=== PATIENT | male | born 1935 | race Caucasian/White ===

== ENCOUNTER 2023-10-21 12:02 | Outpatient (REF) | payer MEDICARE, SELFPAY ==
[2023-10-21 13:19] LABS: Basophils Percent Auto 0.3 % (0.2-2.0); Eosinophils Absolute Auto 0.2 10^3/uL (0.0-0.7); Eosinophils Percent Auto 2.6 % (0.9-7.0); Hematocrit 43.6 % (42.0-54.0); Hemoglobin 13.9 g/dL (14.0-18.0); Immature Granulocytes Abs Auto 0.02 10^3/uL (0.00-0.03); Immature Granulocytes Pct Auto 0.3 % (0.0-0.5); Lymphocytes Absolute Auto 0.9 10^3/uL (1.2-3.8); Lymphocytes Percent Auto 11.9 % (20.5-60.0); Mean Corpuscular HGB Conc 31.9 g/dL (29.9-35.2); Mean Corpuscular Hemoglobin 29.6 pg (25.9-34.0); Mean Platelet Volume 9.9 fL (9.5-13.5); Monocytes Absolute Auto 0.5 10^3/uL (0.3-0.8); Monocytes Percent Auto 6.3 % (1.7-12.0); Neutrophils Absolute Auto 5.8 10^3/uL (1.4-6.5); Neutrophils Percent Auto 78.6 % (43.0-75.0); Platelet Count 253 10^3/uL (150-450); Red Blood Count 4.69 10^6/uL (4.70-6.10); Red Cell Distribution Width 14.6 % (11.0-15.0); White Blood Count 7.3 10^3/uL (4.0-11.0)
[2023-10-21 13:46] LABS: Alanine Aminotransferase 13 U/L (16-63); Albumin Level 3.4 g/dL (3.4-5.0); Alkaline Phosphatase 85 U/L (46-116); Anion Gap 13.3; Aspartate Amino Transferase 15 U/L (15-37); BUN Creatinine Ratio 16.4; Bilirubin Total 0.5 mg/dL (0.2-1.0); Calcium 8.8 mg/dL (8.5-10.1); Carbon Dioxide 27.6 mmol/L (21.0-32.0); Chloride 103 mmol/L (98-107); Estimated GFR (African America 55 (>=60); Estimated GFR (Non-African Ame 46 (>=60); Globulin 3.4 g/dL; Glucose 198 mg/dL (74-106); Potassium 3.9 mmol/L (3.5-5.1); Sodium 140 mmol/L (136-145); Total Protein 6.8 g/dL (6.4-8.2)
== END 2023-10-21 12:03 | disposition home or self-care (01) ==
LOC: LAB 12:02
PROVIDERS: PCP Family Medicine; Visit Provider Family Medicine
DX: R73.03 Prediabetes (principal); Z86.73 Personal history of transient ischemic attack (TIA), and cerebral infarction without residual deficits; N18.31 Chronic kidney disease, stage 3a; E55.9 Vitamin D deficiency, unspecified; I12.9 Hypertensive chronic kidney disease with stage 1 through stage 4 chronic kidney disease, or unspecified chronic kidney disease
CPT/HCPCS: 36415; 80053; 84443; 85025

== ENCOUNTER 2023-12-11 08:58 | Outpatient (REF) | payer MEDICARE, SELFPAY ==
--- OUTSIDE RECORDS SUMMARY | 2023-12-11 09:21 | XMS_ITS | CCD ---
Author Organization [facility] Care Team Providers Care Testing Manager Name Role Phone Unavailable Primary Care Provider UnavailJOEY Smith Attending Unavailable ROMINA FLOWERS Primary Care Unavailable Romina Flowers Primary Care Unavailable MD Ba Salmon Admitting Unavailab MD Ba Pearce Attending Unavailab Romina Lima Primary Care Unavailable Jude Sanchez Admitting Unavailable Jude Sanchez Attending Unavailable Romina Flowers Primary Care Unavailable Carrillo Alejo Admitting Unavailab Carrillo Ren Attending Unavailab Romina Lima Primary Care Unavailable Dipesh Jacksonun Admitting Unavailable Dipesh Jacksonun Attending Unavailable Romina Flowers Primary Care Unavailable Jono Hopkins Consulting Unavailable Tucker Taveras Admitting Unavailable Tucker Taveras Attending Unavailable Romina Flowers Attending Unavailable Romina Flowers Primary Care Unavailable Romina Flowers Attending Unavailable Romina Flowers Primary Care Unavailable Romina Flowers Primary Care Unavailable Romina Flowers Attending Unavailable Rocael Hooker Admitting Unavailable Rocael Hooker Attending Unavailable Romina Flowers Primary Care Unavailable Romina Flowers Primary Care Unavailable Manuel, Herman Admitting Unavailable ManuelDipeshun Attending Unavailable ROBERTA CALABRESE Attending Unavailable ROMINA FLOWERS Primary Care Physician Unavailab Dipti Sims Attending Unavailable Dipti Escamilla Attending Unavailable Allergies Allergy Classification Reported Allergen(s) Allergy Type Date of Onset Reaction(s) Facility (1 source) No Known Medication Allergies; Translations: [No Known Medication Allergies] Propensity to adverse reactions (disorder) [facility] Repository Medications Current Medications Medication Drug Class(es) Dates Sig (Normalized) Sig (Original) amLODIPine 10 mg oral tablet (1 source) Dihydropyridine Calcium Channel Sue Start: 03-31-2019 take 10 mg by mouth once daily amlodipine 10 mg, Oral, Daily Start Date: 03/31/19 Status: Ordered aspirin 81 mg oral tablet (1 source) Platelet Aggregation Inhibitor, Nonsteroidal Anti-inflammatory Drug Start: 03-31-2019 take 1 tablet by mouth once daily aspirin 81 mg oral tablet 81 mg = 1 tab(s), Oral, Daily Start Date: 03/31/19 Status: Ordered carbidopa 25 mg / levodopa 250 mg oral tablet (1 source) Aromatic Amino Acid Decarboxylation Inhibitor, Aromatic Amino Acid Start: 03-31-2019 carbidopa-levodop a 25 mg-250 mg Tab 1 tab(s) Start Date: 03/31/19 Status: Ordered clopidogrel 75 mg oral tablet (1 source) P2Y12 Platelet Inhibitor Start: 03-31-2019 take 1 tablet by mouth once daily clopidogrel 75 mg Tab 75 mg = 1 tab(s), Oral, Daily Start Date: 03/31/19 Status: Ordered metoprolol tartrate 50 mg oral tablet (1 source) beta-Adrenergic Sue Start: 03-31-2019 take 1 tablet by mouth once daily Metoprolol succinate 50 mg ER Tablet 50 mg, Oral, Daily Start Date: 03/31/19 Status: Ordered Vitamin D3 (1 source) Start: 03-31-2019 Vitamin D3 400 International_Uni t, Daily Start Date: 03/31/19 Status: Ordered Completed/Discontinued Medications Medication Drug Class(es) Dates Sig (Normalized) Sig (Original) ciprofloxacin 500 mg oral tablet (2 sources) Quinolone Antimicrobial Start: 02-25-2019 take 1 tablet by mouth once daily Cipro 500 mg Tab 500 mg = 1 tab(s), Oral, Daily, Take 1 tablet the day before the procedure and 1 tablet after the procedure, # 2 tab(s), Refills(s) 0, Pharmacy: [address] Start Date: 11/17/19 Status: Ordered Problems Problem Classification Problem Date Documented Date Episodic/Chronic Acute cerebrovascular disease (1 source) Cerebrovascular accident 02-23-2019 Chronic Cancer of prostate (1 source) History of malignant neoplasm of prostate 02-23-2019 Episodic Disorders of lipid metabolism (1 source) Hyperlipidemia 02-23-2019 Chronic Essential hypertension (1 source) Hypertensive disorder 02-23-2019 Chronic Genitourinary symptoms and ill-defined conditions (1 source) Microscopic hematuria 02-23-2019 Episodic 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 Other diseases of bladder and urethra (1 source) Urethral stricture 02-23-2019 Episodic Parkinson`s disease (1 source) Parkinson's disease 03-31-2019 Chronic Residual codes; unclassified (1 source) Pain, unspecified; Translations: [Pain, unspecified] Onset: 06-05-2023 Episodic Residual codes; unclassified (1 source) Family history of prostate cancer 02-23-2019 Episodic Results Test Name Value Interpretation Reference Range Facility C Bloodon 10-17-2023 C Blood Corynebacterium species (diptheroids) No ARTURO performed on this organism Probable skin contamination Results called to Bryn Chairez on 2S at 729 by TB and results read back for confirmation on 10/15/23 [facility] Comment on above: Performed By: #### 6 [id number] ####[facility] (DEFAULT)[address] [place] [address] Outside Recordson 10-17-2023 Outside Records [id number]# 1.00OTGTIFF [facility] Outside Records [id number]# 1.00OTGTIFF [facility] Coding Summaryon 10-16-2023 Coding Summary [facility] Bloodon 10-15-2023 C Blood No growth at [facility] Comment on above: Performed By: #### 6 [id number] ####[facility] (DEFAULT)[address] [place] [address] Coding Summaryon 10-15-2023 Coding Summary [facility] Consent Formson 10-15-2023 Consent Forms [id number]# 1.00OTGTIFF [facility] Outside Recordson 10-15-2023 Outside Records [id number]# 1.00OTGTIFF [facility] Provider Orderson 10-15-2023 Provider Orders [id number]# 1.00OTGTIFF Normal .Auto Diff 10-14-2023 Auto [place] % 14 % High 1-12 Comment on above: Performed By: #### 1 [id number], [id number], [id number] ####[facility] (DEFAULT)[address] [place] [address] 45658 Baso Abs# 0.0 x10 Normal 0.0-0.2 Comment on above: Performed By: #### 1 [id number], 9945216, 18499834 ####[facility] (DEFAULT)[address] [place] [address] Basophils/100 WBC (Bld) 0.6 % Normal 0.2-2.0 Comment on above: Performed By: #### 1 [id number], 3316147, 27354991 ####[facility] (DEFAULT)[address] [place] [address] 66032 Eos Abs# 0.2 x10 Normal 0.0-0.4 Comment on above: Performed By: #### 1 [id number], 0375896, 34479449 ####[facility] (DEFAULT)[address] [place] [address] 24380 Eosinophils/100 WBC (Bld) 3.8 % Normal 0.9-4.0 Comment on above: Performed By: #### 1 [id number], 4931701, 91920790 ####[facility] (DEFAULT)[address] [place] [address] 08530 Lymph Abs# 0.9 x10 Low 1.3-2.9 Comment on above: Performed By: #### 1 [id number], 4521056, 76887270 ####[facility] (DEFAULT)[address] [place] [address] 60590 Lymphocytes/100 WBC (Bld) 18 % Normal 14-48 Comment on above: Performed By: #### 1 [id number], 4387847, 46326560 ####[facility] (DEFAULT)[address] [place] [address] 62494 [place] Abs# 0.7 x10 Normal 0.0-0.8 Comment on above: Performed By: #### 1 [id number], 1586961, 44413722 ####[facility] (DEFAULT)[address] [place] [address] 57163 Neut Abs# 3.3 x10 Normal 1.5-9.2 Comment on above: Performed By: #### 1 [id number], 1886529, 83167696 ####[facility] (DEFAULT)[address] [place] [address] 17186 Neutrophils/100 WBC (Bld) 64 % Normal 44-88 Comment on above: Performed By: #### 1 [id number], 8481194, 35389122 ####[facility] (DEFAULT)[address] [place] [address] 29625 BMP Standardon 10-14-2023 eGFR Non AA 55 mL/min/1.73m2 Invalid Interpretation Code Comment on above: Performed By: #### 1 [id number], 8742177, 01935421 ####[facility] (DEFAULT)[address] [place] [address] 55801 eGFR AA >60 Invalid Interpretation Code Comment on above: Performed By: #### 1 [id number], 9599580, 97477064 ####[facility] (DEFAULT)[address] [place] [address] 62754 Anion gap [Moles/Vol] 11.1 mmol/L Normal 5.0-19.0 Comment on above: Performed By: #### 1 [id number], 2409719, 12724006 ####[facility] (DEFAULT)[address] [place] [address] 50548 Calcium [Mass/Vol] 8.7 mg/dL Low 8.9-10.3 [facility] Comment on above: Performed By: #### 1 [id number], 4636452, 09371714 ####[facility] (DEFAULT)[address] [place] [address] 35542 Chloride [Moles/Vol] 106 mmol/L Normal 101-111 [facility] Comment on above: Performed By: #### 1 [id number], 0656782, 05746021 ####[facility] (DEFAULT)[address] [place] [address] 21129 CO2 [Moles/Vol] 28 mmol/L Normal 21-32 Comment on above: Performed By: #### 1 [id number], 2103156, 66554453 ####[facility] (DEFAULT)[address] [place] [address] 55326 Creatinine [Mass/Vol] 1.24 mg/dL Normal 0.90-1.30 Comment on above: Performed By: #### 1 [id number], 7628892, 06451502 ####[facility] (DEFAULT)[address] [place] [address] 23919 Glucose [Mass/Vol] 117.0 mg/dL Normal 74.0-118.0 [facility] Comment on above: Performed By: #### 1 [id number], 2659909, 27624373 ####[facility] (DEFAULT)[address] [place] [address] 16412 Osmolality 288 mOsm/L Invalid Interpretation Code Comment on above: Performed By: #### 1 [id number], 1910139, 32175784 ####[facility] (DEFAULT)[address] [place] [address] 56288 Potassium [Moles/Vol] 4.1 mmol/L Normal 3.6-5.1 Comment on above: Performed By: #### 1 [id number], 0022945, 07089465 ####[facility] (DEFAULT)[address] [place] [address] 09540 Sodium [Moles/Vol] 141.0 mmol/L Normal 136.0-144.0 [facility] Comment on above: Performed By: #### 1 [id number], 2516874, 56795692 ####[facility] (DEFAULT)[address] [place] [address] 43258 Urea nitrogen [Mass/Vol] 28 mg/dL High 8-26 Comment on above: Performed By: #### 1 [id number], 2868428, 11041841 ####[facility] (DEFAULT)[address] [place] [address] Urea nitrogen/Creatinine [Mass ratio] 22.5 mg/mg High 4.6-16.2 Comment on above: Performed By: #### 1 [id number], 6146036, 93738133 ####[facility] (DEFAULT)[address] [place] [address] CBC w/ Auto Diffon 4 Erythrocyte distribution width (RBC) [Ratio] 15.5 % High 11.5-15.0 Comment on above: Performed By: #### 1 [id number], 4947903, 84706167 ####[facility] (DEFAULT)[address] [place] [address] Hematocrit (Bld) [Volume fraction] 37.2 % Normal 34.8-51.9 Comment on above: Performed By: #### 1 [id number], 6597845, 44363790 ####[facility] (DEFAULT)[address] [place] [address] Hemoglobin (Bld) [Mass/Vol] 12.5 g/dL Normal 11.8-17.7 Comment on above: Performed By: #### 1 [id number], 0610293, 67915790 ####[facility] (DEFAULT)[address] [place] [address] Man Diff? Auto Invalid Interpretation Code Comment on above: Performed By: #### 1 [id number], 4015139, 28828929 ####[facility] (DEFAULT)[address] [place] [address] 81116 MCH (RBC) [Entitic mass] 30 pg Normal 24-34 Comment on above: Performed By: #### 1 [id number], 0929705, 96773765 ####[facility] (DEFAULT)[address] [place] [address] 34569 MCHC (RBC) [Mass/Vol] 34 g/dL Normal 26-37 Comment on above: Performed By: #### 1 [id number], 4717508, 00584671 ####[facility] (DEFAULT)[address] [place] [address] 20399 MCV (RBC) [Entitic vol] 89 fL Normal 81-100 Comment on above: Performed By: #### 1 [id number], 9847441, 50593837 ####[facility] (DEFAULT)[address] [place] [address] 79069 Platelet 177 x10 Normal 138-427 Comment on above: Performed By: #### 1 042092419, 3866000, 76161837 ####[facility] (DEFAULT)[address] [place] [address] 99279 Platelet mean volume (Bld) [Entitic vol] 8.2 fL Normal 6.3-10.2 Comment on above: Performed By: #### 1 [id number], 2174605, 10251320 ####[facility] (DEFAULT)[address] [place] [address] 27854 RBC 4.19 x10 Normal 3.70-5.30 Comment on above: Performed By: #### 1 [id number], 5084051, 41296725 ####[facility] (DEFAULT)[address] [place] [address] WBC 5.2 x10 Normal 3.5-10.5 Comment on above: Performed By: #### 1 [id number], 7646692, 07366386 ####[facility] (DEFAULT)[address] [place] [address] Discharge Noteon 10-14-2023 Discharge Note Normal Education Noteon 10-14-2023 Education Note Normal Inpatient Clinical Summaryon 10-14-2023 Inpatient Clinical Summary Normal Inpatient Patient Summaryon 10-14-2023 Inpatient Patient Summary Normal Pharmacy Noteon 10-14-2023 Pharmacy Note Normal Progress Note - Nurseon 09-16 Progress Note - Nurse report called to isaias verdin at [place], . [Electronically Signed on: 10/14/2023 14:08 EDT] Indu March RN [Verified on: 10/14/2023 14:08 EDT] Indu March RN Normal .Auto Diff 1on 10-13-2023 Auto [place] % 10 % Normal 1-12 Comment on above: Performed By: #### 1 [id number], 1243457449, 5392267 ####[facility] (DEFAULT)[address] [place] [address] 19451 Baso Abs# 0.0 x10 Normal 0.0-0.2 Comment on above: Performed By: #### 1 6189718, 0619704388, 2076120 ####[facility] (DEFAULT)[address] [place] [address] Basophils/100 WBC (Bld) 0.3 % Normal 0.2-2.0 Comment on above: Performed By: #### 1 [id number], 8976230686, 3207200 ####[facility] (DEFAULT)[address] [place] [address] 29852 Eos Abs# 0.1 x10 Normal 0.0-0.4 Comment on above: Performed By: #### 1 9785813, 6185165484, 1022387 ####[facility] (DEFAULT)[address] [place] [address] 27539 Eosinophils/100 WBC (Bld) 1.4 % Normal 0.9-4.0 Comment on above: Performed By: #### 1 0857942, 6844772709, 7701192 ####[facility] (DEFAULT)[address] [place] [address] 59386 Lymph Abs# 1.0 x10 Low 1.3-2.9 Comment on above: Performed By: #### 1 0903408, 2485832601, 9571753 ####[facility] (DEFAULT)[address] [place] [address] 46053 Lymphocytes/100 WBC (Bld) 14 % Normal 14-48 Comment on above: Performed By: #### 1 2935078, [id number], 9090758 ####[facility] (DEFAULT)[address] [place] [address] [place] Abs# 0.7 x10 Normal 0.0-0.8 Comment on above: Performed By: #### 1 1111116, 1621319255, 5316209 ####[facility] (DEFAULT)[address] [place] [address] Neut Abs# 5.5 x10 Normal 1.5-9.2 Comment on above: Performed By: #### 1 7897721, 5844016937, 5513275 ####[facility] (DEFAULT)[address] [place] [address] Neutrophils/100 WBC (Bld) 75 % Normal 44-88 Comment on above: Performed By: #### 1 3114740, 7954882237, 8430258 ####[facility] (DEFAULT)[address] [place] [address] Standardon 10-13-2023 eGFR Non AA 56 mL/min/1.73m2 Invalid Interpretation Code Comment on above: Performed By: #### 1 1516506, [id number], 2858011 ####[facility] (DEFAULT)[address] [place] [address] eGFR AA >60 Invalid Interpretation Code Comment on above: Performed By: #### 1 1808271, 1036512963, 1763804 ####[facility] (DEFAULT)[address] [place] [address] Anion gap [Moles/Vol] 10.0 mmol/L Normal 5.0-19.0 Comment on above: Performed By: #### 1 7454188, 5126467397, 1088099 ####[facility] (DEFAULT)[address] [place] [address] 68075 Calcium [Mass/Vol] 9.1 mg/dL Normal 8.9-10.3 [facility] Comment on above: Performed By: #### 1 1460086, 0342625807, 9275026 ####[facility] (DEFAULT)[address] [place] [address] 14874 Chloride [Moles/Vol] 107 mmol/L Normal 101-111 [facility] Comment on above: Performed By: #### 1 9166867, 1633116872, 5115443 ####[facility] (DEFAULT)[address] [place] [address] 92714 CO2 [Moles/Vol] 25 mmol/L Normal 21-32 Comment on above: Performed By: #### 1 8413033, 5104979072, 4610894 ####[facility] (DEFAULT)[address] [place] [address] 74149 Creatinine [Mass/Vol] 1.23 mg/dL Normal 0.90-1.30 Comment on above: Performed By: #### 1 1370201, 6388847103, 8617073 ####[facility] (DEFAULT)[address] [place] [address] 85565 Glucose [Mass/Vol] 126.0 mg/dL High 74.0-118.0 [facility] Comment on above: Performed By: #### 1 0339611, [id number], 5542188 ####[facility] (DEFAULT)[address] [place] [address] 49966 Osmolality 282 mOsm/L Invalid Interpretation Code Comment on above: Performed By: #### 1 6285725, 8524687016, 6330734 ####[facility] (DEFAULT)[address] [place] [address] 30746 Potassium [Moles/Vol] 4.0 mmol/L Normal 3.6-5.1 Comment on above: Performed By: #### 1 2534810, 3468658488, 1451818 ####[facility] (DEFAULT)[address] [place] [address] 57528 Sodium [Moles/Vol] 138.0 mmol/L Normal 136.0-144.0 [facility] Comment on above: Performed By: #### 1 1333064, [id number], 3631269 ####[facility] (DEFAULT)[address] [place] [address] Urea nitrogen [Mass/Vol] 26 mg/dL Normal 8-26 Comment on above: Performed By: #### 1 1079477, 3497130113, 5875995 ####[facility] (DEFAULT)[address] [place] [address] Urea nitrogen/Creatinine [Mass ratio] 21.1 mg/mg High 4.6-16.2 Comment on above: Performed By: #### 1 3351225, [id number], 8321623 ####[facility] (DEFAULT)[address] [place] [address] CBC w/ Auto Diffon Erythrocyte distribution width (RBC) [Ratio] 15.2 % High 11.5-15.0 Comment on above: Performed By: #### 1 7630304, 3913149124, 2310859 ####[facility] (DEFAULT)[address] [place] [address] Hematocrit (Bld) [Volume fraction] 39.0 % Normal 34.8-51.9 Comment on above: Performed By: #### 1 5720707, 2402340668, 6721858 ####[facility] (DEFAULT)[address] [place] [address] Hemoglobin (Bld) [Mass/Vol] 13.1 g/dL Normal 11.8-17.7 Comment on above: Performed By: #### 1 6034288, 4096166389, 8353343 ####[facility] (DEFAULT)[address] [place] [address] Man Diff? Auto Invalid Interpretation Code Comment on above: Performed By: #### 1 7548046, [id number], 1850741 ####[facility] (DEFAULT)[address] [place], [place] [address] MCH (RBC) [Entitic mass] 30 pg Normal 24-34 Comment on above: Performed By: #### 1 2917450, 8106538750, 4350595 ####[facility] (DEFAULT)[address] [place] [address] 89355 MCHC (RBC) [Mass/Vol] 34 g/dL Normal 26-37 Comment on above: Performed By: #### 1 8842407, 7820195093, 9048304 ####[facility] (DEFAULT)[address] [place] [address] 12560 MCV (RBC) [Entitic vol] 90 fL Normal 81-100 Comment on above: Performed By: #### 1 2616690, 1055702982, 7237024 ####[facility] (DEFAULT)[address] [place] [address] 38290 Platelet 187 x10 Normal 138-427 Comment on above: Performed By: #### 1 4761321, 1225146625, 6346697 ####[facility] (DEFAULT)[address] [place] [address] 11693 Platelet mean volume (Bld) [Entitic vol] 8.1 fL Normal 6.3-10.2 Comment on above: Performed By: #### 1 7551046, 0511194803, 4158100 ####[facility] (DEFAULT)[address] [place] [address] 41443 RBC 4.35 x10 Normal 3.70-5.30 Comment on above: Performed By: #### 1 0939421, 8584036019, 9107330 ####[facility] (DEFAULT)[address] [place] [address] 06538 WBC 7.3 x10 Normal 3.5-10.5 Comment on above: Performed By: #### 1 0729083, 9604685548, 2029753 ####[facility] (DEFAULT)[address] [place] [address] 69456 Nutrition Noteon 10-13-2023 Nutrition Note note po intake has been good - 100% most meals; will continue to monitor po and assist with any changes prn. ts Normal RPR, Rfx Qn RPR/Confirm TP L Con 10-13-2023 RPR LC Non-Reactive Invalid Interpretation Code Non Reactive Comment on above: Result Comment: Perf ormed At: [facility] [id number] [place], [place] [id number] Vincent PhD Ph:[phone] Performed By: #### 1 [id number], [id number], 5383237, 6858898, [id number] ####[facility] (DEFAULT)[address] [place] [address] .Auto Diff 10-12-2023 Auto [place] % 9 % Normal 03-29 Comment on above: Performed By: #### 1 0973004, 8146371279, 3822540, 3476513, [id number] ####[facility] (DEFAULT)[address] [place] [address] Baso Abs# 0.0 x10 Normal 0.0-0.2 Comment on above: Performed By: #### 1 3427950, 9631084986, 3440833, 8625651, 3967407093 ####[facility] (DEFAULT)[address] [place] [address] Basophils/100 WBC (Bld) 0.4 % Normal 0.2-2.0 Comment on above: Performed By: #### 1 9310053, 5374556514, 7443265, 9111541, 6253918643 ####[facility] (DEFAULT)[address] [place] [address] Eos Abs# 0.1 x10 Normal 0.0-0.4 Comment on above: Performed By: #### 1 8314973, 4393903525, 6575088, 9457121, [id number] ####[facility] (DEFAULT)[address] [place] [address] Eosinophils/100 WBC (Bld) 1.6 % Normal 0.9-4.0 Comment on above: Performed By: #### 1 6991042, 7675815921, 9341487, 4311299, 6202208713 ####[facility] (DEFAULT)[address] [place] [address] 31184 Lymph Abs# 0.7 x10 Low 1.3-2.9 Comment on above: Performed By: #### 1 6183771, 0231749157, 2519261, 0465985, 6262236361 ####[facility] (DEFAULT)[address] [place] [address] 05955 Lymphocytes/100 WBC (Bld) 12 % Low 14-48 Comment on above: Performed By: #### 1 4355539, 8134062822, 2118581, 9939221, 7383927667 ####[facility] (DEFAULT)[address] [place] [address] 94870 [place] Abs# 0.5 x10 Normal 0.0-0.8 Comment on above: Performed By: #### 1 9822619, 1762071088, 8869936, 6036476, [id number] ####[facility] (DEFAULT)[address] [place] [address] 23342 Neut Abs# 4.7 x10 Normal 1.5-9.2 Comment on above: Performed By: #### 1 5921677, 1450675522, 8955957, 5227529, 5715665099 ####[facility] (DEFAULT)[address] [place] [address] 55805 Neutrophils/100 WBC (Bld) 77 % Normal 44-88 Comment on above: Performed By: #### 1 1271406, 2327786917, 6152111, 3689218, 8797710206 ####[facility] (DEFAULT)[address] [place] [address] 92749 BMP Standardon 10-12-2023 eGFR Non AA >60 Invalid Interpretation Code Comment on above: Performed By: #### 1 0592396, [id number], 9077930, 2518574, [id number] ####[facility] (DEFAULT)[address] [place] [address] 10150 eGFR AA >60 Invalid Interpretation Code Comment on above: Performed By: #### 1 8963671, 2726626448, 7137831, 6262714, [id number] ####[facility] (DEFAULT)[address] [place] [address] [id number] Anion gap [Moles/Vol] 10.9 mmol/L Normal 5.0-19.0 Comment on above: Performed By: #### 1 [id number], [id number], [id number], [id number], [id number] ####[facility] (DEFAULT)[address] [place] [address] [id number] Calcium [Mass/Vol] 8.8 mg/dL Low 8.9-10.3 [facility] Comment on above: Performed By: #### 1 [id number], [id number], [id number], [id number], [id number] ####[facility] [facility] (DEFAULT)[address] [place] [address] 29214 Chloride [Moles/Vol] 108 mmol/L Normal 101-111 [facility] Comment on above: Performed By: #### 1 4811423, 8473217152, 5708291, 3876550, 6650628061 ####[facility] (DEFAULT)[address] [place] [address] 19540 CO2 [Moles/Vol] 25 mmol/L Normal 21-32 Comment on above: Performed By: #### 1 0212252, 8183908844, 5415543, 3470207, 6895330022 ####[facility] (DEFAULT)[address] [place] [address] 52310 Creatinine [Mass/Vol] 1.11 mg/dL Normal 0.90-1.30 Comment on above: Performed By: #### 1 6344594, 7197151392, 9629473, 8905746, 4606369454 ####[facility] (DEFAULT)[address] [place] [address] 43064 Glucose [Mass/Vol] 123.0 mg/dL High 74.0-118.0 [facility] Comment on above: Performed By: #### 1 4381263, 2136030248, 1012218, 2170518, 3853236369 ####[facility] (DEFAULT)[address] [place] [address] 83291 Osmolality 286 mOsm/L Invalid Interpretation Code Comment on above: Performed By: #### 1 9848769, 7730799155, 9322479, 4423447, 0264887737 ####[facility] (DEFAULT)[address] [place] [address] 67119 Potassium [Moles/Vol] 3.9 mmol/L Normal 3.6-5.1 Comment on above: Performed By: #### 1 6619213, 8494947851, 0702324, 7778258, 9532144077 ####[facility] (DEFAULT)[address] [place] [address] 88615 Sodium [Moles/Vol] 140.0 mmol/L Normal 136.0-144.0 [facility] Comment on above: Performed By: #### 1 0668830, 5013224203, 2631503, 6748308, 8719579422 ####[facility] (DEFAULT)[address] [place] [address] 29152 Urea nitrogen [Mass/Vol] 27 mg/dL High 8-26 Comment on above: Performed By: #### 1 9327890, 4205711603, 4209904, 8129195, 4796514218 ####[facility] (DEFAULT)[address] [place] [address] 16684 Urea nitrogen/Creatinine [Mass ratio] 24.3 mg/mg High 4.6-16.2 Comment on above: Performed By: #### 1 1255704, 5804081245, 6034162, 3667882, 0475578971 ####[facility] (DEFAULT)[address] [place] [address] 97607 CBC w/ Auto Diffon 4 Erythrocyte distribution width (RBC) [Ratio] 14.9 % Normal 11.5-15.0 Comment on above: Performed By: #### 1 7429001, 9824900588, 5980789, 4802433, 7159239217 ####[facility] (DEFAULT)[address] [place] [address] Hematocrit (Bld) [Volume fraction] 39.2 % Normal 34.8-51.9 Comment on above: Performed By: #### 1 9177310, 5309236439, 5481793, 7562084, 1451309925 ####[facility] (DEFAULT)[address] [place] [address] Hemoglobin (Bld) [Mass/Vol] 13.2 g/dL Normal 11.8-17.7 Comment on above: Performed By: #### 1 7859960, 1691990571, 3033554, 6649446, 7882351879 ####[facility] (DEFAULT)[address] [place] [address] Man Diff? Auto Invalid Interpretation Code Comment on above: Performed By: #### 1 0093841, 7228551669, 2781441, 7183770, 8380230723 ####[facility] (DEFAULT)[address] [place] [address] 72644 MCH (RBC) [Entitic mass] 30 pg Normal 24-34 Comment on above: Performed By: #### 1 5992819, 5036898615, 8412900, 7075660, 7932689778 ####[facility] (DEFAULT)[address] [place] [address] 85608 MCHC (RBC) [Mass/Vol] 34 g/dL Normal 26-37 Comment on above: Performed By: #### 1 7734453, 1656199415, 9241962, 6271598, 2038946290 ####[facility] (DEFAULT)[address] [place] [address] MCV (RBC) [Entitic vol] 88 fL Normal 81-100 Comment on above: Performed By: #### 1 8171322, 8976575037, 8357000, 2631118, 3296492346 ####[facility] (DEFAULT)[address] [place] [address] Platelet 181 x10 Normal 138-427 Comment on above: Performed By: #### 1 0956567, 4310220083, 6446764, 0135377, 1165747104 ####[facility] (DEFAULT)[address] [place] [address] Platelet mean volume (Bld) [Entitic vol] 8.1 fL Normal 6.3-10.2 Comment on above: Performed By: #### 1 9931927, 6458441589, 3575797, 7728858, 7956985370 ####[facility] (DEFAULT)[address] [place] [address] RBC 4.46 x10 Normal 3.70-5.30 Comment on above: Performed By: #### 1 9046178, 1043835206, 9551251, 0746342, 5960961992 ####[facility] (DEFAULT)[address] [place] [address] WBC 6.0 x10 Normal 3.5-10.5 Comment on above: Performed By: #### 1 5792430, 0586346401, 5378138, 8956689, 5694647912 ####[facility] (DEFAULT)[address] [place] [address] CRPon 10-12-2023 CRP [Mass/Vol] mg/L Normal <=0.5 Comment on above: Performed By: #### 1 9764907, 4644604745, 4704747, 4233593, 7179381529 ####[facility] (DEFAULT)[address] [place] [address] .Auto Diff 1on 10-11-2023 Auto [place] % 10 % Normal 1-12 Comment on above: Performed By: #### 1 148283315, 10545867, 4989923 ####[facility] (DEFAULT)[address] [place] [address] Baso Abs# 0.0 x10 Normal 0.0-0.2 Comment on above: Performed By: #### 1 375143129, 64662367, 3135889 ####[facility] (DEFAULT)[address] [place] [address] 96495 Basophils/100 WBC (Bld) 0.8 % Normal 0.2-2.0 Comment on above: Performed By: #### 1 035049185, 98165127, 3872744 ####[facility] (DEFAULT)[address] [place] [address] 11555 Eos Abs# 0.1 x10 Normal 0.0-0.4 Comment on above: Performed By: #### 1 467208598, 26735923, 3619179 ####[facility] (DEFAULT)[address] [place] [address] 02058 Eosinophils/100 WBC (Bld) 2.4 % Normal 0.9-4.0 Comment on above: Performed By: #### 1 627105009, 21115937, 5276231 ####[facility] (DEFAULT)[address] [place] [address] 91641 Lymph Abs# 0.9 x10 Low 1.3-2.9 Comment on above: Performed By: #### 1 122472945, 77298723, 6375135 ####[facility] (DEFAULT)[address] [place] [address] 73865 Lymphocytes/100 WBC (Bld) 17 % Normal 14-48 Comment on above: Performed By: #### 1 139415234, 04912223, 9169668 ####[facility] (DEFAULT)[address] [place] [address] 99681 [place] Abs# 0.5 x10 Normal 0.0-0.8 Comment on above: Performed By: #### 1 160700152, 44497684, 7037342 ####[facility] (DEFAULT)[address] [place] [address] 01206 Neut Abs# 3.7 x10 Normal 1.5-9.2 Comment on above: Performed By: #### 1 302110045, 55043553, 1531106 ####[facility] (DEFAULT)[address] [place] [address] 50383 Neutrophils/100 WBC (Bld) 70 % Normal 44-88 Comment on above: Performed By: #### 1 985872208, 36663217, 3072869 ####[facility] (DEFAULT)[address] [place] [address] 10044 BMP Standardon 10-11-2023 eGFR Non AA 57 mL/min/1.73m2 Invalid Interpretation Code Comment on above: Performed By: #### 1 380515357, 34867281, 9432449 ####[facility] (DEFAULT)[address] [place] [address] 82740 eGFR AA >60 Invalid Interpretation Code Comment on above: Performed By: #### 1 439317874, 19096406, 5313770 ####[facility] (DEFAULT)[address] [place] [address] 79107 Anion gap [Moles/Vol] 9.0 mmol/L Normal 5.0-19.0 Comment on above: Performed By: #### 1 993153978, 64417675, 1800480 ####[facility] (DEFAULT)[address] [place] [address] 65658 Calcium [Mass/Vol] 8.6 mg/dL Low 8.9-10.3 [facility] Comment on above: Performed By: #### 1 293927548, 52697623, 2902156 ####[facility] (DEFAULT)[address] [place] [address] 55777 Chloride [Moles/Vol] 110 mmol/L Normal 101-111 [facility] Comment on above: Performed By: #### 1 319100814, 26393889, 2133166 ####[facility] (DEFAULT)[address] [place] [address] 94096 CO2 [Moles/Vol] 25 mmol/L Normal 21-32 Comment on above: Performed By: #### 1 136082479, 67912119, 5634323 ####[facility] (DEFAULT)[address] [place] [address] 40988 Creatinine [Mass/Vol] 1.20 mg/dL Normal 0.90-1.30 Comment on above: Performed By: #### 1 931331936, 73052233, 8749270 ####[facility] (DEFAULT)[address] [place] [address] 88005 Glucose [Mass/Vol] 116.0 mg/dL Normal 74.0-118.0 [facility] Comment on above: Performed By: #### 1 646182957, 35388087, 8429536 ####[facility] (DEFAULT)[address] [place] [address] 51833 Osmolality 285 mOsm/L Invalid Interpretation Code Comment on above: Performed By: #### 1 306372960, 06514160, 8172452 ####[facility] (DEFAULT)[address] [place] [address] 26159 Potassium [Moles/Vol] 4.0 mmol/L Normal 3.6-5.1 Comment on above: Performed By: #### 1 415042006, 20006800, 0975175 ####[facility] (DEFAULT)[address] [place] [address] 20661 Sodium [Moles/Vol] 140.0 mmol/L Normal 136.0-144.0 [facility] Comment on above: Performed By: #### 1 825738419, 34325891, 9885151 ####[facility] (DEFAULT)[address] [place] [address] 47628 Urea nitrogen [Mass/Vol] 27 mg/dL High - Comment on above: Performed By: #### 1 214155635, 80849988, 6696460 ####[facility] (DEFAULT)[address] [place] [address] 29802 Urea nitrogen/Creatinine [Mass ratio] 22.5 mg/mg High 4.6-16.2 Comment on above: Performed By: #### 1 630132992, 97808451, 5148313 ####[facility] (DEFAULT)[address] [place] [address] 74114 CBC w/ Auto Diffon 4 Erythrocyte distribution width (RBC) [Ratio] 14.8 % Normal 11.5-15.0 Comment on above: Performed By: #### 1 368523672, 11899944, 0959499 ####[facility] (DEFAULT)[address] [place] [address] Hematocrit (Bld) [Volume fraction] 39.1 % Normal 34.8-51.9 Comment on above: Performed By: #### 1 430488524, 55121151, 8244643 ####[facility] (DEFAULT)[address] [place] [address] Hemoglobin (Bld) [Mass/Vol] 12.9 g/dL Normal 11.8-17.7 Comment on above: Performed By: #### 1 891780361, 66213217, 0243510 ####[facility] (DEFAULT)[address] [place] [address] Man Diff? Auto Invalid Interpretation Code Comment on above: Performed By: #### 1 432026956, 21324869, 3378587 ####[facility] (DEFAULT)[address] [place] [address] 98467 MCH (RBC) [Entitic mass] 30 pg Normal 24-34 Comment on above: Performed By: #### 1 698371937, 18057267, 3457333 ####[facility] (DEFAULT)[address] [place] [address] 01628 MCHC (RBC) [Mass/Vol] 33 g/dL Normal 26-37 Comment on above: Performed By: #### 1 377509629, 89155409, 3191316 ####[facility] (DEFAULT)[address] [place] [address] 79424 MCV (RBC) [Entitic vol] 89 fL Normal 81-100 Comment on above: Performed By: #### 1 989545785, 84294602, 4775949 ####[facility] (DEFAULT)[address] [place] [address] 11962 Platelet 177 x10 Normal 138-427 Comment on above: Performed By: #### 1 496575466, 54696985, 5659120 ####[facility] (DEFAULT)[address] [place] [address] Platelet mean volume (Bld) [Entitic vol] 8.2 fL Normal 6.3-10.2 Comment on above: Performed By: #### 1 901739877, 18486582, 4686415 ####[facility] (DEFAULT)[address] [place] [address] RBC 4.38 x10 Normal 3.70-5.30 Comment on above: Performed By: #### 1 076758430, 04141814, 9834216 ####[facility] (DEFAULT)[address] [place] [address] WBC 5.4 x10 Normal 3.5-10.5 Comment on above: Performed By: #### 1 008791618, 29390436, 8888235 ####[facility] (DEFAULT)[address] [place] [address] .Auto Diff 1on 10-09-2023 Auto [place] % 7 % Normal 1-12 Comment on above: Performed By: #### 5 618809440, 17353962, 6309633318, 9016204628, 9534771777, 4361976, 8208889091, 4458569479, 6899564, 4806138 ####[facility] (DEFAULT)[address] [place] [address] Baso Abs# 0.0 x10 Normal 0.0-0.2 Comment on above: Performed By: #### 5 657630990, 97138806, 9735746244, 7744838759, 8879856887, 9345882, 2883598181, 6806547257, 9249604, 7566824 ####[facility] (DEFAULT)[address] [place] [address] 11692 Basophils/100 WBC (Bld) 0.6 % Normal 0.2-2.0 Comment on above: Performed By: #### 5 322802459, 49434453, 8645844884, 3276091356, 0724279783, 7844986, 1170525005, 2404978053, 8501412, 5541767 ####[facility] (DEFAULT)[address] [place] [address] 18888 Eos Abs# 0.1 x10 Normal 0.0-0.4 Comment on above: Performed By: #### 5 959011942, 12324636, 0635235492, 7103810281, 9045675512, 0680189, , 0781510826, 0101302, 2929357 ####[facility] (DEFAULT)[address] [place] [address] 79079 Eosinophils/100 WBC (Bld) 2.9 % Normal 0.9-4.0 Comment on above: Performed By: #### 5 855109850, 92057359, 1141946560, 2148329796, 3981680472, , , 9957505271, 5949156, 8267284 ####[facility] (DEFAULT)[address] [place] [address] 36294 Lymph Abs# 0.8 x10 Low 1.3-2.9 Comment on above: Performed By: #### 5 728367378, 28015594, 7363985845, 5567719861, 7033098881, , , 3589010476, 9212741, 5140605 ####[facility] (DEFAULT)[address] [place] [address] 23385 Lymphocytes/100 WBC (Bld) 17 % Normal 14-48 Comment on above: Performed By: #### 5 863570831, 21832203, 2474404358, 7181532173, 0191213760, , 2973874815, 0933679595, 6964306, 6582790 ####[facility] (DEFAULT)[address] [place] [address] 61464 [place] Abs# 0.3 x10 Normal 0.0-0.8 Comment on above: Performed By: #### 5 951807881, 37792555, 0565235966, 9861559384, 3217078333, 3993623, 3616700189, 3554568735, 2594892, 6869494 ####[facility] (DEFAULT)[address] [place] [address] Neut Abs# 3.4 x10 Normal 1.5-9.2 Comment on above: Performed By: #### 5 363570848, 02986877, 9065734822, 5761411797, 6804932361, 7476490, 8498965881, 5827593076, 1737626, 0702263 ####[facility] (DEFAULT)[address] [place], [place] [address] Neutrophils/100 WBC (Bld) 73 % Normal 44-88 Comment on above: Performed By: #### 5 840922715, 62699045, 4798150190, 0457588705, 7607563734, 9626891, 8210817160, 0774612858, 8517987, 0402806 ####[facility] (DEFAULT)[address] [place] [address] 21003 Ammoniaon 10-10-2023 Ammonia (P) [Moles/Vol] 15.0 umol/L Normal 10.0-35.0 Comment on above: Performed By: #### 6 22974252, 3503254, 9783942, 2639584, 7760935 ####[facility] (DEFAULT)[address] [place] [address] 70544 BNP.on 10-10-2023 Natriuretic peptide B (Bld) [Mass/Vol] 69.0 pg/mL Normal 0.0-100.0 Comment on above: Result Comment: BNP results greater than 100 pg/mL are considered abnormal and suggestive of patients with CHF. Higher BNP concentrations measured in the first 72 hours after an acute coronary syndorme are associated with an increased risk of , myocardial infarction, and CHF. Performed By: #### 5 127575242, 75752651, 2374517239, 2527244069, 7105213576, 1611514, 3560582428, 8176553529, 2813652, 7317944 ####[facility] (DEFAULT)[address] [place] [address] 14148 CBC w/ Auto Diffon Erythrocyte distribution width (RBC) [Ratio] 15.3 % High 11.5-15.0 Comment on above: Performed By: #### 5 096412098, 26766688, 3683076198, 7633828245, 2336493073, 0140440, 2249613260, 3496383532, 9144796, 4481643 ####[facility] (DEFAULT)[address] [place] [address] 36545 Hematocrit (Bld) [Volume fraction] 41.7 % Normal 34.8-51.9 Comment on above: Performed By: #### 5 824190914, 27649623, 8789926624, 7467221400, 6362750116, 0282504, 6605214486, 4820102561, 1157949, 5617011 ####[facility] (DEFAULT)[address] [place] [address] 10489 Hemoglobin (Bld) [Mass/Vol] 13.8 g/dL Normal 11.8-17.7 Comment on above: Performed By: #### 5 879308295, 27194068, 8921573254, 6772641837, 5756194908, 5333473, 7699001961, 5414767771, 9962885, 8129814 ####[facility] (DEFAULT)[address] [place] [address] 22848 Man Diff? Auto Invalid Interpretation Code Comment on above: Performed By: #### 5 894378091, 63359206, 0618623615, 5782059631, 7386124531, 4325758, 2577985031, 7194069019, 8045154, 7163853 ####[facility] (DEFAULT)[address] [place] [address] 19790 MCH (RBC) [Entitic mass] 30 pg Normal 24-34 Comment on above: Performed By: #### 5 942675921, 21394581, 0593131051, 7301765296, 3144652228, 0034839, 1875630293, 0754786758, 4795518, 5519426 ####[facility] (DEFAULT)[address] [place] [address] 14406 MCHC (RBC) [Mass/Vol] 33 g/dL Normal 26-37 Comment on above: Performed By: #### 5 312262171, 79870816, 2529891697, 4893283097, 2538030394, 9303486, 9773583077, 6950320699, 3849243, 0387962 ####[facility] (DEFAULT)[address] [place] [address] MCV (RBC) [Entitic vol] 90 fL Normal 81-100 Comment on above: Performed By: #### 5 131105908, 87285665, 5743113489, 5289185930, 7100955380, 5081364, 6480515349, 5643655001, 5818461, 4275304 ####[facility] (DEFAULT)[address] [place] [address] Platelet 190 x10 Normal 138-427 Comment on above: Performed By: #### 5 083989936, 33395866, 3859865413, 0078635227, 1205243020, 6493597, 7434108235, 9313569053, 2704990, 9102230 ####[facility] (DEFAULT)[address] [place] [address] 34908 Platelet mean volume (Bld) [Entitic vol] 8.0 fL Normal 6.3-10.2 Comment on above: Performed By: #### 5 851101544, 08610580, 2507008962, 7447707898, 6871489922, 8583486, 5441965153, 3246702493, 5537788, 5212721 ####[facility] (DEFAULT)[address] [place] [address] RBC 4.63 x10 Normal 3.70-5.30 Comment on above: Performed By: #### 5 978022319, 88341219, 7819356565, 3189800749, 9120095657, 9913302, 6107455283, 7555877505, 3318552, 6217338 ####[facility] (DEFAULT)[address] [place] [address] 22127 WBC 4.7 x10 Normal 3.5-10.5 Comment on above: Performed By: #### 5 535012002, 34924079, 3207345920, 8248306838, 2655440450, 1128422, 7762002707, 4591409879, 9709858, 5015067 ####[facility] (DEFAULT)[address] [place] [address] 91788 [facility] Standardon 10-10-2023 eGFR Non AA 59 mL/min/1.73m2 Invalid Interpretation Code Comment on above: Performed By: #### 5 902352181, 44607488, 4146983167, 2296464511, 5407917065, 0157729, 2396233850, 2971777512, 3100749, 9787195 ####[facility] (DEFAULT)[address] [place] [address] 18603 eGFR AA >60 Invalid Interpretation Code Comment on above: Performed By: #### 5 703495077, 61035650, 8579954329, 9613993977, 4629572755, 2076106, 7737301407, 7443438956, 5512965, 7143287 ####[facility] (DEFAULT)[address] [place] [address] 82055 Albumin [Mass/Vol] 3.8 g/dL Normal 3.5-5.0 [facility] Comment on above: Performed By: #### 5 136229919, 71832446, 4479144849, 2396079984, 4799560022, 9585774, 0097544761, 2055221169, 7721648, 6725847 ####[facility] (DEFAULT)[address] [place] [address] 99878 Albumin/Globulin [Mass ratio] 1.1 {ratio} Low 1.4-2.6 Comment on above: Performed By: #### 5 727532256, 34257477, 8986842345, 6851594505, 0308976361, 4853105, 7293696421, 7026917185, 5178532, 3659046 ####[facility] (DEFAULT)[address] [place] [address] 49918 Alk Phos 67 IU/L Normal 32-91 Comment on above: Performed By: #### 5 354969895, 80583698, 1779510038, 0720036341, 9564297382, 2653816, 9224895678, 8708597161, 3682732, 0826846 ####[facility] (DEFAULT)[address] [place] [address] ALT [Catalytic activity/Vol] 15.0 U/L Low 17.0-63.0 Comment on above: Performed By: #### 5 707304131, 07532663, 5416780305, 0671976210, 0373776835, 7955809, 6010363047, 3020597114, 6124114, 2489546 ####[facility] (DEFAULT)[address] [place] [address] 00316 Anion gap [Moles/Vol] 9.0 mmol/L Normal 5.0-19.0 Comment on above: Performed By: #### 5 620464559, 70847761, 5138420753, 1770673618, 8413516810, 5427209, 2463566214, 1647168135, 7666963, 2788181 ####[facility] (DEFAULT)[address] [place] [address] 15049 AST [Catalytic activity/Vol] 16 U/L Normal 15-41 Comment on above: Performed By: #### 5 656673163, 94075795, 8396509266, 3336362268, 5245222638, 8453675, 4160894877, 7139758195, 1738091, 2750465 ####[facility] (DEFAULT)[address] [place] [address] 31114 Bili Total 0.7 mg/dL Normal 0.3-1.2 Comment on above: Performed By: #### 5 814477079, 98165670, 6856248091, 7142150034, 1648928500, 8390714, 3663319637, 8146057726, 8689610, 9123291 ####[facility] (DEFAULT)[address] [place] [address] 32930 Calcium [Mass/Vol] 8.9 mg/dL Normal 8.9-10.3 [facility] Comment on above: Performed By: #### 5 [id number], 99618481, 9184301110, 8796945745, 7698860019, 9296262, 1419802687, 3282720090, 7477923, 2747678 ####[facility] (DEFAULT)[address] [place] [address] 68301 Chloride [Moles/Vol] 112 mmol/L High 101-111 [facility] Comment on above: Performed By: #### 5 [id number], 19662121, 4830793400, 3089019489, 3245703267, 2618822, 7712113170, 2985430535, 2627277, 3018207 ####[facility] (DEFAULT)[address] [place] [address] 57395 CO2 [Moles/Vol] 24 mmol/L Normal 21-32 Comment on above: Performed By: #### 5 [id number], 11722569, 2555770619, 5928755438, 9071331819, 0232474, 3697730046, 4603263626, 4000951, 4193217 ####[facility] (DEFAULT)[address] [place] [address] 35968 Creatinine [Mass/Vol] 1.16 mg/dL Normal 0.90-1.30 Comment on above: Performed By: #### 5 [id number], 78195061, 9466482581, 8146396346, 3604047263, 6060066, 9530133830, 7992630971, 7180875, 6047544 ####[facility] (DEFAULT)[address] [place] [address] 98776 Globulin (S) [Mass/Vol] 3.3 g/dL Normal 1.5-4.3 Comment on above: Performed By: #### 5 [id number], 02847994, 9089577217, 7432387521, 0763158375, 2892514, 6647189271, 2393681045, 0838792, 9796967 ####[facility] (DEFAULT)[address] [place] [address] 00765 Glucose [Mass/Vol] 137.0 mg/dL High 74.0-118.0 [facility] Comment on above: Performed By: #### 5 [id number], 33847613, 6005618233, 4308061928, 1339389760, 1184745, 8038130944, 7513566052, 7739160, 7371898 ####[facility] (DEFAULT)[address] [place] [address] 58208 Osmolality 289 mOsm/L Invalid Interpretation Code Comment on above: Performed By: #### 5 [id number], 08718052, 6459659556, 2481459027, 7198427727, 1419908, 2355010293, 5778168122, 3963493, 3758558 ####[facility] (DEFAULT)[address] [place] [address] 21133 Potassium [Moles/Vol] 4.0 mmol/L Normal 3.6-5.1 Comment on above: Performed By: #### 5 [id number], 60186376, 0817882028, 6376293667, 5393242373, 4072831, , 3083807760, 5078289, 7277984 ####[facility] (DEFAULT)[address] [place] [address] 39694 Protein [Mass/Vol] 7.1 g/dL Normal 6.5-8.1 [facility] Comment on above: Performed By: #### 5 [id number], 95016687, 0054444076, 3324751323, 7257284251, 0089648, 8111590035, 1014955324, 8049284, 9683093 ####[facility] (DEFAULT)[address] [place] [address] 53773 Sodium [Moles/Vol] 141.0 mmol/L Normal 136.0-144.0 [facility] Comment on above: Performed By: #### 5 [id number], 07220775, 7239337483, [id number], 4647170425, 8210685, 6102666671, 4363705111, 9803552, 5135198 ####[facility] (DEFAULT)[address] [place] [address] Urea nitrogen [Mass/Vol] 28 mg/dL High 8-26 Comment on above: Performed By: #### 5 [id number], 60887511, 0738076691, 6634157655, 6810849953, 7543772, 9612758467, 6082958121, 5341221, 9449374 ####[facility] (DEFAULT)[address] [place] [address] 78566 Urea nitrogen/Creatinine [Mass ratio] 24.1 mg/mg High 4.6-16.2 Comment on above: Performed By: #### 5 [id number], 74498865, 9498346997, 5729391844, 0759620183, 6726136, 2866389722, 8847973562, 6198283, 8469066 ####[facility] (DEFAULT)[address] [place] [address] 50891 Breakpoint Chem [facility] Comment on above: Performed By: #### 5 [id number], 15010126, 7877540076, 9141821039, 3757022763, 1669061, 5368354112, 5951318203, 9495072, 8770949 ####[facility] (DEFAULT)[address] [place] [address] Head or Brain w/o Dick carter 10-10-2023 CT Head or Brain w/o Contrast Normal ED Clinical Summaryon 2023 ED Clinical Summary Normal [facility] ED Note-Nursingon 10-10-2023 ED Note-Nursing Patient is currently admitted to [facility] and pending labs will be reviewed by admitting provider. [facility] ED Patient Education Noteon 10-10-2023 ED Patient Education Note Education Materials [facility] ED Patient Summaryon 024 ED Patient Summary Normal [facility] Extra Redon 10-10-2023 Tube Collected Yes Invalid Interpretation Code Comment on above: Performed By: #### 5 [id number], 35672031, 6265593945, 0595802727, 8208620374, 2207035, 9970404931, 6802938067, 8178842, 8313608 ####[facility] (DEFAULT)[address] [place] [address] 37338 Folateon 10-10-2023 Folic Acid Level 8.87 ng/mL Normal 5.90-24.80 Comment on above: Performed By: #### 6 34900424, 2658346, 8468816, 2160393, 4779713 ####[facility] (DEFAULT)[address] [place] [address] HgbA1c Standardon 10-10-2023 .Hb 14.7 Invalid Interpretation Code Comment on above: Performed By: #### 1 [id number] ####[facility] (DEFAULT)[address] [place] [address] 88371 .Hgb A1c 0.59 g/dL Invalid Interpretation Code Comment on above: Performed By: #### 1 [id number] ####[facility] (DEFAULT)[address] [place] [address] 10355 Glucose [Mass/Vol] 120 mg/dL Invalid Interpretation Code Comment on above: Performed By: #### 1 [id number] ####[facility] (DEFAULT)[address] [place] [address] 15663 HbA1c (Bld) [Mass fraction] 5.8 % Normal 4.6-6.2 Comment on above: Performed By: #### 1 [id number] ####[facility] (DEFAULT)[address] [place] [address] 66729 VERDIN Formon 10-10-2023 VERDIN Form [id number] #1.00OTGTIFF Normal Magnesiumon 10-10-2023 Magnesium [Mass/Vol] 2.08 mg/dL Normal 1.80-2.50 [facility] Comment on above: Performed By: #### 5 [id number], 78256979, 7563374478, 7546881224, 7555271120, 5794801, 2133498116, 2654356798, 5763032, 7085081 ####[facility] (DEFAULT)[address] [place] [address] 74598 Nutrition Noteon 10-10-2023 Nutrition Note Normal PTon 10-10-2023 INR Coag (PPP) [Relative time] 1.04 {INR} Normal 0.91-1.11 Comment on above: Performed By: #### 5 210566516, 52792208, 8783766824, 0340340182, 2075865476, 1088731, 2800666005, 5166040877, 4045678, 1818697 ####[facility] (DEFAULT)[address] [place] [address] 89691 PT 10.8 second(s) Normal 9.7-11.8 Comment on above: Performed By: #### 5 [id number], 40042287, 3187687746, 0112810979, 4551614033, 8953740, 5645604732, 7648016885, 7129062, 4909873 ####[facility] (DEFAULT)[address] [place] [address] 24823 Pharmacy Noteon 10-10-2023 Pharmacy Note [facility] Progress Note - Nurseon 09-16 Progress Note - Nurse [facility] TSH w/ Reflex to FT4on 10-09 TSH Qn 2.00 m[IU]/L Normal 0.45-5.33 Comment on above: Performed By: #### 6 29439654, 9612065, 7368780, 8423616, 6981772 ####[facility] (DEFAULT)[address] [place] [address] TnI HSon 10-10-2023 Troponin I High Sensitivity 15.6 pg/mL Normal <=20.0 Comment on above: Performed By: #### 5 [id number], 31953859, 7997853577, 2896272762, 3820348647, 6117223, 0046528915, 1366584719, 6577356, 5580916 ####[facility] (DEFAULT)[address] [place] [address] UA w Culture if Ind Standard on 10-10-2023 Breakpoint UA [facility] Comment on above: Performed By: #### 1 [id number] ####[facility] (DEFAULT)[address] [place] [address] Color (U) Yellow [facility] Comment on above: Performed By: #### 1 [id number] ####[facility] (DEFAULT)[address] [place] [address] Culture? Not Indicated Invalid Interpretation Code Comment on above: Result Comment: Resu lt created by rule GL_MAGR_ADD_UA_CULT1 Performed By: #### 1 [id number] ####[facility] (DEFAULT)[address] [place] [address] Glucose (U) [Mass/Vol] Negative [facility] Comment on above: Performed By: #### 1 [id number] ####[facility] (DEFAULT)[address] [place] [address] Ketones Ql (U) Negative [facility] Comment on above: Performed By: #### 1 [id number] ####[facility] (DEFAULT)[address] [place] [address] Micro? Not Indicated Invalid Interpretation Code Comment on above: Result Comment: Resu lt created by rule GL_MAGR_ADD_UA_MICRO Performed By: #### 1 [id number] ####[facility] (DEFAULT)[address] [place] [address] UA Bilirubin Negative Normal Comment on above: Performed By: #### 1 [id number] ####[facility] (DEFAULT)[address] [place] [address] 29800 UA Blood Negative Normal NEGATIVE Comment on above: Performed By: #### 1 [id number] ####[facility] (DEFAULT)[address] [place] [address] 44462 UA Clarity CLEAR Normal CLEAR Comment on above: Performed By: #### 1 [id number] ####[facility] (DEFAULT)[address] [place] [address] UA Leuk Est Negative Normal NEGATIVE Comment on above: Performed By: #### 1 [id number] ####[facility] (DEFAULT)[address] [place] [address] UA Nitrite Negative Normal NEGATIVE Comment on above: Performed By: #### 1 [id number] ####[facility] (DEFAULT)[address] [place] [address] 08799 UA pH 6.0 Normal 5-8 Comment on above: Performed By: #### 1 [id number] ####[facility] (DEFAULT)[address] [place] [address] 99635 UA Protein Negative Normal NEGATIVE Comment on above: Performed By: #### 1 [id number] ####[facility] (DEFAULT)[address] [place] [address] 35929 UA Spec Grav >=1.030 Normal 1.001-1.035 Comment on above: Performed By: #### 1 [id number] ####[facility] (DEFAULT)[address] [place] [address] 78527 UA Urobilinogen 0.2 mg/dL Normal 0.2-1.0 Comment on above: Performed By: #### 1 [id number] ####[facility] (DEFAULT)[address] [place] [address] 92602 Urine Source Clean Catch [facility] Comment on above: Performed By: #### 1 [id number] ####[facility] (DEFAULT)[address] [place] [address] 98971 Vit B12 Lvlon 10-10-2023 Vit B12 275 Normal 180-914 Comment on above: Performed By: #### 6 38790685, 4681501, 8868931, 2644398, 8564805 ####[facility] (DEFAULT)[address] [place] [address] 82573 Vit D25 OHon 10-10-2023 Vitamin D 25 OH 16 ng/mL Low 30-100 Comment on above: Performed By: #### 6 68327485, 5432609, 3916786, 1051087, 1742999 ####[facility] (DEFAULT)[address] [place] [address] 10305 XR Chest 1 View Frontalon XR Chest 1 View Frontal [facility] Coding Summaryon 10-02-2023 Coding Summary [facility] C Bloodon 09-26-2023 C Blood Right AC @ 10:30 am MW No growth at 5 Days [facility] Comment on above: Performed By: #### 6 [id number] ####[facility] (DEFAULT)[address] [place] [address] 04546 ED Note - Physicianon 2023 ED Note - Physician [facility] C Urineon 09-23-2023 C Urine Normal Comment on above: Performed By: #### 1 [id number], 80535329, 2536797 ####[facility] (DEFAULT)[address] [place] [address] 04416 Outside Recordson 09-23-2023 Outside Records [id number] #1.00OTGTIFF [facility] .Auto Diff 1on 09-21-2023 Auto [place] % 8 % Normal -12 Comment on above: Performed By: #### 1 582054429, 0712638313, 82691568, 7482114, 0035859095, 2463213304 ####[facility] (DEFAULT)[address] [place] [address] 55576 Baso Abs# 0.0 x10 Normal 0.0-0.2 Comment on above: Performed By: #### 1 181035128, 9920460714, 85618819, 8739404, 1567739927, 5373035299 ####[facility] (DEFAULT)[address] [place] [address] 90954 Basophils/100 WBC (Bld) 0.4 % Normal 0.2-2.0 Comment on above: Performed By: #### 1 241486034, 0415891421, 28368569, 9095894, 4761607337, 9088254428 ####[facility] (DEFAULT)[address] [place] [address] 95896 Eos Abs# 0.1 x10 Normal 0.0-0.4 Comment on above: Performed By: #### 1 012518265, 7385913141, 33272338, 4201373, 2158261904, 6320302299 ####[facility] (DEFAULT)[address] [place] [address] 39120 Eosinophils/100 WBC (Bld) 1.4 % Normal 0.9-4.0 Comment on above: Performed By: #### 1 170708526, 7092438822, 14417047, 9856658, 5657184495, 3246569530 ####[facility] (DEFAULT)[address] [place] [address] 30512 Lymph Abs# 1.0 x10 Low 1.3-2.9 Comment on above: Performed By: #### 1 778500373, 4503270622, 69339599, 3144891, 6769895914, 7455380389 ####[facility] (DEFAULT)[address] [place] [address] 27441 Lymphocytes/100 WBC (Bld) 16 % Normal 14-48 Comment on above: Performed By: #### 1 346025252, 8628293748, 77564550, 7339270, 9386419899, 9987861673 ####[facility] (DEFAULT)[address] [place] [address] [place] Abs# 0.5 x10 Normal 0.0-0.8 Comment on above: Performed By: #### 1 147702363, 8955612822, 35102365, 4350652, 1789696030, 3083565746 ####[facility] (DEFAULT)[address] [place] [address] Neut Abs# 4.9 x10 Normal 1.5-9.2 Comment on above: Performed By: #### 1 911092973, 4126857761, 42867614, 4637884, 0881322761, 9338232716 ####[facility] (DEFAULT)[address] [place] [address] Neutrophils/100 WBC (Bld) 74 % Normal 44-88 Comment on above: Performed By: #### 1 658325757, 8617815940, 56850382, 8991987, 5565252494, 5260052648 ####[facility] (DEFAULT)[address] [place] [address] CBC w/ Auto Diffon 4 Erythrocyte distribution width (RBC) [Ratio] 14.8 % Normal 11.5-15.0 Comment on above: Performed By: #### 1 606869122, 6223086957, 64739102, 9202413, 5685471123, 7305830485 ####[facility] (DEFAULT)[address] [place] [address] Hematocrit (Bld) [Volume fraction] 42.1 % Normal 34.8-51.9 Comment on above: Performed By: #### 1 637942097, 6473839321, 88341555, 5585842, 3064171077, 2349436615 ####[facility] (DEFAULT)[address] [place] [address] Hemoglobin (Bld) [Mass/Vol] 13.8 g/dL Normal 11.8-17.7 Comment on above: Performed By: #### 1 482748856, 8860064025, 47221952, 7758523, 5877383506, 5616595935 ####[facility] (DEFAULT)[address] [place] [address] 55102 Man Diff? Auto Invalid Interpretation Code Comment on above: Performed By: #### 1 219527200, 8515872925, 13959298, 9030574, 2379721665, 8811281558 ####[facility] (DEFAULT)[address] [place] [address] 88276 MCH (RBC) [Entitic mass] 29 pg Normal 24-34 Comment on above: Performed By: #### 1 326476411, 2923816113, 14518516, 6507593, 0662510579, 2181867428 ####[facility] (DEFAULT)[address] [place] [address] 10658 MCHC (RBC) [Mass/Vol] 33 g/dL Normal 26-37 Comment on above: Performed By: #### 1 464883012, 9040071001, 64397897, 7346970, 5780162013, 3684782156 ####[facility] (DEFAULT)[address] [place] [address] 52704 MCV (RBC) [Entitic vol] 90 fL Normal 81-100 Comment on above: Performed By: #### 1 571393384, 2813234601, 29228932, 7140051, 8126422497, 9229881475 ####[facility] (DEFAULT)[address] [place] [address] 41781 Platelet 191 x10 Normal 138-427 Comment on above: Performed By: #### 1 814984969, 3189469375, 98537801, 3657091, 0423167387, 3275832574 ####[facility] (DEFAULT)[address] [place] [address] 10758 Platelet mean volume (Bld) [Entitic vol] 8.1 fL Normal 6.3-10.2 Comment on above: Performed By: #### 1 710474190, 8285821607, 69031171, 2972118, 8486084239, 5526178471 ####[facility] (DEFAULT)[address] [place] [address] 51597 RBC 4.68 x10 Normal 3.70-5.30 Comment on above: Performed By: #### 1 996776416, 3969377038, 59626984, 2011392, 3292317688, 2823395017 ####[facility] (DEFAULT)[address] [place] [address] 62753 WBC 6.6 x10 Normal 3.5-10.5 Comment on above: Performed By: #### 1 613107265, 2474114349, 33752130, 1171301, 8458290861, 6836378998 ####[facility] (DEFAULT)[address] [place] [address] 31044 [facility] Standardon 09-21-2023 eGFR Non AA 57 mL/min/1.73m2 Invalid Interpretation Code Comment on above: Performed By: #### 1 478674850, 7172489108, 86661383, 3134636, 2096439886, 5190522828 ####[facility] (DEFAULT)[address] [place] [address] 43271 eGFR AA >60 Invalid Interpretation Code Comment on above: Performed By: #### 1 039712384, 6346686166, 53835825, 1041499, 4588380432, 9983881552 ####[facility] (DEFAULT)[address] [place] [address] 89690 Albumin [Mass/Vol] 3.9 g/dL Normal 3.5-5.0 [facility] Comment on above: Performed By: #### 1 355189128, 3607238375, 42406375, 3161239, 8872544110, 9384194579 ####[facility] (DEFAULT)[address] [place] [address] 76133 Albumin/Globulin [Mass ratio] 1.1 {ratio} Low 1.4-2.6 Comment on above: Performed By: #### 1 100309715, 2450601378, 05549580, 5994055, 8926530796, 1648511536 ####[facility] (DEFAULT)[address] [place] [address] 89641 Alk Phos 75 IU/L Normal 32-91 Comment on above: Performed By: #### 1 602588650, 7685006428, 97719660, 4830161, 5388477523, 3652589094 ####[facility] (DEFAULT)[address] [place] [address] 18504 ALT [Catalytic activity/Vol] 18.0 U/L Normal 17.0-63.0 Comment on above: Performed By: #### 1 213390638, 9410202594, 92233390, 1626694, 3774730151, 9131970152 ####[facility] (DEFAULT)[address] [place] [address] 84341 Anion gap [Moles/Vol] 9.4 mmol/L Normal 5.0-19.0 Comment on above: Performed By: #### 1 072822731, 6687226866, 21164202, 1385326, 9128941613, 0885763675 ####[facility] (DEFAULT)[address] [place] [address] 30971 AST [Catalytic activity/Vol] 24 U/L Normal 15-41 Comment on above: Performed By: #### 1 382447740, 8105119640, 62702864, 1760886, 8238048611, 1534650065 ####[facility] (DEFAULT)[address] [place] [address] 58567 Bili Total 0.7 mg/dL Normal 0.3-1.2 Comment on above: Performed By: #### 1 838155823, 9571473004, 28843479, 6244713, 8845775380, 4558604542 ####[facility] (DEFAULT)[address] [place] [address] 67806 Calcium [Mass/Vol] 8.8 mg/dL Low 8.9-10.3 [facility] Comment on above: Performed By: #### 1 384393328, 1625848429, 10006747, 9465807, 3738109303, 9331063633 ####[facility] (DEFAULT)[address] [place] [address] 18513 Chloride [Moles/Vol] 110 mmol/L Normal 101-111 [facility] Comment on above: Performed By: #### 1 985427683, 7485188410, 92856655, 3963938, 0116774641, 5840177481 ####[facility] (DEFAULT)[address] [place] [address] CO2 [Moles/Vol] 23 mmol/L Normal 21-32 Comment on above: Performed By: #### 1 291275179, 0616964830, 18369803, 3737113, 9290241324, 0768167265 ####[facility] (DEFAULT)[address] [place] [address] 86529 Creatinine [Mass/Vol] 1.20 mg/dL Normal 0.90-1.30 Comment on above: Performed By: #### 1 031444986, 2247876945, 25067168, 7351772, 1830832350, 2879036557 ####[facility] (DEFAULT)[address] [place] [address] 47666 Globulin (S) [Mass/Vol] 3.3 g/dL Normal 1.5-4.3 Comment on above: Performed By: #### 1 997009273, 3076575745, 72142374, 3122667, 9220526161, 8244953898 ####[facility] (DEFAULT)[address] [place] [address] 62385 Glucose [Mass/Vol] 114.0 mg/dL Normal 74.0-118.0 [facility] Comment on above: Performed By: #### 1 380157151, 8734633538, 14071293, 4904581, 0718535544, 2538690954 ####[facility] (DEFAULT)[address] [place] [address] 60684 Osmolality 282 mOsm/L Invalid Interpretation Code Comment on above: Performed By: #### 1 954680572, 6084402951, 91578987, 7145240, 7788883237, 7625138731 ####[facility] (DEFAULT)[address] [place] [address] 90357 Potassium [Moles/Vol] 4.4 mmol/L Normal 3.6-5.1 Comment on above: Performed By: #### 1 332651283, 3530879611, 81151038, 6486360, 7695893797, 1863023707 ####[facility] (DEFAULT)[address] [place] [address] 42818 Protein [Mass/Vol] 7.2 g/dL Normal 6.5-8.1 [facility] Comment on above: Performed By: #### 1 075425078, 9375697881, 94640983, 9223236, 4969857202, 5891932986 ####[facility] (DEFAULT)[address] [place] [address] 56459 Sodium [Moles/Vol] 138.0 mmol/L Normal 136.0-144.0 [facility] Comment on above: Performed By: #### 1 929871664, 0797990174, 59716820, 7271316, 2858696018, 5689832606 ####[facility] (DEFAULT)[address] [place] [address] 09912 Urea nitrogen [Mass/Vol] 29 mg/dL High 8-26 Comment on above: Performed By: #### 1 746422944, 1911226153, 25839484, 2504774, 8495539862, 7957276770 ####[facility] (DEFAULT)[address] [place] [address] 43183 Urea nitrogen/Creatinine [Mass ratio] 24.1 mg/mg High 4.6-16.2 Comment on above: Performed By: #### 1 524317137, 4116085335, 71533876, 9268675, 1036089017, 6984129499 ####[facility] (DEFAULT)[address] [place] [address] 72893 ED Clinical Summaryon 2023 ED Clinical Summary Normal [facility] ED Note - Physicianon 2023 ED Note - Physician [facility] ED Patient Education Noteon 09-21-2023 ED Patient Education Note Normal ED Patient Summaryon 024 ED Patient Summary Normal [facility] Extra Blueon 09-21-2023 Tube Collected Yes Invalid Interpretation Code Comment on above: Performed By: #### 1 [id number], 8842359019, 20018439, 7938775, 9066541700, 0698672898 ####[facility] (DEFAULT)[address] [place] [address] 19811 Lactic Acidon 09-21-2023 Lactic Acid 14.1 mg/dL Normal 4.5-19.8 Comment on above: Performed By: #### 2 [id number] ####[facility] (DEFAULT)[address] [place] [address] 49194 Progress Note - Nurseon Progress Note - Nurse [facility] SARS-CoV-2 (COVID-19) PCRon 09-21-2023 Employed in healthcare? Unknown Invalid Interpretation Code Comment on above: Performed By: #### 6 [id number] ####[facility] (DEFAULT)[address] [place] [address] Group care resident? Unknown Invalid Interpretation Code Comment on above: Performed By: #### 6 [id number] ####[facility] (DEFAULT)[address] [place] [address] 11972 In ICU? Unknown Invalid Interpretation Code Comment on above: Performed By: #### 6 [id number] ####[facility] (DEFAULT)[address] [place] [address] 09542 Internal Control Pass [facility] Comment on above: Performed By: #### 6 [id number] ####[facility] (DEFAULT)[address] [place] [address] status? Unknown Invalid Interpretation Code Comment on above: Performed By: #### 6 [id number] ####[facility] (DEFAULT)[address] [place] [address] SARS-CoV-2 (COVID-19) RNA ANDREW+probe Ql (Unsp spec) Not detected Normal Not Detected Comment on above: Result Comment: Perf ormed by PCR methodology. Performed By: #### 6 [id number] ####[facility] (DEFAULT)[address] [place] [address] SARS-CoV-2 (COVID-19) RNA ANDREW+probe Ql (Unsp spec) Unknown Invalid Interpretation Code Comment on above: Performed By: #### 6 [id number] ####[facility] (DEFAULT)[address] [place] [address] Symptomatic as defined by CDC? Unknown Invalid Interpretation Code Comment on above: Performed By: #### 6 [id number] ####[facility] (DEFAULT)[address] [place] [address] UA Zbyto7zm 09-21-2023 UA Bacteria 3+ [facility] Comment on above: Order Comment: Urina lysis Microscopic order added on by Discern Expert Rules system. Performed By: #### 1 [id number], 22049446, [id number] ####[facility] (DEFAULT)[address] [place] [address] UA RBC 15-20 [facility] Comment on above: Order Comment: Urina lysis Microscopic order added on by Take the Interview Expert Rules system. Performed By: #### 1 [id number], [id number], 0572710 ####[facility] (DEFAULT)[address] [place] [address] UA Squam Epi Rare [facility] Comment on above: Order Comment: Urina lysis Microscopic order added on by Discern Expert Rules system. Performed By: #### 1 [id number], 32268943, 2009091 ####[facility] (DEFAULT)[address] [place] [address] UA WBC 60-70 [facility] Comment on above: Order Comment: Urina lysis Microscopic order added on by Discern Expert Rules system. Performed By: #### 1 [id number] ####[facility] (DEFAULT)[address] [place] [address] UA w Culture if Ind Standard on 09-21-2023 Breakpoint UA [facility] Comment on above: Performed By: #### 1 [id number] ####[facility] (DEFAULT)[address] [place] [address] Color (U) Yellow [facility] Comment on above: Performed By: #### 1 [id number] ####[facility] (DEFAULT)[address] [place] [address] Culture? Yes Normal Comment on above: Result Comment: Resu lt created by rule GL_MAGR_ADD_UA_CULT Result created by rule GL_MAGR_ADD_UA_CULT1 Performed By: #### 1 [id number] ####[facility] (DEFAULT)[address] [place] [address] Glucose (U) [Mass/Vol] Negative [facility] Comment on above: Performed By: #### 1 [id number] ####[facility] (DEFAULT)[address] [place] [address] Ketones Ql (U) Negative [facility] Comment on above: Performed By: #### 1 [id number], [id number] ####[facility] (DEFAULT)[address] [place] [address] Micro? Indicated Invalid Interpretation Code Comment on above: Result Comment: Resu lt created by rule GL_MAGR_ADD_UA_MICRO Performed By: #### 1 [id number], 06708030, 0895743 ####[facility] (DEFAULT)[address] [place] [address] 41981 UA Bilirubin Negative Normal Comment on above: Performed By: #### 1 [id number], 88935456, 9035757 ####[facility] (DEFAULT)[address] [place] [address] 11613 UA Blood MODERATE Abnormal NEGATIVE Comment on above: Performed By: #### 1 [id number], 39283627, 2996105 ####[facility] (DEFAULT)[address] [place] [address] 18322 UA Clarity SL CLOUDY Abnormal CLEAR Comment on above: Performed By: #### 1 [id number], 33574362, 9470363 ####[facility] (DEFAULT)[address] [place] [address] UA Leuk Est MODERATE Abnormal NEGATIVE Comment on above: Performed By: #### 1 [id number], 83749391, 0864724 ####[facility] (DEFAULT)[address] [place] [address] UA Nitrite Positive Abnormal NEGATIVE Comment on above: Performed By: #### 1 [id number], 71734008, 2389107 ####[facility] (DEFAULT)[address] [place] [address] UA pH 6.0 Normal 5-8 Comment on above: Performed By: #### 1 [id number], 77994917, 0292081 ####[facility] (DEFAULT)[address] [place] [address] 56726 UA Protein TRACE Abnormal NEGATIVE Comment on above: Performed By: #### 1 [id number], 09054472, 3485272 ####[facility] (DEFAULT)[address] [place] [address] 00810 UA Spec Grav >=1.030 Normal 1.001-1.035 Comment on above: Performed By: #### 1 [id number], 58668603, 8006524 ####[facility] (DEFAULT)[address] [place] [address] 07649 UA Urobilinogen 0.2 mg/dL Normal 0.2-1.0 Comment on above: Performed By: #### 1 [id number], 29666149, 0323213 ####[facility] (DEFAULT)[address] [place] [address] Urine Source Clean Catch [facility] Comment on above: Performed By: #### 1 [id number], 74701649, 8740339 ####[facility] (DEFAULT)[address] [place] [address] XR Chest 2 Viewson 4 XR Chest 2 Views [facility] Outside Recordson 09-05-2023 Outside Records [id number] 2#1.00OTGTIFF [facility] Outside Records [id number] 8#1.00OTGTIFF [facility] Outside Recordson 09-03-2023 Outside Records [id number] #1.00OTGTIFF [facility] Coding Summaryon 08-22-2023 Coding Summary Normal Outside [facility] 08-21-2023 Outside Records [id number] #1.00OTGTIFF [facility] C Urineon 08-17-2023 C Urine Normal Comment on above: Performed By: #### 6 [id number] ####[facility] (DEFAULT)[address] [place] [address] Provider Orderson 08-15-2023 Provider Orders [id number] 7#1.00OTGTIFF [facility] Outside Recordson 07-25-2023 Outside Records [id number] #1.00OTGTIFF [facility] Office/Clinic Noteon 024 Office/Clinic Note Normal [facility] Outside Recordson 06-27-2023 Outside Records [id number]# 1.00OTGTIFF [facility] Outside Records [id number]# 1.00OTGTIFF [facility] Outside Recordson 06-26-2023 Outside Records [id number] #1.00OTGTIFF [facility] Office/Clinic Noteon 024 Office/Clinic Note [facility] Coding Summaryon 06-05-2023 Coding Summary [facility] C Bloodon 05-31-2023 C Blood 2nd site 15 minutes after first Blood Culture is drawn No growth at 5 Days [facility] Comment on above: Performed By: #### 6 [id number] ####[facility] (DEFAULT)[address] [place] [address] C Blood No growth at 5 Days [facility] Comment on above: Performed By: #### 6 412558 ####[facility] (DEFAULT)[address] [place] [address] Coding Summaryon 05-30-2023 Coding Summary [facility] C Urineon 05-28-2023 C Urine Urine Culture ordered as a result of parameters set on specific urine dip and urine microsopic results. No growth at 2 days. [facility] Comment on above: Performed By: #### 6 391462, 16537764, [id number] ####[facility] (DEFAULT)[address] [place] [address] Consent Formson 05-28-2023 Consent Forms [id number]#1 .00OTGTIFF [facility] Consent Forms [id number]# 1.00OTGTIFF [facility] Outside Recordson 05-28-2023 Outside Records [id number]# 1.00OTGTIFF [facility] Outside Records [id number][facility] Provider Orders [id number]# [facility] 05-28-2023 Transfer Note [id number]#[facility] .Auto Diff 1on 05-27-2023 Auto [place] % 10 % Normal 03-29 Comment on above: Performed By: #### 1 8553795, 0472008, 5574039, 5816678, 6903948, 2676099084 ####[facility] (DEFAULT)[address] [place] [address] Baso Abs# 0.0 x10 Normal 0.0-0.2 Comment on above: Performed By: #### 1 4527233, 1049977, 3318509, 7900508, 9386445, 6881946316 ####[facility] (DEFAULT)[address] [place] [address] 31716 Basophils/100 WBC (Bld) 0.2 % Normal 0.2-2.0 Comment on above: Performed By: #### 1 8241806, 8430135, 0389777, 6088168, 9299564, 5059448040 ####[facility] (DEFAULT)[address] [place] [address] 42854 Eos Abs# 0.1 x10 Normal 0.0-0.4 Comment on above: Performed By: #### 1 3941369, 5985351, 2778299, 9851693, 9432712, 7124782920 ####[facility] (DEFAULT)[address] [place] [address] 92383 Eosinophils/100 WBC (Bld) 1.3 % Normal 0.9-4.0 Comment on above: Performed By: #### 1 7304403, 5837354, 7480005, 7702184, 7085810, 3104038383 ####[facility] (DEFAULT)[address] [place] [address] 26652 Lymph Abs# 0.7 x10 Low 1.3-2.9 Comment on above: Performed By: #### 1 1767342, 6124857, 5381416, 6289975, 2670218, 7101082860 ####[facility] (DEFAULT)[address] [place] [address] Lymphocytes/100 WBC (Bld) 13 % Low 14-48 Comment on above: Performed By: #### 1 4337773, 9206001, 1930779, 8376153, 1109591, 8676922393 ####[facility] (DEFAULT)[address] [place] [address] [place] Abs# 0.5 x10 Normal 0.0-0.8 Comment on above: Performed By: #### 1 8253014, 9903903, 4812178, 0327140, 8986547, 7951594962 ####[facility] (DEFAULT)[address] [place] [address] Neut Abs# 3.8 x10 Normal 1.5-9.2 Comment on above: Performed By: #### 1 0193411, 7454987, 4384130, 0670708, 4845296, 1986576992 ####[facility] (DEFAULT)[address] [place] [address] Neutrophils/100 WBC (Bld) 75 % Normal 44-88 Comment on above: Performed By: #### 1 7012736, 9017423, 7910818, 5327957, 7433862, 4936553128 ####[facility] (DEFAULT)[address] [place] [address] CBC w/ Auto Diffon 4 Erythrocyte distribution width (RBC) [Ratio] 15.1 % High 11.5-15.0 Comment on above: Performed By: #### 1 1449251, 2370727, 3034053, 2915366, 2302519, 9797582553 ####[facility] (DEFAULT)[address] [place] [address] Hematocrit (Bld) [Volume fraction] 38.1 % Normal 34.8-51.9 Comment on above: Performed By: #### 1 6703175, 1261220, 2701495, 7239951, 8803416, 1991637420 ####[facility] (DEFAULT)[address] [place] [address] Hemoglobin (Bld) [Mass/Vol] 13.0 g/dL Normal 11.8-17.7 Comment on above: Performed By: #### 1 9232558, 4087354, 8660097, 0666419, 7011209, 8226087923 ####[facility] (DEFAULT)[address] [place] [address] Man Diff? Auto Invalid Interpretation Code Comment on above: Performed By: #### 1 3579118, 6448858, 0934343, 2602375, 3141722, 6954216781 ####[facility] (DEFAULT)[address] [place] [address] MCH (RBC) [Entitic mass] 30 pg Normal 24-34 Comment on above: Performed By: #### 1 7663141, 2452601, 7418265, 0082695, 3592234, 4164409041 ####[facility] (DEFAULT)[address] [place] [address] 67350 MCHC (RBC) [Mass/Vol] 34 g/dL Normal 26-37 Comment on above: Performed By: #### 1 9558317, 4616110, 0888272, 4941329, 1865360, 9505480829 ####[facility] (DEFAULT)[address] [place] [address] 43156 MCV (RBC) [Entitic vol] 88 fL Normal 81-100 Comment on above: Performed By: #### 1 8887283, 4298797, 6594308, 3426708, 0511092, 9098878951 ####[facility] (DEFAULT)[address] [place] [address] 84947 Platelet 164 x10 Normal 138-427 Comment on above: Performed By: #### 1 2179016, 2926148, 2227497, 5787212, 8049880, 1152195636 ####[facility] (DEFAULT)[address] [place] [address] Platelet mean volume (Bld) [Entitic vol] 8.4 fL Normal 6.3-10.2 Comment on above: Performed By: #### 1 0236109, 2887146, 6622803, 3409457, 9585923, 4836769632 ####[facility] (DEFAULT)[address] [place] [address] RBC 4.34 x10 Normal 3.70-5.30 Comment on above: Performed By: #### 1 6370668, 6903596, 9513733, 1732131, 5537896, 3882867114 ####[facility] (DEFAULT)[address] [place] [address] WBC 5.1 x10 Normal 3.5-10.5 Comment on above: Performed By: #### 1 7956584, 5746001, 6575580, 3692335, 9387528, 5877475698 ####[facility] (DEFAULT)[address] [place] [address] CKon 05-27-2023 CK [Catalytic activity/Vol] 364 U/L Normal 49-397 Comment on above: Performed By: #### 1 1150304, 1412276, 6189973, 0307511, 7645683, 1611665991 ####[facility] (DEFAULT)[address] [place] [address] CMP Standardon 05-27-2023 eGFR Non AA 59 mL/min/1.73m2 Invalid Interpretation Code Comment on above: Performed By: #### 1 4424580, 2131608, 4981398, 4376484, 7689547, 1472544384 ####[facility] (DEFAULT)[address] [place] [address] eGFR AA >60 Invalid Interpretation Code Comment on above: Performed By: #### 1 1320358, 6987953, 7893564, 2920286, 9864665, 9312812449 ####[facility] (DEFAULT)[address] [place] [address] 92866 Albumin [Mass/Vol] 3.1 g/dL Low 3.5-5.0 [facility] Comment on above: Performed By: #### 1 7675087, 8924937, 7333126, 4573692, 0463738, 1599626281 ####[facility] (DEFAULT)[address] [place] [address] 58678 Alk Phos 54 IU/L Normal 32-91 Comment on above: Performed By: #### 1 3812419, 3041590, 0684204, 3669444, 3024446, 2440272226 ####[facility] (DEFAULT)[address] [place] [address] ALT [Catalytic activity/Vol] 9.0 U/L Low 17.0-63.0 Comment on above: Performed By: #### 1 2478273, 2494975, 8360932, 3739266, 0109115, 7311500191 ####[facility] (DEFAULT)[address] [place] [address] 73733 AST [Catalytic activity/Vol] 82 U/L High 15-41 Comment on above: Performed By: #### 1 5337983, 8759219, 5311878, 7638200, 9460399, 9285121892 ####[facility] (DEFAULT)[address] [place] [address] 91392 Bili Total 1.0 mg/dL Normal 0.3-1.2 Comment on above: Performed By: #### 1 7386437, 3637306, 5176773, 2324462, 4016145, 2995040239 ####[facility] (DEFAULT)[address] [place] [address] Calcium [Mass/Vol] 8.4 mg/dL Low 8.9-10.3 [facility] Comment on above: Performed By: #### 1 5832882, 8611623, 8461944, 7354267, 4864655, 4180783169 ####[facility] (DEFAULT)[address] [place] [address] 86125 Chloride [Moles/Vol] 104 mmol/L Normal 101-111 [facility] Comment on above: Performed By: #### 1 1976681, 8643238, 9952666, 5874676, 5960034, 1885610523 ####[facility] (DEFAULT)[address] [place] [address] 10929 CO2 [Moles/Vol] 26 mmol/L Normal 21-32 Comment on above: Performed By: #### 1 3411961, 8694997, 2016974, 0965789, 5803250, 0045689095 ####[facility] (DEFAULT)[address] [place] [address] 02557 Creatinine [Mass/Vol] 1.16 mg/dL Normal 0.90-1.30 Comment on above: Performed By: #### 1 1894051, 4958492, 4984870, 4659314, 6646267, 8089933723 ####[facility] (DEFAULT)[address] [place] [address] 00287 Glucose [Mass/Vol] 124.0 mg/dL High 74.0-118.0 [facility] Comment on above: Performed By: #### 1 4833481, 3678767, 0268289, 4288133, 9027207, 7412485056 ####[facility] (DEFAULT)[address] [place] [address] 52613 Potassium [Moles/Vol] 3.8 mmol/L Normal 3.6-5.1 Comment on above: Performed By: #### 1 1953492, 5916415, 4005317, 1530963, 3345253, 7727723292 ####[facility] (DEFAULT)[address] [place] [address] 99824 Protein [Mass/Vol] 6.0 g/dL Low 6.5-8.1 [facility] Comment on above: Performed By: #### 1 2121008, 8432896, 2655821, 7641850, 4003056, 4422019216 ####[facility] (DEFAULT)[address] [place] [address] 64566 Sodium [Moles/Vol] 140.0 mmol/L Normal 136.0-144.0 [facility] Comment on above: Performed By: #### 1 6299227, 3002208, 2641871, 5635919, 5521379, 5053945948 ####[facility] (DEFAULT)[address] [place] [address] 99241 Urea nitrogen [Mass/Vol] 22 mg/dL Normal 8-26 Comment on above: Performed By: #### 1 0119638, 0812692, 9558145, 3902827, 8292332, 6008200524 ####[facility] (DEFAULT)[address] [place] [address] 87759 Albumin/Globulin [Mass ratio] 1.0 {ratio} Low 1.4-2.6 Comment on above: Performed By: #### 1 5391068, 3788798, 7178346, 5792790, 0920412, 3033008507 ####[facility] (DEFAULT)[address] [place] [address] 60502 Anion gap [Moles/Vol] 13.8 mmol/L Normal 5.0-19.0 Comment on above: Performed By: #### 1 0637900, 9229309, 8365162, 6629543, 8327448, 3877367169 ####[facility] (DEFAULT)[address] [place] [address] 47428 Globulin (S) [Mass/Vol] 2.9 g/dL Normal 1.5-4.3 Comment on above: Performed By: #### 1 8513425, 3961528, 7986626, 1805169, 2835643, 3512912217 ####[facility] (DEFAULT)[address] [place] [address] 32480 Osmolality 284 mOsm/L Invalid Interpretation Code Comment on above: Performed By: #### 1 4506267, 4308624, 1203232, 3605037, 4995787, 6036980290 ####[facility] (DEFAULT)[address] [place] [address] 86274 Urea nitrogen/Creatinine [Mass ratio] 18.9 mg/mg High 4.6-16.2 Comment on above: Performed By: #### 1 8112597, 2861795, 9721449, 3039688, 2164442, 9229880872 ####[facility] (DEFAULT)[address] [place] [address] CRPon 05-27-2023 CRP 8.3 mg/dL High <=0.5 Comment on above: Performed By: #### 1 3882022, 3661670, 6589925, 0510932, 7068268, 8388653588 ####[facility] (DEFAULT)[address] [place] [address] Education Noteon 05-27-2023 Education Note Normal Inpatient Clinical Summaryon 05-27-2023 Inpatient Clinical Summary Normal Inpatient Patient Summaryon 05-27-2023 Inpatient Patient Summary Normal Myoglobinon 05-27-2023 Myoglobin [Mass/Vol] 228.5 ng/mL High 17.4-105.7 [facility] Comment on above: Performed By: #### 1 6069924, 5582402, 1366551, 4861902, 8732502, [id number] ####[facility] (DEFAULT)[address] [place] [address] Pharmacy Noteon 05-27-2023 Pharmacy Note [facility] Progress Note - Nurseon 05-16 Progress Note - Nurse [facility] Telemetry Stripson Telemetry Strips [id number]#1 .00OTGTIFF [facility] .Auto Diff 1on 05-26-2023 Auto [place] % 11 % Normal 03-29 Comment on above: Performed By: #### 2 502787, 4121697, 4478278, 2810215578, 3999456803, 22805170, 6569651 ####[facility] (DEFAULT)[address] [place] [address] 54252 Baso Abs# 0.0 x10 Normal 0.0-0.2 Comment on above: Performed By: #### 2 129072, 4811821, 3280652, 5832102489, 2664623037, 65913979, 7944437 ####[facility] (DEFAULT)[address] [place] [address] 48549 Basophils/100 WBC (Bld) 0.2 % Normal 0.2-2.0 Comment on above: Performed By: #### 2 929427, 3196983, 6877295, 9578089427, 6435930552, 37231922, 4502212 ####[facility] (DEFAULT)[address] [place] [address] 26254 Eos Abs# 0.0 x10 Normal 0.0-0.4 Comment on above: Performed By: #### 2 102464, 3656127, 2884650, 1904747513, 5517315404, 69317054, 0271163 ####[facility] (DEFAULT)[address] [place] [address] 24612 Eosinophils/100 WBC (Bld) 0.7 % Low 0.9-4.0 Comment on above: Performed By: #### 2 802177, 2953303, 6542852, 3754159608, 7215704185, 30505514, 3463325 ####[facility] (DEFAULT)[address] [place] [address] 25646 Lymph Abs# 0.5 x10 Low 1.3-2.9 Comment on above: Performed By: #### 2 762156, 2563669, 2890798, 7240175446, 8808307874, 23328993, 1444191 ####[facility] (DEFAULT)[address] [place] [address] 20469 Lymphocytes/100 WBC (Bld) 12 % Low 14-48 Comment on above: Performed By: #### 2 992489, 2421758, 3770285, 7455765861, 3771209982, 83660406, 5478900 ####[facility] (DEFAULT)[address] [place] [address] 39318 [place] Abs# 0.5 x10 Normal 0.0-0.8 Comment on above: Performed By: #### 2 551632, 7022537, 7124738, 9664616674, 3315849188, 52707088, 2973043 ####[facility] (DEFAULT)[address] [place] [address] Neut Abs# 3.4 x10 Normal 1.5-9.2 Comment on above: Performed By: #### 2 191112, 9531363, 1722980, 5804956454, 7331329486, 62305444, 6752444 ####[facility] (DEFAULT)[address] [place] [address] Neutrophils/100 WBC (Bld) 76 % Normal 44-88 Comment on above: Performed By: #### 2 628086, 8380547, 9774110, 6066680549, 1894342059, 48758434, 0276763 ####[facility] (DEFAULT)[address] [place] [address] BMP Standardon 05-26-2023 eGFR Non AA 60 mL/min/1.73m2 Invalid Interpretation Code Comment on above: Performed By: #### 2 935792, 5324315, 2414267, 5543282240, 7073281693, 76478046, 2602487 ####[facility] (DEFAULT)[address] [place] [address] eGFR AA >60 Invalid Interpretation Code Comment on above: Performed By: #### 2 489928, 4511600, 6055011, 3200347580, 0297743449, 60195653, 4050887 ####[facility] (DEFAULT)[address] [place] [address] Anion gap [Moles/Vol] 11.7 mmol/L Normal 5.0-19.0 Comment on above: Performed By: #### 2 736236, 6347227, 0093187, 0654809744, 7877674968, 13615426, 4040926 ####[facility] (DEFAULT)[address] [place] [address] 12685 Calcium [Mass/Vol] 8.2 mg/dL Low 8.9-10.3 [facility] Comment on above: Performed By: #### 2 349534, 6719687, 1967635, 7351750820, 8651829075, 48007902, 7638307 ####[facility] (DEFAULT)[address] [place] [address] 62309 Chloride [Moles/Vol] 107 mmol/L Normal 101-111 [facility] Comment on above: Performed By: #### 2 152883, 4386680, 9025088, 2610221811, 9749648375, 32631680, 7449104 ####[facility] (DEFAULT)[address] [place] [address] 78370 CO2 [Moles/Vol] 26 mmol/L Normal 21-32 Comment on above: Performed By: #### 2 860528, 8187629, 4736027, 6562903583, 2890883299, 62220219, 3195174 ####[facility] (DEFAULT)[address] [place] [address] 92922 Creatinine [Mass/Vol] 1.15 mg/dL Normal 0.90-1.30 Comment on above: Performed By: #### 2 732139, 9416571, 7650795, 4318130509, 2872357961, 72454446, 8052027 ####[facility] (DEFAULT)[address] [place] [address] 98081 Glucose [Mass/Vol] 112.0 mg/dL Normal 74.0-118.0 [facility] Comment on above: Performed By: #### 2 714163, 5204490, 9362613, 2698570696, 9572420444, 86721206, 8058557 ####[facility] (DEFAULT)[address] [place] [address] 46864 Osmolality 284 mOsm/L Invalid Interpretation Code Comment on above: Performed By: #### 2 116045, 6996402, 3661447, 7745259361, 7065660894, 34668645, 5714618 ####[facility] (DEFAULT)[address] [place] [address] Potassium [Moles/Vol] 3.7 mmol/L Normal 3.6-5.1 Comment on above: Performed By: #### 2 976304, 6668727, 0417750, 8069196932, 1650390309, 32800912, 9158582 ####[facility] (DEFAULT)[address] [place] [address] Sodium [Moles/Vol] 141.0 mmol/L Normal 136.0-144.0 [facility] Comment on above: Performed By: #### 2 994873, 4844755, 6673215, 1330604943, 7969790658, 07192665, 1762702 ####[facility] (DEFAULT)[address] [place] [address] Urea nitrogen [Mass/Vol] 19 mg/dL Normal 8-26 Comment on above: Performed By: #### 2 447075, 2102990, 3833217, 2586786356, 4215232129, 51855076, 2267622 ####[facility] (DEFAULT)[address] [place] [address] Urea nitrogen/Creatinine [Mass ratio] 16.5 mg/mg High 4.6-16.2 Comment on above: Performed By: #### 2 044268, 4772779, 1665034, 0982392614, 0254833314, 97707737, 9195374 ####[facility] (DEFAULT)[address] [place] [address] CBC w/ Auto Diffon 4 Erythrocyte distribution width (RBC) [Ratio] 15.0 % Normal 11.5-15.0 Comment on above: Performed By: #### 2 825283, 4659854, 4233766, [id number], [id number], 80908179, 9093359 ####[facility] (DEFAULT)[address] [place], [place] [id number] Hematocrit (Bld) [Volume fraction] 37.4 % Normal 34.8-51.9 Comment on above: Performed By: #### 2 967222, 1398881, 6983286, [id number], [id number], 18016840, 3075294 ####[facility] (DEFAULT)[address] [place] [address] Hemoglobin (Bld) [Mass/Vol] 12.5 g/dL Normal 11.8-17.7 Comment on above: Performed By: #### 2 117397, 3643552, 6766119, 9052753036, 2081131327, 01960488, 4393445 ####[facility] (DEFAULT)[address] [place] [address] Man Diff? Auto Invalid Interpretation Code Comment on above: Performed By: #### 2 112047, 6908370, 9831456, [id number], [id number], 13350244, 4011428 ####[facility] (DEFAULT)[address] [place] [address] MCH (RBC) [Entitic mass] 30 pg Normal 24-34 Comment on above: Performed By: #### 2 611969, 5191553, 6313981, 6188688944, 7551754344, 59328070, 7656706 ####[facility] (DEFAULT)[address] [place] [address] MCHC (RBC) [Mass/Vol] 33 g/dL Normal 26-37 Comment on above: Performed By: #### 2 773692, 7986911, 8812833, 9704526123, 4105006503, 84202280, 8501185 ####[facility] (DEFAULT)[address] [place] [address] MCV (RBC) [Entitic vol] 89 fL Normal 81-100 Comment on above: Performed By: #### 2 285990, 1788654, 5759449, 4696283375, 8429349281, 93845531, 7431354 ####[facility] (DEFAULT)[address] [place] [address] Platelet 134 x10 Low 138-427 Comment on above: Performed By: #### 2 921703, 3299504, 2503274, 1671434115, 2202011028, 18258891, 6880103 ####[facility] (DEFAULT)[address] [place] [address] Platelet mean volume (Bld) [Entitic vol] 8.4 fL Normal 6.3-10.2 Comment on above: Performed By: #### 2 082872, 4078759, 3473757, 6451992905, 8081926148, 00211349, 0565754 ####[facility] (DEFAULT)[address] [place] [address] RBC 4.20 x10 Normal 3.70-5.30 Comment on above: Performed By: #### 2 087633, 2910625, 0107573, [id number], [id number], 50883510, 8228236 ####[facility] (DEFAULT)[address] [place] [address] WBC 4.5 x10 Normal 3.5-10.5 Comment on above: Performed By: #### 2 956667, 1565298, 7341295, 5434724509, 8712801578, 78941623, 3824946 ####[facility] (DEFAULT)[address] [place] [address] CKon 05-26-2023 CK [Catalytic activity/Vol] 470 U/L High 49-397 Comment on above: Performed By: #### 2 271653, 3355023, 8187607, 6230070450, 8401486737, 81657690, 1667922 ####[facility] (DEFAULT)[address] [place] [address] CMP Standardon 05-26-2023 Albumin [Mass/Vol] 2.9 g/dL Low 3.5-5.0 [facility] Comment on above: Performed By: #### 2 530567, 3911447, 4346099, 4618169616, 0277445626, 00111017, 6722838 ####[facility] (DEFAULT)[address] [place] [address] 95816 Albumin/Globulin [Mass ratio] 1.1 {ratio} Low 1.4-2.6 Comment on above: Performed By: #### 2 258431, 0259961, 9855321, 3192846063, 9999307459, 23491297, 8374493 ####[facility] (DEFAULT)[address] [place] [address] 45979 Alk Phos 50 IU/L Normal 32-91 Comment on above: Performed By: #### 2 269697, 5641056, 3923064, 4619856456, 3116260937, 86079424, 0749630 ####[facility] (DEFAULT)[address] [place] [address] 95847 ALT [Catalytic activity/Vol] 7.0 U/L Low 17.0-63.0 Comment on above: Performed By: #### 2 267463, 8717210, 7303642, 8069691844, 1556905704, 24671780, 6566571 ####[facility] (DEFAULT)[address] [place] [address] 60803 AST [Catalytic activity/Vol] 82 U/L High 15-41 Comment on above: Performed By: #### 2 489594, 2475248, 7117587, 3479660119, 9851258729, 34139512, 0343975 ####[facility] (DEFAULT)[address] [place] [address] 94164 Bili Total 0.9 mg/dL Normal 0.3-1.2 Comment on above: Performed By: #### 2 234425, 7855579, 7683160, 2491198461, 4016506088, 89968413, 3636562 ####[facility] (DEFAULT)[address] [place] [address] 27852 Globulin (S) [Mass/Vol] 2.6 g/dL Normal 1.5-4.3 Comment on above: Performed By: #### 2 914681, 6031900, 6797556, 0991941265, 2511822757, 09734551, 7619302 ####[facility] (DEFAULT)[address] [place] [address] 46824 Protein [Mass/Vol] 5.5 g/dL Low 6.5-8.1 [facility] Comment on above: Performed By: #### 2 625027, 6714676, 5726470, 4778035778, 9646972667, 28260911, 3465136 ####[facility] (DEFAULT)[address] [place] [address] 64957 CRPon 05-26-2023 CRP 6.2 mg/dL High <=0.5 Comment on above: Performed By: #### 2 393697, 3855971, 5044218, 2703036860, 2185858172, 57872508, 7691740 ####[facility] (DEFAULT)[address] [place] [address] 55148 Myoglobinon 05-26-2023 Myoglobin [Mass/Vol] 259.9 ng/mL High 17.4-105.7 [facility] Comment on above: Performed By: #### 2 185480, 9553193, 7254248, 0732249127, 1214189415, 11053032, 8606639 ####[facility] (DEFAULT)[address] [place] [address] 72226 UA Pgeip7be 05-26-2023 UA Amorph. Rare [facility] Comment on above: Order Comment: Urina lysis Microscopic order added on by Take the Interview Expert Rules system. Performed By: #### 6 405893, 70591789, [id number] ####[facility] (DEFAULT)[address] [place] [address] 35107 UA Bacteria Trace Normal Comment on above: Order Comment: Urina lysis Microscopic order added on by Take the Interview Expert Rules system. Performed By: #### 6 209271, 78976924, [id number] ####[facility] (DEFAULT)[address] [place] [address] UA Gran Cast 0-5 [facility] Comment on above: Order Comment: Urina lysis Microscopic order added on by Discern Expert Rules system. Performed By: #### 6 801743, 74454073, [id number] ####[facility] (DEFAULT)[address] [place] [address] UA Hyal Cast 0-5 [facility] Comment on above: Order Comment: Urina lysis Microscopic order added on by Discern Expert Rules system. Performed By: #### 6 035724, 11360549, [id number] ####[facility] (DEFAULT)[address] [place] [address] UA RBC 20-30 [facility] Comment on above: Order Comment: Urina lysis Microscopic order added on by Discern Expert Rules system. Performed By: #### 6 164904, 07808223, [id number] ####[facility] (DEFAULT)[address] [place] [address] UA Squam Epi Rare [facility] Comment on above: Order Comment: Urina lysis Microscopic order added on by Discern Expert Rules system. Performed By: #### 6 147538, 88334739, [id number] ####[facility] (DEFAULT)[address] [place] [address] UA WBC 3-5 [facility] Comment on above: Order Comment: Urina lysis Microscopic order added on by Discern Expert Rules system. Performed By: #### 6 617847, 13240939, [id number] ####[facility] (DEFAULT)[address] [place] [address] UA w Culture if Ind Standard on 05-26-2023 Breakpoint UA [facility] Comment on above: Performed By: #### 6 483165, 82084533, [id number] ####[facility] (DEFAULT)[address] [place] [address] Color (U) Yellow [facility] Comment on above: Performed By: #### 6 162097, 80480254, 1765246075 ####[facility] (DEFAULT)[address] [place] [address] 87322 Culture? Indicated Invalid Interpretation Code Comment on above: Result Comment: Resu lt created by rule GL_MAGR_ADD_UA_CULT Result created by rule GL_MAGR_ADD_UA_CULT Result created by rule GL_MAGR_ADD_UA_CULT1 Result created by rule GL_MAGR_ADD_UA_CULT Performed By: #### 6 589925, 39294277, [id number] ####[facility] (DEFAULT)[address] [place] [address] 21737 Glucose (U) [Mass/Vol] Negative Normal Comment on above: Performed By: #### 6 840016, 06347207, [id number] ####[facility] (DEFAULT)[address] [place] [address] 70020 Ketones Ql (U) Negative Normal Comment on above: Performed By: #### 6 235289, 33612169, [id number] ####[facility] (DEFAULT)[address] [place] [address] 89382 Micro? Indicated Invalid Interpretation Code Comment on above: Result Comment: Resu lt created by rule GL_MAGR_ADD_UA_MICRO Performed By: #### 6 456327, 26400225, [id number] ####[facility] (DEFAULT)[address] [place] [address] 15140 UA Bilirubin Negative Normal Comment on above: Performed By: #### 6 991133, 93373183, 0606166065 ####[facility] (DEFAULT)[address] [place] [address] 61440 UA Blood MODERATE Abnormal NEGATIVE Comment on above: Performed By: #### 6 825965, 73009339, 0523128804 ####[facility] (DEFAULT)[address] [place] [address] 40098 UA Clarity CLEAR Normal CLEAR Comment on above: Performed By: #### 6 612957, 65171693, [id number] ####[facility] (DEFAULT)[address] [place] [address] UA Leuk Est Negative Normal NEGATIVE Comment on above: Performed By: #### 6 552286, 88302919, 2062304304 ####[facility] (DEFAULT)[address] [place] [address] UA Nitrite Negative Normal NEGATIVE Comment on above: Performed By: #### 6 721747, 86153668, 1273634492 ####[facility] (DEFAULT)[address] [place] [address] UA pH 7.5 Normal 5-8 Comment on above: Performed By: #### 6 646966, 97100031, 2894545234 ####[facility] (DEFAULT)[address] [place] [address] UA Protein Negative Normal NEGATIVE Comment on above: Performed By: #### 6 781361, 29363742, 5388876360 ####[facility] (DEFAULT)[address] [place] [address] UA Spec Grav 1.015 Normal 1.001-1.035 Comment on above: Performed By: #### 6 798065, 21871865, 0791550413 ####[facility] (DEFAULT)[address] [place] [address] UA Urobilinogen 0.2 mg/dL Normal 0.2-1.0 Comment on above: Performed By: #### 6 052399, 53012472, 3685752937 ####[facility] (DEFAULT)[address] [place] [address] Urine Source Clean Catch Normal Comment on above: Performed By: #### 6 682007, 85288638, 2884083481 ####[facility] (DEFAULT)[address] [place] [address] XR Humerus Lefton 05-26-2023 XR Humerus Left Normal .Auto Diff 1on 05-25-2023 Auto [place] % 12 % Normal -12 Comment on above: Performed By: #### 1 302224340, 7260091, 8645232, 70064168, 9409564, 6009832 ####[facility] (DEFAULT)[address] [place] [address] 78020 Baso Abs# 0.0 x10 Normal 0.0-0.2 Comment on above: Performed By: #### 1 533995361, 4806072, 0505702, 91157297, 5860282, 0656382 ####[facility] (DEFAULT)[address] [place] [address] Basophils/100 WBC (Bld) 0.2 % Normal 0.2-2.0 Comment on above: Performed By: #### 1 528717667, 6041437, 2873056, 27167577, 2253373, 6838897 ####[facility] (DEFAULT)[address] [place] [address] Eos Abs# 0.0 x10 Normal 0.0-0.4 Comment on above: Performed By: #### 1 210803934, 7547036, 1412794, 27586063, 3834211, 5624281 ####[facility] (DEFAULT)[address] [place] [address] 57377 Eosinophils/100 WBC (Bld) 1.0 % Normal 0.9-4.0 Comment on above: Performed By: #### 1 037239045, 9881267, 5329921, 17015686, 7034575, 1901778 ####[facility] (DEFAULT)[address] [place] [address] 93253 Lymph Abs# 0.5 x10 Low 1.3-2.9 Comment on above: Performed By: #### 1 368100665, 6464171, 8579009, 50926733, 5302137, 8834654 ####[facility] (DEFAULT)[address] [place] [address] 26884 Lymphocytes/100 WBC (Bld) 16 % Normal 14-48 Comment on above: Performed By: #### 1 089734940, 2731953, 1929382, 14380479, 2851238, 5011418 ####[facility] (DEFAULT)[address] [place] [address] [place] Abs# 0.4 x10 Normal 0.0-0.8 Comment on above: Performed By: #### 1 162492299, 8937312, 7488891, 85038011, 3656696, 2002950 ####[facility] (DEFAULT)[address] [place] [address] Neut Abs# 2.3 x10 Normal 1.5-9.2 Comment on above: Performed By: #### 1 560371764, 8324354, 7985524, 66199099, 4812360, 1312599 ####[facility] (DEFAULT)[address] [place] [address] Neutrophils/100 WBC (Bld) 71 % Normal 44-88 Comment on above: Performed By: #### 1 415160705, 0316495, 1952050, 49092114, 0738830, 0786695 ####[facility] (DEFAULT)[address] [place] [address] CBC w/ Auto Diffon 4 Erythrocyte distribution width (RBC) [Ratio] 15.2 % High 11.5-15.0 Comment on above: Performed By: #### 1 573342481, 2467135, 0267660, 29845716, 7485628, 2494164 ####[facility] (DEFAULT)[address] [place] [address] Hematocrit (Bld) [Volume fraction] 33.9 % Low 34.8-51.9 Comment on above: Performed By: #### 1 998821923, 5664496, 0328206, 33844897, 3314021, 8889739 ####[facility] (DEFAULT)[address] [place] [address] Hemoglobin (Bld) [Mass/Vol] 11.5 g/dL Low 11.8-17.7 Comment on above: Performed By: #### 1 840973118, 6269129, 1312493, 43608411, 6742861, 3920933 ####[facility] (DEFAULT)[address] [place] [address] Man Diff? Auto Invalid Interpretation Code Comment on above: Performed By: #### 1 228672220, 2613219, 4304893, 43928298, 5699158, 8307131 ####[facility] (DEFAULT)[address] [place] [address] 88448 MCH (RBC) [Entitic mass] 30 pg Normal 24-34 Comment on above: Performed By: #### 1 481682946, 6169553, 8143580, 37305839, 8799759, 3178397 ####[facility] (DEFAULT)[address] [place] [address] MCHC (RBC) [Mass/Vol] 34 g/dL Normal 26-37 Comment on above: Performed By: #### 1 467039254, 2916599, 3304605, 39259071, 6446614, 1291425 ####[facility] (DEFAULT)[address] [place] [address] MCV (RBC) [Entitic vol] 88 fL Normal 81-100 Comment on above: Performed By: #### 1 742010699, 1768341, 2141957, 76924030, 0112684, 7770523 ####[facility] (DEFAULT)[address] [place] [address] 35807 Platelet 125 x10 Low 138-427 Comment on above: Performed By: #### 1 756445873, 5727611, 5435789, 67468113, 7795905, 0385605 ####[facility] (DEFAULT)[address] [place] [address] 82597 Platelet mean volume (Bld) [Entitic vol] 8.6 fL Normal 6.3-10.2 Comment on above: Performed By: #### 1 988380853, 6286810, 0467161, 52301181, 8632026, 3150703 ####[facility] (DEFAULT)[address] [place] [address] RBC 3.85 x10 Normal 3.70-5.30 Comment on above: Performed By: #### 1 519864533, 6442447, 2247835, 65652346, 7353555, 0422969 ####[facility] (DEFAULT)[address] [place] [address] WBC 3.2 x10 Low 3.5-10.5 Comment on above: Performed By: #### 1 721901124, 1113181, 2539681, 17462618, 8681177, 4180418 ####[facility] (DEFAULT)[address] [place] [address] CKon 05-25-2023 CK [Catalytic activity/Vol] 675 U/L High 49-397 Comment on above: Performed By: #### 1 504128261, 1329209, 6819625, 91922827, 0421618, 3648245 ####[facility] (DEFAULT)[address] [place] [address] CMP Standardon 05-25-2023 eGFR Non AA >60 Invalid Interpretation Code Comment on above: Performed By: #### 1 899227701, 7667918, 2862287, 27884353, 8605249, 3772060 ####[facility] (DEFAULT)[address] [place] [address] eGFR AA >60 Invalid Interpretation Code Comment on above: Performed By: #### 1 761761035, 0892287, 0526129, 75184839, 7025844, 3051445 ####[facility] (DEFAULT)[address] [place] [address] Albumin [Mass/Vol] 2.7 g/dL Low 3.5-5.0 [facility] Comment on above: Performed By: #### 1 008845268, 3881603, 5522284, 71124742, 6724557, 7783456 ####[facility] (DEFAULT)[address] [place] [address] Albumin/Globulin [Mass ratio] 1.1 {ratio} Low 1.4-2.6 Comment on above: Performed By: #### 1 561305739, 3347101, 6704484, 37462161, 0737979, 4760674 ####[facility] (DEFAULT)[address] [place] [address] Alk Phos 47 IU/L Normal 32-91 Comment on above: Performed By: #### 1 881033683, 2776576, 9163809, 68825646, 9025901, 4966662 ####[facility] (DEFAULT)[address] [place] [address] ALT [Catalytic activity/Vol] 8.0 U/L Low 17.0-63.0 Comment on above: Performed By: #### 1 210414538, 2727994, 6493627, 87361284, 6751255, 4950236 ####[facility] (DEFAULT)[address] [place] [address] Anion gap [Moles/Vol] 7.8 mmol/L Normal 5.0-19.0 Comment on above: Performed By: #### 1 472641604, 5733356, 1122096, 38720981, 1161514, 5143304 ####[facility] (DEFAULT)[address] [place] [address] AST [Catalytic activity/Vol] 90 U/L High 15-41 Comment on above: Performed By: #### 1 974613883, 2962942, 6047815, 07880271, 0233067, 0552314 ####[facility] (DEFAULT)[address] [place] [address] Bili Total 0.7 mg/dL Normal 0.3-1.2 Comment on above: Performed By: #### 1 350181479, 1503242, 1828945, 89243196, 3979906, 2665213 ####[facility] (DEFAULT)[address] [place] [address] Calcium [Mass/Vol] 7.9 mg/dL Low 8.9-10.3 [facility] Comment on above: Performed By: #### 1 117473425, 5630162, 7095975, 08695024, 5710358, 6168612 ####[facility] (DEFAULT)[address] [place] [address] Chloride [Moles/Vol] 110 mmol/L Normal 101-111 [facility] Comment on above: Performed By: #### 1 513645982, 2201283, 6622679, 27420095, 8434413, 2780428 ####[facility] (DEFAULT)[address] [place] [address] CO2 [Moles/Vol] 27 mmol/L Normal 21-32 Comment on above: Performed By: #### 1 767109253, 6872224, 4206996, 66844021, 0961286, 2485252 ####[facility] (DEFAULT)[address] [place] [address] Creatinine [Mass/Vol] 1.13 mg/dL Normal 0.90-1.30 Comment on above: Performed By: #### 1 910719019, 7584374, 4176122, 50718301, 6473719, 3143012 ####[facility] (DEFAULT)[address] [place] [address] Globulin (S) [Mass/Vol] 2.4 g/dL Normal 1.5-4.3 Comment on above: Performed By: #### 1 004009106, 2369631, 4212014, 22955824, 1175719, 7592360 ####[facility] (DEFAULT)[address] [place] [address] Glucose [Mass/Vol] 101.0 mg/dL Normal 74.0-118.0 [facility] Comment on above: Performed By: #### 1 477794025, 6675360, 7405906, 00114448, 6196550, 6955238 ####[facility] (DEFAULT)[address] [place] [address] Osmolality 284 mOsm/L Invalid Interpretation Code Comment on above: Performed By: #### 1 671353903, 6018374, 0020429, 25471560, 5645444, 9588869 ####[facility] (DEFAULT)[address] [place] [address] 69137 Potassium [Moles/Vol] 3.8 mmol/L Normal 3.6-5.1 Comment on above: Performed By: #### 1 331366661, 7498280, 6669454, 47864593, 9698147, 2136762 ####[facility] (DEFAULT)[address] [place] [address] 57140 Protein [Mass/Vol] 5.1 g/dL Low 6.5-8.1 [facility] Comment on above: Performed By: #### 1 709382103, 1356735, 5585934, 24143512, 6575805, 6007081 ####[facility] (DEFAULT)[address] [place] [address] 18273 Sodium [Moles/Vol] 141.0 mmol/L Normal 136.0-144.0 [facility] Comment on above: Performed By: #### 1 728758143, 1480864, 3224680, 29979334, 3873879, 6807059 ####[facility] (DEFAULT)[address] [place] [address] 59981 Urea nitrogen [Mass/Vol] 19 mg/dL Normal 8-26 Comment on above: Performed By: #### 1 749694686, 2903776, 8453904, 86896293, 1887962, 6637008 ####[facility] (DEFAULT)[address] [place] [address] 21412 Urea nitrogen/Creatinine [Mass ratio] 16.8 mg/mg High 4.6-16.2 Comment on above: Performed By: #### 1 711479959, 3862842, 7564729, 17378695, 5954874, 8531231 ####[facility] (DEFAULT)[address] [place] [address] 70543 CRPon 05-25-2023 CRP 5.5 mg/dL High <=0.5 Comment on above: Performed By: #### 1 676434633, 0903747, 2430990, 78668426, 1019525, 5099784 ####[facility] (DEFAULT)[address] [place] [address] Myoglobinon 05-25-2023 Myoglobin [Mass/Vol] 335.9 ng/mL High 17.4-105.7 [facility] Comment on above: Performed By: #### 1 248509420, 6526252, 9013702, 76720192, 7192662, 8457061 ####[facility] (DEFAULT)[address] [place] [address] .Auto Diff 1on 05-24-2023 Auto [place] % 13 % High -12 Comment on above: Performed By: #### 7 598045, 2794950, 2965365, 9596182039, 1412593, 67207525 ####[facility] (DEFAULT)[address] [place] [address] Baso Abs# 0.0 x10 Normal 0.0-0.2 Comment on above: Performed By: #### 7 277403, 3488366, 4130061, 0088170140, 5344583, 54790689 ####[facility] (DEFAULT)[address] [place] [address] Basophils/100 WBC (Bld) 0.3 % Normal 0.2-2.0 Comment on above: Performed By: #### 7 560432, 0123070, 5875144, 4955622729, 6454221, 15890101 ####[facility] (DEFAULT)[address] [place] [address] Eos Abs# 0.0 x10 Normal 0.0-0.4 Comment on above: Performed By: #### 7 631706, 5367995, 5914980, 4911475571, 6371973, 50517032 ####[facility] (DEFAULT)[address] [place] [address] Eosinophils/100 WBC (Bld) 0.3 % Low 0.9-4.0 Comment on above: Performed By: #### 7 427816, 4642566, 4012107, 9945470331, 1097744, 39539025 ####[facility] (DEFAULT)[address] [place] [address] Lymph Abs# 0.5 x10 Low 1.3-2.9 Comment on above: Performed By: #### 7 529048, 4438402, 2384408, 7015466089, 1495714, 17248963 ####[facility] (DEFAULT)[address] [place] [address] Lymphocytes/100 WBC (Bld) 15 % Normal 14-48 Comment on above: Performed By: #### 7 672704, 2380856, 2942234, 1946641392, 7055465, 64318838 ####[facility] (DEFAULT)[address] [place] [address] [place] Abs# 0.5 x10 Normal 0.0-0.8 Comment on above: Performed By: #### 7 676262, 0138468, 5593732, 2177824412, 0875838, 25673953 ####[facility] (DEFAULT)[address] [place] [address] Neut Abs# 2.4 x10 Normal 1.5-9.2 Comment on above: Performed By: #### 7 133807, 1358245, 4536879, 5375888469, 6964586, 94663875 ####[facility] (DEFAULT)[address] [place] [address] Neutrophils/100 WBC (Bld) 71 % Normal 44-88 Comment on above: Performed By: #### 7 474218, 5921667, 3117732, 2132596473, 9498168, 45972505 ####[facility] (DEFAULT)[address] [place] [address] CBC w/ Auto Diffon 4 Erythrocyte distribution width (RBC) [Ratio] 15.6 % High 11.5-15.0 Comment on above: Performed By: #### 7 088648, 5241146, 0420988, 4299369258, 4729048, 99133617 ####[facility] (DEFAULT)[address] [place] [address] Hematocrit (Bld) [Volume fraction] 32.7 % Low 34.8-51.9 Comment on above: Performed By: #### 7 482589, 5003696, 2111714, 4596821695, 5002343, 44594922 ####[facility] (DEFAULT)[address] [place] [address] Hemoglobin (Bld) [Mass/Vol] 11.0 g/dL Low 11.8-17.7 Comment on above: Performed By: #### 7 713143, 6742280, 6297129, 7228264123, 0371559, 58792306 ####[facility] (DEFAULT)[address] [place] [address] Man Diff? Auto Invalid Interpretation Code Comment on above: Performed By: #### 7 [id number], 2718727, 1223962, [id number], 9170859, [id number] ####[facility] (DEFAULT)[address] [place] [address] MCH (RBC) [Entitic mass] 30 pg Normal 24-34 Comment on above: Performed By: #### 7 244594, 5164941, 0479048, [id number], 4077876, [id number] ####[facility] (DEFAULT)[address] [place] [address] MCHC (RBC) [Mass/Vol] 34 g/dL Normal 26-37 Comment on above: Performed By: #### 7 138027, 9889697, 9091609, [id number], 9055889, 71250797 ####[facility] (DEFAULT)[address] [place] [address] MCV (RBC) [Entitic vol] 88 fL Normal 81-100 Comment on above: Performed By: #### 7 616921, 7981384, 3663228, [id number], 0358175, 85123485 ####[facility] (DEFAULT)[address] [place] [address] Platelet 112 x10 Low 138-427 Comment on above: Performed By: #### 7 289549, 5184931, 6896481, [id number], 8828247, 51031669 ####[facility] (DEFAULT)[address] [place] [address] Platelet mean volume (Bld) [Entitic vol] 8.8 fL Normal 6.3-10.2 Comment on above: Performed By: #### 7 122761, 9759032, 4941877, [id number], 7670535, 55857543 ####[facility] (DEFAULT)[address] [place] [address] RBC 3.71 x10 Normal 3.70-5.30 Comment on above: Performed By: #### 7 271032, 4795544, 2337830, [id number], 7159191, 18158712 ####[facility] (DEFAULT)[address] [place] [address] WBC 3.4 x10 Low 3.5-10.5 Comment on above: Performed By: #### 7 700172, 1134922, 8273341, [id number], 0590954, 53523531 ####[facility] (DEFAULT)[address] [place] [address] CKon 05-24-2023 CK [Catalytic activity/Vol] 1412 U/L High 49-397 Comment on above: Performed By: #### 7 333078, 8657024, 7496154, [id number], 6990610, 40447304 ####[facility] (DEFAULT)[address] [place] [address] CMP Standardon 05-24-2023 eGFR Non AA 55 mL/min/1.73m2 Invalid Interpretation Code Comment on above: Performed By: #### 7 016337, 9601467, 0495233, [id number], 8901143, 74146049 ####[facility] (DEFAULT)[address] [place] [address] eGFR AA >60 Invalid Interpretation Code Comment on above: Performed By: #### 7 810063, 4979604, 2943198, 7648635164, 5538580, 98354348 ####[facility] (DEFAULT)[address] [place] [address] Albumin [Mass/Vol] 2.6 g/dL Low 3.5-5.0 [facility] Comment on above: Performed By: #### 7 407527, 5498749, 7937539, 1202375336, 9034908, 46987105 ####[facility] (DEFAULT)[address] [place] [address] Alk Phos 46 IU/L Normal 32-91 Comment on above: Performed By: #### 7 205419, 2921054, 5372848, 2542192974, 9990883, 64099088 ####[facility] (DEFAULT)[address] [place] [address] ALT [Catalytic activity/Vol] 7.0 U/L Low 17.0-63.0 Comment on above: Performed By: #### 7 804709, 5082605, 4702490, 3444322631, 6571118, 74200134 ####[facility] (DEFAULT)[address] [place] [address] AST [Catalytic activity/Vol] 109 U/L High 15-41 Comment on above: Performed By: #### 7 509701, 5864147, 3448583, 3869178619, 9589485, 62291266 ####[facility] (DEFAULT)[address] [place] [address] 13026 Bili Total 0.6 mg/dL Normal 0.3-1.2 Comment on above: Performed By: #### 7 190774, 0254477, 5580568, 9903358527, 0282454, 09756472 ####[facility] (DEFAULT)[address] [place] [address] Calcium [Mass/Vol] 7.7 mg/dL Low 8.9-10.3 [facility] Comment on above: Performed By: #### 7 136215, 9454457, 6410812, 0923435929, 4665815, 79851837 ####[facility] (DEFAULT)[address] [place] [address] 05732 Chloride [Moles/Vol] 111 mmol/L Normal 101-111 [facility] Comment on above: Performed By: #### 7 021455, 3746563, 3776678, 4951741917, 3093427, 80459559 ####[facility] (DEFAULT)[address] [place] [address] 33509 CO2 [Moles/Vol] 24 mmol/L Normal 21-32 Comment on above: Performed By: #### 7 068146, 6416195, 2964465, 3879062930, 1823530, 04095327 ####[facility] (DEFAULT)[address] [place] [address] 07591 Creatinine [Mass/Vol] 1.24 mg/dL Normal 0.90-1.30 Comment on above: Performed By: #### 7 174703, 0840097, 9734570, 7177486571, 7858739, 43754270 ####[facility] (DEFAULT)[address] [place] [address] 69571 Glucose [Mass/Vol] 103.0 mg/dL Normal 74.0-118.0 [facility] Comment on above: Performed By: #### 7 580742, 0572008, 1053951, 8476682729, 0512593, 91029519 ####[facility] (DEFAULT)[address] [place] [address] 06318 Potassium [Moles/Vol] 3.7 mmol/L Normal 3.6-5.1 Comment on above: Performed By: #### 7 178398, 1610701, 0362763, 9752149219, 7843779, 44809025 ####[facility] (DEFAULT)[address] [place] [address] 87768 Protein [Mass/Vol] 5.0 g/dL Low 6.5-8.1 [facility] Comment on above: Performed By: #### 7 451258, 8537818, 1617872, 6418500990, 4089251, 75854902 ####[facility] (DEFAULT)[address] [place] [address] 58692 Sodium [Moles/Vol] 140.0 mmol/L Normal 136.0-144.0 [facility] Comment on above: Performed By: #### 7 073118, 5811647, 1659135, 4865210572, 9685526, 66376299 ####[facility] (DEFAULT)[address] [place] [address] 94422 Urea nitrogen [Mass/Vol] 28 mg/dL High 8- Comment on above: Performed By: #### 7 035032, 4796899, 0391002, 2835279228, 8226592, 10921344 ####[facility] (DEFAULT)[address] [place] [address] 45855 Albumin/Globulin [Mass ratio] 1.0 {ratio} Low 1.4-2.6 Comment on above: Performed By: #### 7 073085, 0690463, 8073904, 6876186744, 3555415, 04331761 ####[facility] (DEFAULT)[address] [place] [address] 33400 Anion gap [Moles/Vol] 8.7 mmol/L Normal 5.0-19.0 Comment on above: Performed By: #### 7 751309, 5084615, 2828430, 8909500173, 7586817, 92410544 ####[facility] (DEFAULT)[address] [place] [address] 79731 Globulin (S) [Mass/Vol] 2.4 g/dL Normal 1.5-4.3 Comment on above: Performed By: #### 7 441666, 5598913, 8961820, 3021071449, 4449355, 88784064 ####[facility] (DEFAULT)[address] [place] [address] 77185 Osmolality 285 mOsm/L Invalid Interpretation Code Comment on above: Performed By: #### 7 954982, 6394729, 4082277, 9983032332, 3234858, 52858231 ####[facility] (DEFAULT)[address] [place] [address] 65455 Urea nitrogen/Creatinine [Mass ratio] 22.5 mg/mg High 4.6-16.2 Comment on above: Performed By: #### 7 601283, 6897147, 3354880, 2638342534, 4670149, 45466265 ####[facility] (DEFAULT)[address] [place] [address] CRPon 05-24-2023 CRP 6.7 mg/dL High <=0.5 Comment on above: Performed By: #### 7 544034, 0354354, 0444905, 2248659715, 8653990, 21929487 ####[facility] (DEFAULT)[address] [place] [address] Myoglobinon 05-24-2023 Myoglobin [Mass/Vol] 632.8 ng/mL High 17.4-105.7 [facility] Comment on above: Performed By: #### 7 474319, 8517047, 4939111, 4521393179, 3574861, 09442089 ####[facility] (DEFAULT)[address] [place] [address] 25185 Nutrition Noteon 05-24-2023 Nutrition Note Normal POCT Glucose Levelon 024 Glucose [Mass/Vol] 97 mg/dL Normal 74-118 [facility] Comment on above: Performed By: #### 4 [id number] ####[facility] (DEFAULT)[address] [place] [address] 36735 Progress Note - Nurseon Progress Note - Nurse [facility] Telemetry Stripson Telemetry Strips [id number]#1 .00OTGTIFF [facility] .Auto Diff 1on 05-23-2023 Auto [place] % 13 % High -12 Comment on above: Performed By: #### 2 812721, 3669190, 225109017, 70258444, 6011801, 3650452, 3671275889 ####[facility] (DEFAULT)[address] [place] [address] Baso Abs# 0.0 x10 Normal 0.0-0.2 Comment on above: Performed By: #### 2 929792, 9600144, 653621184, 62712958, 9063309, 4841169, 7319083439 ####[facility] (DEFAULT)[address] [place] [address] Basophils/100 WBC (Bld) 0.2 % Normal 0.2-2.0 Comment on above: Performed By: #### 2 625687, 2135877, 879474709, 33630646, 4565759, 8277960, 0554815241 ####[facility] (DEFAULT)[address] [place] [address] Eos Abs# 0.0 x10 Normal 0.0-0.4 Comment on above: Performed By: #### 2 138935, 1241759, 708494510, 91099438, 8341276, 6318225, 5728852113 ####[facility] (DEFAULT)[address] [place] [address] 70003 Eosinophils/100 WBC (Bld) 0.0 % Low 0.9-4.0 Comment on above: Performed By: #### 2 582121, 4081630, 292773883, 07958346, 5695510, 9244591, 5005925744 ####[facility] (DEFAULT)[address] [place] [address] Lymph Abs# 0.5 x10 Low 1.3-2.9 Comment on above: Performed By: #### 2 065804, 8391252, 645964738, 66053929, 5353091, 5384067, 3276582936 ####[facility] (DEFAULT)[address] [place] [address] 36391 Lymphocytes/100 WBC (Bld) 10 % Low 14-48 Comment on above: Performed By: #### 2 066423, 4604786, 969299766, 49792110, 1857107, 3292653, 9957971848 ####[facility] (DEFAULT)[address] [place] [address] [place] Abs# 0.6 x10 Normal 0.0-0.8 Comment on above: Performed By: #### 2 959868, 4799717, 297467889, 75821645, 4324490, 4855909, 8595752514 ####[facility] (DEFAULT)[address] [place] [address] Neut Abs# 3.6 x10 Normal 1.5-9.2 Comment on above: Performed By: #### 2 988569, 3776732, 502608483, 71738687, 9026987, 1927516, 1023211968 ####[facility] (DEFAULT)[address] [place] [address] Neutrophils/100 WBC (Bld) 77 % Normal 44-88 Comment on above: Performed By: #### 2 976757, 2644191, 655810047, 38569016, 8704730, 3478310, 4687229089 ####[facility] (DEFAULT)[address] [place] [address] C Urineon 05-23-2023 C Urine Normal Comment on above: Performed By: #### 1 617389855, 5227452, 88548076 ####[facility] (DEFAULT)[address] [place] [address] CBC w/ Auto Diffon Erythrocyte distribution width (RBC) [Ratio] 15.4 % High 11.5-15.0 Comment on above: Performed By: #### 2 975910, 2033465, 530013633, 92488705, 4821243, 0457343, 6107868994 ####[facility] (DEFAULT)[address] [place] [address] Hematocrit (Bld) [Volume fraction] 33.2 % Low 34.8-51.9 Comment on above: Performed By: #### 2 899230, 4592747, 644095894, 32198244, 9922525, 1086434, 6637551713 ####[facility] (DEFAULT)[address] [place] [address] Hemoglobin (Bld) [Mass/Vol] 11.3 g/dL Low 11.8-17.7 Comment on above: Performed By: #### 2 290954, 7905264, 554811412, 71493577, 8096501, 8155854, 0658826202 ####[facility] (DEFAULT)[address] [place] [address] Man Diff? Auto Invalid Interpretation Code Comment on above: Performed By: #### 2 823588, 3239643, 245864091, 53252318, 2850960, 5198762, 3493922246 ####[facility] (DEFAULT)[address] [place] [address] MCH (RBC) [Entitic mass] 30 pg Normal 24-34 Comment on above: Performed By: #### 2 723910, 9839844, 905520777, 78803781, 0688001, 1610927, 2011224092 ####[facility] (DEFAULT)[address] [place] [address] MCHC (RBC) [Mass/Vol] 34 g/dL Normal 26-37 Comment on above: Performed By: #### 2 609799, 1611846, 142313247, 72170058, 9756083, 2017161, 0938692418 ####[facility] (DEFAULT)[address] [place] [address] 28614 MCV (RBC) [Entitic vol] 88 fL Normal 81-100 Comment on above: Performed By: #### 2 521929, 7173976, 426704545, 05215223, 0912881, 3538667, 5483437805 ####[facility] (DEFAULT)[address] [place] [address] Platelet 112 x10 Low 138-427 Comment on above: Performed By: #### 2 363170, 1606499, 050704300, 33804308, 1203052, 8755291, 1690657275 ####[facility] (DEFAULT)[address] [place] [address] Platelet mean volume (Bld) [Entitic vol] 8.6 fL Normal 6.3-10.2 Comment on above: Performed By: #### 2 640212, 2403366, 770460597, 34582784, 5161058, 6460292, 0117232297 ####[facility] (DEFAULT)[address] [place] [address] RBC 3.77 x10 Normal 3.70-5.30 Comment on above: Performed By: #### 2 218692, 8325861, 214733455, 15788154, 7206531, 7059616, 3776824088 ####[facility] (DEFAULT)[address] [place] [address] WBC 4.7 x10 Normal 3.5-10.5 Comment on above: Performed By: #### 2 241324, 3398856, 772986912, 89529690, 6590302, 6951479, 2738387470 ####[facility] (DEFAULT)[address] [place] [address] CKon 05-23-2023 CK [Catalytic activity/Vol] 2005 U/L High 49-397 Comment on above: Performed By: #### 2 530051, 2845282, 183099691, 32782696, 1635849, 7867452, 2387397686 ####[facility] (DEFAULT)[address] [place] [address] CMP Standardon 05-23-2023 Anion gap [Moles/Vol] 8.6 mmol/L Normal 5.0-19.0 Comment on above: Performed By: #### 2 447809, 6827198, 646510577, 89950588, 5959509, 6598120, 8242181366 ####[facility] (DEFAULT)[address] [place] [address] Calcium [Mass/Vol] 7.6 mg/dL Low 8.9-10.3 [facility] Comment on above: Performed By: #### 2 509108, 7677896, 040536511, 61724927, 0328793, 8140690, 2193974356 ####[facility] (DEFAULT)[address] [place] [address] 20823 Chloride [Moles/Vol] 111 mmol/L Normal 101-111 [facility] Comment on above: Performed By: #### 2 694649, 4480413, 486936508, 20566736, 3071944, 2642384, 9670930177 ####[facility] (DEFAULT)[address] [place] [address] 24981 CO2 [Moles/Vol] 23 mmol/L Normal 21-32 Comment on above: Performed By: #### 2 040943, 7998690, 295507148, 68336776, 9956176, 6970047, 2404049274 ####[facility] (DEFAULT)[address] [place] [address] 94132 Glucose [Mass/Vol] 106.0 mg/dL Normal 74.0-118.0 [facility] Comment on above: Performed By: #### 2 787994, 2470429, 993686825, 89385400, 4334263, 4652495, 0553404992 ####[facility] (DEFAULT)[address] [place] [address] 65622 Osmolality 284 mOsm/L Invalid Interpretation Code Comment on above: Performed By: #### 2 055432, 0070122, 768378857, 44528281, 6587830, 7720770, 9592464674 ####[facility] (DEFAULT)[address] [place] [address] 33806 Potassium [Moles/Vol] 3.6 mmol/L Normal 3.6-5.1 Comment on above: Performed By: #### 2 885036, 1725811, 022311005, 15726348, 6148701, 9973653, 1345849410 ####[facility] (DEFAULT)[address] [place] [address] 89079 Sodium [Moles/Vol] 139.0 mmol/L Normal 136.0-144.0 [facility] Comment on above: Performed By: #### 2 922886, 7854361, 148362460, 01772189, 6650421, 9305512, 1006632087 ####[facility] (DEFAULT)[address] [place] [address] eGFR Non AA 44 mL/min/1.73m2 Invalid Interpretation Code Comment on above: Performed By: #### 2 484399, 9453905, 996440352, 06030523, 8145860, 7531816, 8370229474 ####[facility] (DEFAULT)[address] [place] [address] eGFR AA 54 mL/min/1.73m2 Invalid Interpretation Code Comment on above: Performed By: #### 2 180527, 2546751, 463105489, 35866522, 6593059, 3088013, 1527684021 ####[facility] (DEFAULT)[address] [place] [address] Albumin [Mass/Vol] 2.7 g/dL Low 3.5-5.0 [facility] Comment on above: Performed By: #### 2 124693, 7723444, 784272158, 73775073, 8835710, 2827050, 5999738949 ####[facility] (DEFAULT)[address] [place] [address] Albumin/Globulin [Mass ratio] 1.2 {ratio} Low 1.4-2.6 Comment on above: Performed By: #### 2 487009, 3640171, 494732307, 85783070, 6732404, 4086979, 5666181100 ####[facility] (DEFAULT)[address] [place] [address] Alk Phos 48 IU/L Normal 32-91 Comment on above: Performed By: #### 2 461106, 0751515, 612301540, 05843306, 6532885, 1265539, 0358021026 ####[facility] (DEFAULT)[address] [place] [address] 08404 ALT [Catalytic activity/Vol] 7.0 U/L Low 17.0-63.0 Comment on above: Performed By: #### 2 056747, 9385717, 877546357, 85714309, 4260222, 1296645, 2336125891 ####[facility] (DEFAULT)[address] [place] [address] 58088 AST [Catalytic activity/Vol] 128 U/L High 15-41 Comment on above: Performed By: #### 2 369194, 9325961, 992041992, 56011825, 2493382, 9828163, 7197552434 ####[facility] (DEFAULT)[address] [place] [address] Bili Total 0.6 mg/dL Normal 0.3-1.2 Comment on above: Performed By: #### 2 398972, 5605431, 642523252, 79042262, 9084765, 1517835, 6666387998 ####[facility] (DEFAULT)[address] [place] [address] 60100 Creatinine [Mass/Vol] 1.50 mg/dL High 0.90-1.30 Comment on above: Performed By: #### 2 401122, 3422496, 454821595, 05461390, 6081477, 0687564, 2826514967 ####[facility] (DEFAULT)[address] [place] [address] 65861 Globulin (S) [Mass/Vol] 2.2 g/dL Normal 1.5-4.3 Comment on above: Performed By: #### 2 453112, 7740925, 483054327, 88593180, 4852716, 9116254, 3804778641 ####[facility] (DEFAULT)[address] [place] [address] 07628 Protein [Mass/Vol] 4.9 g/dL Low 6.5-8.1 [facility] Comment on above: Performed By: #### 2 948946, 3154370, 131299324, 57569961, 3678447, 0666046, 5843373094 ####[facility] (DEFAULT)[address] [place] [address] 22805 Urea nitrogen [Mass/Vol] 30 mg/dL High 8-26 Comment on above: Performed By: #### 2 609529, 4804773, 554764468, 66919767, 0392384, 2820549, 2990343996 ####[facility] (DEFAULT)[address] [place] [address] Urea nitrogen/Creatinine [Mass ratio] 20.0 mg/mg High 4.6-16.2 Comment on above: Performed By: #### 2 090391, 8530082, 356412713, 72648881, 2327685, 2415405, 0887683369 ####[facility] (DEFAULT)[address] [place] [address] 33891 CRPon 05-23-2023 CRP 8.4 mg/dL High <=0.5 Comment on above: Performed By: #### 2 131067, 0112421, 017815083, 52442730, 4423444, 1886903, 8268041338 ####[facility] (DEFAULT)[address] [place] [address] Myoglobinon 05-23-2023 Myoglobin [Mass/Vol] 1491.6 ng/mL High 17.4-105.7 [facility] Comment on above: Performed By: #### 2 950824, 7701818, 093107401, 60782599, 1045773, 6322638, 5866609631 ####[facility] (DEFAULT)[address] [place] [address] 14757 Procalcitoninon 05-23-2023 Procalcitonin 1.226 ng/mL High 0.500-1.000 Comment on above: Performed By: #### 2 512897, 6800629, 597705631, 47023668, 0260741, 8396337, 7324509974 ####[facility] (DEFAULT)[address] [place] [address] Telemetry Stripson Telemetry Strips [id number]#1 .00OTGTIFF Normal .Auto Diff 1on 05-22-2023 Auto [place] % 10 % Normal 1-12 Comment on above: Performed By: #### 5 116038509, 8399299, 4898307, 7545385, 0570190218, 3047916, 83363069 ####[facility] (DEFAULT)[address] [place] [address] Baso Abs# 0.0 x10 Normal 0.0-0.2 Comment on above: Performed By: #### 5 110745514, 5952523, 9864205, 0451723, 8228701095, 0151428, 23521180 ####[facility] (DEFAULT)[address] [place] [address] Basophils/100 WBC (Bld) 0.5 % Normal 0.2-2.0 Comment on above: Performed By: #### 5 254910222, 6235386, 6923463, 0156375, 5582640441, 0289086, 50317868 ####[facility] (DEFAULT)[address] [place] [address] Eos Abs# 0.0 x10 Normal 0.0-0.4 Comment on above: Performed By: #### 5 678668438, 9922170, 3229520, 0967991, 2724502632, 0859801, 69804631 ####[facility] (DEFAULT)[address] [place] [address] 12938 Eosinophils/100 WBC (Bld) 0.0 % Low 0.9-4.0 Comment on above: Performed By: #### 5 005658090, 6856531, 5336525, 2289560, 1886689413, 2407435, 86404274 ####[facility] (DEFAULT)[address] [place] [address] Lymph Abs# 0.5 x10 Low 1.3-2.9 Comment on above: Performed By: #### 5 476093672, 5584747, 7895879, 9177283, 7598053842, 3250196, 52047263 ####[facility] (DEFAULT)[address] [place] [address] Lymphocytes/100 WBC (Bld) 7 % Low 14-48 Comment on above: Performed By: #### 5 978585752, 1639717, 5929221, 1343979, 7536737870, 5838231, 82707217 ####[facility] (DEFAULT)[address] [place] [address] [place] Abs# 0.8 x10 Normal 0.0-0.8 Comment on above: Performed By: #### 5 656374034, 8468676, 0181790, 0059368, 2063352993, 4624479, 50724193 ####[facility] (DEFAULT)[address] [place] [address] Neut Abs# 6.8 x10 Normal 1.5-9.2 Comment on above: Performed By: #### 5 599082330, 2990561, 5527096, 1058584, 2607724896, 0320729, 30396501 ####[facility] (DEFAULT)[address] [place] [address] Neutrophils/100 WBC (Bld) 83 % Normal 44-88 Comment on above: Performed By: #### 5 879360454, 8460273, 2868819, 3906923, 1657558751, 1543440, 92254923 ####[facility] (DEFAULT)[address] [place] [address] CBC w/ Auto Diffon 4 Erythrocyte distribution width (RBC) [Ratio] 15.6 % High 11.5-15.0 Comment on above: Performed By: #### 5 702873808, 8389079, 5780859, 0108572, 6812367018, 4453554, 21430570 ####[facility] (DEFAULT)[address] [place] [address] Hematocrit (Bld) [Volume fraction] 38.2 % Normal 34.8-51.9 Comment on above: Performed By: #### 5 908791215, 0223785, 8421570, 8614121, 8236897764, 5083770, 54491894 ####[facility] (DEFAULT)[address] [place] [address] Hemoglobin (Bld) [Mass/Vol] 12.8 g/dL Normal 11.8-17.7 Comment on above: Performed By: #### 5 263194725, 6210216, 9984193, 5537201, 8412728214, 2678324, 40316123 ####[facility] (DEFAULT)[address] [place] [address] Man Diff? Auto Invalid Interpretation Code Comment on above: Performed By: #### 5 419279928, 5611035, 6769915, 3823164, 0948309007, 1017908, 33214447 ####[facility] (DEFAULT)[address] [place] [address] 21288 MCH (RBC) [Entitic mass] 30 pg Normal 24-34 Comment on above: Performed By: #### 5 178964440, 0365291, 8552402, 9341194, 3538114285, 4631789, 81425473 ####[facility] (DEFAULT)[address] [place] [address] MCHC (RBC) [Mass/Vol] 34 g/dL Normal 26-37 Comment on above: Performed By: #### 5 153845898, 7034343, 0406234, 5289620, 0575812667, 4902297, 39386089 ####[facility] (DEFAULT)[address] [place] [address] 70764 MCV (RBC) [Entitic vol] 88 fL Normal 81-100 Comment on above: Performed By: #### 5 790195958, 4171032, 5912951, 9287813, [id number], 1785015, 05047962 ####[facility] (DEFAULT)[address] [place] [address] Platelet 132 x10 Low 138-427 Comment on above: Performed By: #### 5 [id number], 2471945, 9223847, 7507855, [id number], 4615088, 49379657 ####[facility] (DEFAULT)[address] [place] [address] Platelet mean volume (Bld) [Entitic vol] 8.7 fL Normal 6.3-10.2 Comment on above: Performed By: #### 5 [id number], 3471774, 8819943, 6273171, 1255359148, 2367403, 92405839 ####[facility] (DEFAULT)[address] [place] [address] RBC 4.32 x10 Normal 3.70-5.30 Comment on above: Performed By: #### 5 [id number], 9035676, 8673124, 6462683, 6067134953, 7069117, 49140961 ####[facility] (DEFAULT)[address] [place] [address] WBC 8.2 x10 Normal 3.5-10.5 Comment on above: Performed By: #### 5 [id number], 2726603, 5564019, 0746253, 6734018907, 1946979, 81453398 ####[facility] (DEFAULT)[address] [place] [address] CKon 05-22-2023 CK [Catalytic activity/Vol] 2963 U/L High 49-397 Comment on above: Performed By: #### 5 [id number], 6315026, 3434185, 4554491, 2760454957, 4301456, [id number] ####[facility] (DEFAULT)[address] [place] [address] CMP Standardon 05-22-2023 eGFR Non AA 44 mL/min/1.73m2 Invalid Interpretation Code Comment on above: Performed By: #### 5 [id number], 6800831, 8341696, 1690514, 3928808224, 4772754, 78625944 ####[facility] (DEFAULT)[address] [place] [address] eGFR AA 54 mL/min/1.73m2 Invalid Interpretation Code Comment on above: Performed By: #### 5 [id number], 2240528, 2135843, 0708877, 6601506196, 3670276, 39320349 ####[facility] (DEFAULT)[address] [place] [address] Albumin [Mass/Vol] 3.0 g/dL Low 3.5-5.0 [facility] Comment on above: Performed By: #### 5 [id number], 7473594, 8737607, 6437001, 7755196763, 7844908, 16531085 ####[facility] (DEFAULT)[address] [place] [address] Albumin/Globulin [Mass ratio] 1.1 {ratio} Low 1.4-2.6 Comment on above: Performed By: #### 5 [id number], 5582685, 1998388, 6853161, 1189481438, 7395569, 39111685 ####[facility] (DEFAULT)[address] [place] [address] 64730 Alk Phos 60 IU/L Normal 32-91 Comment on above: Performed By: #### 5 [id number], 3760059, 9775090, 6694386, 5335120825, 9706122, 03833207 ####[facility] (DEFAULT)[address] [place] [address] 42279 ALT [Catalytic activity/Vol] 50.0 U/L Normal 17.0-63.0 Comment on above: Performed By: #### 5 [id number], 3598415, 3164019, 5850008, 2644215751, 4461803, 85313634 ####[facility] (DEFAULT)[address] [place] [address] 96750 Anion gap [Moles/Vol] 7.6 mmol/L Normal 5.0-19.0 Comment on above: Performed By: #### 5 [id number], 9347037, 8925759, 1717059, 1876972305, 0589612, 60609191 ####[facility] [facility] (DEFAULT)[address] [place] [address] 17152 AST [Catalytic activity/Vol] 158 U/L High 15-41 Comment on above: Performed By: #### 5 [id number], 9002550, 4241016, 3369967, 3192031664, 5666009, 16997868 ####[facility] (DEFAULT)[address] [place] [address] 54148 Bili Total 0.9 mg/dL Normal 0.3-1.2 Comment on above: Performed By: #### 5 210650704, 4685492, 7100003, 0425219, 1695782746, 5581282, 95870944 ####[facility] (DEFAULT)[address] [place] [address] 66330 Calcium [Mass/Vol] 7.8 mg/dL Low 8.9-10.3 [facility] Comment on above: Performed By: #### 5 975529885, 5207869, 0244953, 1033353, 1709104031, 0226964, 76730140 ####[facility] (DEFAULT)[address] [place] [address] 40525 Chloride [Moles/Vol] 111 mmol/L Normal 101-111 [facility] Comment on above: Performed By: #### 5 [id number], 2064561, 3834533, 1331911, 6010108937, 4302502, 35487234 ####[facility] (DEFAULT)[address] [place] [address] 02145 CO2 [Moles/Vol] 22 mmol/L Normal 21-32 Comment on above: Performed By: #### 5 024388588, 0591772, 8557856, 2012404, 2138807920, 5024554, 95846097 ####[facility] (DEFAULT)[address] [place] [address] 30537 Creatinine [Mass/Vol] 1.50 mg/dL High 0.90-1.30 Comment on above: Performed By: #### 5 972134548, 9199683, 6183498, 9657119, 1848234521, 5901369, 17831962 ####[facility] (DEFAULT)[address] [place] [address] 30199 Globulin (S) [Mass/Vol] 2.6 g/dL Normal 1.5-4.3 Comment on above: Performed By: #### 5 268743339, 2900014, 9307540, 1401183, 9416234448, 4819431, 19462118 ####[facility] (DEFAULT)[address] [place] [address] 85826 Glucose [Mass/Vol] 128.0 mg/dL High 74.0-118.0 [facility] Comment on above: Performed By: #### 5 536250453, 5916036, 0980070, 7190756, 7753294120, 8476252, 88868588 ####[facility] (DEFAULT)[address] [place] [address] 60766 Osmolality 283 mOsm/L Invalid Interpretation Code Comment on above: Performed By: #### 5 263454621, 8386385, 3846999, 3625864, 6831307173, 1415498, 23561770 ####[facility] (DEFAULT)[address] [place] [address] 26056 Potassium [Moles/Vol] 3.6 mmol/L Normal 3.6-5.1 Comment on above: Performed By: #### 5 444462833, 7571143, 8656860, 8101623, 4155892947, 2074557, 19569542 ####[facility] (DEFAULT)[address] [place] [address] 09137 Protein [Mass/Vol] 5.6 g/dL Low 6.5-8.1 [facility] Comment on above: Performed By: #### 5 212085967, 8053746, 0933775, 3623131, 2945606972, 5876065, 32857909 ####[facility] (DEFAULT)[address] [place] [address] 53256 Sodium [Moles/Vol] 137.0 mmol/L Normal 136.0-144.0 [facility] Comment on above: Performed By: #### 5 885304951, 0855356, 6434283, 7794980, 1339159893, 2419861, 41372917 ####[facility] (DEFAULT)[address] [place] [address] Urea nitrogen [Mass/Vol] 33 mg/dL High 8-26 Comment on above: Performed By: #### 5 847802256, 1910883, 8947666, 4963203, 1042039982, 2547077, 32194094 ####[facility] (DEFAULT)[address] [place] [address] Urea nitrogen/Creatinine [Mass ratio] 22.0 mg/mg High 4.6-16.2 Comment on above: Performed By: #### 5 108682525, 4887127, 3584966, 1297810, 2630858807, 0587058, 18380774 ####[facility] (DEFAULT)[address] [place] [address] 44385 Magnesiumon 05-22-2023 Magnesium [Mass/Vol] 1.80 mg/dL Normal 1.80-2.50 [facility] Comment on above: Performed By: #### 5 005286880, 9375122, 5698009, 9327901, 3248084755, 7531914, 32684208 ####[facility] (DEFAULT)[address] [place] [address] 33240 Myoglobinon 05-22-2023 Myoglobin [Mass/Vol] 3674.6 ng/mL High 17.4-105.7 [facility] Comment on above: Performed By: #### 5 406338821, 7371716, 0120919, 8083060, 9534905473, 1729778, 97285519 ####[facility] (DEFAULT)[address] [place] [address] 11356 Nutrition Noteon 05-22-2023 Nutrition Note Normal Pharmacy Noteon 05-22-2023 Pharmacy Note Normal Telemetry Stripson Telemetry Strips [id number] .[id number] Normal TnI HSon 05-22-2023 Troponin I High Sensitivity 466.0 pg/mL Critically abnormal <=20.0 Comment on above: Result Comment: Crit ical result TNIHS 466.0 pg/mL called to and read back by pallavi avila at 22-May-2023 05:14 by brian. Performed By: #### 5 489263764, 7452811, 3904849, 2630002, 4387094110, 7741434, 68428987 ####[facility] (DEFAULT)[address] [place] [address] .Auto Diff 1on 05-21-2023 Auto [place] % 9 % Normal -12 Comment on above: Performed By: #### 2 656827, 63406304, 1333280056, 9039038, 8732465, 5090092, 114435763, 2327389700, 0071466, 1771921643, 2990711800 ####[facility] (DEFAULT)[address] [place] [address] 96260 Baso Abs# 0.0 x10 Normal 0.0-0.2 Comment on above: Performed By: #### 2 234113, 39118651, 8941249047, 6296525, 1758916, 6587895, 395635615, 6075814222, 4133138, 5041789945, 1737361877 ####[facility] (DEFAULT)[address] [place], [place] [address] Basophils/100 WBC (Bld) 0.1 % Low 0.2-2.0 Comment on above: Performed By: #### 2 443169, 92102270, 6660691859, 8375152, 6291029, 6409276, 095065308, 2017019453, 5505833, 1870697802, 0730177393 ####[facility] (DEFAULT)[address] [place] [address] 61748 Eos Abs# 0.0 x10 Normal 0.0-0.4 Comment on above: Performed By: #### 2 689804, 75245413, 2965465237, 5755553, 7398554, 2287568, 431815788, 7566407111, 1261310, 7827362396, 0801797151 ####[facility] (DEFAULT)[address] [place] [address] 52023 Eosinophils/100 WBC (Bld) 0.0 % Low 0.9-4.0 Comment on above: Performed By: #### 2 814432, 29978301, 1079077869, 3137436, 8573410, 8091563, 228279228, 1912961982, 2365052, 4072269711, 9759130532 ####[facility] (DEFAULT)[address] [place] [address] 29957 Lymph Abs# 0.3 x10 Low 1.3-2.9 Comment on above: Performed By: #### 2 411585, 87027047, 2152079155, 9899450, 7727117, 2955260, 228942689, 3569255704, 4768162, 7120745639, 7286759362 ####[facility] (DEFAULT)[address] [place] [address] 00560 Lymphocytes/100 WBC (Bld) 3 % Low 14-48 Comment on above: Performed By: #### 2 099080, 33924778, 0582803738, 9645266, 6136359, 6361081, 388907238, 2785841669, 1517419, 7825153778, 0348461929 ####[facility] (DEFAULT)[address] [place] [address] 18773 [place] Abs# 1.0 x10 High 0.0-0.8 Comment on above: Performed By: #### 2 181063, 82950242, 6150159528, 7547474, 5200231, 2553386, 104562121, 7847897900, 8072120, 9658325377, 4128722018 ####[facility] (DEFAULT)[address] [place] [address] Neut Abs# 9.5 x10 High 1.5-9.2 Comment on above: Performed By: #### 2 218144, 52880309, 0055191867, 7807350, 2017697, 2310815, 279699376, 0969382774, 1644502, 3283683148, 3240282755 ####[facility] (DEFAULT)[address] [place] [address] Neutrophils/100 WBC (Bld) 88 % Normal 44-88 Comment on above: Performed By: #### 2 682659, 56758583, 9189694544, 5026882, 7336981, 8498363, 817106794, 1373990340, 2935357, 4604195209, 0611190237 ####[facility] (DEFAULT)[address] [place] [address] .QC SARS-CoV-2 (COVID-19)/Fl u/RSV (GeneXpert)on 05-21-2023 Internal Control Pass Normal Comment on above: Order Comment: Order ed by Discern.[[id number]] Performed By: #### 7 [id number], 6601783849 ####[facility] (DEFAULT)[address] [place] [address] CBC w/ Auto Diffon Erythrocyte distribution width (RBC) [Ratio] 15.2 % High 11.5-15.0 Comment on above: Performed By: #### 2 741930, 45667824, 5013951430, 8394420, 0322253, 3331336, 932829163, 2178271369, 2025417, 7896525704, 0823594041 ####[facility] (DEFAULT)[address] [place] [address] Hematocrit (Bld) [Volume fraction] 44.0 % Normal 34.8-51.9 Comment on above: Performed By: #### 2 725141, 67290232, 2182372326, 9277498, 9266005, 0381108, 156654075, 8059520399, 8462120, 4354732476, 4909760089 ####[facility] (DEFAULT)[address] [place] [address] Hemoglobin (Bld) [Mass/Vol] 14.7 g/dL Normal 11.8-17.7 Comment on above: Performed By: #### 2 679224, 31575720, 7222275482, 7023356, 8058131, 8938742, 537881609, 7549565879, 7995702, 2006428301, 8972398255 ####[facility] (DEFAULT)[address] [place] [address] Man Diff? Auto Invalid Interpretation Code Comment on above: Performed By: #### 2 658395, 72990822, 6279523786, 8437576, 1163799, 1621517, 237081121, 7808288739, 6414983, 4304784235, 5841341407 ####[facility] (DEFAULT)[address] [place] [address] MCH (RBC) [Entitic mass] 30 pg Normal 24-34 Comment on above: Performed By: #### 2 862590, 02712847, 2632955378, 7428264, 7281651, 1211049, 857947789, 6590708470, 3258560, 2538161595, 3534815920 ####[facility] (DEFAULT)[address] [place] [address] MCHC (RBC) [Mass/Vol] 33 g/dL Normal 26-37 Comment on above: Performed By: #### 2 710987, 36079363, 4788342238, 2239935, 3106884, 4648647, 344069760, 6839560800, 7303912, 2819338150, 5846024545 ####[facility] (DEFAULT)[address] [place] [address] 86025 MCV (RBC) [Entitic vol] 89 fL Normal 81-100 Comment on above: Performed By: #### 2 403403, 00309748, 6937387227, 6375143, 7647353, 0707332, 027448790, 2859855022, 8491054, 6577228842, 5313434364 ####[facility] (DEFAULT)[address] [place] [address] 91518 Platelet 173 x10 Normal 138-427 Comment on above: Performed By: #### 2 315958, 90150773, 9398821281, 0668374, 6885708, 0808072, 321537111, 1123606845, 1014019, 4817675310, 3418655074 ####[facility] (DEFAULT)[address] [place] [address] 62981 Platelet mean volume (Bld) [Entitic vol] 7.9 fL Normal 6.3-10.2 Comment on above: Performed By: #### 2 495498, 08985799, 6881153162, 2274792, 9812106, 2678281, 769040617, 1053746848, 7345375, 0460619632, 0715500001 ####[facility] (DEFAULT)[address] [place] [address] 07042 RBC 4.95 x10 Normal 3.70-5.30 Comment on above: Performed By: #### 2 308822, 25030666, 6963888909, 4126529, 7538097, 2651397, 686919997, 0820576967, 3020939, 0016173274, 1368723644 ####[facility] (DEFAULT)[address] [place] [address] 50871 WBC 10.7 x10 High 3.5-10.5 Comment on above: Performed By: #### 2 983670, 75904170, 5127876393, 1838263, 5601433, 5524220, 725447247, 6340496554, 8250358, 3023766047, 5636421495 ####[facility] (DEFAULT)[address] [place] [address] CKon 05-21-2023 Total CK >4100 High 49-397 Comment on above: Result Comment: Veri fied by dilution Performed By: #### 2 202822, 53731525, 1454742704, 4561045, 8919943, 5461906, 587695366, 6526271356, 9198342, 1850685984, 2537134714 ####[facility] (DEFAULT)[address] [place] [address] CMP Standardon 05-21-2023 eGFR Non AA 49 mL/min/1.73m2 Invalid Interpretation Code Comment on above: Performed By: #### 2 347082, 22805395, 2618959932, 7355051, 0454520, 2192321, 832987054, 0207704874, 8516215, 1055437049, 0391479435 ####[facility] (DEFAULT)[address] [place] [address] 72532 eGFR AA 59 mL/min/1.73m2 Invalid Interpretation Code Comment on above: Performed By: #### 2 186898, 36143067, 4795058894, 0007166, 3138560, 8279138, 259315976, 9365540185, 2356694, 1522694289, 4073780117 ####[facility] (DEFAULT)[address] [place] [address] 01089 Albumin [Mass/Vol] 4.2 g/dL Normal 3.5-5.0 [facility] Comment on above: Performed By: #### 2 771492, 76520856, 4182957896, 3150053, 3351349, 7643761, 362347255, 2532950843, 0035608, 4545184994, 6698212552 ####[facility] (DEFAULT)[address] [place] [address] 28045 Alk Phos 81 IU/L Normal 32-91 Comment on above: Performed By: #### 2 319428, 74622164, 5367773284, 4390794, 5745415, 7916408, 877722745, 6599288259, 8018952, 9809513041, 1486272465 ####[facility] (DEFAULT)[address] [place] [address] 13846 ALT [Catalytic activity/Vol] 61.0 U/L Normal 17.0-63.0 Comment on above: Performed By: #### 2 475487, 80130199, 9786904340, 8979048, 9909855, 3146159, 517446912, 5725376048, 9516602, 7479166727, 9642261329 ####[facility] (DEFAULT)[address] [place] [address] 16782 AST [Catalytic activity/Vol] 150 U/L High 15-41 Comment on above: Performed By: #### 2 886628, 29405325, 7552492954, 9008667, 1665667, 5306833, 030251363, 5492965940, 3849264, 1895126808, 4369885288 ####[facility] (DEFAULT)[address] [place] [address] 12860 Bili Total 1.1 mg/dL Normal 0.3-1.2 Comment on above: Performed By: #### 2 192002, 31622907, 7911181546, 4110899, 8927764, 9176176, 877646203, 3312609039, 2649599, 9246336731, 0697393399 ####[facility] (DEFAULT)[address] [place] [address] 66076 Calcium [Mass/Vol] 8.8 mg/dL Low 8.9-10.3 [facility] Comment on above: Performed By: #### 2 455733, 19363635, 4695032694, 4786577, 6167153, 9257568, 821796850, 4031728349, 0200409, 2070157041, 1595800000 ####[facility] (DEFAULT)[address] [place] [address] 08010 Chloride [Moles/Vol] 105 mmol/L Normal 101-111 [facility] Comment on above: Performed By: #### 2 330149, 63650345, 8039577809, 5406783, 5612677, 0441713, 882451123, 3414989503, 2901200, 2343433718, 6902528977 ####[facility] (DEFAULT)[address] [place] [address] 64810 CO2 [Moles/Vol] 26 mmol/L Normal 21-32 Comment on above: Performed By: #### 2 271718, 37004310, 6347647347, 3982077, 4641018, 6119460, 378188259, 4067076936, 4942134, 1619237926, 4887154603 ####[facility] (DEFAULT)[address] [place] [address] 92953 Creatinine [Mass/Vol] 1.37 mg/dL High 0.90-1.30 Comment on above: Performed By: #### 2 916108, 74569531, 4948519078, 3722387, 5594848, 9216199, 662683369, 2359009763, 1554591, 5280506786, 1330494689 ####[facility] (DEFAULT)[address] [place] [address] 25969 Glucose [Mass/Vol] 124.0 mg/dL High 74.0-118.0 [facility] Comment on above: Performed By: #### 2 421566, 64727969, 6731135753, 0843129, 5038700, 9226529, 303532535, 0714369194, 9673471, 8318820893, 3484309556 ####[facility] (DEFAULT)[address] [place] [address] 04567 Potassium [Moles/Vol] 3.8 mmol/L Normal 3.6-5.1 Comment on above: Performed By: #### 2 473089, 41852224, 6392327984, 7996365, 8048503, 8460245, 287498643, 9156471559, 8866472, 3830115809, 5895171510 ####[facility] (DEFAULT)[address] [place] [address] 45212 Protein [Mass/Vol] 7.4 g/dL Normal 6.5-8.1 [facility] Comment on above: Performed By: #### 2 350961, 03706515, 4681045406, 2870056, 6931600, 4007796, 535169227, 0810465184, 9247091, 6504944120, 6225387066 ####[facility] (DEFAULT)[address] [place] [address] 80418 Sodium [Moles/Vol] 140.0 mmol/L Normal 136.0-144.0 [facility] Comment on above: Performed By: #### 2 526848, 51621340, 1898050082, 5311364, 4168019, 4869581, 019254449, 8993283655, 0415382, 7108113575, 7798023399 ####[facility] (DEFAULT)[address] [place] [address] 21662 Urea nitrogen [Mass/Vol] 31 mg/dL High 8-26 Comment on above: Performed By: #### 2 368851, 68513115, 8527220346, 2842309, 0467518, 5228709, 367496991, 5190674084, 2865716, 5714775232, 8963092366 ####[facility] (DEFAULT)[address] [place] [address] 00335 Albumin/Globulin [Mass ratio] 1.3 {ratio} Low 1.4-2.6 Comment on above: Performed By: #### 2 826106, 60348920, 5151036726, 4683870, 1039184, 3127765, 100522310, 5850242781, 7293345, 6368371047, 9461780411 ####[facility] (DEFAULT)[address] [place] [address] 52073 Anion gap [Moles/Vol] 12.8 mmol/L Normal 5.0-19.0 Comment on above: Performed By: #### 2 441102, 67925033, 5807212669, 0307642, 5750905, 3437634, 311275092, 5957296160, 1360308, 7500984392, 2463933160 ####[facility] (DEFAULT)[address] [place] [address] 47554 Globulin (S) [Mass/Vol] 3.2 g/dL Normal 1.5-4.3 Comment on above: Performed By: #### 2 569003, 71342772, 9748099843, 0168044, 4271572, 2136144, 400954683, 8867137145, 7968667, 1320968413, 2505159065 ####[facility] (DEFAULT)[address] [place] [address] 71715 Osmolality 287 mOsm/L Invalid Interpretation Code Comment on above: Performed By: #### 2 755033, 14131085, 7915731084, 6466567, 8340359, 3930417, 738694954, 6752309928, 6835855, 5867771253, 7836237539 ####[facility] (DEFAULT)[address] [place] [address] 38093 Urea nitrogen/Creatinine [Mass ratio] 22.6 mg/mg High 4.6-16.2 Comment on above: Performed By: #### 2 842869, 75612463, 0815886099, 7460010, 3737965, 6562728, 540571663, 4702728016, 5387495, 1011211996, 5475554543 ####[facility] (DEFAULT)[address] [place] [address] 80343 COVID/Flu/RSV (GeneXpert)on 05-21-2023 Flu A (GXpert COVFLURSV) Positive Normal Negative Comment on above: Performed By: #### 7 342278730, 1943671682 ####[facility] (DEFAULT)[address] [place] [address] 84639 Flu B (GXpert COVFLURSV) Negative Normal Negative Comment on above: Performed By: #### 7 328069618, 3481221717 ####[facility] (DEFAULT)[address] [place] [address] 93294 RSV (GXpert COVFLURSV) Negative Normal Negative Comment on above: Performed By: #### 7 479934032, 7366361125 ####[facility] (DEFAULT)[address] [place] [address] 02955 SARS-CoV-2 (COVID-19) RNA ANDREW+probe Ql (Unsp spec) Negative Normal Negative Comment on above: Result Comment: Perf ormed by PCR methodology. Performed By: #### 7 299537788, 4021382827 ####[facility] (DEFAULT)[address] [place] [address] 07641 CRPon 05-21-2023 CRP 8.3 mg/dL High <=0.5 Comment on above: Performed By: #### 2 049039, 91089739, 1566491439, 9984038, 9502726, 5987005, 984376624, 0086006433, 7094473, 8075395238, 6898093707 ####[facility] (DEFAULT)[address] [place] [address] Head or Brain w/o Contras ton 05-21-2023 CT Head or Brain w/o Contrast Normal CT Maxillofacial w/o Contras ton 05-21-2023 CT Maxillofacial w/o Contrast [facility] CT Spine Cervical w/o Contra ston 05-21-2023 CT Spine Cervical w/o Contrast [facility] ED Clinical Summaryon 2023 ED Clinical Summary Normal [facility] ED Note - Physicianon 2023 ED Note - Physician [facility] ED Note-Nursingon 05-21-2023 ED Note-Nursing Patient admitted to the floor, hospitalist to review cultures. [facility] ED Note-Nursing 16fr clarke catheter inserted without difficulty. 10ml of cloudy, thick, sediment urine came through the catheter, no further urine output at this time [facility] ED Note-Nursing Dr. Angelia paul. [facility] ED Note-Nursing Dr. Salmon notified that repeat CK was needed per lab. Lab states that CK at this time was reading > 4100. REsults pending 30 minutes. [facility] ED Note-Nursing [facility] ED Patient Education Noteon 05-21-2023 ED Patient Education Note Education Materials [facility] ED Patient Summaryon 024 ED Patient Summary [facility] Extra Redon 05-21-2023 Tube Collected Yes Invalid Interpretation Code Comment on above: Performed By: #### 2 996352, 14567494, 8302574947, 6029323, 8295854, 5761743, 881410613, 3319955758, 7629403, 8018796235, 3996068360 ####[facility] (DEFAULT)[address] [place] [address] 24275 Myoglobinon 05-21-2023 Myoglobin [Mass/Vol] ng/mL High 17.4-105.7 [facility] Comment on above: Performed By: #### 2 562600, 17084978, 1354720423, 9045776, 1523731, 1167262, 702989153, 8201871078, 1800086, 9828030242, 7604031284 ####[facility] (DEFAULT)[address] [place] [address] 23326 Procalcitoninon 05-21-2023 Procalcitonin 1.776 ng/mL High 0.500-1.000 Comment on above: Performed By: #### 7 20370166 ####[facility] (DEFAULT)[address] [place] [address] 17017 TSH w/ Reflex to FT4on 05-20 TSH Qn 1.83 m[IU]/L Normal 0.45-5.33 Comment on above: Performed By: #### 2 937139, 22803557, 9533182206, 2290294, 2590047, 3260369, 766962252, 4831563497, 7011781, 3716389369, 4311972587 ####[facility] (DEFAULT)[address] [place] [address] 47991 TnI HSon 05-21-2023 Troponin I High Sensitivity 594.1 pg/mL Critically abnormal <=20.0 Comment on above: Result Comment: Crit ical result TNIHS 594.1 pg/mL called to and read back by Effie Montanez at 21-May-2023 23:08 by Juana. Performed By: #### 5 [id number] ####[facility] (DEFAULT)[address] [place] [id number] Troponin I High Sensitivity 610.4 pg/mL Critically abnormal <=20.0 Comment on above: Result Comment: Crit ical result TNIHS 610.4 pg/mL called to and read back by Bryn Victoria at 21-May-2023 15:44 by Juana. Performed By: #### 5 [id number] ####[facility] (DEFAULT)[address] [place] [address]84 Troponin I High Sensitivity 485.2 pg/mL Critically abnormal <=20.0 Comment on above: Result Comment: Crit ical result TNIHS 485.2 pg/mL called to and read back by Karyn Harman RN ER at 21-May-2023 10:03 by Ebony. Performed By: #### 2 [id number], [id number], [id number], [id number], [id number], [id number], [id number], [id number], [id number], [id number] ####[facility] (DEFAULT)[address] [place] [address] UA Jihls7jh 05-21-2023 UA Amorph. Few [facility] Comment on above: Order Comment: Urina lysis Microscopic order added on by Take the Interview Expert Rules system. Performed By: #### 1 [id number] ####[facility] (DEFAULT)[address] [place] [address] UA Bacteria 3+ [facility] Comment on above: Order Comment: Urina lysis Microscopic order added on by Discern Expert Rules system. Performed By: #### 1 [id number], [id number] ####[facility] (DEFAULT)[address] [place] [address] UA RBC 5-10 [facility] Comment on above: Order Comment: Urina lysis Microscopic order added on by Take the Interview Expert Rules system. Performed By: #### 1 [id number], [id number], [id number] ####[facility] (DEFAULT)[address] [place] [address] UA Squam Epi Rare [facility] Comment on above: Order Comment: Urina lysis Microscopic order added on by Take the Interview Expert Rules system. Performed By: #### 1 [id number], [id number], [id number] ####[facility] (DEFAULT)[address] [place] [address] UA WBC 0-2 [facility] Comment on above: Order Comment: Urina lysis Microscopic order added on by Take the Interview Expert Rules system. Performed By: #### 1 [id number], [id number], [id number] ####[facility] (DEFAULT)[address] [place] [address] UA w Culture if Ind Standard on 05-21-2023 Breakpoint UA [facility] Comment on above: Performed By: #### 1 [id number], [id number], [id number] ####[facility] (DEFAULT)[address] [place] [address] Color (U) Yellow [facility] [facility] Comment on above: Performed By: #### 1 [id number], [id number] ####[facility] (DEFAULT)[address] [place] [address] Culture? Yes Normal Comment on above: Result Comment: Resu lt created by rule GL_MAGR_ADD_UA_CULT1 Result created by rule GL_MAGR_ADD_UA_CULT1 Performed By: #### 1 [id number] ####[facility] (DEFAULT)[address] [place] [address] Glucose (U) [Mass/Vol] 100 mg/dL Normal Comment on above: Performed By: #### 1 [id number], [id number] ####[facility] (DEFAULT)[address] [place] [address] Ketones Ql (U) TRACE Normal Comment on above: Performed By: #### 1 [id number], [id number], [id number] ####[facility] (DEFAULT)[address] [place] [address] Micro? Indicated Invalid Interpretation Code Comment on above: Result Comment: Resu lt created by rule GL_MAGR_ADD_UA_MICRO Performed By: #### 1 [id number], [id number], [id number] ####[facility] (DEFAULT)[address] [place] [id number] UA Bilirubin Negative Normal Comment on above: Performed By: #### 1 [id number], [id number] ####[facility] (DEFAULT)[address] [place] [address] 20536 UA Blood LARGE Abnormal NEGATIVE Comment on above: Performed By: #### 1 [id number], [id number], [id number] ####[facility] (DEFAULT)[address] [place] [address] 72790 UA Clarity SL CLOUDY Abnormal CLEAR Comment on above: Performed By: #### 1 [id number], [id number], [id number] ####[facility] (DEFAULT)[address] [place] [address] 73408 UA Leuk Est TRACE Abnormal NEGATIVE Comment on above: Performed By: #### 1 [id number], [id number], [id number] ####[facility] (DEFAULT)[address] [place] [address] 42552 UA Nitrite Negative Normal NEGATIVE Comment on above: Performed By: #### 1 [id number], [id number], [id number] ####[facility] (DEFAULT)[address] [place] [address] 00335 UA pH 5.5 Normal 5-8 Comment on above: Performed By: #### 1 [id number], [id number], [id number] ####[facility] (DEFAULT)[address] [place] [address] 85589 UA Protein 100 Abnormal NEGATIVE Comment on above: Performed By: #### 1 [id number], [id number], [id number] ####[facility] (DEFAULT)[address] [place] [address] UA Spec Grav >=1.030 Normal 1.001-1.035 Comment on above: Performed By: #### 1 [id number], [id number], [id number] ####[facility] (DEFAULT)[address] [place] [address] UA Urobilinogen 0.2 mg/dL Normal 0.2-1.0 Comment on above: Performed By: #### 1 [id number], [id number], [id number] ####[facility] (DEFAULT)[address] [place] [address]23 Urine Source Clean Catch Normal Comment on above: Performed By: #### 1 [id number], [id number], [id number] ####[facility] (DEFAULT)[address] [place] [address] US Echocardiogram Completeon 05-21-2023 US Echocardiogram Complete Normal Vit B12 Lvlon 05-21-2023 Vit B12 321 Normal 180-914 Comment on above: Performed By: #### 2 [id number], [id number], [id number], [id number], [id number], [id number], [id number], [id number] ####[facility] (DEFAULT)[address] [place] [address] XR Chest 1 View Frontalon XR Chest 1 View Frontal [facility] XR Pelvis 1 or 2 Viewson XR Pelvis 1 or 2 Views [facility] Outside Recordson 03-07-2023 Outside Records [id number]2023 Coding Summary [facility] Office/Clinic Noteon 023 Office/Clinic Note [facility] ED Clinical Summaryon 2022 ED Clinical Summary [facility] ED Note - Physicianon 2022 ED Note - Physician [facility] ED Patient Education Noteon 02-13-2023 ED Patient Education Note [facility] ED Patient Summaryon 023 ED Patient Summary [facility] Outside Recordson 2023 Outside Records [id number] #1.00OTGTIFF [facility] 12-20-2022 Outside Records [id number]# 1.00OTGTIFF [facility] 11-02-2022 Outside Records [id number] #1.00OTGTIFF [facility] XR ANKLE RIGHT STANDARDon XR ANKLE RIGHT STANDARD Radiology exam is complete. No Radiologist dictation. Please follow up with ordering provider. Final result Normal [facility] Encounters Encounter Date Encounter Type Care Provider Facility Start: 12-19-2023 ambulatory Dipti Escamilla Facility :[facility] Start: 12-05-2023 End: 12-05-2023 ambulatory Dipti Escamilla Facility:[facility] Start: 12-05-2023 End: 12-05-2023 Patient encounter procedure Dipti Escamilla [facility] Start: 11-19-2023 End: 11-19-2023 ambulatory ROBERTA CALABRESE Not Available Start: 10-10-2023 End: 10-14-2023 Evaluation and management of inpatient Romina Flowers Facility: Start: 10-10-2023 End: 10-11-2023 ambulatory Romina Conley Lionel Facility: Start: 09-21-2023 End: 09-21-2023 Emergency department patient visit Romina Flowers Facility: Start: 08-15-2023 End: 08-15-2023 ambulatory Rocael Danielle Morro Facility: Start: 07-18-2023 End: 07-18-2023 ambulatory Romina Flowers Facility: [facility] Start: 06-27-2023 End: 06-27-2023 ambulatory [facility] Start: 06-20-2023 End: 06-20-2023 ambulatory Romina Flowers Facility: [facility] Start: 06-05-2023 ambulatory [facility] Start: 05-27-2023 Telephone encounter [facility] Comment on above: Hospital Follow-up Start: 05-21-2023 End: 05-27-2023 Evaluation and management of inpatient Romina Flowers Facility: Start: 05-21-2023 End: 05-21-2023 Emergency department patient visit Romina Flowers Facility: Start: 02-18-2023 End: 02-18-2023 ambulatory Romina Flowers Facility: [facility] Start: 02-13-2023 End: 02-13-2023 Emergency department patient visit Romina Conley Lionel Facility: Procedures Date Procedure Procedure Detail Performing Clinician Start: 06-27-2023 Follow-up visit [facility]up [facility] Start: 03-31-2019 Cystourethroscopy wi th dilation of urethral stricture Dipti Escamilla Start: 05-01-2018 Cystourethroscopy wi th dilation of urethral stricture Dipti Escamilla Comment on above: 05/04/2008, 05/16/2010, 04/23/2012, 01/01/2013, 01/01/2013, 06/23/2013, 06/22/2014, 12/28/2014, 10/18/2015, 01/01/2017, 08/29/2017, 05/01/2018 Start: 05-18-2010 Cystourethroscopy wi th internal male urethrotomy Dipti Escamilla Comment on above: 05/18/2008, 05/19/19 11 Cholecystectomy Dipti Galea Partial resection of colon A kelsie Goodea Teleradiotherapy procedure A lysannabelle Galea Comment on above: 2006 Transurethral prostatectomy Dipti Escamilla Comment on above: Dr. Rodriguez Plan of Treatment Date Care Activity Detail Author Start: 11-16-2022 [facility] Start: 01-03-2000 Fall Risk Screening Fall [facility] Start: 1985 Administration of varicella zoster vaccine Zoster (Shingles) Vaccine (1 of 2) [facility] Start: 1954 DTaP,Tdap and Td Vaccines (1 - Tdap) DTaP,Tdap and Td Vaccines (1 - Tdap) [facility] Start: 1953 Adult BMI Screening Adult [facility]ening [facility] Start: 1947 [facility] Start: 1947 Tobacco Screening [facility] Start: 1935 Medicare Annual Wellness Visit Medicare Annual Wellness Visit [facility] [employer] Payers Date Payer Category Payer Medicare [id number] 2015 Private Health Insurance [employer] [id number] 2015-Present [id number] [place] [address] [id number] 2015 Private Health Insurance [id number] 1999 Medicare MEDICARE MEDICAR E RAILROAD [id number] 1999-Present [phone] [address] [address] [place] [address] [id number] 1999 Medicare [id number] 1935 Unknown [id number] 2.16.840.1.867278.3.579 .2.1286 1935 Unknown [id number] 2.16.840.1.517754.3.579 .2.1286 1935 Unknown [id number] 2.16.840.1.117061.3.579 .2.718 1935 Unknown [id number] 2.16.840.1.690769.3.579 .2.71 1935 Unknown [id number] 2.16.840.1.001227.3.579 .2.718 1935 Unknown [id number] 2.16.840.1.100605.3.579 .2.718 1935 Unknown [id number] 2.16.840.1.439663.3.579 .2.718 1935 Unknown [id number] 2.16.840.1.821280.3.579 .2.718 1935 Unknown [id number] 2.16.840.1.649288.3.579 .2.718 1935 Unknown [id number] 2.16.840.1.747979.3.579 .2.718 1935 Unknown [id number] 2.16.840.1.792269.3.579 .2.718 1935 Unknown [id number] 2.16.840.1.655141.3.579 .2.718 1935 Unknown [id number] 2.16.840.1.767139.3.579 .2.1259 1935 Unknown [id number] 2.16.840.1.884381.3.579 .2.727 1935 Unknown [id number] 2.16.840.1.734706.3.579 .2.727 Social History Date Type Detail Facility Tobacco smoking stat [facility] Tobacco smoking consumption unknown [facility] Start: 05-25-2020 History of Social function [facility] Start: 05-25-2020 Childcare [facility] Childcare Unknown [facility] Start: 1935 Sex Assigned At Not on file [facility] Start: 03-31-2019 Tobacco smoking status Never s moked tobacco (finding) [facility] Clinical Notes 05-21-2023 to 05-27-2023 Telephone Encounter - Sheila Deluna - 05/27/2023 8:47 AM EDTTelephone Encounter - Lucia Winn MA - 05/27/2023 8:47 AM EDTTelephone Encounter - Lucia Winn MA - 05/27/2023 8:47 AM EDT Note Date & Type Note Facility 05-27-2023 Miscellaneous Notes Formattin g of this note might be different from the original. Message from the 05/24/23 discharge list per BCD. He signed off patient care from . Dx Elevated Troponin Patient to f/u in 1 to 2 weeks post d/c bvb Called pt to schedule f/u appt from recent IP stay. No Answer. No Machine. FAHAD Pt currently at [facility], , Called to scheduled f/u appt, No Answer. LMOM. JLW documented in this encounter [facility] 05-27-2023 Telephone encount er Note Message from the 05/24/23 discharge list per BCD. He signed off patient care from . Dx Elevated Troponin Patient to f/u in 1 to 2 weeks post d/c bvb [facility] 05-27-2023 Telephone encount er Note Called pt to schedule f/u appt from recent IP stay. No Answer. No Machine. JAREDW [facility] 05-27-2023 Telephone encount er Note Pt currently at [facility], , Called to scheduled f/u appt, No Answer. LMOM. FAHAD [facility] 05-21-[address] Angelia Taveras calls a nd speaks with Dr. Salmon regarding plan of care and possible admission. [facility] 05-21-[address] Salmon speaks with Dr. Hopkins, typing secretary regarding plan of care. [facility] Evaluation + Plan note Future Appointments Appointment Date:12/19/2023 02:30:00 PM Scheduled Provider:Dipti Guzman Location:[facility] Appointment Type:URO Office Visit [facility] Hospital course Narrative No data available for this section [facility] Hospital Discharge instructions No data available for this section [facility] Instructions Not on filedocumente d in this encounter [facility] Progress note No data available for this section [facility] Summary Purpose Family History No Family History Records FoundNo Family History Records FoundNo Family History Records FoundNo Family History Records Found No data available for this section No Family History Records Found Advance Directives No Advanced Directives Records FoundNo Advanced Directives Records FoundNo Advanced Directives Records FoundNo Advanced Directives Records FoundNo Advanced Directives Records Found Additional Source Comments (unrecognized sect ion and content) No Status Records FoundNo Status Records FoundNo Status Records FoundNo Status Records FoundNo Status Records Found INFORMATION SOURCE (unrecogn ized section and content) DATE CREATED AUTHOR 09/11/2017 [facility] DATE CREATED AUTHOR AUTHOR'S ORGANIZ ATION 06/28/2023 [facility] DATE CREATED AUTHOR AUTHOR'S ORGANIZ ATION 10/25/2023 [facility] DATE CREATED AUTHOR AUTHOR'S ORGANIZ ATION 11/20/2023 [facility] EPIC DATE CREATED AUTHOR AUTHOR'S ORGANIZ ATION 12/07/2023 [facility] Reason for Visit (unrecogniz ed section and content) Reason Onset Date Comments Hospital Follow-up 05/27/2023 Patient Care team informatio n (unrecognized section and content) Personnel Name: ROMINA FLOWERS MD Address: Address: [address] [place] [address] FOR RECORDS PERTAINING TO PATIENTS WHO ARE OR HAVE BEEN ENROLLED IN A CHEMICAL DEPENDENCY/SUBSTANCEABUSE PROGRAM, SOME INFORMATION MAY BE OMITTED. This clinical summary was aggregated from multiple sources. Caution should be exercised in using it in the provision of clinical care. This summary normalizes information from multiple sources, and as a consequence, information in this document may materially change the coding, format and clinical context of patient data. In addition, data may be omitted in some cases. CLINICAL DECISIONS SHOULD BE BASED ON THE PRIMARY CLINICAL RECORDS. [facility]. provides no warranty or guarantee of the accuracy or completeness of information in this document.
[2023-12-11 10:16] LABS: Bilirubin Urine NEGATIVE (NEGATIVE); Blood Urine NEGATIVE (NEGATIVE); Clarity Urine CLEAR (CLEAR); Color Urine LT. YELLOW (YELLOW); Glucose Urine UA NEGATIVE (NEGATIVE); Ketones Urine NEGATIVE (NEGATIVE); Leukocyte Esterase Urine SMALL (NEGATIVE); Nitrite Urine POSITIVE (NEGATIVE); Protein Urine NEGATIVE (NEG/TRACE); Specific Gravity Urine 1.025 (1.005-1.025); Urobilinogen Urine 0.2 EU/dL (0.2-1.0); pH Urine 5.5 (5.0-9.0)
[2023-12-11 10:17] LABS: Basophils Percent Auto 0.2 % (0.2-2.0); Eosinophils Absolute Auto 0.2 10^3/uL (0.0-0.7); Eosinophils Percent Auto 4.7 % (0.9-7.0); Hematocrit 39.6 % (42.0-54.0); Hemoglobin 12.7 g/dL (14.0-18.0); Immature Granulocytes Abs Auto 0.01 10^3/uL (0.00-0.03); Immature Granulocytes Pct Auto 0.2 % (0.0-0.5); Lymphocytes Absolute Auto 0.6 10^3/uL (1.2-3.8); Lymphocytes Percent Auto 10.9 % (20.5-60.0); Mean Corpuscular HGB Conc 32.1 g/dL (29.9-35.2); Mean Corpuscular Hemoglobin 29.2 pg (25.9-34.0); Mean Platelet Volume 9.9 fL (9.5-13.5); Monocytes Absolute Auto 0.4 10^3/uL (0.3-0.8); Monocytes Percent Auto 7.2 % (1.7-12.0); Neutrophils Absolute Auto 3.9 10^3/uL (1.4-6.5); Neutrophils Percent Auto 76.8 % (43.0-75.0); Platelet Count 234 10^3/uL (150-450); Red Blood Count 4.35 10^6/uL (4.70-6.10); Red Cell Distribution Width 14.2 % (11.0-15.0); White Blood Count 5.1 10^3/uL (4.0-11.0)
[2023-12-11 10:25] LABS: Urine Microscopic Indicated YES
[2023-12-11 10:26] LABS: Bacteria Urine LARGE #/HPF (NONE SEEN); Mucus Urine NONE SEEN (NONE SEEN); RBC Urine NONE SEEN #/HPF (0-2); Squamous Epithelial Cell Urine FEW #/LPF (NONE/RARE); WBC Urine 20-50 #/HPF (NONE SEEN)
[2023-12-11 10:27] LABS: Urine Culture Indicated YES
[2023-12-11 10:47] LABS: Alanine Aminotransferase 12 U/L (16-63); Albumin Globulin Ratio 0.9; Albumin Level 3.2 g/dL (3.4-5.0); Alkaline Phosphatase 91 U/L (46-116); Anion Gap 10.3; Aspartate Amino Transferase 15 U/L (15-37); BUN Creatinine Ratio 17.5; Bilirubin Total 0.5 mg/dL (0.2-1.0); Calcium 8.6 mg/dL (8.5-10.1); Carbon Dioxide 28.3 mmol/L (21.0-32.0); Chloride 104 mmol/L (98-107); Estimated GFR (African America >60 (>=60); Estimated GFR (Non-African Ame 54 (>=60); Globulin 3.5 g/dL; Glucose 220 mg/dL (74-106); Potassium 3.6 mmol/L (3.5-5.1); Sodium 139 mmol/L (136-145); Total Protein 6.7 g/dL (6.4-8.2)
== END 2023-12-11 08:59 | disposition home or self-care (01) ==
LOC: LAB 08:58
PROVIDERS: PCP Family Medicine; Visit Provider Family Medicine
DX: R41.0 Disorientation, unspecified (principal); Z51.81 Encounter for therapeutic drug level monitoring
CPT/HCPCS: 36415; 80053; 81001; 85025; 87086; 87150; 87186

== ENCOUNTER 2024-01-10 05:09 | Observation (INO) | payer MEDICARE, SELFPAY ==
[2024-01-10] VITALS (48 sets, daily range): BP systolic 150–186; BP diastolic 55–90; PULSE 81–258; TEMP 36.3–36.8; O2SAT 93–99; BMI 25.8; BMI 25.0
--- NOTE | 2024-01-10 05:34 | ED_ITS ---
HPI - Abdominal Pain General Chief Complaint: Abdominal Pain Stated Complaint: OTHER Time Seen by Provider: 01/10/24 05:29 Source: patient Mode of arrival: ambulance Limitations: no limitations History of Present Illness HPI narrative: presents from residential. Reportedly has UTI but complains of nausea from medication that was ordered and he refuses to take it. No vomiting or diarrhea. Points to LLQ as site of pain Related Data Home Medications ?Medication ?Instructions ?Recorded ?Confirmed amantadine HCl 100 mg capsule 100 mg PO DAILY 01/07/24 01/07/24 amlodipine 10 mg tablet 10 mg PO DAILY 01/07/24 01/07/24 aspirin 81 mg capsule 81 mg PO DAILY 01/07/24 01/07/24 carbidopa 25 mg-levodopa 250 mg 1 tab PO BID 01/07/24 01/07/24 tablet cholecalciferol (vitamin D3) 10 400 unit PO DAILY 01/07/24 01/07/24 mcg (400 unit) capsule polyethylene glycol 3350 17 17 g PO DAILY 01/09/24 01/09/24 gram/dose oral powder (Miralax) tolterodine 4 mg capsule,extended 4 mg PO DAILY 01/09/24 01/09/24 release 24 hr Allergies Allergy/AdvReac Type Severity Reaction Status Date / Time No Known Drug Allergies Allergy Verified 01/07/24 14:35 Review of Systems ROS Status of ROS 10 or more systems reviewed and unremark able except as noted in history and below [facility] Medical History (Updated 01/10/24 @ 06:50 by Christopher Schreiber MD) Anemia ?D64.9 - Anemia, unspecified (ICD-10) Hard of hearing ?H91.90 - Unspecified hearing loss, unspecified ear (ICD-10) History of external beam radiation therapy ?Z92.3 - Personal history of irradiation (ICD-10) Urethral stricture ?N35.919 - Unspecified urethral stricture, male, unspecified site (ICD-10) Stroke ?I63.9 - Cerebral infarction, unspecified (ICD-10) Parkinson disease ?G20.A1 - Parkinson's disease without dyskinesia, without mention of fluctuations (ICD-10) Microscopic hematuria ?R31.29 - Other microscopic hematuria (ICD-10) Hypertension ?I10 - Essential (primary) hypertension (ICD-10) Hyperlipidemia ?E78.5 - Hyperlipidemia, unspecified (ICD-10) Prostate cancer ?C61 - Malignant neoplasm of prostate (ICD-10) Enlarged prostate ?N40.0 - Benign prostatic hyperplasia without lower urinary tract symptoms (ICD-10) Surgical History (Updated 01/07/24 @ 14:34 by Keisha Robles RN) Hx of transurethral resection of prostate ?Z98.890 - Other specified postprocedural states (ICD-10) ?Z90.79 - Acquired absence of other genital organ(s) (ICD-10) H/O partial resection of colon ?Z90.49 - Acquired absence of other specified parts of digestive tract (ICD- 10) Hx of cholecystectomy ?Z90.49 - Acquired absence of other specified parts of digestive tract (ICD- 10) History of appendectomy ?Z90.49 - Acquired absence of other specified parts of digestive tract (ICD- 10) S/P cystourethroscopy with dilation of urethral stricture ?Z98.890 - Other specified postprocedural states (ICD-10) Family History (Updated 01/07/24 @ 14:34 by Keisha Robles RN) Other Family history of cancer Social History (Updated 01/09/24 @ 13:14 by Jennyfer Burton) Within the past year, how often did you have a drink containing alcohol: never Score interpretation: A score less than 4 is consistent with normal alcohol consumption. Smoking status: Never smoker Non-prescribed substance use: denies use Little interest or pleasure in doing things: not at all Feeling down, depressed, or hopeless: not at all Exam Constitutional Vital Signs, click to edit/add: Last Vital Signs Temp 97.4 F L 01/10/24 05:12 Pulse 83 01/10/24 05:12 Resp 20 01/10/24 05:12 BP 170/90 H 01/10/24 05:12 Pulse Ox 95 01/10/24 05:12 O2 Del Method Room Air 01/10/24 05:12 Common normals: no apparent distress, average body habitus, oriented x3, healthy appearing, alert and well nourished [facility] Common normals: normocephalic and head/scalp atraumatic Eye Common normals: EOMs intact bilaterally and conjunctivae normal Respiratory Common normals: normal respiratory effort, no retractions and no use of accessory muscles Cardio Common normals: regular rate, regular rhythm, S1 normal heart sound and S2 normal heart sound GI Common normals: Normal to inspection, nondistended, normoactive bowel sounds present and soft to palpation Other: mild LLQ tenderness Extremity Common normals: normal to inspection and full ROM Neuro Common normals: oriented x3, CN's II-XII intact bilaterally and moves all extremities Other: parkinson tremor right hand Psych Appearance: grossly normal Course Vital Signs Vital signs: Vital Signs Temperature 97.4 F L 01/10/24 05:12 Pulse Rate 83 01/10/24 05:12 Respiratory Rate 20 01/10/24 05:12 Blood Pressure 170/90 H 01/10/24 05:12 Pulse Oximetry 95 01/10/24 05:12 Oxygen Delivery Method Room Air 01/10/24 05:12 Temperature 97.4 F L 01/10/24 05:12 Pulse Rate 83 01/10/24 05:12 Respiratory Rate 20 01/10/24 05:12 Blood Pressure 170/90 H 01/10/24 05:12 Pulse Oximetry 95 01/10/24 05:12 Oxygen Delivery Method Room Air 01/10/24 05:12 MDM - Abdominal Pain MDM Narrative Medical decision making narrative: patient presents from residential. Reportedly refusing to take medication for UTI due to side effect of nausea. Exam neg except for parkinsons tremor and LLQ tenderness. UA nitrite and leukocyte neg. CT abdomen ordered and pending. CT results pending Lab Data Labs: Lab Results 01/10/24 01/10/24 Range/Units 05:20 05:25 WBC 11.9 H (4.0-11.0) 10^3/uL RBC 4.76 (4.70-6.10) 10^6/uL Hgb 14.1 (14.0-18.0) g/dL Hct 42.5 (42.0-54.0) % MCV 89.3 (80.0-94.0) fL MCH 29.6 (25.9-34.0) pg MCHC 33.2 (29.9-35.2) g/dL RDW 14.6 (11.0-15.0) % Plt Count 251 (150-450) 10^3/uL MPV 9.7 (9.5-13.5) fL Neut % (Auto) 85.1 H (43.0-75.0) % Lymph % (Auto) 8.5 L (20.5-60.0) % [place] % (Auto) 5.8 (1.7-12.0) % Eos % (Auto) 0.1 L (0.9-7.0) % Baso % (Auto) 0.1 L (0.2-2.0) % Neut # (Auto) 10.1 H (1.4-6.5) 10^3/uL Lymph # (Auto) 1.0 L (1.2-3.8) 10^3/uL [place] # (Auto) 0.7 (0.3-0.8) 10^3/uL Eos # (Auto) 0.0 (0.0-0.7) 10^3/uL Baso # (Auto) 0.0 (0.0-0.1) 10^3/uL Abs Immat Gran (auto) 0.05 H (0.00-0.03) 10^3/uL Imm/Tot Granulo (auto) 0.4 (0.0-0.5) % Sodium 141 (136-145) mmol/L Potassium 4.5 (3.5-5.1) mmol/L Chloride 106 (98-107) mmol/L Carbon Dioxide 23.5 (21.0-32.0) mmol/L Anion Gap 16.0 BUN 28.0 H (7.0-18.0) mg/dL Creatinine 1.66 H (0.70-1.30) mg/dL Est GFR ( Amer) 48 L (>=60 mL/min/1.73m^2) Est GFR (Non-Af Amer) 39 L (>=60 mL/min/1.73m^2) BUN/Creatinine Ratio 16.9 Glucose 143 H (74-106) mg/dL Lactate 1.2 (0.4-2.0) mmol/L Calcium 9.3 (8.5-10.1) mg/dL Urine Color Lt. yellow (YELLOW) Urine Clarity Clear (CLEAR) Urine pH 5.5 (5.0-9.0) Ur Specific [place] >=1.030 A (1.005-1.025) Urine Protein Trace (NEG/TRACE) mg/dL Urine Glucose (UA) Negative (NEGATIVE) mg/dL Urine Ketones Trace A (NEGATIVE) mg/dL Urine Occult Blood Large A (NEGATIVE) Urine Nitrite Negative (NEGATIVE) Urine Bilirubin Negative (NEGATIVE) Urine Urobilinogen 0.2 (0.2-1.0) EU/dL Ur Leukocyte Esterase Negative (NEGATIVE) Urine RBC 5-10 A (0-2) #/HPF Urine WBC 2-5 A (NONE SEEN) #/HPF Ur Squamous Epith Cells Rare (NONE/RARE) #/LPF Urine Crystals Seen A (None Seen) #/HPF Uric Acid Crystals Rare Amorphous Sediment Few Urine Bacteria Small A (NONE SEEN) #/HPF Urine Casts None seen (NONE SEEN) #/LPF Urine Mucus None seen (NONE SEEN) Ur Culture Indicated? Yes Imaging Data Chest x-ray: Radiologist's impression: ITS Impressions Abdomen/Pelvis CT 01/10/24 05:44 IMPRESSION: 1. Bilateral ureteral stones; nonobstructing on right, obstructing versus partially obstructing on left. 2. Additional nonobstructing left kidney stones and benign-appearing cysts. Electronically authenticated by: OSMAN NARAYAN Date: 01/10/2024 06:46 Discharge Plan Discharge Patient Disposition: Still a Patient
[2024-01-10 05:44] LABS: Basophils Percent Auto 0.1 % (0.2-2.0); Eosinophils Percent Auto 0.1 % (0.9-7.0); Hematocrit 42.5 % (42.0-54.0); Hemoglobin 14.1 g/dL (14.0-18.0); Immature Granulocytes Abs Auto 0.05 10^3/uL (0.00-0.03); Immature Granulocytes Pct Auto 0.4 % (0.0-0.5); Lymphocytes Percent Auto 8.5 % (20.5-60.0); Mean Corpuscular HGB Conc 33.2 g/dL (29.9-35.2); Mean Corpuscular Hemoglobin 29.6 pg (25.9-34.0); Mean Corpuscular Volume 89.3 fL (80.0-94.0); Mean Platelet Volume 9.7 fL (9.5-13.5); Monocytes Absolute Auto 0.7 10^3/uL (0.3-0.8); Monocytes Percent Auto 5.8 % (1.7-12.0); Neutrophils Absolute Auto 10.1 10^3/uL (1.4-6.5); Neutrophils Percent Auto 85.1 % (43.0-75.0); Platelet Count 251 10^3/uL (150-450); Red Blood Count 4.76 10^6/uL (4.70-6.10); Red Cell Distribution Width 14.6 % (11.0-15.0); White Blood Count 11.9 10^3/uL (4.0-11.0)
[2024-01-10 05:44] LABS: Bilirubin Urine NEGATIVE (NEGATIVE); Blood Urine LARGE (NEGATIVE); Clarity Urine CLEAR (CLEAR); Color Urine LT. YELLOW (YELLOW); Glucose Urine UA NEGATIVE (NEGATIVE); Ketones Urine TRACE mg/dL (NEGATIVE); Leukocyte Esterase Urine NEGATIVE (NEGATIVE); Nitrite Urine NEGATIVE (NEGATIVE); Protein Urine TRACE mg/dL (NEG/TRACE); Specific Gravity Urine >=1.030 (1.005-1.025); Urobilinogen Urine 0.2 EU/dL (0.2-1.0); pH Urine 5.5 (5.0-9.0)
--- NOTE | 2024-01-10 05:44 | CT_ITS ---
[address] [address] Patient Name: FREDI JONES MRN: [id number] date: 1935 Sex: M Assigned Patient Location: ER Current Patient Location: .[facility] Accession/Order Number: [id number] Exam Date: 01/10/2024 06:00 Report Date: 01/10/2024 06:46 At the request of: RIGOBERTO KIRBY Procedure: CT abdomen pelvis wo con EXAMINATION: CT abdomen pelvis wo con HISTORY: LLQ pain , urinary tract infection COMPARISON: CT abdomen pelvis 07/30/2017 TECHNIQUE: Axial, Coronal, and Sagittal images were obtained without and/or with IV contrast as indicated by examination type. Dose reduction techniques were achieved by using automated exposure control and/or adjustment of mA and/or kV according to patient size and/or use of iterative reconstruction technique. FINDINGS: LUNG BASES: No visible pulmonary or pleural disease. LIVER: No enlargement, atrophy, suspicious density, or significant focal lesion. BILIARY: No dilatation or calcification. PANCREAS: No lesion, fluid collection, or abnormal duct dilatation. SPLEEN: No enlargement or focal lesion. ADRENALS: No mass or enlargement. KIDNEYS: Nonobstructing 5.5 x 5.0 x 5.0 mm stone within distal right ureter at the ureterovesical junction. Mild left hydronephrosis secondary to a partially obstructing 5 mm stone within the mid left ureter. Several nonobstructing stones within the left kidney. Bilateral parapelvic cysts and a prominent benign-appearing left inferior pole cyst. BOWEL/MESENTERY: Prior sigmoid resection and anastomosis. No visible mass, obstruction, or bowel wall thickening. AORTA/VASCULAR: Moderate atherosclerotic disease of aorta and major branches. No aneurysm or dissection. RETROPERITONEUM: No mass or adenopathy. LYMPH NODES: No adenopathy. URINARY BLADDER: No visible focal wall thickening, lesion, or calculus. PELVIC ORGANS: No visible mass. Pelvic organs appropriate for patient age. ABDOMINAL WALL: No mass or hernia. BONES: No bony lesion or fracture. Multilevel degenerative disc disease and degenerative facet arthropathy. OTHER: Negative. CT/CT abdomen pelvis wo con IMPRESSION: 1. Bilateral ureteral stones; nonobstructing on right, obstructing versus partially obstructing on left. 2. Additional nonobstructing left kidney stones and benign-appearing cysts. Electronically authenticated by: OSMAN NARAYAN Date: 01/10/2024 06:46
[2024-01-10 05:45] LABS: Urine Microscopic Indicated YES
[2024-01-10 05:48] LABS: BUN Creatinine Ratio 16.9; Calcium 9.3 mg/dL (8.5-10.1); Carbon Dioxide 23.5 mmol/L (21.0-32.0); Chloride 106 mmol/L (98-107); Estimated GFR (African America 48 (>=60 mL/min/1.73m^2); Estimated GFR (Non-African Ame 39 (>=60 mL/min/1.73m^2); Glucose 143 mg/dL (74-106); Potassium 4.5 mmol/L (3.5-5.1); Sodium 141 mmol/L (136-145)
[2024-01-10 05:51] LABS: Amorphous Sediment Urine FEW; Bacteria Urine SMALL #/HPF (NONE SEEN); Cast Seen? NONE SEEN #/LPF (NONE SEEN); Crystals Seen? Seen #/HPF (None Seen); Mucus Urine NONE SEEN (NONE SEEN); Squamous Epithelial Cell Urine RARE #/LPF (NONE/RARE); Uric Acid Crystals Urine RARE; Urine Culture Indicated YES
[2024-01-10] MEDS: ONDANSETRON PF 4 MG/2 ML VIAL IV (05:54)
[2024-01-10 05:56] LABS: Lactate/Lactic Acid 1.2 mmol/L (0.4-2.0)
--- OUTSIDE RECORDS SUMMARY | 2024-01-10 06:41 | XMS_ITS | CCD ---
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..] Care Unavailable Romina Flowers Primary Care Unavailable Dipesh Jacksonun Admitting Unavailable Dipesh Jacksonun Attending Unavailable ROBERTA CALABRESE Attending Unavailable ROMINA FLOWERS Primary Care Physician Unavailab Dipti Sims Attending Unavailable Dipti Escamilla Attending Unavailable Stephon RUSSELL Attending Unavailable Allergies Allergy Classification Reported Allergen(s) Allergy Type Date of Onset Reaction(s) Facility (1 source) No Known Medication Allergies; Translations: [No Known Medication Allergies] Propensity to adverse reactions (disorder) [facility] Repository Medications Current Medications Medication Drug Class(es) Dates Sig (Normalized) Sig (Original) amantadine hydrochloride 100 mg oral tablet (1 source) Influenza A M2 Protein Inhibitor Start: 12-19-2023 amantadine 100 mg Tab 100 mg = 1 tab(s), Refills(s) 0 Start Date: 12/19/23 Status: Ordered amLODIPine 10 mg oral tablet (2 sources) Dihydropyridine Calcium Channel Sue Start: 03-31-2019 take 10 mg by mouth once daily amlodipine 10 mg, Oral, Daily Start Date: 03/31/19 Status: Ordered aspirin 81 mg oral tablet (2 sources) Platelet Aggregation Inhibitor, Nonsteroidal Anti-inflammatory Drug Start: 03-31-2019 take 1 tablet by mouth once daily aspirin 81 mg oral tablet 81 mg = 1 tab(s), Oral, Daily Start Date: 03/31/19 Status: Ordered carbidopa 25 mg / levodopa 250 mg oral tablet (2 sources) Aromatic Amino Acid Decarboxylation Inhibitor, Aromatic Amino Acid Start: 03-31-2019 carbidopa-levodo pa 25 mg-250 mg Tab 1 tab(s) Start Date: 03/31/19 Status: Ordered cefTRIAXone 1000 mg injection (1 source) Cephalosporin Antibacterial Start: 12-19-2023 take 1 g intravenously once daily cefTRIAXone 50 mg/kg/day IVPB Pediatric Buretrol 1 gm, Refills(s) 0 Start Date: 12/19/23 Status: Ordered clopidogrel 75 mg oral tablet (1 source) P2Y12 Platelet Inhibitor Start: 03-31-2019 take 1 tablet by mouth once daily clopidogrel 75 mg Tab 75 mg = 1 tab(s), Oral, Daily Start Date: 03/31/19 Status: Ordered lidocaine 1% Injection 20 mL (1 source) Start: 12-19-2023 inject 0.05 g intravenously once lidocaine 1% Injection 20 mL 0.05 gm, 5 mL, IV, Once, 5 mL, Refill(s) 0 Start Date: 12/19/23 Status: Ordered metoprolol tartrate 50 mg oral tablet (1 source) beta-Adrenergic Sue Start: 03-31-2019 take 1 tablet by mouth once daily Metoprolol succinate 50 mg ER Tablet 50 mg, Oral, Daily Start Date: 03/31/19 Status: Ordered nystatin 100 unt/mg topical powder (1 source) Polyene Antifungal Start: 12-19-2023 nystatin Top 100,000 units/g Pwdr 1 surya, Refill(s) 0 Start Date: 12/19/23 Status: Ordered Vitamin D3 (2 sources) Start: 03-31-2019 Vitamin D3 400 International_Un it, Daily Start Date: 03/31/19 Status: Ordered Completed/Discontinued [...] procedure, # 2 tab(s), Refills(s) 0, [facility] Start Date: 11/17/19 Status: Ordered Problems Problem Classification Problem Date Documented Date Episodic/Chronic Acute cerebrovascular disease (2 sources) Cerebrovascular accident 02-23-2019 Chronic Cancer of prostate (3 sources) History of malignant neoplasm of prostate; Translations: [Personal history of malignant neoplasm of prostate] Onset: 12-19-2023 02-23-2019 Episodic Disorders of lipid metabolism (2 sources) Hyperlipidemia 02-23-2019 Chronic Essential hypertension (2 sources) Hypertensive disorder 02-23-2019 Chronic Genitourinary symptoms and ill-defined conditions (3 sources) Microscopic hematuria; Translations: [Retention of urine] Onset: 12-19-2023 02-23-2019 Episodic Hyperplasia of prostate (2 sources) 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 Other diseases of bladder and urethra (2 sources) Urethral stricture 02-23-2019 Episodic Other diseases of bladder and urethra (1 source) Male urethral stricture; Translations: [Unspecified urethral stricture, male, unspecified site] Onset: 12-19-2023 Episodic Parkinson`s disease (2 sources) Parkinson's disease 03-31-2019 Chronic Residual codes; unclassified (1 source) Pain, unspecified; Translations: [Pain, unspecified] Onset: 06-05-2023 Episodic Residual codes; unclassified (2 sources) Family history of prostate cancer 02-23-2019 Episodic Urinary tract infections (1 source) Urinary tract infectious disease; Translations: [Urinary tract infection, site not specified] Onset: 12-19-2023 Episodic Results Test Name Value Interpretation Reference Range Facility Urology Office/Clinic Noteon 12-19-2023 Urology Office/Clinic Note Urology Office/Clinic Note Chief Complaint urinary leaking and urge incontinence HPI Staff Previous PRW last seen 01/30/20 for cystoscopy with UD with Newman sounds. Pt states that he will begin leaking urine as soon as he gets the urge to go and one he begins leaking he is unable to stop. He wears a brief and changes a couple times daily. Dysuria: denies Incomplete bladder emptying: pt feels he is emptying Hematuria: denies Frequency: pt states not at all Urgency: yes once he gets the urge to void he will begin leaking in his brief Nocturia: 2x Stream: states a good stream doesn't feel that he strains Leaking: yes Post void dripping: yes Wearing pads/ Depends: depends and has to change a couple of times daily Urge incontinence: yes Stress incontinence: denies Incontinence without Sensory Awareness: denies Abdominal pain: denies Flank pain: denies Sexual complaints: denies History of Present Illness Staff HPI reviewed and agree. Review of Systems PHQ Score Initial Depression Screen Score: 0 SCORE no fever, chills, malaise, myalgia. no rash/lesions. no chest pain, palpitations, or SOB. no abdominal pain, nausea, vomiting. 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 Pt resides at [facility]. Presents today with aide. Pt is previous PRW pt, has not been seen since 2019. 12/11/23 - BUN 22, Cre 1.26, GFR 54, Glu 220 1. Urinary retention (R33.9: Retention of urine, unspecified) UA today negative for blood or infection PVR today initially over 200, then then voided 60ml and PVR 187ml IPSS 14 Pt here today with complaints of incontinence, urgency and weak stream. Pt reports that once he starts urinating, he is unable to stop. Pt reports that he urinates about 6 times per day. Advised pt to complete timed and double voids. Pt is currently taking Tolterodine 4mg PO daily. Discussed potential cognitive side effects of this medication in addition to his Parkinson's diagnosis. Also advised patient that this could be contributing to his urine retention. Also had a long discussion with patient regarding his previous history of needing dilated, which can also be the cause for his weak stream and retention. Pt verbalizes understanding. Offered to stop Tolterodine based on these reasons and start Myrbetriq/Gemtesa. Pt would like to stop Tolterodine and not restart an OAB med. I advised pt that we can trial this and if he has worsening incontinence and urgency then the fdc is to call us and we can start Myrbetriq/Gemtesa. Pt agreeable. Pt also agreeable to repeat cysto/UD with Dr. Russell to help his stream, retention and recurrent infections. Will schedule Cysto with UD. The procedure risks, benefits, details, and treatment alternatives have been discussed with the patient. These include bleeding, infection, recurrent scar in over 50%, need for repeat dilation or other procedures, no symptom relief with dilation, among others. Full informed consent has been obtained. Will order Local anesthesia. -Stop Tolterodine 4mg PO daily -If patient experiences worsening OAB symptoms, will restart Myrbetriq/Gemtesa -Schedule cysto/UD with Dr. Russell -Increase fluids, avoid bladder irritants -Timed voids, double voids -F/U after cysto/UD Ordered: E&M of New Patient High 60-74 Min 05141 2. Urethral stricture in male (N35.919: Unspecified urethral stricture, male, unspecified site) 05/18/10 - cystourethroscopy with internal male urethrotomy 05/01/18 cysto/UD with sounds 03/31/19 cysto/UD - tight urethra, prostatic urethra has recurrent strictures at penile mid and near bulb, short and open. urethra was dilated to 30Fr with sounds. Bladder moderate trabeculations (2+), no tumors or stones. 20Fr clarke placed, to be removed in office next day Pt was scheduled for repeat cysto/UD in November 2019 but pt cancelled due to pain from the catheter after cysto in March 2019. Pt reported he was going to see another urologist. From the history I was able to obtain from patient, pt then saw Dr. Hooker but unsure if any procedures/dilations were completed. -See #1 Ordered: E&M of New Patient High 60-74 Min 52178 3. Recurrent UTI (N39.0: Urinary tract infection, site not specified) 12/11/23 cx - 50-100k E. Coli, initially treated with Bactrim then switched to Ceftriaxone 1gm IM daily (will end on 12/20) Pt has had multiple ER visits for recurrent infections over the last year. -See #1 Ordered: E&M of New (more content not included)... Normal [facility] Comment on above: Result Comment: Elec tronically Signed By: Francine MELGAR, Dipti Santos\.br\Date and Time Signed: 12/19/23 15:30 EDT C Bloodon 10-17-2023 C Blood Corynebacterium species (diptheroids) No ARTURO performed on this organism Probable skin contamination Results called to Bryn Chairez on 2S at 729 by TB and results read back for confirmation on 10/15/23 [facility] Comment on above: Performed By: #### 6 [id number] ####[facility] (DEFAULT)[address] [place] [address] Outside Recordson 10-17-2023 Outside Records [id number]#1.00 OTGTIFF [facility] Outside Records [id number]#1.00 OTIFF [facility] Coding Summaryon 10-16-2023 Coding Summary [facility] C Bloodon 10-15-2023 C Blood No growth at 5 Days [facility] Comment on above: Performed By: #### 6 [id number] ####[facility] (DEFAULT)[address] [place] [address] Coding Summaryon 10-15-2023 Coding Summary [facility] Consent Formson 10-15-2023 Consent Forms [id number]#1.00 OTGTIFF [facility] Outside Recordson 10-15-2023 Outside Records [id number]#1.00 [facility] Provider Orderson 10-15-2023 Provider Orders [id number]#1.00 [facility] .Auto Diff 1on 10-14-2023 Auto Hanson % 14 % High 1-12 [facility] Comment on above: Performed By: #### 1 [id number], [id number], [id number] ####[facility] (DEFAULT)[address] [place] [address] 92171 Baso Abs# 0.0 x10 Normal 0.0-0.2 [facility] Comment on above: Performed By: #### 1 [id number], [id number], [id number] ####[facility] (DEFAULT)[address] [place] [address] 62238 Basophils/100 WBC (Bld) 0.6 % Normal 0.2-2.0 [facility] Comment on above: Performed By: #### 1 [id number], [id number], [id number] ####[facility] (DEFAULT)[address] [place] [address] 83696 Eos Abs# 0.2 x10 Normal 0.0-0.4 [facility] Comment on above: Performed By: #### 1 [id number], [id number], [id number] ####[facility] (DEFAULT)[address] [place] [address] 38283 Eosinophils/100 WBC (Bld) 3.8 % Normal 0.9-4.0 [facility] Comment on above: Performed By: #### 1 [id number], [id number], [id number] ####[facility] (DEFAULT)[address] [place] [address] 56640 Lymph Abs# 0.9 x10 Low 1.3-2.9 [facility] Comment on above: Performed By: #### 1 [id number], [id number], [id number] ####[facility] (DEFAULT)[address] [place] [address] 18519 Lymphocytes/100 WBC (Bld) 18 % Normal 14-48 [facility] Comment on above: Performed By: #### 1 [id number], [id number], 06733289 ####[facility] (DEFAULT)[address] [place] [address] Hanson Abs# 0.7 x10 Normal 0.0-0.8 [facility] Comment on above: Performed By: #### 1 [id number], 8962935, [id number] ####[facility] (DEFAULT)[address] [place] [address] Neut Abs# 3.3 x10 Normal 1.5-9.2 [facility] Comment on above: Performed By: #### 1 [id number], 1603259, [id number] ####[facility] (DEFAULT)[address] [place] [address] Neutrophils/100 WBC (Bld) 64 % Normal 44-88 [facility] Comment on above: Performed By: #### 1 [id number], 6255118, 53910692 ####[facility] (DEFAULT)[address] [place] [address] 23467 BMP Standardon 10-14-2023 eGFR Non AA 55 mL/min/1.73m2 Invalid Interpretation Code [facility] Comment on above: Performed By: #### 1 [id number], [id number], [id number] ####[facility] (DEFAULT)[address] [place] [address] eGFR AA >60 Invalid Interpretation Code [facility] Comment on above: Performed By: #### 1 [id number], [id number], [id number] ####[facility] (DEFAULT)[address] [place] [address] 24202 Anion gap [Moles/Vol] 11.1 mmol/L Normal 5.0-19.0 [facility] Comment on above: Performed By: #### 1 [id number], 3917254, 93589153 ####[facility] (DEFAULT)[address] [place] [address] 65415 Calcium [Mass/Vol] 8.7 mg/dL Low 8.9-10.3 [facility] Comment on above: Performed By: #### 1 [id number], 5744401, [id number] ####[facility] (DEFAULT)[address] [place] [address] 92925 Chloride [Moles/Vol] 106 mmol/L Normal 101-111 [facility] Comment on above: Performed By: #### 1 [id number], 2085446, [id number] ####[facility] (DEFAULT)[address] [place] [address] 97357 CO2 [Moles/Vol] 28 mmol/L Normal 21-32 [facility] Comment on above: Performed By: #### 1 [id number], 0302941, 24853223 ####[facility] (DEFAULT)[address] [place] [address] 70534 Creatinine [Mass/Vol] 1.24 mg/dL Normal 0.90-1.30 [facility] Comment on above: Performed By: #### 1 [id number], 1432181, 94369164 ####[facility] (DEFAULT)[address] [place] [address] 97555 Glucose [Mass/Vol] 117.0 mg/dL Normal 74.0-118.0 [facility] Comment on above: Performed By: #### 1 [id number], 8771009, [id number] ####[facility] (DEFAULT)[address] [place] [address] 82740 Osmolality 288 mOsm/L Invalid Interpretation Code [facility] Comment on above: Performed By: #### 1 [id number], [id number], 06915394 ####[facility] (DEFAULT)[address] [place] [address] 79198 Potassium [Moles/Vol] 4.1 mmol/L Normal 3.6-5.1 [facility] Comment on above: Performed By: #### 1 [id number], 9984869, 74463145 ####[facility] (DEFAULT)[address] [place] [address] 65554 Sodium [Moles/Vol] 141.0 mmol/L Normal 136.0-144.0 [facility] Comment on above: Performed By: #### 1 [id number], [id number], 85765971 ####[facility] (DEFAULT)[address] [place] [address] 41583 Urea nitrogen [Mass/Vol] 28 mg/dL High 8-26 [facility] Comment on above: Performed By: #### 1 [id number], 7754104, 05488092 ####[facility] (DEFAULT)[address] [place] [address] Urea nitrogen/Creatinine [Mass ratio] 22.5 mg/mg High 4.6-16.2 [facility] Comment on above: Performed By: #### 1 [id number], 1186231, 88422246 ####[facility] (DEFAULT)[address] [place] [address] CBC w/ Auto Diffon Erythrocyte distribution width (RBC) [Ratio] 15.5 % High 11.5-15.0 [facility] Comment on above: Performed By: #### 1 [id number], 7017278, 27750056 ####[facility] (DEFAULT)[address] [place] [address] Hematocrit (Bld) [Volume fraction] 37.2 % Normal 34.8-51.9 [facility] Comment on above: Performed By: #### 1 [id number], 8495494, 83683749 ####[facility] (DEFAULT)[address] [place] [address] 65621 Hemoglobin (Bld) [Mass/Vol] 12.5 g/dL Normal 11.8-17.7 [facility] Comment on above: Performed By: #### 1 [id number], 6225666, 10395841 ####[facility] (DEFAULT)[address] [place] [address] 16827 Man Diff? Auto Invalid Interpretation Code [facility] Comment on above: Performed By: #### 1 [id number], 3158801, 38440317 ####[facility] (DEFAULT)[address] [place] [address] 70028 MCH (RBC) [Entitic mass] 30 pg Normal 24-34 [facility] Comment on above: Performed By: #### 1 [id number], 3703841, 84172335 ####[facility] (DEFAULT)[address] [place] [address] 57826 MCHC (RBC) [Mass/Vol] 34 g/dL Normal 26-37 [facility] Comment on above: Performed By: #### 1 [id number], 5874736, 44033383 ####[facility] (DEFAULT)[address] [place] [address] 11098 MCV (RBC) [Entitic vol] 89 fL Normal 81-100 [facility] Comment on above: Performed By: #### 1 [id number], 6290670, 24717731 ####[facility] (DEFAULT)[address] [place] [address] 51996 Platelet 177 x10 Normal 138-427 [facility] Comment on above: Performed By: #### 1 [id number], 5283576, 13759606 ####[facility] (DEFAULT)[address] [place] [address] 60949 Platelet mean volume (Bld) [Entitic vol] 8.2 fL Normal 6.3-10.2 [facility] Comment on above: Performed By: #### 1 [id number], 5094185, 14295667 ####[facility] (DEFAULT)[address] [place] [address] 53693 RBC 4.19 x10 Normal 3.70-5.30 [facility] Comment on above: Performed By: #### 1 [id number], 9515131, 59833788 ####[facility] (DEFAULT)[address] [place] [address] 97384 WBC 5.2 x10 Normal 3.5-10.5 [facility] Comment on above: Performed By: #### 1 [id number], 1183514, 38955532 ####[facility] (DEFAULT)[address] [place] [address] Discharge Noteon 10-14-2023 Discharge Note Normal [facility] Education Noteon 10-14-2023 Education Note Normal [facility] Inpatient Clinical Summaryon 10-14-2023 Inpatient Clinical Summary Normal [facility] Inpatient Patient Summaryon 10-14-2023 Inpatient Patient Summary Normal [facility] Pharmacy Noteon 10-14-2023 Pharmacy Note Normal [facility] Progress Note - Nurseon 09-16 Progress Note - Nurse report called to isaias verdin at [facility], . [Electronically Signed on: 10/14/2023 14:08 EDT] Indu March RN [Verified on: 10/14/2023 14:08 EDT] Indu March RN Normal [facility] .Auto Diff 110-13-2023 Auto Hanson % 10 % Normal 1-12 [facility] Comment on above: Performed By: #### 1 [id number], [id number], 4691545 ####[facility] (DEFAULT)[address] [place] [address] Baso Abs# 0.0 x10 Normal 0.0-0.2 [facility] Comment on above: Performed By: #### 1 [id number], [id number], [id number] ####[facility] (DEFAULT)[address] [place] [address] Basophils/100 WBC (Bld) 0.3 % Normal 0.2-2.0 [facility] Comment on above: Performed By: #### 1 [id number], [id number], 9980703 ####[facility] (DEFAULT)[address] [place] [address] Eos Abs# 0.1 x10 Normal 0.0-0.4 [facility] Comment on above: Performed By: #### 1 [id number], [id number], 8254134 ####[facility] (DEFAULT)[address] [place] [address] Eosinophils/100 WBC (Bld) 1.4 % Normal 0.9-4.0 [facility] Comment on above: Performed By: #### 1 [id number], [id number], 8524720 ####[facility] (DEFAULT)[address] [place] [address] 29610 Lymph Abs# 1.0 x10 Low 1.3-2.9 [facility] Comment on above: Performed By: #### 1 [id number], [id number], 7508216 ####[facility] (DEFAULT)[address] [place] [address] 47394 Lymphocytes/100 WBC (Bld) 14 % Normal 14-48 [facility] Comment on above: Performed By: #### 1 [id number], [id number], 4726616 ####[facility] (DEFAULT)[address] [place] [address] 74505 Hanson Abs# 0.7 x10 Normal 0.0-0.8 [facility] Comment on above: Performed By: #### 1 [id number], [id number], 3942971 ####[facility] (DEFAULT)[address] [place] [address] Neut Abs# 5.5 x10 Normal 1.5-9.2 [facility] Comment on above: Performed By: #### 1 [id number], [id number], 8829219 ####[facility] (DEFAULT)[address] [place] [address] 98708 Neutrophils/100 WBC (Bld) 75 % Normal 44-88 [facility] Comment on above: Performed By: #### 1 [id number], [id number], 5773973 ####[facility] (DEFAULT)[address] [place] [address] 12830 BMP Standardon 10-13-2023 eGFR Non AA 56 mL/min/1.73m2 Invalid Interpretation Code [facility] Comment on above: Performed By: #### 1 [id number], [id number], [id number] ####[facility] (DEFAULT)[address] [place] [address] eGFR AA >60 Invalid Interpretation Code [facility] Comment on above: Performed By: #### 1 [id number], [id number], 8142323 ####[facility] (DEFAULT)[address] [place] [address] 94621 Anion gap [Moles/Vol] 10.0 mmol/L Normal 5.0-19.0 [facility] Comment on above: Performed By: #### 1 [id number], [id number], 7813813 ####[facility] (DEFAULT)[address] [place] [address] 22362 Calcium [Mass/Vol] 9.1 mg/dL Normal 8.9-10.3 [facility] Comment on above: Performed By: #### 1 [id number], [id number], 5204368 ####[facility] (DEFAULT)[address] [place] [address] 61390 Chloride [Moles/Vol] 107 mmol/L Normal 101-111 [facility] Comment on above: Performed By: #### 1 [id number], [id number], [id number] ####[facility] (DEFAULT)[address] [place] [address] 07467 CO2 [Moles/Vol] 25 mmol/L Normal 21-32 [facility] Comment on above: Performed By: #### 1 [id number], [id number], 3857081 ####[facility] (DEFAULT)[address] [place] [address] 90151 Creatinine [Mass/Vol] 1.23 mg/dL Normal 0.90-1.30 [facility] Comment on above: Performed By: #### 1 [id number], [id number], 5004119 ####[facility] (DEFAULT)[address] [place] [address] 76200 Glucose [Mass/Vol] 126.0 mg/dL High 74.0-118.0 [facility] Comment on above: Performed By: #### 1 [id number], [id number], 4886986 ####[facility] (DEFAULT)[address] [place] [address] 16941 Osmolality 282 mOsm/L Invalid Interpretation Code [facility] Comment on above: Performed By: #### 1 [id number], [id number], 8255004 ####[facility] (DEFAULT)[address] [place] [address] 78778 Potassium [Moles/Vol] 4.0 mmol/L Normal 3.6-5.1 [facility] Comment on above: Performed By: #### 1 [id number], [id number], 5257007 ####[facility] (DEFAULT)[address] [place] [address] Sodium [Moles/Vol] 138.0 mmol/L Normal 136.0-144.0 [facility] Comment on above: Performed By: #### 1 [id number], [id number], 8588181 ####[facility] (DEFAULT)[address] [place] [address] 69839 Urea nitrogen [Mass/Vol] 26 mg/dL Normal 8-26 [facility] Comment on above: Performed By: #### 1 [id number], [id number], 2036687 ####[facility] (DEFAULT)[address] [place] [address] Urea nitrogen/Creatinine [Mass ratio] 21.1 mg/mg High 4.6-16.2 [facility] Comment on above: Performed By: #### 1 3949447, 2975681499, 0719215 ####[facility] (DEFAULT)[address] [place] [address] CBC w/ Auto Diffon 4 Erythrocyte distribution width (RBC) [Ratio] 15.2 % High 11.5-15.0 [facility] Comment on above: Performed By: #### 1 8418024, [id number], 4985007 ####[facility] (DEFAULT)[address] [place] [address] 64256 Hematocrit (Bld) [Volume fraction] 39.0 % Normal 34.8-51.9 [facility] Comment on above: Performed By: #### 1 3647162, 3225180965, 9567920 ####[facility] (DEFAULT)[address] [place], [place] [address] Hemoglobin (Bld) [Mass/Vol] 13.1 g/dL Normal 11.8-17.7 [facility] Comment on above: Performed By: #### 1 1059864, 2087029903, 0412088 ####[facility] (DEFAULT)[address] [place], [place] [address] Man Diff? Auto Invalid Interpretation Code [facility] Comment on above: Performed By: #### 1 3149595, 5613772705, 0616605 ####[facility] (DEFAULT)[address] [place] [address] 27030 MCH (RBC) [Entitic mass] 30 pg Normal 24-34 [facility] Comment on above: Performed By: #### 1 6426563, 9023747492, 9348044 ####[facility] (DEFAULT)[address] [place] [address] 83623 MCHC (RBC) [Mass/Vol] 34 g/dL Normal 26-37 [facility] Comment on above: Performed By: #### 1 7126494, 0875607135, 1609898 ####[facility] (DEFAULT)[address] [place] [address] MCV (RBC) [Entitic vol] 90 fL Normal 81-100 [facility] Comment on above: Performed By: #### 1 5607196, 8952119551, 9567255 ####[facility] (DEFAULT)[address] [place] [address] Platelet 187 x10 Normal 138-427 [facility] Comment on above: Performed By: #### 1 9563422, 8841645270, 7707735 ####[facility] (DEFAULT)[address] [place] [address] 25246 Platelet mean volume (Bld) [Entitic vol] 8.1 fL Normal 6.3-10.2 [facility] Comment on above: Performed By: #### 1 8945997, 9499125423, 3630048 ####[facility] (DEFAULT)[address] [place] [address] 18037 RBC 4.35 x10 Normal 3.70-5.30 [facility] Comment on above: Performed By: #### 1 5905568, 3936454112, 1641707 ####[facility] (DEFAULT)[address] [place] [address] 62168 WBC 7.3 x10 Normal 3.5-10.5 [facility] Comment on above: Performed By: #### 1 4205934, 0228898463, 8751053 ####[facility] (DEFAULT)[address] [place] [address] Nutrition Noteon 10-13-2023 Nutrition Note note po intake has been good - 100% most meals; will continue to monitor po and assist with any changes prn. ts Normal [facility] RPR, Rfx Qn RPR/Confirm TP L Con 10-13-2023 RPR LC Non-Reactive Invalid Interpretation Code Non Reactive [facility] Comment on above: Result Comment: Perf ormed At: [facility] [id number] [place], [place] [id number] Vincent PhD Ph:[phone] Performed By: #### 1 9699523, 5306619189, 1876306, 4238623, [id number] ####[facility] (DEFAULT)[address] [place] [address] .Auto Diff 1on 10-12-2023 Auto Hanson % 9 % Normal 1-12 [facility] Comment on above: Performed By: #### 1 3357372, 5199714084, 7712092, 1843584, 5351947025 ####[facility] (DEFAULT)[address] [place] [address] Baso Abs# 0.0 x10 Normal 0.0-0.2 [facility] Comment on above: Performed By: #### 1 6662037, 3772865798, 9125097, 7575103, 0495662652 ####[facility] (DEFAULT)[address] [place] [address] Basophils/100 WBC (Bld) 0.4 % Normal 0.2-2.0 [facility] Comment on above: Performed By: #### 1 9827772, 2398115918, 5331008, 2945102, 8717383472 ####[facility] (DEFAULT)[address] [place] [address] Eos Abs# 0.1 x10 Normal 0.0-0.4 [facility] Comment on above: Performed By: #### 1 0038737, 9944158371, 7813209, 9156963, 8776299806 ####[facility] (DEFAULT)[address] [place] [address] 43542 Eosinophils/100 WBC (Bld) 1.6 % Normal 0.9-4.0 [facility] Comment on above: Performed By: #### 1 6586268, 2387382165, 7568025, 0476522, 4467368159 ####[facility] (DEFAULT)[address] [place] [address] 80553 Lymph Abs# 0.7 x10 Low 1.3-2.9 [facility] Comment on above: Performed By: #### 1 7949668, 0229057126, 7042108, 3307132, 1273750095 ####[facility] (DEFAULT)[address] [place] [address] Lymphocytes/100 WBC (Bld) 12 % Low 14-48 [facility] Comment on above: Performed By: #### 1 1079054, 3225073150, 7480843, 1815084, 9031325752 ####[facility] (DEFAULT)[address] [place] [address] Hanson Abs# 0.5 x10 Normal 0.0-0.8 [facility] Comment on above: Performed By: #### 1 3733388, 0891147154, 6095878, 0961759, 3987845212 ####[facility] (DEFAULT)[address] [place] [address] Neut Abs# 4.7 x10 Normal 1.5-9.2 [facility] Comment on above: Performed By: #### 1 7760364, 8469538373, 7828673, 7206197, 3301265852 ####[facility] (DEFAULT)[address] [place] [address] Neutrophils/100 WBC (Bld) 77 % Normal 44-88 [facility] Comment on above: Performed By: #### 1 5652206, 7246559303, 6445506, 0524684, 3658432162 ####[facility] (DEFAULT)[address] [place] [address] Standardon 10-12-2023 eGFR Non AA >60 Invalid Interpretation Code [facility] Comment on above: Performed By: #### 1 1623710, 0212537963, 3903540, 2798449, 8375036224 ####[facility] (DEFAULT)[address] [place] [address] 93635 eGFR AA >60 Invalid Interpretation Code [facility] Comment on above: Performed By: #### 1 1385306, 4558527716, 5599291, 4272090, 5183505519 ####[facility] (DEFAULT)[address] [place] [address] 91622 Anion gap [Moles/Vol] 10.9 mmol/L Normal 5.0-19.0 [facility] Comment on above: Performed By: #### 1 7533130, 5748646156, 8399118, 8044897, 6866052983 ####[facility] (DEFAULT)[address] [place] [address] 67967 Calcium [Mass/Vol] 8.8 mg/dL Low 8.9-10.3 [facility] Comment on above: Performed By: #### 1 6848892, 1561041975, 9334855, 6109013, 8237183693 ####[facility] (DEFAULT)[address] [place] [address] 22973 Chloride [Moles/Vol] 108 mmol/L Normal 101-111 [facility] Comment on above: Performed By: #### 1 0998166, 8362820423, 4761372, 2054090, 8080824529 ####[facility] (DEFAULT)[address] [place] [address] 51396 CO2 [Moles/Vol] 25 mmol/L Normal 21-32 [facility] Comment on above: Performed By: #### 1 1878714, 7896584566, 9336603, 9951179, 0751829387 ####[facility] (DEFAULT)[address] [place] [address] 54287 Creatinine [Mass/Vol] 1.11 mg/dL Normal 0.90-1.30 [facility] Comment on above: Performed By: #### 1 3087033, 6255757252, 1003309, 0426220, 7532155544 ####[facility] (DEFAULT)[address] [place] [address] 78726 Glucose [Mass/Vol] 123.0 mg/dL High 74.0-118.0 [facility] Comment on above: Performed By: #### 1 4024692, 2639886832, 6814411, 5805388, 7596954624 ####[facility] (DEFAULT)[address] [place] [address] 11870 Osmolality 286 mOsm/L Invalid Interpretation Code [facility] Comment on above: Performed By: #### 1 3748060, 9312073595, 6422595, 1943472, 9057501939 ####[facility] (DEFAULT)[address] [place] [address] 04068 Potassium [Moles/Vol] 3.9 mmol/L Normal 3.6-5.1 [facility] Comment on above: Performed By: #### 1 1820540, 5531367496, 5882838, 0668962, 0228184076 ####[facility] (DEFAULT)[address] [place] [address] 21092 Sodium [Moles/Vol] 140.0 mmol/L Normal 136.0-144.0 [facility] Comment on above: Performed By: #### 1 1770197, 9476442079, 7643815, 4941663, 3363830985 ####[facility] (DEFAULT)[address] [place] [address] 98985 Urea nitrogen [Mass/Vol] 27 mg/dL High 8-26 [facility] Comment on above: Performed By: #### 1 2748330, 6337911060, 1842580, 3657754, 0271113819 ####[facility] (DEFAULT)[address] [place] [address] 83437 Urea nitrogen/Creatinine [Mass ratio] 24.3 mg/mg High 4.6-16.2 [facility] Comment on above: Performed By: #### 1 0884610, 3602176686, 4548898, 2801453, 3781212371 ####[facility] (DEFAULT)[address] [place] [address] CBC w/ Auto Diffon Erythrocyte distribution width (RBC) [Ratio] 14.9 % Normal 11.5-15.0 [facility] Comment on above: Performed By: #### 1 1175664, 0962406536, 6060841, 4115101, 1089039683 ####[facility] (DEFAULT)[address] [place] [address] Hematocrit (Bld) [Volume fraction] 39.2 % Normal 34.8-51.9 [facility] Comment on above: Performed By: #### 1 3980785, 3971059842, 4053485, 5789011, 1098986653 ####[facility] (DEFAULT)[address] [place] [address] Hemoglobin (Bld) [Mass/Vol] 13.2 g/dL Normal 11.8-17.7 [facility] Comment on above: Performed By: #### 1 1674324, 0062860367, 6244897, 0039980, 7225146027 ####[facility] (DEFAULT)[address] [place] [address] Man Diff? Auto Invalid Interpretation Code [facility] Comment on above: Performed By: #### 1 7471066, 2801034723, 1117119, 8975986, 8152859184 ####[facility] (DEFAULT)[address] [place] [address] MCH (RBC) [Entitic mass] 30 pg Normal 24-34 [facility] Comment on above: Performed By: #### 1 3229105, 4859790908, 4389265, 9427032, 7811100286 ####[facility] (DEFAULT)[address] [place] [address] MCHC (RBC) [Mass/Vol] 34 g/dL Normal 26-37 [facility] Comment on above: Performed By: #### 1 1097933, 7948976191, 1873878, 0774908, 5563056609 ####[facility] (DEFAULT)[address] [place] [address] MCV (RBC) [Entitic vol] 88 fL Normal 81-100 [facility] Comment on above: Performed By: #### 1 2510564, 5029483288, 3605383, 6408651, 0594055440 ####[facility] (DEFAULT)[address] [place] [address] Platelet 181 x10 Normal 138-427 [facility] Comment on above: Performed By: #### 1 5954439, 0317427450, 5572938, 6276588, 7377571266 ####[facility] (DEFAULT)[address] [place] [address] Platelet mean volume (Bld) [Entitic vol] 8.1 fL Normal 6.3-10.2 [facility] Comment on above: Performed By: #### 1 9173607, 5680892462, 6936577, 6884045, 2927006063 ####[facility] (DEFAULT)[address] [place] [address] RBC 4.46 x10 Normal 3.70-5.30 [facility] Comment on above: Performed By: #### 1 0210997, 6351864509, 3490472, 7946208, 9210130940 ####[facility] (DEFAULT)[address] [place] [address] WBC 6.0 x10 Normal 3.5-10.5 [facility] Comment on above: Performed By: #### 1 2504400, 8604932739, 0668525, 5062266, 3180173676 ####[facility] (DEFAULT)[address] [place] [address] CRPon 10-12-2023 CRP [Mass/Vol] mg/L Normal <=0.5 [facility] Comment on above: Performed By: #### 1 8598478, 4955495210, 0675315, 9598681, 6070505208 ####[facility] (DEFAULT)[address] [place] [address] .Auto Diff 1on 10-11-2023 Auto Hanson % 10 % Normal 1-12 [facility] Comment on above: Performed By: #### 1 531774275, 85856264, 6588206 ####[facility] (DEFAULT)[address] [place] [address] 72917 Baso Abs# 0.0 x10 Normal 0.0-0.2 [facility] Comment on above: Performed By: #### 1 679797293, 70577132, 7967134 ####[facility] (DEFAULT)[address] [place] [address] 30470 Basophils/100 WBC (Bld) 0.8 % Normal 0.2-2.0 [facility] Comment on above: Performed By: #### 1 409214235, 47301140, 0936314 ####[facility] (DEFAULT)[address] [place] [address] 40180 Eos Abs# 0.1 x10 Normal 0.0-0.4 [facility] Comment on above: Performed By: #### 1 167493208, 08180039, 3735718 ####[facility] (DEFAULT)[address] [place] [address] Eosinophils/100 WBC (Bld) 2.4 % Normal 0.9-4.0 [facility] Comment on above: Performed By: #### 1 193341521, 29305449, 5635508 ####[facility] (DEFAULT)[address] [place] [address] 44036 Lymph Abs# 0.9 x10 Low 1.3-2.9 [facility] Comment on above: Performed By: #### 1 562524026, 39889092, 0167010 ####[facility] (DEFAULT)[address] [place] [address] 20895 Lymphocytes/100 WBC (Bld) 17 % Normal 14-48 [facility] Comment on above: Performed By: #### 1 659227975, 97897859, 6017962 ####[facility] (DEFAULT)[address] [place] [address] 60461 Hanson Abs# 0.5 x10 Normal 0.0-0.8 [facility] Comment on above: Performed By: #### 1 900199131, 88687759, 3535120 ####[facility] (DEFAULT)[address] [place] [address] 10530 Neut Abs# 3.7 x10 Normal 1.5-9.2 [facility] Comment on above: Performed By: #### 1 712282583, 99233776, 0394292 ####[facility] (DEFAULT)[address] [place] [address] 70120 Neutrophils/100 WBC (Bld) 70 % Normal 44-88 [facility] Comment on above: Performed By: #### 1 131410791, 52866432, 0211024 ####[facility] (DEFAULT)[address] [place] [address] 47101 BMP Standardon 10-11-2023 eGFR Non AA 57 mL/min/1.73m2 Invalid Interpretation Code [facility] Comment on above: Performed By: #### 1 060315647, 86899684, 0952863 ####[facility] (DEFAULT)[address] [place] [address] 00217 eGFR AA >60 Invalid Interpretation Code [facility] Comment on above: Performed By: #### 1 123841803, 00104656, 7178064 ####[facility] (DEFAULT)[address] [place] [address] 36226 Anion gap [Moles/Vol] 9.0 mmol/L Normal 5.0-19.0 [facility] Comment on above: Performed By: #### 1 569710360, 42953155, 2077531 ####[facility] (DEFAULT)[address] [place] [address] 91891 Calcium [Mass/Vol] 8.6 mg/dL Low 8.9-10.3 [facility] Comment on above: Performed By: #### 1 451737846, 52768188, 0989828 ####[facility] (DEFAULT)[address] [place] [address] 36090 Chloride [Moles/Vol] 110 mmol/L Normal 101-111 [facility] Comment on above: Performed By: #### 1 171443277, 74514178, 1241336 ####[facility] (DEFAULT)[address] [place] [address] 80653 CO2 [Moles/Vol] 25 mmol/L Normal 21-32 [facility] Comment on above: Performed By: #### 1 120149464, 88934061, 6979201 ####[facility] (DEFAULT)[address] [place] [address] 67901 Creatinine [Mass/Vol] 1.20 mg/dL Normal 0.90-1.30 [facility] Comment on above: Performed By: #### 1 553751118, 44707973, 7906576 ####[facility] (DEFAULT)[address] [place] [address] 55211 Glucose [Mass/Vol] 116.0 mg/dL Normal 74.0-118.0 [facility] Comment on above: Performed By: #### 1 318035083, 15784516, 9868311 ####[facility] (DEFAULT)[address] [place] [address] 32587 Osmolality 285 mOsm/L Invalid Interpretation Code [facility] Comment on above: Performed By: #### 1 992140282, 27130388, 0784121 ####[facility] (DEFAULT)[address] [place] [address] 45966 Potassium [Moles/Vol] 4.0 mmol/L Normal 3.6-5.1 [facility] Comment on above: Performed By: #### 1 362771085, 41375496, 9088703 ####[facility] (DEFAULT)[address] [place] [address] 89503 Sodium [Moles/Vol] 140.0 mmol/L Normal 136.0-144.0 [facility] Comment on above: Performed By: #### 1 043169732, 21015037, 2946200 ####[facility] (DEFAULT)[address] [place] [address] 80127 Urea nitrogen [Mass/Vol] 27 mg/dL High 8-26 [facility] Comment on above: Performed By: #### 1 082784331, 18021904, 1814581 ####[facility] (DEFAULT)[address] [place] [address] 90450 Urea nitrogen/Creatinine [Mass ratio] 22.5 mg/mg High 4.6-16.2 [facility] Comment on above: Performed By: #### 1 239565413, 11699466, 0645579 ####[facility] (DEFAULT)[address] [place] [address] CBC w/ Auto Diffon Erythrocyte distribution width (RBC) [Ratio] 14.8 % Normal 11.5-15.0 [facility] Comment on above: Performed By: #### 1 372740879, 81043439, 0244565 ####[facility] (DEFAULT)[address] [place] [address] Hematocrit (Bld) [Volume fraction] 39.1 % Normal 34.8-51.9 [facility] Comment on above: Performed By: #### 1 371918124, 78624333, 8335633 ####[facility] (DEFAULT)[address] [place] [address] 59832 Hemoglobin (Bld) [Mass/Vol] 12.9 g/dL Normal 11.8-17.7 [facility] Comment on above: Performed By: #### 1 108382278, 57314605, 6551916 ####[facility] (DEFAULT)[address] [place] [address] Man Diff? Auto Invalid Interpretation Code [facility] Comment on above: Performed By: #### 1 490049409, 04375939, 0767294 ####[facility] (DEFAULT)[address] [place] [address] 80908 MCH (RBC) [Entitic mass] 30 pg Normal 24-34 [facility] Comment on above: Performed By: #### 1 536260383, 46230689, 3949389 ####[facility] (DEFAULT)[address] [place] [address] 23075 MCHC (RBC) [Mass/Vol] 33 g/dL Normal 26-37 [facility] Comment on above: Performed By: #### 1 689275117, 12041727, 5705751 ####[facility] (DEFAULT)[address] [place] [address] 78786 MCV (RBC) [Entitic vol] 89 fL Normal 81-100 [facility] Comment on above: Performed By: #### 1 153520029, 61233720, 3334716 ####[facility] (DEFAULT)[address] [place] [address] Platelet 177 x10 Normal 138-427 [facility] Comment on above: Performed By: #### 1 893533459, 10232250, 0287223 ####[facility] (DEFAULT)[address] [place] [address] Platelet mean volume (Bld) [Entitic vol] 8.2 fL Normal 6.3-10.2 [facility] Comment on above: Performed By: #### 1 521848035, 19079144, 7345675 ####[facility] (DEFAULT)[address] [place] [address] RBC 4.38 x10 Normal 3.70-5.30 [facility] Comment on above: Performed By: #### 1 802438779, 88976112, 8250361 ####[facility] (DEFAULT)[address] [place] [address] WBC 5.4 x10 Normal 3.5-10.5 [facility] Comment on above: Performed By: #### 1 316613925, 57964832, 3129634 ####[facility] (DEFAULT)[address] [place] [address] .Auto Diff 1on 10-10-2023 Auto Hanson % 7 % Normal 1-12 [facility] Comment on above: Performed By: #### 5 820888875, 55420296, 4359586408, 6062172037, 6760241843, 3700862, 7600991332, 5964723732, 5756477, 4542831 ####[facility] (DEFAULT)[address] [place] [address] Baso Abs# 0.0 x10 Normal 0.0-0.2 [facility] Comment on above: Performed By: #### 5 922258039, 93085661, 0163910883, 0138964827, 1141846141, 4065074, 5010247206, 2541937692, 0362007, 4148781 ####[facility] (DEFAULT)[address] [place] [address] 18868 Basophils/100 WBC (Bld) 0.6 % Normal 0.2-2.0 [facility] Comment on above: Performed By: #### 5 089363076, 97446317, 1794409885, 8971524248, 5924435343, 9111487, 8541562462, 9974597213, 2452514, 3714172 ####[facility] (DEFAULT)[address] [place] [address] 27611 Eos Abs# 0.1 x10 Normal 0.0-0.4 [facility] Comment on above: Performed By: #### 5 744066572, 12310340, 0750200535, 4474960134, 2608798661, 3665494, 2007447018, 9473995596, 9561108, 0591345 ####[facility] (DEFAULT)[address] [place] [address] 61933 Eosinophils/100 WBC (Bld) 2.9 % Normal 0.9-4.0 [facility] Comment on above: Performed By: #### 5 630289645, 82928459, 2383021722, 5676656574, 7186739995, 1389119, 6461376880, 6204808148, 2371784, 1703847 ####[facility] (DEFAULT)[address] [place] [address] 24683 Lymph Abs# 0.8 x10 Low 1.3-2.9 [facility] Comment on above: Performed By: #### 5 730503963, 41494965, 4489339052, 0892982063, 9628888228, 8661550, 3076080132, 9465133547, 0101131, 7231972 ####[facility] (DEFAULT)[address] [place] [address] 49521 Lymphocytes/100 WBC (Bld) 17 % Normal 14-48 [facility] Comment on above: Performed By: #### 5 232827502, 97334750, 8046252663, 1140279822, 2652571304, 7492933, 0699211043, 6536366118, 3210661, 9196656 ####[facility] (DEFAULT)[address] [place] [address] Hanson Abs# 0.3 x10 Normal 0.0-0.8 [facility] Comment on above: Performed By: #### 5 440853880, 62178913, 7332904854, 7158140323, 8582429077, 3264014, 3336076235, 6713836217, 3564275, 0396215 ####[facility] (DEFAULT)[address] [place] [address] Neut Abs# 3.4 x10 Normal 1.5-9.2 [facility] Comment on above: Performed By: #### 5 413520437, 80684425, 2523720316, 7454674963, 5602986306, 4808929, 4027375205, 0006016638, 0559074, 6510757 ####[facility] (DEFAULT)[address] [place] [address] Neutrophils/100 WBC (Bld) 73 % Normal 44-88 [facility] Comment on above: Performed By: #### 5 556275621, 38377869, 2955800276, 7382964131, 2772075749, 9002037, 2735329621, 0425645896, 5460088, 0586243 ####[facility] (DEFAULT)[address] [place] [address] Ammoniaon 10-10-2023 Ammonia (P) [Moles/Vol] 15.0 umol/L Normal 10.0-35.0 [facility] Comment on above: Performed By: #### 6 [id number], 9447167, 7649271, 7858289, 3550218 ####[facility] (DEFAULT)[address] [place] [address] BNP.on 10-10-2023 Natriuretic peptide B (Bld) [Mass/Vol] 69.0 pg/mL Normal 0.0-100.0 [facility] Comment on above: Result Comment: BNP results greater than 100 pg/mL are considered abnormal and suggestive of patients with CHF. Higher BNP concentrations measured in the first 72 hours after an acute coronary syndorme are associated with an increased risk of , myocardial infarction, and CHF. Performed By: #### 5 [id number], [id number], [id number], [id number], 3040432395, 9098620, 4029210776, 1065078111, 4396276, 6538457 ####[facility] (DEFAULT)[address] [place] [id number] CBC w/ Auto Diffon 4 Erythrocyte distribution width (RBC) [Ratio] 15.3 % High 11.5-15.0 [facility] Comment on above: Performed By: #### 5 [id number], 42450727, 7991198370, 2762150665, 4169023790, 4728593, 3283976317, 5367921328, 6479247, 4320294 ####[facility] (DEFAULT)[address] [place] [address] Hematocrit (Bld) [Volume fraction] 41.7 % Normal 34.8-51.9 [facility] Comment on above: Performed By: #### 5 [id number], 64058102, 2630837993, 4167061671, 1838755726, 0743739, 6644775174, 4405402646, 0055334, 3657328 ####[facility] (DEFAULT)[address] [place] [address] Hemoglobin (Bld) [Mass/Vol] 13.8 g/dL Normal 11.8-17.7 [facility] Comment on above: Performed By: #### 5 [id number], 84864093, 3220055887, 8433300063, 2094340088, 2877509, 7877646378, 1164657114, 7912013, 8992197 ####[facility] (DEFAULT)[address] [place] [address] Man Diff? Auto Invalid Interpretation Code [facility] Comment on above: Performed By: #### 5 [id number], 23959418, [id number], 9890154319, 2121752408, 3991604, 1942680315, 3330276826, 6194594, 2501277 ####[facility] (DEFAULT)[address] [place] [address] MCH (RBC) [Entitic mass] 30 pg Normal 24-34 [facility] Comment on above: Performed By: #### 5 [id number], 51515853, 7431015478, 0384663505, 8012321342, 1770951, 7110732549, 9845251160, 7231867, 9458594 ####[facility] (DEFAULT)[address] [place] [address] MCHC (RBC) [Mass/Vol] 33 g/dL Normal 26-37 [facility] Comment on above: Performed By: #### 5 [id number], 82167019, 4273544471, 4024494746, 0193816079, 1274126, [id number], [id number], 1679411, 5329019 ####[facility] (DEFAULT)[address] [place] [address] MCV (RBC) [Entitic vol] 90 fL Normal 81-100 [facility] Comment on above: Performed By: #### 5 314351110, 87333703, 9536917500, 3484670541, 6474911157, 9701231, 3927121716, 9492396635, 0688668, 3286386 ####[facility] (DEFAULT)[address] [place] [address] Platelet 190 x10 Normal 138-427 [facility] Comment on above: Performed By: #### 5 832752852, 92696221, 9400049394, 1366884080, 3779675379, 1486264, 4783230770, 5445766244, 7174140, 2046520 ####[facility] (DEFAULT)[address] [place] [address] Platelet mean volume (Bld) [Entitic vol] 8.0 fL Normal 6.3-10.2 [facility] Comment on above: Performed By: #### 5 047687865, 05312572, 4671992199, 9526191554, 8309404027, 0213242, 5424415644, 3988996639, 2559388, 9062214 ####[facility] (DEFAULT)[address] [place] [address] 06480 RBC 4.63 x10 Normal 3.70-5.30 [facility] Comment on above: Performed By: #### 5 792325281, 44151079, 5636651864, 2708977304, 0534543693, 5078645, 3696358907, 6650309530, 8696625, 6633321 ####[facility] (DEFAULT)[address] [place] [address] 93992 WBC 4.7 x10 Normal 3.5-10.5 [facility] Comment on above: Performed By: #### 5 794713483, 06302101, 0711700787, 2306253491, 8796023798, 4482754, 9189857139, 9011923052, 6496053, 5229889 ####[facility] (DEFAULT)[address] [place] [address] 47271 [facility] Standardon 10-10-2023 eGFR Non AA 59 mL/min/1.73m2 Invalid Interpretation Code [facility] Comment on above: Performed By: #### 5 078350734, 12674543, 9684659929, 1408773511, 8113381856, 7998549, 3038569665, 1273871067, 6092841, 7822877 ####[facility] (DEFAULT)[address] [place] [address] 86729 eGFR AA >60 Invalid Interpretation Code [facility] Comment on above: Performed By: #### 5 [id number], 47868995, 8217901518, 0079861587, 5405068065, 2546048, 7315304497, 1342194159, 4326170, 3270815 ####[facility] (DEFAULT)[address] [place] [address] 63105 Albumin [Mass/Vol] 3.8 g/dL Normal 3.5-5.0 [facility] Comment on above: Performed By: #### 5 306228837, 46674167, 0678671889, 5135367251, 3410054779, 9705312, 8804464803, 9398512460, 5077247, 6309880 ####[facility] (DEFAULT)[address] [place] [address] 38880 Albumin/Globulin [Mass ratio] 1.1 {ratio} Low 1.4-2.6 [facility] Comment on above: Performed By: #### 5 236042856, 87753237, 4288954878, 0259811900, 5395019192, 8938654, 0095772620, 0680915183, 6286310, 5764979 ####[facility] (DEFAULT)[address] [place] [address] Alk Phos 67 IU/L Normal 32-91 [facility] Comment on above: Performed By: #### 5 437680858, 45112063, 1950863464, 3868269849, 7923597792, 5892898, 4826534744, 7365744137, 2422791, 4688163 ####[facility] (DEFAULT)[address] [place] [address] 90947 ALT [Catalytic activity/Vol] 15.0 U/L Low 17.0-63.0 [facility] Comment on above: Performed By: #### 5 419891350, 21929311, 1873808113, 2999619446, 1438637826, 3783236, 7084644543, 1360155659, 9639156, 0594105 ####[facility] (DEFAULT)[address] [place] [address] 91832 Anion gap [Moles/Vol] 9.0 mmol/L Normal 5.0-19.0 [facility] Comment on above: Performed By: #### 5 473877153, 19408405, 3706572197, 1916258912, 3307702587, 3729511, 7953698461, 4680044711, 3521820, 1543896 ####[facility] (DEFAULT)[address] [place] [address] 38888 AST [Catalytic activity/Vol] 16 U/L Normal 15-41 [facility] Comment on above: Performed By: #### 5 922890406, 68009044, 9363740009, 5326725090, 2746809179, 4496126, 1186870405, 2919055147, 6268381, 4092713 ####[facility] (DEFAULT)[address] [place] [address] 43732 Bili Total 0.7 mg/dL Normal 0.3-1.2 [facility] Comment on above: Performed By: #### 5 959128665, 60710862, 0130099596, 7068459031, 3646732354, 9231957, 4928872687, 3336946279, 5990491, 6042234 ####[facility] (DEFAULT)[address] [place] [address] 50250 Calcium [Mass/Vol] 8.9 mg/dL Normal 8.9-10.3 [facility] Comment on above: Performed By: #### 5 370132476, 65606881, 4333243181, 4822689535, 4870126591, 6740802, 2686902961, 1628084780, 3276866, 4823533 ####[facility] (DEFAULT)[address] [place] [address] 05299 Chloride [Moles/Vol] 112 mmol/L High 101-111 [facility] Comment on above: Performed By: #### 5 538706215, 26501255, 2437436208, 4462882893, 9712536563, , 9342730574, 0477416740, 5273399, 9573627 ####[facility] (DEFAULT)[address] [place] [address] 41300 CO2 [Moles/Vol] 24 mmol/L Normal 21-32 [facility] Comment on above: Performed By: #### 5 127226291, 65211409, 9834356873, 0701470921, 7850601070, 1648138, 7720596649, 2054150967, 9586711, 1526808 ####[facility] (DEFAULT)[address] [place] [address] 15930 Creatinine [Mass/Vol] 1.16 mg/dL Normal 0.90-1.30 [facility] Comment on above: Performed By: #### 5 142556223, 71079292, 0123405866, 5067383768, 4385369533, 2094626, 7118622277, 6763483919, 1531984, 2379065 ####[facility] (DEFAULT)[address] [place] [address] Globulin (S) [Mass/Vol] 3.3 g/dL Normal 1.5-4.3 [facility] Comment on above: Performed By: #### 5 023645565, 83297387, 3782196434, 4166928015, 6561428842, 8727242, 2393424655, 3362684085, 9835478, 8497453 ####[facility] (DEFAULT)[address] [place] [address] 87076 Glucose [Mass/Vol] 137.0 mg/dL High 74.0-118.0 [facility] Comment on above: Performed By: #### 5 679925970, 29045067, 5732788319, 8491583045, 7819727010, 2084265, 2618945558, 6657015026, 7206215, 9999581 ####[facility] (DEFAULT)[address] [place] [address] 74908 Osmolality 289 mOsm/L Invalid Interpretation Code [facility] Comment on above: Performed By: #### 5 091190365, 33567592, 9868153892, 8178157458, 9509068254, 7723455, 7763307878, 3042347453, 0236425, 3576772 ####[facility] (DEFAULT)[address] [place] [address] 33621 Potassium [Moles/Vol] 4.0 mmol/L Normal 3.6-5.1 [facility] Comment on above: Performed By: #### 5 608610705, 89495658, 9877642439, 5526981980, 6094348977, 8603209, 3676565893, 4889654210, 7237865, 0321279 ####[facility] (DEFAULT)[address] [place] [address] 83205 Protein [Mass/Vol] 7.1 g/dL Normal 6.5-8.1 [facility] Comment on above: Performed By: #### 5 917263472, 93255169, 9406936451, 8917250472, 2414194922, 6424789, 3845435544, 0018892321, 5096679, 2214206 ####[facility] (DEFAULT)[address] [place] [address] 62152 Sodium [Moles/Vol] 141.0 mmol/L Normal 136.0-144.0 [facility] Comment on above: Performed By: #### 5 179568236, 85717473, 8641909858, 4421309887, 2771227982, 1389220, 3181216322, 3154126901, 9107485, 0790194 ####[facility] (DEFAULT)[address] [place] [address] Urea nitrogen [Mass/Vol] 28 mg/dL High 8-26 [facility] Comment on above: Performed By: #### 5 049173643, 38211735, 1360460490, 6528185262, 0022924441, 2512136, 6835359834, 1158703040, 5120068, 8373594 ####[facility] (DEFAULT)[address] [place] [address] 88418 Urea nitrogen/Creatinine [Mass ratio] 24.1 mg/mg High 4.6-16.2 [facility] Comment on above: Performed By: #### 5 505491346, 03408951, 9822915321, 9764139627, 9742339733, 6101190, 8430692248, 2796920762, 9819013, 8467627 ####[facility] (DEFAULT)[address] [place] [address] 08089 Breakpoint Chem Normal [facility] Comment on above: Performed By: #### 5 572703768, 81899475, 7938340125, 6283936984, 8430202100, 5840864, 5561376471, 7720115404, 9601298, 7053261 ####[facility] (DEFAULT)[address] [place] [address] Head or Brain w/o Contras ton 10-10-2023 CT Head or Brain w/o Contrast [facility] ED Clinical Summaryon 2023 ED Clinical Summary [facility] ED Note-Nursingon 10-10-2023 ED Note-Nursing Patient is currently admitted to [facility] and pending labs will be reviewed by admitting provider. [facility] ED Patient Education Noteon 10-10-2023 ED Patient Education Note Education Materials [facility] ED Patient Summaryon 024 ED Patient Summary [place] Extra Redon 10-10-2023 Tube Collected Yes Invalid Interpretation Code [facility] Comment on above: Performed By: #### 5 [id number], 92696744, 2675340099, 7637500867, 9931193138, 7030798, 8275154746, 7138453107, 4578503, 8428179 ####[facility] (DEFAULT)[address] [place] [address] 09797 Folateon 10-10-2023 Folic Acid Level 8.87 ng/mL Normal 5.90-24.80 [facility] Comment on above: Performed By: #### 6 09716727, 8838253, 4406176, 7973551, 5960063 ####[facility] (DEFAULT)[address] [place] [address] 86711 HgbA1c Standardon 10-10-2023 .Hb 14.7 Invalid Interpretation Code [facility] Comment on above: Performed By: #### 1 [id number] ####[facility] (DEFAULT)[address] [place] [address] 39850 .Hgb A1c 0.59 g/dL Invalid Interpretation Code [facility] Comment on above: Performed By: #### 1 [id number] ####[facility] (DEFAULT)[address] [place] [address] 62321 Glucose [Mass/Vol] 120 mg/dL Invalid Interpretation Code [facility] Comment on above: Performed By: #### 1 708063449 ####[facility] (DEFAULT)[address] [place] [address] 77471 HbA1c (Bld) [Mass fraction] 5.8 % Normal 4.6-6.2 [facility] Comment on above: Performed By: #### 1 [id number] ####[facility] (DEFAULT)[address] [place] [address] 92624 VERDIN Formon 10-10-2023 VERDIN Form [id number]#1.0 0OTGTIFF Normal [facility] Magnesiumon 10-10-2023 Magnesium [Mass/Vol] 2.08 mg/dL Normal 1.80-2.50 [facility] Comment on above: Performed By: #### 5 906147233, 11394065, 9673212504, 6482404225, 7538688065, 8509789, 4069799176, 7534154612, 4694840, 2725825 ####[facility] (DEFAULT)[address] [place] [address] 35033 Nutrition Noteon 10-10-2023 Nutrition Note Normal [facility] PTon 10-10-2023 INR Coag (PPP) [Relative time] 1.04 {INR} Normal 0.91-1.11 [facility] Comment on above: Performed By: #### 5 579640626, 86711834, 1779846427, 4637891508, 0668085891, 0914311, 7990131578, 8070521667, 3823417, 8432381 ####[facility] (DEFAULT)[address] [place] [address] 24744 PT 10.8 second(s) Normal 9.7-11.8 [facility] Comment on above: Performed By: #### 5 764160338, 11817012, 8304802733, 7330840373, 0064635802, 5319480, 8764504350, 0123122580, 0787090, 4487815 ####[facility] (DEFAULT)[address] [place] [address] 01262 Pharmacy Noteon 10-10-2023 Pharmacy Note Normal [facility] Progress Note - Nurseon 09-16 Progress Note - Nurse Normal [facility] TSH w/ Reflex to FT4on 10-09 TSH Qn 2.00 m[IU]/L Normal 0.45-5.33 [facility] Comment on above: Performed By: #### 6 76058463, 3131935, 5903048, 9676160, 2787765 ####[facility] (DEFAULT)[address] [place] [address] 10651 TnI HSon 10-10-2023 Troponin I High Sensitivity 15.6 pg/mL Normal <=20.0 [facility] Comment on above: Performed By: #### 5 063215256, 13792580, 0981098008, 3014381896, 3846352331, 8615241, 0413077971, 8453316511, 7976250, 1119107 ####[facility] (DEFAULT)[address] [place] [address] UA w Culture if Ind Standard on 10-10-2023 Breakpoint UA [facility] Comment on above: Performed By: #### 1 [id number] ####[facility] (DEFAULT)[address] [place] [address] Color (U) Yellow Normal [facility] Comment on above: Performed By: #### 1 [id number] ####[facility] (DEFAULT)[address] [place] [address] 20835 Culture? Not Indicated Invalid Interpretation Code [facility] Comment on above: Result Comment: Resu lt created by rule GL_MAGR_ADD_UA_[id number] Performed By: #### 1 [id number] ####[facility] (DEFAULT)[address] [place] [address] 71567 Glucose (U) [Mass/Vol] Negative [facility] Comment on above: Performed By: #### 1 [id number] ####[facility] (DEFAULT)[address] [place] [address] 33638 Ketones Ql (U) Negative Normal [facility] Comment on above: Performed By: #### 1 486348721 ####[facility] (DEFAULT)[address] [place] [address] Micro? Not Indicated Invalid Interpretation Code [facility] Comment on above: Result Comment: Resu lt created by rule GL_MAGR_ADD_UA_MICRO Performed By: #### 1 [id number] ####[facility] (DEFAULT)[address] [place] [address] UA Bilirubin Negative Normal [facility] Comment on above: Performed By: #### 1 [id number] ####[facility] (DEFAULT)[address] [place] [address] 05029 UA Blood Negative Normal NEGATIVE [facility] Comment on above: Performed By: #### 1 [id number] ####[facility] (DEFAULT)[address] [place] [address] 34730 UA Clarity CLEAR Normal CLEAR [facility] Comment on above: Performed By: #### 1 [id number] ####[facility] (DEFAULT)[address] [place] [address] UA Leuk Est Negative Normal NEGATIVE [facility] Comment on above: Performed By: #### 1 [id number] ####[facility] (DEFAULT)[address] [place] [address] UA Nitrite Negative Normal NEGATIVE [facility] Comment on above: Performed By: #### 1 [id number] ####[facility] (DEFAULT)[address] [place] [address] 29463 UA pH 6.0 Normal 5-8 [facility] Comment on above: Performed By: #### 1 [id number] ####[facility] (DEFAULT)[address] [place] [address] 92553 UA Protein Negative Normal NEGATIVE [facility] Comment on above: Performed By: #### 1 [id number] ####[facility] (DEFAULT)[address] [place] [address] 59392 UA Spec Grav >=1.030 Normal 1.001-1.035 [facility] Comment on above: Performed By: #### 1 [id number] ####[facility] (DEFAULT)[address] [place] [address] 36657 UA Urobilinogen 0.2 mg/dL Normal 0.2-1.0 [facility] Comment on above: Performed By: #### 1 [id number] ####[facility] (DEFAULT)[address] [place] [address] 30820 Urine Source Clean Catch Normal [facility] Comment on above: Performed By: #### 1 [id number] ####[facility] (DEFAULT)[address] [place] [address] 19207 Vit B12 Lvlon 10-10-2023 Vit B12 275 Normal 180-914 [facility] Comment on above: Performed By: #### 6 00746954, 3573014, 3783795, 5296859, 5937997 ####[facility] (DEFAULT)[address] [place] [address] 17798 Vit D25 OHon 10-10-2023 Vitamin D 25 OH 16 ng/mL Low 30-100 [facility] Comment on above: Performed By: #### 6 76709935, 5119239, 3771002, 3644249, 2390664 ####[facility] (DEFAULT)[address] [place] [address] 85392 XR Chest 1 View Frontalon XR Chest 1 View Frontal Normal [facility] Coding Summaryon 10-02-2023 Coding Summary Normal [facility] C Bloodon 09-26-2023 C Blood Right AC @ 10:30 am MW No growth at 5 Days Normal [facility] Comment on above: Performed By: #### 6 [id number] ####[facility] (DEFAULT)[address] [place] [address] 86887 ED Note - Physicianon 2023 ED Note - Physician [facility] C Urineon 09-23-2023 C Urine Normal [facility] Comment on above: Performed By: #### 1 [id number], 17604953, 2302284 ####[facility] (DEFAULT)[address] [place] [address] 74194 Outside Recordson 09-23-2023 Outside Records [id number]#1.0 0OTGTIFF Normal [facility] .Auto Diff 109-21-2023 Auto Hanson % 8 % Normal -12 [facility] Comment on above: Performed By: #### 1 574039976, 6036223838, 90763026, 5625687, 5383857130, 0394271421 ####[facility] (DEFAULT)[address] [place] [address] 71343 Baso Abs# 0.0 x10 Normal 0.0-0.2 [facility] Comment on above: Performed By: #### 1 [id number], 8870135906, 82930543, 6570929, 1183080812, 4932559662 ####[facility] (DEFAULT)[address] [place] [address] 15148 Basophils/100 WBC (Bld) 0.4 % Normal 0.2-2.0 [facility] Comment on above: Performed By: #### 1 796586220, 1782388949, 10059332, 3722211, 6733757316, 7125969972 ####[facility] (DEFAULT)[address] [place] [address] 92476 Eos Abs# 0.1 x10 Normal 0.0-0.4 [facility] Comment on above: Performed By: #### 1 369628484, 6984385746, 59817386, 8806253, 2690639037, 4293227565 ####[facility] (DEFAULT)[address] [place] [address] 51153 Eosinophils/100 WBC (Bld) 1.4 % Normal 0.9-4.0 [facility] Comment on above: Performed By: #### 1 120268932, 2503593054, 69027342, 5680277, 7240185198, 4277561835 ####[facility] (DEFAULT)[address] [place] [address] 79409 Lymph Abs# 1.0 x10 Low 1.3-2.9 [facility] Comment on above: Performed By: #### 1 309147874, 2291135662, 59369459, 9699052, 5576107072, 1023500264 ####[facility] (DEFAULT)[address] [place] [address] Lymphocytes/100 WBC (Bld) 16 % Normal 14-48 [facility] Comment on above: Performed By: #### 1 920360151, 1815420341, 49339950, 0906653, 6955511475, 6020328078 ####[facility] (DEFAULT)[address] [place] [address] Hanson Abs# 0.5 x10 Normal 0.0-0.8 [facility] Comment on above: Performed By: #### 1 238355828, 8917609367, 77134809, 7360596, 0871477884, 9357147043 ####[facility] (DEFAULT)[address] [place] [address] Neut Abs# 4.9 x10 Normal 1.5-9.2 [facility] Comment on above: Performed By: #### 1 205035845, 8159836418, 35138264, 3584157, 7723550771, 9027216724 ####[facility] (DEFAULT)[address] [place] [address] Neutrophils/100 WBC (Bld) 74 % Normal 44-88 [facility] Comment on above: Performed By: #### 1 670644119, 1360161081, 16343257, 8112492, 9553354068, 2550731761 ####[facility] (DEFAULT)[address] [place] [address] CBC w/ Auto Diffon 4 Erythrocyte distribution width (RBC) [Ratio] 14.8 % Normal 11.5-15.0 [facility] Comment on above: Performed By: #### 1 452314761, 7776634375, 69577560, 6327256, 4143248706, 8268282320 ####[facility] (DEFAULT)[address] [place] [address] Hematocrit (Bld) [Volume fraction] 42.1 % Normal 34.8-51.9 [facility] Comment on above: Performed By: #### 1 426999659, 0434039386, 10401958, 4091513, 4354058283, 5285902328 ####[facility] (DEFAULT)[address] [place] [address] 55521 Hemoglobin (Bld) [Mass/Vol] 13.8 g/dL Normal 11.8-17.7 [facility] Comment on above: Performed By: #### 1 163744057, 9338802484, 15647952, 3355738, 9673504528, 5343872350 ####[facility] (DEFAULT)[address] [place] [address] 06395 Man Diff? Auto Invalid Interpretation Code [facility] Comment on above: Performed By: #### 1 051572740, 5125737749, 51116562, 5218667, 2416764052, 3051969615 ####[facility] (DEFAULT)[address] [place] [address] 82792 MCH (RBC) [Entitic mass] 29 pg Normal 24-34 [facility] Comment on above: Performed By: #### 1 262954130, 5611203373, 24289836, 0689414, 5827740217, 2199822378 ####[facility] (DEFAULT)[address] [place] [address] 46206 MCHC (RBC) [Mass/Vol] 33 g/dL Normal 26-37 [facility] Comment on above: Performed By: #### 1 564018111, 8211193199, 96574507, 3104158, 6872935921, 8377538529 ####[facility] (DEFAULT)[address] [place] [address] 70066 MCV (RBC) [Entitic vol] 90 fL Normal 81-100 [facility] Comment on above: Performed By: #### 1 379104720, 8187265055, 99106819, 2292930, 4180376477, 1457136322 ####[facility] (DEFAULT)[address] [place] [address] 92206 Platelet 191 x10 Normal 138-427 [facility] Comment on above: Performed By: #### 1 004140552, 3429521613, 32690111, 9367738, 2053804095, 5596400163 ####[facility] (DEFAULT)[address] [place] [address] Platelet mean volume (Bld) [Entitic vol] 8.1 fL Normal 6.3-10.2 [facility] Comment on above: Performed By: #### 1 245409647, 2001598952, 67310936, 8853473, 2892747641, 9625657660 ####[facility] (DEFAULT)[address] [place] [address] RBC 4.68 x10 Normal 3.70-5.30 [facility] Comment on above: Performed By: #### 1 569481485, 1182453820, 15916280, 0193263, 3870908147, 4947219531 ####[facility] (DEFAULT)[address] [place] [address] WBC 6.6 x10 Normal 3.5-10.5 [facility] Comment on above: Performed By: #### 1 944078446, 1120813421, 18523587, 8408729, 0570697040, 2004589815 ####[facility] (DEFAULT)[address] [place] [address] Standardon 09-21-2023 eGFR Non AA 57 mL/min/1.73m2 Invalid Interpretation Code [facility] Comment on above: Performed By: #### 1 985928029, 3128437355, 25221057, 6939995, 2653529823, 2078619981 ####[facility] (DEFAULT)[address] [place] [address] eGFR AA >60 Invalid Interpretation Code [facility] Comment on above: Performed By: #### 1 058616971, 7903206432, 92281243, 8770372, 8445829268, 1513969046 ####[facility] (DEFAULT)[address] [place] [address] Albumin [Mass/Vol] 3.9 g/dL Normal 3.5-5.0 [facility] Comment on above: Performed By: #### 1 [id number], [id number], 31897587, 2199155, [id number], [id number] ####[facility] (DEFAULT)[address] [place] [address] Albumin/Globulin [Mass ratio] 1.1 {ratio} Low 1.4-2.6 [facility] Comment on above: Performed By: #### 1 [id number], [id number], 12847861, 2025202, 6278241546, [id number] ####[facility] (DEFAULT)[address] [place] [address] Alk Phos 75 IU/L Normal 32-91 [facility] Comment on above: Performed By: #### 1 [id number], [id number], 71045945, 0470828, 1827430672, [id number] ####[facility] (DEFAULT)[address] [place] [address] ALT [Catalytic activity/Vol] 18.0 U/L Normal 17.0-63.0 [facility] Comment on above: Performed By: #### 1 [id number], 6996958446, 98730197, 9684706, 6916221198, 0114252477 ####[facility] (DEFAULT)[address] [place] [address] Anion gap [Moles/Vol] 9.4 mmol/L Normal 5.0-19.0 [facility] Comment on above: Performed By: #### 1 [id number], 3414016829, 32684648, 7285674, 6158099402, [id number] ####[facility] (DEFAULT)[address] [place] [address] 37031 AST [Catalytic activity/Vol] 24 U/L Normal 15-41 [facility] Comment on above: Performed By: #### 1 [id number], 7598526423, 41933920, 3465653, 6743137625, 7994493971 ####[facility] (DEFAULT)[address] [place] [address] Bili Total 0.7 mg/dL Normal 0.3-1.2 [facility] Comment on above: Performed By: #### 1 [id number], 3211792491, 48576436, 0223864, 7484083474, [id number] ####[facility] (DEFAULT)[address] [place] [address] 10944 Calcium [Mass/Vol] 8.8 mg/dL Low 8.9-10.3 [facility] Comment on above: Performed By: #### 1 [id number], 6661392714, 94399874, 3214450, 9562344878, [id number] ####[facility] (DEFAULT)[address] [place] [address] 60983 Chloride [Moles/Vol] 110 mmol/L Normal 101-111 [facility] Comment on above: Performed By: #### 1 [id number], 9859497030, 88437399, 9645825, 0768850362, [id number] ####[facility] (DEFAULT)[address] [place] [address]7528 CO2 [Moles/Vol] 23 mmol/L Normal 21-32 [facility] Comment on above: Performed By: #### 1 [id number], [id number], 26899958, 2824044, 5001326535, [id number] ####[facility] (DEFAULT)[address] [place] [address] 10934 Creatinine [Mass/Vol] 1.20 mg/dL Normal 0.90-1.30 [facility] Comment on above: Performed By: #### 1 [id number], 8181324572, 02757160, 8347265, 6916446984, 0376383285 ####[facility] (DEFAULT)[address] [place] [address] 28150 Globulin (S) [Mass/Vol] 3.3 g/dL Normal 1.5-4.3 [facility] Comment on above: Performed By: #### 1 494196913, 3200998754, 02929117, 0637123, 2238733329, 5516725273 ####[facility] (DEFAULT)[address] [place] [address] Glucose [Mass/Vol] 114.0 mg/dL Normal 74.0-118.0 [facility] Comment on above: Performed By: #### 1 [id number], 9279357916, 75755465, 0264075, 9504101387, 1137863639 ####[facility] (DEFAULT)[address] [place] [address] 88787 Osmolality 282 mOsm/L Invalid Interpretation Code [facility] Comment on above: Performed By: #### 1 [id number], 9330561007, 37863211, 7781026, 6622530034, 5334592725 ####[facility] (DEFAULT)[address] [place] [address] 17804 Potassium [Moles/Vol] 4.4 mmol/L Normal 3.6-5.1 [facility] Comment on above: Performed By: #### 1 407983357, 0511523697, 11013953, 3532770, 9970097047, 8373724474 ####[facility] (DEFAULT)[address] [place] [address] 92380 Protein [Mass/Vol] 7.2 g/dL Normal 6.5-8.1 [facility] Comment on above: Performed By: #### 1 281057566, 4763839937, 94092136, 3894469, 7833136022, 8590910998 ####[facility] (DEFAULT)[address] [place] [address] 94182 Sodium [Moles/Vol] 138.0 mmol/L Normal 136.0-144.0 [facility] Comment on above: Performed By: #### 1 709672524, 6165825352, 45933898, 1704099, 1629405895, 4811002630 ####[facility] (DEFAULT)[address] [place] [address] 16932 Urea nitrogen [Mass/Vol] 29 mg/dL High 8-26 [facility] Comment on above: Performed By: #### 1 069334817, 0186460970, 17089076, 4741016, 6239384208, 7582412113 ####[facility] (DEFAULT)[address] [place] [address] 62504 Urea nitrogen/Creatinine [Mass ratio] 24.1 mg/mg High 4.6-16.2 [facility] Comment on above: Performed By: #### 1 265758411, 2856532694, 08380106, 4941225, 8238359957, 4954439603 ####[facility] (DEFAULT)[address] [place] [address] 04925 ED Clinical Summaryon 2023 ED Clinical Summary Normal [facility] ED Note - Physicianon 2023 ED Note - Physician [facility] ED Patient Education Noteon 09-21-2023 ED Patient Education Note Normal [facility] ED Patient Summaryon 024 ED Patient Summary Normal [facility] Extra Blueon 09-21-2023 Tube Collected Yes Invalid Interpretation Code [facility] Comment on above: Performed By: #### 1 [id number], 9677078580, 13865415, 6223300, 4711097411, 3972218181 ####[facility] (DEFAULT)[address] [place] [address] 17841 Lactic Acidon 09-21-2023 Lactic Acid 14.1 mg/dL Normal 4.5-19.8 [facility] Comment on above: Performed By: #### 2 [id number] ####[facility] (DEFAULT)[address] [place] [address] 45001 Progress Note - Nurseon Progress Note - Nurse Normal [facility] SARS-CoV-2 (COVID-19) PCRon 09-21-2023 Employed in healthcare? Unknown Invalid Interpretation Code [facility] Comment on above: Performed By: #### 6 [id number] ####[facility] (DEFAULT)[address] [place] [address] Group care resident? Unknown Invalid Interpretation Code [facility] Comment on above: Performed By: #### 6 [id number] ####[facility] (DEFAULT)[address] [place] [address] In ICU? Unknown Invalid Interpretation Code [facility] Comment on above: Performed By: #### 6 [id number] ####[facility] (DEFAULT)[address] [place] [address] Internal Control Pass Normal [facility] Comment on above: Performed By: #### 6 [id number] ####[facility] (DEFAULT)[address] [place] [address] status? Unknown Invalid Interpretation Code [facility] Comment on above: Performed By: #### 6 [id number] ####[facility] (DEFAULT)[address] [place] [address] SARS-CoV-2 (COVID-19) RNA ANDREW+probe Ql (Unsp spec) Not detected Normal Not Detected [facility] Comment on above: Result Comment: Perf ormed by PCR methodology. Performed By: #### 6 [id number] ####[facility] (DEFAULT)[address] [place] [address] SARS-CoV-2 (COVID-19) RNA ANDREW+probe Ql (Unsp spec) Unknown Invalid Interpretation Code [facility] Comment on above: Performed By: #### 6 [id number] ####[facility] (DEFAULT)[address] [place] [address] Symptomatic as defined by CDC? Unknown Invalid Interpretation Code [facility] Comment on above: Performed By: #### 6 [id number] ####[facility] (DEFAULT)[address] [place] [address] UA Wszlz1oa 09-21-2023 UA Bacteria 3+ Normal [facility] Comment on above: Order Comment: Urina lysis Microscopic order added on by [employer] Rules system. Performed By: #### 1 [id number], 35168414, 9257119 ####[facility] (DEFAULT)[address] [place] [address] UA RBC 15-20 Normal [facility] Comment on above: Order Comment: Urina lysis Microscopic order added on by [employer] system. Performed By: #### 1 [id number], 55557973, 0812352 ####[facility] (DEFAULT)[address] [place] [address] UA Squam Epi Rare Normal [facility] Comment on above: Order Comment: Urina lysis Microscopic order added on by [employer] system. Performed By: #### 1 [id number], 56330328, 3752710 ####[facility] (DEFAULT)[address] [place] [address] 08645 UA WBC 60-70 [facility] Comment on above: Order Comment: Urina lysis Microscopic order added on by [employer] system. Performed By: #### 1 [id number], 51080429, 9369379 ####[facility] (DEFAULT)[address] [place] [address] 01745 UA w Culture if Ind Standard on 09-21-2023 Breakpoint UA [facility] Comment on above: Performed By: #### 1 [id number], 54030408, 3810131 ####[facility] (DEFAULT)[address] [place] [address] 62923 Color (U) Yellow [facility] Comment on above: Performed By: #### 1 [id number], 57491713, 2450229 ####[facility] (DEFAULT)[address] [place] [address] 54640 Culture? Yes [facility] Comment on above: Result Comment: Resu lt created by rule GL_MAGR_ADD_UA_CULT Result created by rule GL_MAGR_ADD_UA_CULT1 Performed By: #### 1 [id number], 33767581, 8902182 ####[facility] (DEFAULT)[address] [place] [address] 43814 Glucose (U) [Mass/Vol] Negative [facility] Comment on above: Performed By: #### 1 [id number], 67289792, 8422995 ####[facility] (DEFAULT)[address] [place] [address] 74913 Ketones Ql (U) Negative [facility] Comment on above: Performed By: #### 1 051902812, 30814733, 7045704 ####[facility] (DEFAULT)[address] [place] [address] 73396 Micro? Indicated Invalid Interpretation Code [facility] Comment on above: Result Comment: Resu lt created by rule GL_MAGR_ADD_UA_MICRO Performed By: #### 1 [id number], 48413689, 4824753 ####[facility] (DEFAULT)[address] [place] [address] UA Bilirubin Negative Normal [facility] Comment on above: Performed By: #### 1 271802184, 61630773, 2105259 ####[facility] (DEFAULT)[address] [place] [address] UA Blood MODERATE Abnormal NEGATIVE [facility] Comment on above: Performed By: #### 1 150594646, 83014958, 2561346 ####[facility] (DEFAULT)[address] [place] [address] UA Clarity SL CLOUDY Abnormal CLEAR [facility] Comment on above: Performed By: #### 1 728462559, 19786627, 5162078 ####[facility] (DEFAULT)[address] [place] [address] UA Leuk Est MODERATE Abnormal NEGATIVE [facility] Comment on above: Performed By: #### 1 [id number], 97849234, 2670751 ####[facility] (DEFAULT)[address] [place] [address] UA Nitrite Positive Abnormal NEGATIVE [facility] Comment on above: Performed By: #### 1 006462959, 25448919, 0971122 ####[facility] (DEFAULT)[address] [place] [address] UA pH 6.0 Normal 5-8 [facility] Comment on above: Performed By: #### 1 679003415, 06933786, 5756151 ####[facility] (DEFAULT)[address] [place] [address] UA Protein TRACE Abnormal NEGATIVE [facility] Comment on above: Performed By: #### 1 [id number], 63459416, 5088754 ####[facility] (DEFAULT)[address] [place] [address] 59683 UA Spec Grav >=1.030 Normal 1.001-1.035 [facility] Comment on above: Performed By: #### 1 [id number], 73973980, 6177740 ####[facility] (DEFAULT)[address] [place] [address] UA Urobilinogen 0.2 mg/dL Normal 0.2-1.0 [facility] Comment on above: Performed By: #### 1 [id number], 00545149, 2361264 ####[facility] (DEFAULT)[address] [place] [address] Urine Source Clean Catch [facility] Comment on above: Performed By: #### 1 [id number], 04557395, 2019717 ####[facility] (DEFAULT)[address] [place] [address] XR Chest 2 Viewson XR Chest 2 Views Normal [facility] Outside Recordson 09-05-2023 Outside Records [id number]#1. 00OTGTIFF [facility] Outside Records [id number]#1. 00OTGTIFF [facility] Outside Recordson 09-03-2023 Outside Records [id number]#1.0 0OTGTIFF [facility] Coding Summaryon 08-22-2023 Coding Summary Normal [facility] Outside Recordson 08-21-2023 Outside Records [id number] 30 [id number]#1.0 0OTGTIFF [facility] C Urineon 08-17-2023 C Urine Normal [facility] Comment on above: Performed By: #### 6 [id number] ####[facility] (DEFAULT)[address] [place], [place] [address] Provider Orderson 08-15-2023 Provider Orders [id number]#1. 00OTGTIFF [facility] Outside Recordson 07-25-2023 Outside Records [id number] 40 [id number]#1.0 0OTGTIFF [facility] Office/Clinic Noteon 024 Office/Clinic Note [place] Outside Recordson 06-27-2023 Outside Records [id number] 41 [id number]#1.00 OTGTIFF [facility] Outside Records [id number] 41 [id number]#1.00 OTGTIFF [facility] Outside Recordson 06-26-2023 Outside Records [id number] 31 [id number]#1.0 0OTGTIFF [facility] Office/Clinic Noteon 024 Office/Clinic Note [place] Coding Summaryon 06-05-2023 Coding Summary [facility] C Bloodon 05-31-2023 C Blood 2nd site 15 minutes after first Blood Culture is drawn No growth at 5 Days [facility] Comment on above: Performed By: #### 6 [id number] ####[facility] (DEFAULT)[address] [place] [address] C Blood No growth at 5 Days [facility] Comment on above: Performed By: #### 6 [id number] ####[facility] (DEFAULT)[address] [place] [address] Coding Summaryon 05-30-2023 Coding Summary [facility] C Urineon 05-28-2023 C Urine Urine Culture ordere d as a result of parameters set on specific urine dip and urine microsopic results. No growth at 2 days. [facility] Comment on above: Performed By: #### 6 [id number], 18475090, [id number] ####[facility] (DEFAULT)[address] [place] [address] Consent Formson 05-28-2023 Consent Forms [id number] 31 [id number]#1.00O TGTIFF [facility] Consent Forms [id number]#1.00 [facility] Outside Recordson 05-28-2023 Outside Records [id number] 03 [id number]#1.00 [facility] Outside Records [id number] 03 [id number]#1.00 [facility] Provider Orderson 05-28-2023 Provider Orders [id number]#1.00 [facility] Transfer Noteon 05-28-2023 Transfer Note [id number]#1.00O [facility] .Auto Diff 1on 05-27-2023 Auto [place] % 10 % Normal 03-29 [facility] Comment on above: Performed By: #### 1 7578373, 1872629, 5182769, 5796189, 7878947, 4136983277 ####[facility] (DEFAULT)[address] [place] [address] 32354 Baso Abs# 0.0 x10 Normal 0.0-0.2 [facility] Comment on above: Performed By: #### 1 4775338, 3368558, 3400225, 2887098, 6260026, 2341621054 ####[facility] (DEFAULT)[address] [place] [address] 35950 Basophils/100 WBC (Bld) 0.2 % Normal 0.2-2.0 [facility] Comment on above: Performed By: #### 1 3240592, 0664133, 0551278, 4362410, 7259013, 5240643303 ####[facility] (DEFAULT)[address] [place] [address] 15838 Eos Abs# 0.1 x10 Normal 0.0-0.4 [facility] Comment on above: Performed By: #### 1 7563200, 2975534, 0817190, 0003817, 6501492, 4218688117 ####[facility] (DEFAULT)[address] [place] [address] 88744 Eosinophils/100 WBC (Bld) 1.3 % Normal 0.9-4.0 [facility] Comment on above: Performed By: #### 1 2406293, 1087591, 2006152, 2488764, 6210112, 4049385268 ####[facility] (DEFAULT)[address] [place] [address] Lymph Abs# 0.7 x10 Low 1.3-2.9 [facility] Comment on above: Performed By: #### 1 7119928, 8337034, 6041982, 7937956, 8069310, 6778111980 ####[facility] (DEFAULT)[address] [place] [address] Lymphocytes/100 WBC (Bld) 13 % Low 14-48 [facility] Comment on above: Performed By: #### 1 2543861, 1095950, 7788861, 4260994, 0927226, 4389344519 ####[facility] (DEFAULT)[address] [place] [address] Hanson Abs# 0.5 x10 Normal 0.0-0.8 [facility] Comment on above: Performed By: #### 1 5070263, 3921178, 7847256, 7761907, 2350944, 8599408677 ####[facility] (DEFAULT)[address] [place] [address] Neut Abs# 3.8 x10 Normal 1.5-9.2 [facility] Comment on above: Performed By: #### 1 6296062, 1407150, 6575177, 4757997, 8341192, 5717468989 ####[facility] (DEFAULT)[address] [place] [address] Neutrophils/100 WBC (Bld) 75 % Normal 44-88 [facility] Comment on above: Performed By: #### 1 0500139, 9927707, 0814784, 6195941, 8785958, 3973132116 ####[facility] (DEFAULT)[address] [place] [address] CBC w/ Auto Diffon 4 Erythrocyte distribution width (RBC) [Ratio] 15.1 % High 11.5-15.0 [facility] Comment on above: Performed By: #### 1 4397957, 3338103, 2951907, 5933460, 7093476, 3774817506 ####[facility] (DEFAULT)[address] [place] [address] Hematocrit (Bld) [Volume fraction] 38.1 % Normal 34.8-51.9 [facility] Comment on above: Performed By: #### 1 7367302, 4667628, 1083216, 5499156, 7825606, 9914948131 ####[facility] (DEFAULT)[address] [place] [address] Hemoglobin (Bld) [Mass/Vol] 13.0 g/dL Normal 11.8-17.7 [facility] Comment on above: Performed By: #### 1 7329448, 2848914, 6246043, 3325200, 6043300, 6951285930 ####[facility] (DEFAULT)[address] [place] [address] Man Diff? Auto Invalid Interpretation Code [facility] Comment on above: Performed By: #### 1 9885510, 1967915, 7119606, 5105316, 9867366, 3224044323 ####[facility] (DEFAULT)[address] [place] [address] MCH (RBC) [Entitic mass] 30 pg Normal 24-34 [facility] Comment on above: Performed By: #### 1 2863099, 5718027, 6364190, 3688995, 1080455, 9308457317 ####[facility] (DEFAULT)[address] [place] [address] MCHC (RBC) [Mass/Vol] 34 g/dL Normal 26-37 [facility] Comment on above: Performed By: #### 1 2686384, 1240293, 5863830, 1620670, 6806732, 2384457225 ####[facility] (DEFAULT)[address] [place] [address] MCV (RBC) [Entitic vol] 88 fL Normal 81-100 [facility] Comment on above: Performed By: #### 1 5331230, 2268105, 1797457, 0301882, 3219594, 0714985465 ####[facility] (DEFAULT)[address] [place] [address] Platelet 164 x10 Normal 138-427 [facility] Comment on above: Performed By: #### 1 1421999, 6539031, 0204888, 0982846, 3498633, 1832189261 ####[facility] (DEFAULT)[address] [place] [address] Platelet mean volume (Bld) [Entitic vol] 8.4 fL Normal 6.3-10.2 [facility] Comment on above: Performed By: #### 1 5546554, 7407970, 1588004, 5246572, 8519991, 0929720009 ####[facility] (DEFAULT)[address] [place] [address] RBC 4.34 x10 Normal 3.70-5.30 [facility] Comment on above: Performed By: #### 1 3436608, 8851889, 2066674, 4164724, 0389750, 8396338849 ####[facility] (DEFAULT)[address] [place] [address] WBC 5.1 x10 Normal 3.5-10.5 [facility] Comment on above: Performed By: #### 1 9024858, 1527916, 5463782, 1096743, 0078774, 2632462069 ####[facility] (DEFAULT)[address] [place] [address] CKon 05-27-2023 CK [Catalytic activity/Vol] 364 U/L Normal 49-397 [facility] Comment on above: Performed By: #### 1 3222388, 1996937, 6246449, 2683550, 6702925, 5211403366 ####[facility] (DEFAULT)[address] [place] [address] CMP Standardon 05-27-2023 eGFR Non AA 59 mL/min/1.73m2 Invalid Interpretation Code [facility] Comment on above: Performed By: #### 1 0061734, 5277769, 2503075, 8056736, 6148605, 2415295595 ####[facility] (DEFAULT)[address] [place] [address] 53796 eGFR AA >60 Invalid Interpretation Code [facility] Comment on above: Performed By: #### 1 2258297, 6301706, 7002871, 5149594, 5861392, 9191194577 ####[facility] (DEFAULT)[address] [place] [address] 74801 Albumin [Mass/Vol] 3.1 g/dL Low 3.5-5.0 [facility] Comment on above: Performed By: #### 1 6687055, 8009426, 9430764, 5800745, 8000675, 9786679261 ####[facility] (DEFAULT)[address] [place] [address] Alk Phos 54 IU/L Normal 32-91 [facility] Comment on above: Performed By: #### 1 9270560, 7912849, 6517504, 7320642, 8824909, 4996730845 ####[facility] (DEFAULT)[address] [place] [address] 63916 ALT [Catalytic activity/Vol] 9.0 U/L Low 17.0-63.0 [facility] Comment on above: Performed By: #### 1 2302498, 0397187, 4662530, 7995911, 3650220, 6887637163 ####[facility] (DEFAULT)[address] [place] [address] 77569 AST [Catalytic activity/Vol] 82 U/L High 15-41 [facility] Comment on above: Performed By: #### 1 7263776, 5553438, 0752469, 2335996, 9766154, 0265403335 ####[facility] (DEFAULT)[address] [place] [address] 35316 Bili Total 1.0 mg/dL Normal 0.3-1.2 [facility] Comment on above: Performed By: #### 1 5686843, 9203390, 9328829, 0781994, 0617254, 4165140815 ####[facility] (DEFAULT)[address] [place] [address] 60673 Calcium [Mass/Vol] 8.4 mg/dL Low 8.9-10.3 [facility] Comment on above: Performed By: #### 1 0970061, 6334541, 7718081, 5562763, 6940997, 9655743222 ####[facility] (DEFAULT)[address] [place] [address] 48458 Chloride [Moles/Vol] 104 mmol/L Normal 101-111 [facility] Comment on above: Performed By: #### 1 5632023, 0551937, 3564049, 0180730, 1572601, 2527404705 ####[facility] (DEFAULT)[address] [place] [address] 41129 CO2 [Moles/Vol] 26 mmol/L Normal 21-32 [facility] Comment on above: Performed By: #### 1 0394566, 0750543, 7919529, 0638513, 9119883, 2219433657 ####[facility] (DEFAULT)[address] [place] [address] 44485 Creatinine [Mass/Vol] 1.16 mg/dL Normal 0.90-1.30 [facility] Comment on above: Performed By: #### 1 9110899, 1102916, 3408344, 0792376, 6429925, 4213164342 ####[facility] (DEFAULT)[address] [place] [address] 17876 Glucose [Mass/Vol] 124.0 mg/dL High 74.0-118.0 [facility] Comment on above: Performed By: #### 1 3055475, 9801203, 6198774, 2257985, 5331426, 9161894814 ####[facility] (DEFAULT)[address] [place] [address] 38631 Potassium [Moles/Vol] 3.8 mmol/L Normal 3.6-5.1 [facility] Comment on above: Performed By: #### 1 7439251, 4476863, 4610107, 7062737, 0439371, 7988793108 ####[facility] (DEFAULT)[address] [place] [address] 44114 Protein [Mass/Vol] 6.0 g/dL Low 6.5-8.1 [facility] Comment on above: Performed By: #### 1 9328555, 0674540, 3634643, 2578070, 0671102, 6878181037 ####[facility] (DEFAULT)[address] [place] [address] 72913 Sodium [Moles/Vol] 140.0 mmol/L Normal 136.0-144.0 [facility] Comment on above: Performed By: #### 1 6333478, 8435457, 2108934, 9827196, 5527332, 0919550726 ####[facility] (DEFAULT)[address] [place] [address] 04393 Urea nitrogen [Mass/Vol] 22 mg/dL Normal 8-26 [facility] Comment on above: Performed By: #### 1 8628099, 4819961, 6285851, 7712914, 5434911, 4135488912 ####[facility] (DEFAULT)[address] [place] [address] 60823 Albumin/Globulin [Mass ratio] 1.0 {ratio} Low 1.4-2.6 [facility] Comment on above: Performed By: #### 1 3776685, 1571137, 1091377, 7761949, 4003949, 5580501847 ####[facility] (DEFAULT)[address] [place] [address] 95827 Anion gap [Moles/Vol] 13.8 mmol/L Normal 5.0-19.0 [facility] Comment on above: Performed By: #### 1 3089962, 2130881, 1454416, 2698105, 2972507, 0858189655 ####[facility] (DEFAULT)[address] [place] [address] 48505 Globulin (S) [Mass/Vol] 2.9 g/dL Normal 1.5-4.3 [facility] Comment on above: Performed By: #### 1 9229373, 1626883, 5042802, 1346983, 4473529, 1657712686 ####[facility] (DEFAULT)[address] [place] [address] 31609 Osmolality 284 mOsm/L Invalid Interpretation Code [facility] Comment on above: Performed By: #### 1 1364423, 0764743, 0584390, 6480951, 4086877, 6464755575 ####[facility] (DEFAULT)[address] [place] [address] Urea nitrogen/Creatinine [Mass ratio] 18.9 mg/mg High 4.6-16.2 [facility] Comment on above: Performed By: #### 1 [id number], 7079104, 8977565, 5665652, 5284977, [id number] ####[facility] (DEFAULT)[address] [place] [address] CRPon 05-27-2023 CRP 8.3 mg/dL High <=0.5 [facility] Comment on above: Performed By: #### 1 [id number], 8746411, 0272923, 4537153, 4043865, [id number] ####[facility] (DEFAULT)[address] [place] [address] Education Noteon 05-27-2023 Education Note Normal [facility] Inpatient Clinical Summaryon 05-27-2023 Inpatient Clinical Summary Normal [facility] Inpatient Patient Summaryon 05-27-2023 Inpatient Patient Summary Normal [facility] Myoglobinon 05-27-2023 Myoglobin [Mass/Vol] 228.5 ng/mL High 17.4-105.7 [facility] Comment on above: Performed By: #### 1 [id number], [id number], 5086723, 1991893, 0552358, [id number] ####[facility] (DEFAULT)[address] [place] [address] Pharmacy Noteon 05-27-2023 Pharmacy Note Normal [facility] Progress Note - Nurseon 05-16 Progress Note - Nurse [facility] Telemetry Stripson Telemetry Strips [id number] TGTIFF [facility] .Auto Diff 1on 05-26-2023 Auto [place] % 11 % Normal 03-29 [facility] Comment on above: Performed By: #### 2 731644, 4457401, 4679719, 3293972554, 9165866095, 70756099, 0103788 ####[facility] (DEFAULT)[address] [place] [address] 46997 Baso Abs# 0.0 x10 Normal 0.0-0.2 [facility] Comment on above: Performed By: #### 2 344326, 5289446, 6461362, 3711929927, 0762223016, 68635016, 9280002 ####[facility] (DEFAULT)[address] [place] [address] 15916 Basophils/100 WBC (Bld) 0.2 % Normal 0.2-2.0 [facility] Comment on above: Performed By: #### 2 316177, 7758934, 8881270, 0173967894, 6031245510, 20111185, 8952637 ####[facility] (DEFAULT)[address] [place] [address] 66549 Eos Abs# 0.0 x10 Normal 0.0-0.4 [facility] Comment on above: Performed By: #### 2 568992, 6907321, 7178746, 3095750107, 0804706274, 02886129, 8015447 ####[facility] (DEFAULT)[address] [place] [address] 87801 Eosinophils/100 WBC (Bld) 0.7 % Low 0.9-4.0 [facility] Comment on above: Performed By: #### 2 158929, 4792998, 5082516, 9447781283, 9146453826, 53593191, 2031427 ####[facility] (DEFAULT)[address] [place] [address] 82952 Lymph Abs# 0.5 x10 Low 1.3-2.9 [facility] Comment on above: Performed By: #### 2 646804, 7502027, 1231646, 5945867252, 9450233982, 10209604, 7005535 ####[facility] (DEFAULT)[address] [place] [address] 17564 Lymphocytes/100 WBC (Bld) 12 % Low 14-48 [facility] Comment on above: Performed By: #### 2 096341, 1707263, 5330697, 6260484732, 0614782330, 70861849, 9861851 ####[facility] (DEFAULT)[address] [place] [address] Hanson Abs# 0.5 x10 Normal 0.0-0.8 [facility] Comment on above: Performed By: #### 2 020974, 4306868, 8601793, 4897761453, 2132376168, 32184034, 1032065 ####[facility] (DEFAULT)[address] [place] [address] Neut Abs# 3.4 x10 Normal 1.5-9.2 [facility] Comment on above: Performed By: #### 2 335938, 7351263, 4335356, 9775781346, 6400330593, 81769357, 5121982 ####[facility] (DEFAULT)[address] [place] [address] Neutrophils/100 WBC (Bld) 76 % Normal 44-88 [facility] Comment on above: Performed By: #### 2 844321, 0402139, 3629171, 0739074409, 8751215778, 58506287, 0742392 ####[facility] (DEFAULT)[address] [place] [address] BMP Standardon 05-26-2023 eGFR Non AA 60 mL/min/1.73m2 Invalid Interpretation Code [facility] Comment on above: Performed By: #### 2 135257, 5385951, 9027561, 4417968327, 8769231712, 69810631, 7429016 ####[facility] (DEFAULT)[address] [place] [address] eGFR AA >60 Invalid Interpretation Code [facility] Comment on above: Performed By: #### 2 399270, 7017109, 9981318, 6109547693, 8227112047, 06576834, 1113463 ####[facility] (DEFAULT)[address] [place] [address] Anion gap [Moles/Vol] 11.7 mmol/L Normal 5.0-19.0 [facility] Comment on above: Performed By: #### 2 020152, 6218992, 0095207, 7570690407, 4217506482, 88492445, 4148562 ####[facility] (DEFAULT)[address] [place] [address] 78323 Calcium [Mass/Vol] 8.2 mg/dL Low 8.9-10.3 [facility] Comment on above: Performed By: #### 2 292384, 3125235, 5741999, 6647944327, 7004940039, 93248997, 4291945 ####[facility] (DEFAULT)[address] [place] [address] 84181 Chloride [Moles/Vol] 107 mmol/L Normal 101-111 [facility] Comment on above: Performed By: #### 2 248695, 9813276, 2795993, 9388454306, 6962399842, 67662712, 0319060 ####[facility] (DEFAULT)[address] [place] [address] 63367 CO2 [Moles/Vol] 26 mmol/L Normal 21-32 [facility] Comment on above: Performed By: #### 2 721798, 5171094, 7732614, 2796339768, 7036601569, 75086091, 6413942 ####[facility] (DEFAULT)[address] [place] [address] 46286 Creatinine [Mass/Vol] 1.15 mg/dL Normal 0.90-1.30 [facility] Comment on above: Performed By: #### 2 579572, 0775461, 6065425, 2407712497, 2732932167, 67383162, 3099765 ####[facility] (DEFAULT)[address] [place] [address] 47940 Glucose [Mass/Vol] 112.0 mg/dL Normal 74.0-118.0 [facility] Comment on above: Performed By: #### 2 221385, 2614804, 6390012, 6320769489, 2403214669, 45130613, 0623574 ####[facility] (DEFAULT)[address] [place] [address] 71786 Osmolality 284 mOsm/L Invalid Interpretation Code [facility] Comment on above: Performed By: #### 2 870143, 8630946, 3471635, 6455164316, 6725240875, 36647815, 8570802 ####[facility] (DEFAULT)[address] [place] [address] 65819 Potassium [Moles/Vol] 3.7 mmol/L Normal 3.6-5.1 [facility] Comment on above: Performed By: #### 2 278747, 4544875, 4403389, 1814587436, 4333690586, 76772978, 2214796 ####[facility] (DEFAULT)[address] [place] [address] 30735 Sodium [Moles/Vol] 141.0 mmol/L Normal 136.0-144.0 [facility] Comment on above: Performed By: #### 2 050315, 9332678, 4865199, 5762404962, 2938291065, 03847459, 3725049 ####[facility] (DEFAULT)[address] [place] [address] 51246 Urea nitrogen [Mass/Vol] 19 mg/dL Normal 8-26 [facility] Comment on above: Performed By: #### 2 683311, 2312648, 5429060, 9079902860, 0109827902, 70685508, 3572958 ####[facility] (DEFAULT)[address] [place] [address] 01576 Urea nitrogen/Creatinine [Mass ratio] 16.5 mg/mg High 4.6-16.2 [facility] Comment on above: Performed By: #### 2 692540, 9499636, 3699443, 3314080390, 7758688566, 31373979, 5033799 ####[facility] (DEFAULT)[address] [place] [address] 61937 CBC w/ Auto Diffon Erythrocyte distribution width (RBC) [Ratio] 15.0 % Normal 11.5-15.0 [facility] Comment on above: Performed By: #### 2 347380, 8766463, 9192513, 9592734613, 8629650804, 86603980, 3315590 ####[facility] (DEFAULT)[address] [place] [address] Hematocrit (Bld) [Volume fraction] 37.4 % Normal 34.8-51.9 [facility] Comment on above: Performed By: #### 2 700055, 3701670, 7755555, 7258228408, 2033160712, 39361456, 4540423 ####[facility] (DEFAULT)[address] [place] [address] Hemoglobin (Bld) [Mass/Vol] 12.5 g/dL Normal 11.8-17.7 [facility] Comment on above: Performed By: #### 2 602005, 1562852, 5106941, 7077166031, 4657264644, 70171476, 4089273 ####[facility] (DEFAULT)[address] [place] [address] Man Diff? Auto Invalid Interpretation Code [facility] Comment on above: Performed By: #### 2 238016, 0921678, 9435177, 7000534865, 2204532187, 95536232, 8718272 ####[facility] (DEFAULT)[address] [place] [address] MCH (RBC) [Entitic mass] 30 pg Normal 24-34 [facility] Comment on above: Performed By: #### 2 848176, 1789261, 0717556, 2928872033, 1355206473, 21580849, 3398644 ####[facility] (DEFAULT)[address] [place] [address] MCHC (RBC) [Mass/Vol] 33 g/dL Normal 26-37 [facility] Comment on above: Performed By: #### 2 145656, 2598398, 5265013, 7704454770, 8483645292, 31444688, 1681494 ####[facility] (DEFAULT)[address] [place] [address] MCV (RBC) [Entitic vol] 89 fL Normal 81-100 [facility] Comment on above: Performed By: #### 2 870263, 4240600, 5192131, 6717485018, 2878754536, 60478018, 3892755 ####[facility] (DEFAULT)[address] [place] [address] Platelet 134 x10 Low 138-427 [facility] Comment on above: Performed By: #### 2 862997, 1625947, 7530527, 9901715544, 1775102611, 12649674, 9169644 ####[facility] (DEFAULT)[address] [place] [address] Platelet mean volume (Bld) [Entitic vol] 8.4 fL Normal 6.3-10.2 [facility] Comment on above: Performed By: #### 2 395478, 6393574, 6199584, 5254643594, 3222302170, 96315635, 0274649 ####[facility] (DEFAULT)[address] [place] [address] RBC 4.20 x10 Normal 3.70-5.30 [facility] Comment on above: Performed By: #### 2 142083, 9915823, 4592308, 9405438139, 9896241082, 07102346, 8435420 ####[facility] (DEFAULT)[address] [place] [address] WBC 4.5 x10 Normal 3.5-10.5 [facility] Comment on above: Performed By: #### 2 381666, 0759234, 5902689, 9587429138, 0720778961, 66464376, 1019525 ####[facility] (DEFAULT)[address] [place] [address] CKon 05-26-2023 CK [Catalytic activity/Vol] 470 U/L High 49-397 [facility] Comment on above: Performed By: #### 2 438206, 5409452, 0925292, 6261645704, 2718174617, 72320872, 2109927 ####[facility] (DEFAULT)[address] [place] [address] CMP Standardon 05-26-2023 Albumin [Mass/Vol] 2.9 g/dL Low 3.5-5.0 [facility] Comment on above: Performed By: #### 2 882452, 8299535, 7236618, 9593253634, 1199811714, 03371124, 1713746 ####[facility] (DEFAULT)[address] [place] [address] Albumin/Globulin [Mass ratio] 1.1 {ratio} Low 1.4-2.6 [facility] Comment on above: Performed By: #### 2 208749, 4894737, 3944002, 1161813058, 7738167067, 08364409, 7000960 ####[facility] (DEFAULT)[address] [place] [address] Alk Phos 50 IU/L Normal 32-91 [facility] Comment on above: Performed By: #### 2 092170, 4255307, 9591398, 7435591628, 5039722864, 32582446, 4382941 ####[facility] (DEFAULT)[address] [place] [address] 14636 ALT [Catalytic activity/Vol] 7.0 U/L Low 17.0-63.0 [facility] Comment on above: Performed By: #### 2 281627, 8809202, 8085139, 5599854179, 5624392656, 94648973, 1696193 ####[facility] (DEFAULT)[address] [place] [address] 13142 AST [Catalytic activity/Vol] 82 U/L High 15-41 [facility] Comment on above: Performed By: #### 2 127094, 4146651, 8526589, 6680712067, 8786098024, 27110098, 8798127 ####[facility] (DEFAULT)[address] [place] [address] 99149 Bili Total 0.9 mg/dL Normal 0.3-1.2 [facility] Comment on above: Performed By: #### 2 060179, 8319646, 8714610, 3773645156, 0305005936, 31998162, 8050178 ####[facility] (DEFAULT)[address] [place] [address] 72748 Globulin (S) [Mass/Vol] 2.6 g/dL Normal 1.5-4.3 [facility] Comment on above: Performed By: #### 2 299256, 4335584, 9529776, 7266589758, 0358357085, 48875406, 1454162 ####[facility] (DEFAULT)[address] [place] [address] 11610 Protein [Mass/Vol] 5.5 g/dL Low 6.5-8.1 [facility] Comment on above: Performed By: #### 2 412068, 6773528, 2128640, 2130392391, 8746811156, 22884314, 2068492 ####[facility] (DEFAULT)[address] [place] [address] 71929 CRPon 05-26-2023 CRP 6.2 mg/dL High <=0.5 [facility] Comment on above: Performed By: #### 2 040696, 7367901, 9348872, 0996543550, 0832181841, 10470695, 6177186 ####[facility] (DEFAULT)[address] [place] [address] 26838 Myoglobinon 05-26-2023 Myoglobin [Mass/Vol] 259.9 ng/mL High 17.4-105.7 [facility] Comment on above: Performed By: #### 2 910655, 3442710, 1096570, 8527420813, 0623877928, 47839077, 0153951 ####[facility] (DEFAULT)[address] [place] [address] 52480 UA [id number] 05-26-2023 UA Amorph. Rare Normal [facility] Comment on above: Order Comment: Urina lysis Microscopic order added on by [employer] Rules system. Performed By: #### 6 882988, 57455492, 4065095342 ####[facility] (DEFAULT)[address] [place] [address] UA Bacteria Trace [facility] Comment on above: Order Comment: Urina lysis Microscopic order added on by [employer] system. Performed By: #### 6 382612, 16497784, 8550996756 ####[facility] (DEFAULT)[address] [place] [address] UA Gran Cast 0-5 [facility] Comment on above: Order Comment: Urina lysis Microscopic order added on by [employer] system. Performed By: #### 6 109392, 25165998, 8229038895 ####[facility] (DEFAULT)[address] [place] [address] UA Hyal Cast 0-5 [facility] Comment on above: Order Comment: Urina lysis Microscopic order added on by [employer] system. Performed By: #### 6 671846, 17848731, 7161375812 ####[facility] (DEFAULT)[address] [place] [address] UA RBC 20-30 [facility] Comment on above: Order Comment: Urina lysis Microscopic order added on by [employer] system. Performed By: #### 6 618392, 95777643, 7249098380 ####[facility] (DEFAULT)[address] [place] [address] UA Squam Epi Rare [facility] Comment on above: Order Comment: Urina lysis Microscopic order added on by [employer] system. Performed By: #### 6 694444, 64725922, 4351946126 ####[facility] (DEFAULT)[address] [place] [address] UA WBC 3-5 [facility] Comment on above: Order Comment: Urina lysis Microscopic order added on by [employer] system. Performed By: #### 6 787407, 61437242, 9566132043 ####[facility] (DEFAULT)[address] [place] [address] UA w Culture if Ind Standard on 05-26-2023 Breakpoint UA [facility] Comment on above: Performed By: #### 6 627569, 52527949, 1692470513 ####[facility] (DEFAULT)[address] [place] [address] 28840 Color (U) Yellow Normal [facility] Comment on above: Performed By: #### 6 416934, 28171661, 1849135888 ####[facility] (DEFAULT)[address] [place] [address] 75340 Culture? Indicated Invalid Interpretation Code [facility] Comment on above: Result Comment: Resu lt created by rule GL_MAGR_ADD_UA_CULT Result created by rule GL_MAGR_ADD_UA_CULT Result created by rule GL_MAGR_ADD_UA_CULT1 Result created by rule GL_MAGR_ADD_UA_CULT Performed By: #### 6 630014, 03551647, 3733876932 ####[facility] (DEFAULT)[address] [place] [address] 30140 Glucose (U) [Mass/Vol] Negative Normal [facility] Comment on above: Performed By: #### 6 823457, 20434434, 4912737150 ####[facility] (DEFAULT)[address] [place] [address] 80127 Ketones Ql (U) Negative Normal [facility] Comment on above: Performed By: #### 6 943203, 35999016, 5006212449 ####[facility] (DEFAULT)[address] [place] [address] 56780 Micro? Indicated Invalid Interpretation Code [facility] Comment on above: Result Comment: Resu lt created by rule GL_MAGR_ADD_UA_MICRO Performed By: #### 6 014967, 16337229, 8275480402 ####[facility] (DEFAULT)[address] [place] [address] 92883 UA Bilirubin Negative Normal [facility] Comment on above: Performed By: #### 6 003128, 52079527, 4820733493 ####[facility] (DEFAULT)[address] [place] [address] 66946 UA Blood MODERATE Abnormal NEGATIVE [facility] Comment on above: Performed By: #### 6 552036, 18189262, 9073831841 ####[facility] (DEFAULT)[address] [place] [address] 89025 UA Clarity CLEAR Normal CLEAR [facility] Comment on above: Performed By: #### 6 757016, 85555136, 9394821990 ####[facility] (DEFAULT)[address] [place] [address] 71640 UA Leuk Est Negative Normal NEGATIVE [facility] Comment on above: Performed By: #### 6 222379, 83209683, 9589000750 ####[facility] (DEFAULT)[address] [place] [address] 37847 UA Nitrite Negative Normal NEGATIVE [facility] Comment on above: Performed By: #### 6 056690, 77446605, 9685453655 ####[facility] (DEFAULT)[address] [place] [address] 66517 UA pH 7.5 Normal 5-8 [facility] Comment on above: Performed By: #### 6 857683, 18846657, 9938603327 ####[facility] (DEFAULT)[address] [place] [address] 60378 UA Protein Negative Normal NEGATIVE [facility] Comment on above: Performed By: #### 6 179206, 62117610, 0727263281 ####[facility] (DEFAULT)[address] [place] [address] 99505 UA Spec Grav 1.015 Normal 1.001-1.035 [facility] Comment on above: Performed By: #### 6 436185, 24348022, 7888497015 ####[facility] (DEFAULT)[address] [place] [address] 19354 UA Urobilinogen 0.2 mg/dL Normal 0.2-1.0 [facility] Comment on above: Performed By: #### 6 326148, 40488837, 7254015214 ####[facility] (DEFAULT)[address] [place] [address] 78818 Urine Source Clean Catch Normal [facility] Comment on above: Performed By: #### 6 870028, 06095568, 4448222123 ####[facility] (DEFAULT)[address] [place] [address] XR Humerus Lefton 05-26-2023 XR Humerus Left Normal [facility] .Auto Diff 1on 05-25-2023 Auto Hanson % 12 % Normal -12 [facility] Comment on above: Performed By: #### 1 996199758, 5853862, 4771105, 17690095, 3208221, 9014287 ####[facility] (DEFAULT)[address] [place] [address] Baso Abs# 0.0 x10 Normal 0.0-0.2 [facility] Comment on above: Performed By: #### 1 296084355, 9590326, 9335746, 62427908, 3419899, 1499436 ####[facility] (DEFAULT)[address] [place] [address] Basophils/100 WBC (Bld) 0.2 % Normal 0.2-2.0 [facility] Comment on above: Performed By: #### 1 010749932, 6269929, 5787285, 42180432, 7397009, 1729464 ####[facility] (DEFAULT)[address] [place] [address] Eos Abs# 0.0 x10 Normal 0.0-0.4 [facility] Comment on above: Performed By: #### 1 731993083, 1726384, 6812625, 36091117, 7558998, 8813411 ####[facility] (DEFAULT)[address] [place] [address] 97265 Eosinophils/100 WBC (Bld) 1.0 % Normal 0.9-4.0 [facility] Comment on above: Performed By: #### 1 549653857, 4959759, 4452128, 54905173, 8846771, 6520694 ####[facility] (DEFAULT)[address] [place] [address] Lymph Abs# 0.5 x10 Low 1.3-2.9 [facility] Comment on above: Performed By: #### 1 874672965, 0742937, 3012560, 21600786, 6188492, 3042238 ####[facility] (DEFAULT)[address] [place] [address] Lymphocytes/100 WBC (Bld) 16 % Normal 14-48 [facility] Comment on above: Performed By: #### 1 168613598, 3649229, 6361703, 91888271, 7420971, 3247513 ####[facility] (DEFAULT)[address] [place] [address] Hanson Abs# 0.4 x10 Normal 0.0-0.8 [facility] Comment on above: Performed By: #### 1 851516390, 8831826, 5260338, 29513525, 4665671, 5008626 ####[facility] (DEFAULT)[address] [place] [address] Neut Abs# 2.3 x10 Normal 1.5-9.2 [facility] Comment on above: Performed By: #### 1 545459524, 4742836, 5958836, 30976810, 7205539, 1446940 ####[facility] (DEFAULT)[address] [place] [address] Neutrophils/100 WBC (Bld) 71 % Normal 44-88 [facility] Comment on above: Performed By: #### 1 466099798, 2610630, 5401584, 59807721, 7992550, 2827083 ####[facility] (DEFAULT)[address] [place] [address] CBC w/ Auto Diffon 4 Erythrocyte distribution width (RBC) [Ratio] 15.2 % High 11.5-15.0 [facility] Comment on above: Performed By: #### 1 908096087, 5594773, 4268370, 09197710, 4741882, 4396687 ####[facility] (DEFAULT)[address] [place] [address] Hematocrit (Bld) [Volume fraction] 33.9 % Low 34.8-51.9 [facility] Comment on above: Performed By: #### 1 174387062, 8029657, 9907210, 99527046, 0314108, 6037178 ####[facility] (DEFAULT)[address] [place] [address] Hemoglobin (Bld) [Mass/Vol] 11.5 g/dL Low 11.8-17.7 [facility] Comment on above: Performed By: #### 1 058558860, 9304403, 8650190, 98229015, 6267874, 6369580 ####[facility] (DEFAULT)[address] [place] [address] Man Diff? Auto Invalid Interpretation Code [facility] Comment on above: Performed By: #### 1 804701454, 3677534, 1697226, 56015076, 8845395, 0765229 ####[facility] (DEFAULT)[address] [place] [address] MCH (RBC) [Entitic mass] 30 pg Normal 24-34 [facility] Comment on above: Performed By: #### 1 221091427, 3652990, 9615765, 66849860, 6879589, 3655463 ####[facility] (DEFAULT)[address] [place] [address] MCHC (RBC) [Mass/Vol] 34 g/dL Normal 26-37 [facility] Comment on above: Performed By: #### 1 245626657, 7116113, 6439215, 38337743, 0583880, 8646824 ####[facility] (DEFAULT)[address] [place] [address] MCV (RBC) [Entitic vol] 88 fL Normal 81-100 [facility] Comment on above: Performed By: #### 1 674894856, 1244413, 4105045, 62561475, 7345036, 2625259 ####[facility] (DEFAULT)[address] [place] [address] Platelet 125 x10 Low 138-427 [facility] Comment on above: Performed By: #### 1 531346787, 5197636, 9193841, 22181642, 2113853, 7135832 ####[facility] (DEFAULT)[address] [place] [address] Platelet mean volume (Bld) [Entitic vol] 8.6 fL Normal 6.3-10.2 [facility] Comment on above: Performed By: #### 1 684485865, 0284761, 1898951, 18402375, 0008537, 7417885 ####[facility] (DEFAULT)[address] [place] [address] RBC 3.85 x10 Normal 3.70-5.30 [facility] Comment on above: Performed By: #### 1 991455804, 9320979, 3791368, 45077595, 6438752, 4016844 ####[facility] (DEFAULT)[address] [place] [address] WBC 3.2 x10 Low 3.5-10.5 [facility] Comment on above: Performed By: #### 1 161886734, 3765539, 4406296, 99327913, 8303950, 4514362 ####[facility] (DEFAULT)[address] [place] [address] CKon 05-25-2023 CK [Catalytic activity/Vol] 675 U/L High 49-397 [facility] Comment on above: Performed By: #### 1 [id number], 3149851, 0524902, 08051837, 9796563, 1684043 ####[facility] (DEFAULT)[address] [place] [address] CMP Standardon 05-25-2023 eGFR Non AA >60 Invalid Interpretation Code [facility] Comment on above: Performed By: #### 1 [id number], 6906621, 1340958, 19645060, 5377865, 1356321 ####[facility] (DEFAULT)[address] [place] [address] eGFR AA >60 Invalid Interpretation Code [facility] Comment on above: Performed By: #### 1 [id number], 3614000, 6232667, 99077758, 0192143, 8078276 ####[facility] (DEFAULT)[address] [place] [address] Albumin [Mass/Vol] 2.7 g/dL Low 3.5-5.0 [facility] Comment on above: Performed By: #### 1 [id number], 2453880, 8643293, 45969224, 3141481, 4411214 ####[facility] (DEFAULT)[address] [place] [address] Albumin/Globulin [Mass ratio] 1.1 {ratio} Low 1.4-2.6 [facility] Comment on above: Performed By: #### 1 [id number], 2345920, 9062756, 84920526, 2408510, 4464957 ####[facility] (DEFAULT)[address] [place] [address] Alk Phos 47 IU/L Normal 32-91 [facility] Comment on above: Performed By: #### 1 [id number], 6405657, 7060118, 50347603, 5147410, 5205296 ####[facility] (DEFAULT)[address] [place] [address] ALT [Catalytic activity/Vol] 8.0 U/L Low 17.0-63.0 [facility] Comment on above: Performed By: #### 1 [id number], 2648926, 0974566, 98980576, 6965600, 8963346 ####[facility] (DEFAULT)[address] [place] [address] Anion gap [Moles/Vol] 7.8 mmol/L Normal 5.0-19.0 [facility] Comment on above: Performed By: #### 1 [id number], 1436489, 9433900, 50117459, 4491654, 1408850 ####[facility] (DEFAULT)[address] [place] [address] AST [Catalytic activity/Vol] 90 U/L High 15-41 [facility] Comment on above: Performed By: #### 1 [id number], 8070733, 7998785, 76659916, 8620483, 1309479 ####[facility] (DEFAULT)[address] [place] [address] Bili Total 0.7 mg/dL Normal 0.3-1.2 [facility] Comment on above: Performed By: #### 1 [id number], 0703301, 7153396, 96579903, 9854050, 3419392 ####[facility] (DEFAULT)[address] [place] [address] Calcium [Mass/Vol] 7.9 mg/dL Low 8.9-10.3 [facility] Comment on above: Performed By: #### 1 [id number], 1294152, 0595067, 64389833, 8378597, 1222234 ####[facility]. [facility] (DEFAULT)[address] [place] [address] Chloride [Moles/Vol] 110 mmol/L Normal 101-111 [facility] Comment on above: Performed By: #### 1 [id number], 6569973, 3345158, 52402460, 4878818, 7621025 ####[facility] (DEFAULT)[address] [place] [address] CO2 [Moles/Vol] 27 mmol/L Normal 21-32 [facility] Comment on above: Performed By: #### 1 [id number], 6028770, 5417876, 40297510, 8530962, 9358092 ####[facility] (DEFAULT)[address] [place] [address] Creatinine [Mass/Vol] 1.13 mg/dL Normal 0.90-1.30 [facility] Comment on above: Performed By: #### 1 666034449, 2116805, 8670653, 31121138, 7194916, 3077251 ####[facility] (DEFAULT)[address] [place] [address] Globulin (S) [Mass/Vol] 2.4 g/dL Normal 1.5-4.3 [facility] Comment on above: Performed By: #### 1 288646853, 8627498, 5951602, 91678834, 0237409, 8269001 ####[facility] (DEFAULT)[address] [place], [place] [address] Glucose [Mass/Vol] 101.0 mg/dL Normal 74.0-118.0 [facility] Comment on above: Performed By: #### 1 035383981, 2918361, 4058618, 45717390, 5785383, 7811436 ####[facility] (DEFAULT)[address] [place] [address] 94797 Osmolality 284 mOsm/L Invalid Interpretation Code [facility] Comment on above: Performed By: #### 1 [id number], 5366471, 4140842, 16033039, 1713042, 3714370 ####[facility] (DEFAULT)[address] [place] [address] 54914 Potassium [Moles/Vol] 3.8 mmol/L Normal 3.6-5.1 [facility] Comment on above: Performed By: #### 1 [id number], 3634000, 4867213, 14216728, 6399128, 9687450 ####[facility] (DEFAULT)[address] [place] [address] Protein [Mass/Vol] 5.1 g/dL Low 6.5-8.1 [facility] Comment on above: Performed By: #### 1 835047781, 3706284, 5560009, 87985984, 9486358, 5203385 ####[facility] (DEFAULT)[address] [place] [address] 22016 Sodium [Moles/Vol] 141.0 mmol/L Normal 136.0-144.0 [facility] Comment on above: Performed By: #### 1 900355480, 6284119, 5477781, 34138775, 4944518, 5013232 ####[facility] (DEFAULT)[address] [place] [address] 34131 Urea nitrogen [Mass/Vol] 19 mg/dL Normal 8-26 [facility] Comment on above: Performed By: #### 1 971310920, 1902329, 4685329, 24640763, 4479964, 6725614 ####[facility] (DEFAULT)[address] [place] [address] 93518 Urea nitrogen/Creatinine [Mass ratio] 16.8 mg/mg High 4.6-16.2 [facility] Comment on above: Performed By: #### 1 085088375, 5515659, 6972718, 45933834, 5345145, 7401996 ####[facility] (DEFAULT)[address] [place] [address] 50423 CRPon 05-25-2023 CRP 5.5 mg/dL High <=0.5 [facility] Comment on above: Performed By: #### 1 885802215, 1384063, 4638165, 78785345, 6522228, 6381296 ####[facility] (DEFAULT)[address] [place] [address] Myoglobinon 05-25-2023 Myoglobin [Mass/Vol] 335.9 ng/mL High 17.4-105.7 [facility] Comment on above: Performed By: #### 1 622825426, 3635617, 5426932, 61101799, 0250608, 1393016 ####[facility] (DEFAULT)[address] [place] [address] .Auto Diff 1on 05-24-2023 Auto Hanson % 13 % High 1-12 [facility] Comment on above: Performed By: #### 7 546654, 0872411, 6327939, 4013401908, 4762063, 29658027 ####[facility] (DEFAULT)[address] [place] [address] Baso Abs# 0.0 x10 Normal 0.0-0.2 [facility] Comment on above: Performed By: #### 7 940609, 4111727, 0952056, 4157261776, 9080157, 54491104 ####[facility] (DEFAULT)[address] [place] [address] Basophils/100 WBC (Bld) 0.3 % Normal 0.2-2.0 [facility] Comment on above: Performed By: #### 7 247040, 9282398, 6668269, 4765495803, 7029315, 01783312 ####[facility] (DEFAULT)[address] [place] [address] Eos Abs# 0.0 x10 Normal 0.0-0.4 [facility] Comment on above: Performed By: #### 7 042293, 4631470, 1155250, 8096100387, 8031944, 22085409 ####[facility] (DEFAULT)[address] [place] [address] Eosinophils/100 WBC (Bld) 0.3 % Low 0.9-4.0 [facility] Comment on above: Performed By: #### 7 860703, 7392522, 7309663, 6341733338, 8942779, 27664733 ####[facility] (DEFAULT)[address] [place] [address] Lymph Abs# 0.5 x10 Low 1.3-2.9 [facility] Comment on above: Performed By: #### 7 821773, 1316093, 7176530, 7490366126, 8490575, 48205471 ####[facility] (DEFAULT)[address] [place] [address] Lymphocytes/100 WBC (Bld) 15 % Normal 14-48 [facility] Comment on above: Performed By: #### 7 865644, 5068971, 9948679, 6702811997, 4822138, 73526246 ####[facility] (DEFAULT)[address] [place] [address] Hanson Abs# 0.5 x10 Normal 0.0-0.8 [facility] Comment on above: Performed By: #### 7 368638, 2518038, 6273139, 2762845594, 3377436, 96038478 ####[facility] (DEFAULT)[address] [place] [address] Neut Abs# 2.4 x10 Normal 1.5-9.2 [facility] Comment on above: Performed By: #### 7 366334, 2648209, 9925738, 1955378985, 6366686, 64560400 ####[facility] (DEFAULT)[address] [place] [address] 07348 Neutrophils/100 WBC (Bld) 71 % Normal 44-88 [facility] Comment on above: Performed By: #### 7 209772, 0086929, 0392885, 1307692527, 2564958, 79992109 ####[facility] (DEFAULT)[address] [place] [address] CBC w/ Auto Diffon 4 Erythrocyte distribution width (RBC) [Ratio] 15.6 % High 11.5-15.0 [facility] Comment on above: Performed By: #### 7 947891, 3829890, 9878091, 8728886777, 8758488, 10278410 ####[facility] (DEFAULT)[address] [place] [address] Hematocrit (Bld) [Volume fraction] 32.7 % Low 34.8-51.9 [facility] Comment on above: Performed By: #### 7 853162, 2825043, 2681298, 2798435301, 7585962, 62490367 ####[facility] (DEFAULT)[address] [place] [address] Hemoglobin (Bld) [Mass/Vol] 11.0 g/dL Low 11.8-17.7 [facility] Comment on above: Performed By: #### 7 778726, 9056381, 9582489, 2818441437, 3139985, 46195007 ####[facility] (DEFAULT)[address] [place] [address] Man Diff? Auto Invalid Interpretation Code [facility] Comment on above: Performed By: #### 7 185159, 7033358, 1481148, 9984283342, 2187137, 18901304 ####[facility] (DEFAULT)[address] [place] [address] MCH (RBC) [Entitic mass] 30 pg Normal 24-34 [facility] Comment on above: Performed By: #### 7 021070, 7452670, 8288843, 1568340365, 0246006, 51208608 ####[facility] (DEFAULT)[address] [place] [address] MCHC (RBC) [Mass/Vol] 34 g/dL Normal 26-37 [facility] Comment on above: Performed By: #### 7 544947, 1400151, 1249886, 0873233231, 9327656, 45433706 ####[facility] (DEFAULT)[address] [place] [address] MCV (RBC) [Entitic vol] 88 fL Normal 81-100 [facility] Comment on above: Performed By: #### 7 077754, 4353804, 9975600, 4083165346, 7423344, 48790002 ####[facility] (DEFAULT)[address] [place] [address] Platelet 112 x10 Low 138-427 [facility] Comment on above: Performed By: #### 7 131003, 6007675, 0081141, 4868803629, 4858432, 17000026 ####[facility] (DEFAULT)[address] [place] [address] Platelet mean volume (Bld) [Entitic vol] 8.8 fL Normal 6.3-10.2 [facility] Comment on above: Performed By: #### 7 796160, 2969901, 5343668, 8849383480, 3999678, 19829477 ####[facility] (DEFAULT)[address] [place] [address] RBC 3.71 x10 Normal 3.70-5.30 [facility] Comment on above: Performed By: #### 7 865955, 6933853, 3613349, 3378306643, 0851576, 13362592 ####[facility] (DEFAULT)[address] [place] [address] WBC 3.4 x10 Low 3.5-10.5 [facility] Comment on above: Performed By: #### 7 683689, 7254804, 5014904, 7704805130, 6476174, 72094885 ####[facility] (DEFAULT)[address] [place] [address] CKon 05-24-2023 CK [Catalytic activity/Vol] 1412 U/L High 49-397 [facility] Comment on above: Performed By: #### 7 182155, 0474842, 2679145, 8225787537, 3938026, 35061101 ####[facility] (DEFAULT)[address] [place] [address] CMP Standardon 05-24-2023 eGFR Non AA 55 mL/min/1.73m2 Invalid Interpretation Code [facility] Comment on above: Performed By: #### 7 205994, 0652434, 0504700, 3747813514, 7954156, 49145446 ####[facility] (DEFAULT)[address] [place] [address] eGFR AA >60 Invalid Interpretation Code [facility] Comment on above: Performed By: #### 7 863688, 2661664, 1310096, 6038298603, 6371958, 59808577 ####[facility] (DEFAULT)[address] [place] [address] Albumin [Mass/Vol] 2.6 g/dL Low 3.5-5.0 [facility] Comment on above: Performed By: #### 7 184353, 8802222, 8846046, 2760497088, 2991904, 46645727 ####[facility] (DEFAULT)[address] [place] [address] Alk Phos 46 IU/L Normal 32-91 [facility] Comment on above: Performed By: #### 7 873791, 9449161, 2425020, 2310772570, 5218012, 73887013 ####[facility] (DEFAULT)[address] [place] [address] ALT [Catalytic activity/Vol] 7.0 U/L Low 17.0-63.0 [facility] Comment on above: Performed By: #### 7 743237, 7245493, 5937556, 4329671511, 9211999, 27120056 ####[facility] (DEFAULT)[address] [place] [address] AST [Catalytic activity/Vol] 109 U/L High 15-41 [facility] Comment on above: Performed By: #### 7 548770, 7149828, 7139541, 6769243253, 8049520, 04110406 ####[facility] (DEFAULT)[address] [place] [address] Bili Total 0.6 mg/dL Normal 0.3-1.2 [facility] Comment on above: Performed By: #### 7 923279, 1350367, 1320934, 9406250501, 1622788, 75236605 ####[facility] (DEFAULT)[address] [place] [address] [place] [address] Calcium [Mass/Vol] 7.7 mg/dL Low 8.9-10.3 [facility] Comment on above: Performed By: #### 7 473571, 1373100, 7667788, 9096611781, 4824255, 94106073 ####[facility] (DEFAULT)[address] [place] [address] 10478 Chloride [Moles/Vol] 111 mmol/L Normal 101-111 [facility] Comment on above: Performed By: #### 7 350053, 5735823, 0836779, 2134304087, 6781664, 41831970 ####[facility] (DEFAULT)[address] [place] [address] 19030 CO2 [Moles/Vol] 24 mmol/L Normal 21-32 [facility] Comment on above: Performed By: #### 7 401091, 2641158, 0756839, 6275355294, 8042796, 32872111 ####[facility] (DEFAULT)[address] [place] [address] 88308 Creatinine [Mass/Vol] 1.24 mg/dL Normal 0.90-1.30 [facility] Comment on above: Performed By: #### 7 640114, 9072742, 7806678, 6760480749, 7099720, 48685815 ####[facility] (DEFAULT)[address] [place] [address] 99548 Glucose [Mass/Vol] 103.0 mg/dL Normal 74.0-118.0 [facility] Comment on above: Performed By: #### 7 067976, 0264877, 6870348, 3396037321, 6032036, 83349460 ####[facility] (DEFAULT)[address] [place] [address] 60943 Potassium [Moles/Vol] 3.7 mmol/L Normal 3.6-5.1 [facility] Comment on above: Performed By: #### 7 111915, 2843995, 9570674, 1760134660, 0028007, 58784381 ####[facility] (DEFAULT)[address] [place] [address] 53300 Protein [Mass/Vol] 5.0 g/dL Low 6.5-8.1 [facility] Comment on above: Performed By: #### 7 289906, 1740395, 2432088, 9532901356, 9094078, 39471725 ####[facility] (DEFAULT)[address] [place] [address] 52756 Sodium [Moles/Vol] 140.0 mmol/L Normal 136.0-144.0 [facility] Comment on above: Performed By: #### 7 734651, 6448265, 9408793, 5775553146, 3831701, 75218073 ####[facility] (DEFAULT)[address] [place] [address] Urea nitrogen [Mass/Vol] 28 mg/dL High 8- [facility] Comment on above: Performed By: #### 7 283678, 4370782, 6870321, 7064974800, 2557433, 10792744 ####[facility] (DEFAULT)[address] [place] [address] Albumin/Globulin [Mass ratio] 1.0 {ratio} Low 1.4-2.6 [facility] Comment on above: Performed By: #### 7 510287, 2938796, 5771540, 2509703519, 8466358, 68474472 ####[facility] (DEFAULT)[address] [place] [address] 14523 Anion gap [Moles/Vol] 8.7 mmol/L Normal 5.0-19.0 [facility] Comment on above: Performed By: #### 7 445625, 5515025, 8888836, 6830746932, 7723400, 90943590 ####[facility] (DEFAULT)[address] [place] [address] Globulin (S) [Mass/Vol] 2.4 g/dL Normal 1.5-4.3 [facility] Comment on above: Performed By: #### 7 414897, 0278722, 3899469, 0370194333, 4573486, 32928823 ####[facility] (DEFAULT)[address] [place] [address] Osmolality 285 mOsm/L Invalid Interpretation Code [facility] Comment on above: Performed By: #### 7 716869, 1271473, 8067096, 9208915708, 4674902, 32026996 ####[facility] (DEFAULT)[address] [place] [address] Urea nitrogen/Creatinine [Mass ratio] 22.5 mg/mg High 4.6-16.2 [facility] Comment on above: Performed By: #### 7 905459, 7342379, 7216731, 1476614086, 0271124, 22539330 ####[facility] (DEFAULT)[address] [place] [address] CRPon 05-24-2023 CRP 6.7 mg/dL High <=0.5 [facility] Comment on above: Performed By: #### 7 977564, 2187130, 7247770, 0914050874, 8941409, 68388675 ####[facility] (DEFAULT)[address] [place] [address] Myoglobinon 05-24-2023 Myoglobin [Mass/Vol] 632.8 ng/mL High 17.4-105.7 [facility] Comment on above: Performed By: #### 7 870956, 9153481, 3240708, 9826815326, 4926468, 83699914 ####[facility] (DEFAULT)[address] [place] [address] 28706 Nutrition Noteon 05-24-2023 Nutrition Note Normal [facility] POCT Glucose Levelon 024 Glucose [Mass/Vol] 97 mg/dL Normal 74-118 [facility] Comment on above: Performed By: #### 4 [id number] ####[facility] (DEFAULT)[address] [place] [address] 42115 Progress Note - Nurseon Progress Note - Nurse [facility] Telemetry Stripson Telemetry Strips [id number] TGTIFF Normal [facility] .Auto Diff 1on 05-23-2023 Auto Hanson % 13 % High 1-12 [facility] Comment on above: Performed By: #### 2 770352, 2820387, 103437446, 43462626, 5961821, 8880609, 6764378993 ####[facility] (DEFAULT)[address] [place] [address] Baso Abs# 0.0 x10 Normal 0.0-0.2 [facility] Comment on above: Performed By: #### 2 593914, 7315666, 152267746, 75090754, 0347200, 9478616, 4741357007 ####[facility] (DEFAULT)[address] [place] [address] Basophils/100 WBC (Bld) 0.2 % Normal 0.2-2.0 [facility] Comment on above: Performed By: #### 2 047891, 6349364, 605515225, 10854846, 7698135, 8948733, 2102204342 ####[facility] (DEFAULT)[address] [place] [address] Eos Abs# 0.0 x10 Normal 0.0-0.4 [facility] Comment on above: Performed By: #### 2 814477, 4958919, 122392419, 10285976, 4427674, 4020527, 8892952503 ####[facility] (DEFAULT)[address] [place] [address] Eosinophils/100 WBC (Bld) 0.0 % Low 0.9-4.0 [facility] Comment on above: Performed By: #### 2 027875, 3321230, 674487359, 48259249, 8972638, 8004749, 9114498271 ####[facility] (DEFAULT)[address] [place] [address] Lymph Abs# 0.5 x10 Low 1.3-2.9 [facility] Comment on above: Performed By: #### 2 126390, 2848161, 350057660, 30983043, 2662487, 4418843, 7972290719 ####[facility] (DEFAULT)[address] [place] [address] Lymphocytes/100 WBC (Bld) 10 % Low 14-48 [facility] Comment on above: Performed By: #### 2 008971, 5476295, 039149139, 08675836, 6632292, 8494862, 7739253401 ####[facility] (DEFAULT)[address] [place] [address] Hanson Abs# 0.6 x10 Normal 0.0-0.8 [facility] Comment on above: Performed By: #### 2 370998, 3702716, 615770685, 90552270, 6192500, 6977528, 8610874115 ####[facility] (DEFAULT)[address] [place] [address] Neut Abs# 3.6 x10 Normal 1.5-9.2 [facility] Comment on above: Performed By: #### 2 215432, 1053793, 681165938, 59786067, 6777098, 6277303, 8540229631 ####[facility] (DEFAULT)[address] [place] [address] Neutrophils/100 WBC (Bld) 77 % Normal 44-88 [facility] Comment on above: Performed By: #### 2 274241, 8793943, 219740922, 42435402, 5171129, 1002871, 3343799045 ####[facility] (DEFAULT)[address] [place] [address] C Urineon 05-23-2023 C Urine Normal [facility] Comment on above: Performed By: #### 1 466124525, 2461711, 26460000 ####[facility] (DEFAULT)[address] [place] [address] CBC w/ Auto Diffon Erythrocyte distribution width (RBC) [Ratio] 15.4 % High 11.5-15.0 [facility] Comment on above: Performed By: #### 2 628229, 0595566, 071259099, 38416671, 2854131, 4148636, 9112361607 ####[facility] (DEFAULT)[address] [place] [address] Hematocrit (Bld) [Volume fraction] 33.2 % Low 34.8-51.9 [facility] Comment on above: Performed By: #### 2 421296, 2110338, 974481732, 60438185, 6197088, 9497086, 3145625738 ####[facility] (DEFAULT)[address] [place] [address] Hemoglobin (Bld) [Mass/Vol] 11.3 g/dL Low 11.8-17.7 [facility] Comment on above: Performed By: #### 2 004190, 7193752, 503242817, 44262331, 3804724, 9691314, 8639712622 ####[facility] (DEFAULT)[address] [place] [address] Man Diff? Auto Invalid Interpretation Code [facility] Comment on above: Performed By: #### 2 326070, 0013573, 981819902, 55491493, 9825010, 4491219, 7887960238 ####[facility] (DEFAULT)[address] [place] [address] MCH (RBC) [Entitic mass] 30 pg Normal 24-34 [facility] Comment on above: Performed By: #### 2 524132, 5355857, 202558505, 00462642, 5774930, 8544857, 7746523897 ####[facility] (DEFAULT)[address] [place] [address] MCHC (RBC) [Mass/Vol] 34 g/dL Normal 26-37 [facility] Comment on above: Performed By: #### 2 452670, 2491961, 918182209, 57443645, 2658051, 6432739, 0448605694 ####[facility] (DEFAULT)[address] [place] [address] MCV (RBC) [Entitic vol] 88 fL Normal 81-100 [facility] Comment on above: Performed By: #### 2 884987, 5777467, 294191595, 21702969, 6985541, 1180200, 8775919907 ####[facility] (DEFAULT)[address] [place] [address] 12252 Platelet 112 x10 Low 138-427 [facility] Comment on above: Performed By: #### 2 753527, 5381022, 441242923, 80276742, 4524628, 0828519, 2461710913 ####[facility] (DEFAULT)[address] [place] [address] Platelet mean volume (Bld) [Entitic vol] 8.6 fL Normal 6.3-10.2 [facility] Comment on above: Performed By: #### 2 411573, 9790481, 826264421, 71046013, 1091739, 5567204, 8702433966 ####[facility] (DEFAULT)[address] [place] [address] RBC 3.77 x10 Normal 3.70-5.30 [facility] Comment on above: Performed By: #### 2 088148, 1604907, 122852554, 50173930, 6647854, 4610488, 5386626395 ####[facility] (DEFAULT)[address] [place] [address] WBC 4.7 x10 Normal 3.5-10.5 [facility] Comment on above: Performed By: #### 2 734195, 3082953, 586006829, 15250471, 8758806, 9294835, 1042756844 ####[facility] (DEFAULT)[address] [place] [address] CKon 05-23-2023 CK [Catalytic activity/Vol] 2005 U/L High 49-397 [facility] Comment on above: Performed By: #### 2 405386, 4261048, 266274128, 23702934, 8493863, 0316111, 9996530839 ####[facility] (DEFAULT)[address] [place] [address] CMP Standardon 05-23-2023 Anion gap [Moles/Vol] 8.6 mmol/L Normal 5.0-19.0 [facility] Comment on above: Performed By: #### 2 923374, 1330081, 610781203, 37311560, 8523619, 7234671, 5034407643 ####[facility] (DEFAULT)[address] [place] [address] 30015 Calcium [Mass/Vol] 7.6 mg/dL Low 8.9-10.3 [facility] Comment on above: Performed By: #### 2 912151, 1037855, 215581102, 69190939, 3239194, 4744929, 3508448028 ####[facility] (DEFAULT)[address] [place] [address] 97657 Chloride [Moles/Vol] 111 mmol/L Normal 101-111 [facility] Comment on above: Performed By: #### 2 771844, 5606261, 846153662, 73572737, 7244732, 9866230, 3585817830 ####[facility] (DEFAULT)[address] [place] [address] 07456 CO2 [Moles/Vol] 23 mmol/L Normal 21-32 [facility] Comment on above: Performed By: #### 2 095080, 7202636, 402174025, 45404130, 5526131, 0448930, 8496902202 ####[facility] (DEFAULT)[address] [place] [address] 00567 Glucose [Mass/Vol] 106.0 mg/dL Normal 74.0-118.0 [facility] Comment on above: Performed By: #### 2 853487, 9123692, 152252150, 79022662, 0335638, 4897013, 2395406443 ####[facility] (DEFAULT)[address] [place] [address] 72095 Osmolality 284 mOsm/L Invalid Interpretation Code [facility] Comment on above: Performed By: #### 2 550793, 1082369, 358453392, 12904300, 4799782, 3141423, [id number] ####[facility] (DEFAULT)[address] [place] [address] 89409 Potassium [Moles/Vol] 3.6 mmol/L Normal 3.6-5.1 [facility] Comment on above: Performed By: #### 2 685673, 0312491, 483025747, 79507185, 4020957, 3116668, 1533395438 ####[facility] (DEFAULT)[address] [place] [address] Sodium [Moles/Vol] 139.0 mmol/L Normal 136.0-144.0 [facility] Comment on above: Performed By: #### 2 173565, 7995985, 140036002, 97471893, 3449710, 1684466, [id number] ####[facility] (DEFAULT)[address] [place] [address] eGFR Non AA 44 mL/min/1.73m2 Invalid Interpretation Code [facility] Comment on above: Performed By: #### 2 765488, 5995229, 617802421, 63393153, 6075110, 4951966, [id number] ####[facility] (DEFAULT)[address] [place] [address] eGFR AA 54 mL/min/1.73m2 Invalid Interpretation Code [facility] Comment on above: Performed By: #### 2 384477, 9132979, 964846298, 09025717, 2150793, 7064682, 2585393222 ####[facility] (DEFAULT)[address] [place] [address] Albumin [Mass/Vol] 2.7 g/dL Low 3.5-5.0 [facility] Comment on above: Performed By: #### 2 050285, 7947137, 220540539, 40960201, 7468624, 5818056, 3435498219 ####[facility] (DEFAULT)[address] [place] [address] Albumin/Globulin [Mass ratio] 1.2 {ratio} Low 1.4-2.6 [facility] Comment on above: Performed By: #### 2 648938, 9506719, 627713615, 69245020, 2145940, 9270404, [id number] ####[facility] (DEFAULT)[address] [place] [address] 90747 Alk Phos 48 IU/L Normal 32-91 [facility] Comment on above: Performed By: #### 2 236065, 6370655, 300348203, 92392615, 6703340, 7510938, 0809162318 ####[facility] (DEFAULT)[address] [place] [address] ALT [Catalytic activity/Vol] 7.0 U/L Low 17.0-63.0 [facility] Comment on above: Performed By: #### 2 195003, 1768783, 364717815, 52016554, 5353023, 4601405, [id number] ####[facility] (DEFAULT)[address] [place] [address] AST [Catalytic activity/Vol] 128 U/L High 15-41 [facility] Comment on above: Performed By: #### 2 047358, 3770051, 647568490, 25938607, 4871418, 6937670, [id number] ####[facility] (DEFAULT)[address] [place] [address] Bili Total 0.6 mg/dL Normal 0.3-1.2 [facility] Comment on above: Performed By: #### 2 495740, 8689286, 466759998, 17102851, 8743969, 1652432, 0930753653 ####[facility] (DEFAULT)[address] [place] [address] 40263 Creatinine [Mass/Vol] 1.50 mg/dL High 0.90-1.30 [facility] Comment on above: Performed By: #### 2 335199, 0715942, 977659543, 67463088, 0548514, 7841656, [id number] ####[facility] (DEFAULT)[address] [place] [address] 35058 Globulin (S) [Mass/Vol] 2.2 g/dL Normal 1.5-4.3 [facility] Comment on above: Performed By: #### 2 926754, 2729498, 473841422, 71058537, 0311871, 5565085, 5559984126 ####[facility] (DEFAULT)[address] [place] [address] 97418 Protein [Mass/Vol] 4.9 g/dL Low 6.5-8.1 [facility] Comment on above: Performed By: #### 2 696970, 2284227, 675225467, 89210969, 1898895, 6621959, 8776576015 ####[facility] (DEFAULT)[address] [place] [address] 51004 Urea nitrogen [Mass/Vol] 30 mg/dL High 8-26 [facility] Comment on above: Performed By: #### 2 857983, 2091467, 230962960, 50576573, 2519068, 7509873, 4331838114 ####[facility] (DEFAULT)[address] [place] [address] 17123 Urea nitrogen/Creatinine [Mass ratio] 20.0 mg/mg High 4.6-16.2 [facility] Comment on above: Performed By: #### 2 304283, 9920983, 295332474, 90509041, 5167835, 5068848, 6862576572 ####[facility] (DEFAULT)[address] [place] [address] 90573 CRPon 05-23-2023 CRP 8.4 mg/dL High <=0.5 [facility] Comment on above: Performed By: #### 2 079544, 0019879, 034206076, 74305466, 1470173, 2969928, 5501436340 ####[facility] (DEFAULT)[address] [place] [address] 99622 Myoglobinon 05-23-2023 Myoglobin [Mass/Vol] 1491.6 ng/mL High 17.4-105.7 [facility] Comment on above: Performed By: #### 2 475222, 7548821, 978268010, 56371322, 7370823, 8740180, 9418150462 ####[facility] (DEFAULT)[address] [place] [address] 58097 Procalcitoninon 05-23-2023 Procalcitonin 1.226 ng/mL High 0.500-1.000 [facility] Comment on above: Performed By: #### 2 792838, 6372975, 735644828, 63013777, 0363712, 2516529, 2866445059 ####[facility] (DEFAULT)[address] [place] [address] Telemetry Stripson Telemetry Strips [id number] 50 [id number]#1.00O TGTIFF Normal [facility] .Auto Diff 1on 05-22-2023 Auto Hanson % 10 % Normal 12 [facility] Comment on above: Performed By: #### 5 889032806, 3895068, 4878109, 1442532, 5449491912, 6227876, 45837157 ####[facility] (DEFAULT)[address] [place] [address] Baso Abs# 0.0 x10 Normal 0.0-0.2 [facility] Comment on above: Performed By: #### 5 959895214, 1403659, 4689438, 8113634, 9815384379, 4382957, 07600779 ####[facility] (DEFAULT)[address] [place] [address] Basophils/100 WBC (Bld) 0.5 % Normal 0.2-2.0 [facility] Comment on above: Performed By: #### 5 006739520, 9400096, 0735406, 3689153, 7984709448, 0836175, 36506771 ####[facility] (DEFAULT)[address] [place] [address] Eos Abs# 0.0 x10 Normal 0.0-0.4 [facility] Comment on above: Performed By: #### 5 750922989, 6950385, 5726550, 1310874, 5305372962, 9197859, 46007026 ####[facility] (DEFAULT)[address] [place] [address] 51646 Eosinophils/100 WBC (Bld) 0.0 % Low 0.9-4.0 [facility] Comment on above: Performed By: #### 5 330331474, 4498410, 1240850, 8232354, 3329901577, 7252029, 42354097 ####[facility] (DEFAULT)[address] [place] [address] Lymph Abs# 0.5 x10 Low 1.3-2.9 [facility] Comment on above: Performed By: #### 5 635798271, 1950464, 8558154, 8521468, 3556513335, 4139430, 57833541 ####[facility] (DEFAULT)[address] [place] [address] Lymphocytes/100 WBC (Bld) 7 % Low 14-48 [facility] Comment on above: Performed By: #### 5 977333784, 0247753, 7662095, 8361226, 5687790359, 3514702, 24836299 ####[facility] (DEFAULT)[address] [place] [address] Hanson Abs# 0.8 x10 Normal 0.0-0.8 [facility] Comment on above: Performed By: #### 5 655721838, 3406307, 4346112, 6931594, 6382098668, 1914732, 24512891 ####[facility] (DEFAULT)[address] [place] [address] Neut Abs# 6.8 x10 Normal 1.5-9.2 [facility] Comment on above: Performed By: #### 5 901425184, 5635225, 7393316, 6094062, 0431829159, 8207004, 23885816 ####[facility] (DEFAULT)[address] [place] [address] Neutrophils/100 WBC (Bld) 83 % Normal 44-88 [facility] Comment on above: Performed By: #### 5 520959764, 1688630, 8016073, 7835500, 7547468360, 4755522, 47387634 ####[facility] (DEFAULT)[address] [place] [address] CBC w/ Auto Diffon 4 Erythrocyte distribution width (RBC) [Ratio] 15.6 % High 11.5-15.0 [facility] Comment on above: Performed By: #### 5 559029869, 2055351, 9219476, 3801610, 8328893885, 5712905, 98809012 ####[facility] (DEFAULT)[address] [place] [address] Hematocrit (Bld) [Volume fraction] 38.2 % Normal 34.8-51.9 [facility] Comment on above: Performed By: #### 5 262662793, 4588459, 9934142, 3742091, 8576075093, 1775503, 78681591 ####[facility] (DEFAULT)[address] [place] [address] Hemoglobin (Bld) [Mass/Vol] 12.8 g/dL Normal 11.8-17.7 [facility] Comment on above: Performed By: #### 5 126011520, 8888524, 4760385, 7260826, 2776318963, 4670845, 13962012 ####[facility] (DEFAULT)[address] [place] [address] Man Diff? Auto Invalid Interpretation Code [facility] Comment on above: Performed By: #### 5 121249837, 8191202, 5914603, 3334304, 2745510573, 2350277, 93743061 ####[facility] (DEFAULT)[address] [place] [address] MCH (RBC) [Entitic mass] 30 pg Normal 24-34 [facility] Comment on above: Performed By: #### 5 642994041, 4678428, 8282471, 2527083, 7944780772, 0425091, 91638991 ####[facility] (DEFAULT)[address] [place] [address] MCHC (RBC) [Mass/Vol] 34 g/dL Normal 26-37 [facility] Comment on above: Performed By: #### 5 369170870, 5695574, 3685917, 6809238, 5433655728, 7905670, 97464817 ####[facility] (DEFAULT)[address] [place] [address] MCV (RBC) [Entitic vol] 88 fL Normal 81-100 [facility] Comment on above: Performed By: #### 5 100394507, 6168876, 3068127, 3654342, 4944803351, 3946856, 72130827 ####[facility] (DEFAULT)[address] [place] [address] Platelet 132 x10 Low 138-427 [facility] Comment on above: Performed By: #### 5 506509230, 9138528, 8985191, 3053474, 9396989360, 1455560, 09086987 ####[facility] (DEFAULT)[address] [place] [address] Platelet mean volume (Bld) [Entitic vol] 8.7 fL Normal 6.3-10.2 [facility] Comment on above: Performed By: #### 5 057178108, 3070012, 0379357, 2544905, 5386637989, 3395548, 88886283 ####[facility] (DEFAULT)[address] [place] [address] RBC 4.32 x10 Normal 3.70-5.30 [facility] Comment on above: Performed By: #### 5 110542373, 8569534, 4423153, 4367031, 7623142347, 0037608, 37336240 ####[facility] (DEFAULT)[address] [place] [address] WBC 8.2 x10 Normal 3.5-10.5 [facility] Comment on above: Performed By: #### 5 550787550, 3008791, 5461328, 5037169, 5727525494, 3710442, 84483029 ####[facility] (DEFAULT)[address] [place] [address] CKon 05-22-2023 CK [Catalytic activity/Vol] 2963 U/L High 49-397 [facility] Comment on above: Performed By: #### 5 427416261, 8394474, 5019943, 1950672, 1775942003, 0001935, 31212535 ####[facility] (DEFAULT)[address] [place] [address] CMP Standardon 05-22-2023 eGFR Non AA 44 mL/min/1.73m2 Invalid Interpretation Code [facility] Comment on above: Performed By: #### 5 742236976, 1868498, 6404669, 7337208, 3402793449, 5160950, 56688963 ####[facility] (DEFAULT)[address] [place] [address] eGFR AA 54 mL/min/1.73m2 Invalid Interpretation Code [facility] Comment on above: Performed By: #### 5 235127511, 2720354, 2229331, 7345711, 6502661186, 2219343, 89866628 ####[facility] (DEFAULT)[address] [place] [address] Albumin [Mass/Vol] 3.0 g/dL Low 3.5-5.0 [facility] Comment on above: Performed By: #### 5 057921001, 9171840, 9643695, 2716000, 8925922372, 2578334, 04863628 ####[facility] (DEFAULT)[address] [place] [address] Albumin/Globulin [Mass ratio] 1.1 {ratio} Low 1.4-2.6 [facility] Comment on above: Performed By: #### 5 260418328, 7293362, 6252187, 1991815, 6419170205, 9220940, 19776590 ####[facility] (DEFAULT)[address] [place] [address] 59635 Alk Phos 60 IU/L Normal 32-91 [facility] Comment on above: Performed By: #### 5 097078316, 3584514, 6219194, 3736269, 4073571461, 1696868, 07457989 ####[facility] (DEFAULT)[address] [place] [address] ALT [Catalytic activity/Vol] 50.0 U/L Normal 17.0-63.0 [facility] Comment on above: Performed By: #### 5 701635419, 8915016, 4082013, 5823239, 1617960573, 5040854, 25954285 ####[facility] (DEFAULT)[address] [place] [address] 45058 Anion gap [Moles/Vol] 7.6 mmol/L Normal 5.0-19.0 [facility] Comment on above: Performed By: #### 5 866572272, 9399557, 6290073, 4563844, 8846953754, 5567159, 95370213 ####[facility] (DEFAULT)[address] [place] [address] 20494 AST [Catalytic activity/Vol] 158 U/L High 15-41 [facility] Comment on above: Performed By: #### 5 622079002, 0854272, 0578166, 1015430, 8884196882, 3026429, 82895447 ####[facility] (DEFAULT)[address] [place] [address] 62816 Bili Total 0.9 mg/dL Normal 0.3-1.2 [facility] Comment on above: Performed By: #### 5 000716895, 2691239, 6908356, 0345565, 8369545402, 5767252, 24561430 ####[facility] (DEFAULT)[address] [place] [address] 60880 Calcium [Mass/Vol] 7.8 mg/dL Low 8.9-10.3 [facility] Comment on above: Performed By: #### 5 058612665, 3496510, 3359739, 5514464, 6866817912, 9299692, 29536722 ####[facility] (DEFAULT)[address] [place] [address] 73800 Chloride [Moles/Vol] 111 mmol/L Normal 101-111 [facility] Comment on above: Performed By: #### 5 896809613, 1345592, 5044048, 0218038, 6157115989, 2307127, 48617321 ####[facility] (DEFAULT)[address] [place] [address] 83338 CO2 [Moles/Vol] 22 mmol/L Normal 21-32 [facility] Comment on above: Performed By: #### 5 936855723, 7812271, 6159642, 3002988, 6601900979, 5413912, 69335478 ####[facility] (DEFAULT)[address] [place] [address] 68907 Creatinine [Mass/Vol] 1.50 mg/dL High 0.90-1.30 [facility] Comment on above: Performed By: #### 5 128970834, 1777236, 6055196, 2112076, 1138637478, 9146376, 12245439 ####[facility] (DEFAULT)[address] [place] [address] 07545 Globulin (S) [Mass/Vol] 2.6 g/dL Normal 1.5-4.3 [facility] Comment on above: Performed By: #### 5 169596288, 8815505, 5904872, 0881640, 4823281229, 6464981, 83098890 ####[facility] (DEFAULT)[address] [place] [address] 62048 Glucose [Mass/Vol] 128.0 mg/dL High 74.0-118.0 [facility] Comment on above: Performed By: #### 5 186045046, 2712802, 3961307, 3844317, 5697110558, 3982248, 28598744 ####[facility] (DEFAULT)[address] [place] [address] 75051 Osmolality 283 mOsm/L Invalid Interpretation Code [facility] Comment on above: Performed By: #### 5 360908969, 9306703, 4052842, 1880916, 3599487019, 5555739, 80562367 ####[facility] (DEFAULT)[address] [place] [address] 32931 Potassium [Moles/Vol] 3.6 mmol/L Normal 3.6-5.1 [facility] Comment on above: Performed By: #### 5 388482184, 6846249, 1298945, 8939245, 7183533086, 3872247, 86654766 ####[facility] (DEFAULT)[address] [place] [address] 79132 Protein [Mass/Vol] 5.6 g/dL Low 6.5-8.1 [facility] Comment on above: Performed By: #### 5 430476123, 0186969, 6745737, 5936956, 8048756079, 7744726, 22873878 ####[facility] (DEFAULT)[address] [place] [address] 77814 Sodium [Moles/Vol] 137.0 mmol/L Normal 136.0-144.0 [facility] Comment on above: Performed By: #### 5 876156796, 7418639, 7521074, 9552601, 8379553586, 5910330, 15772107 ####[facility] (DEFAULT)[address] [place] [address] 00811 Urea nitrogen [Mass/Vol] 33 mg/dL High 8-26 [facility] Comment on above: Performed By: #### 5 059056564, 2001808, 0757018, 9165025, 7459099118, 4330179, 04330889 ####[facility] (DEFAULT)[address] [place] [address] 22336 Urea nitrogen/Creatinine [Mass ratio] 22.0 mg/mg High 4.6-16.2 [facility] Comment on above: Performed By: #### 5 032912726, 1951626, 0039349, 8965147, 2282515123, 2424061, 48725176 ####[facility] (DEFAULT)[address] [place] [address] 61551 Magnesiumon 05-22-2023 Magnesium [Mass/Vol] 1.80 mg/dL Normal 1.80-2.50 [facility] Comment on above: Performed By: #### 5 288769574, 6648519, 8595148, 1740562, 7845438516, 1217461, 34613980 ####[facility] (DEFAULT)[address] [place] [address] 60429 Myoglobinon 05-22-2023 Myoglobin [Mass/Vol] 3674.6 ng/mL High 17.4-105.7 [facility] Comment on above: Performed By: #### 5 000031342, 5160557, 7475412, 2393146, 3562507192, 1728184, 88849042 ####[facility] (DEFAULT)[address] [place] [address] Nutrition Noteon 05-22-2023 Nutrition Note Normal [facility] Pharmacy Noteon 05-22-2023 Pharmacy Note Normal [facility] Telemetry Stripson Telemetry Strips [id number] 40 [id number]#1.00O TGTIFF Normal [facility] TnI HSon 05-22-2023 Troponin I High Sensitivity 466.0 pg/mL Critically abnormal <=20.0 [facility] Comment on above: Result Comment: Crit ical result TNIHS 466.0 pg/mL called to and read back by pallavi avila at 22-May-2023 05:14 by brian. Performed By: #### 5 445151654, 9273987, 0888321, 0215402, 5521580284, 2876707, 07669127 ####[facility] (DEFAULT)[address] [place] [address] 41572 .Auto Diff 105-21-2023 Auto Hanson % 9 % Normal -12 [facility] Comment on above: Performed By: #### 2 220367, 60739611, 2528386835, 7003723, 5238028, 7298309, 828191754, 5014958011, 5433070, 0765180345, 9316410617 ####[facility] (DEFAULT)[address] [place] [address] Baso Abs# 0.0 x10 Normal 0.0-0.2 [facility] Comment on above: Performed By: #### 2 876289, 07107021, 1603817930, 3647721, 1278616, 7594399, 938520288, 5000181963, 6806277, 9902491252, 2245103831 ####[facility] (DEFAULT)[address] [place] [address] 01999 Basophils/100 WBC (Bld) 0.1 % Low 0.2-2.0 [facility] Comment on above: Performed By: #### 2 450991, 15033971, 6133987022, 0219253, 9579727, 1045807, 346442955, 7742817283, 2625654, 2502621680, 7494872814 ####[facility] (DEFAULT)[address] [place] [address] 67499 Eos Abs# 0.0 x10 Normal 0.0-0.4 [facility] Comment on above: Performed By: #### 2 318815, 99522563, 8507276954, 9091082, 8137967, 9075519, 969998246, 4715664532, 8432981, 5280764544, 2539398625 ####[facility] (DEFAULT)[address] [place] [address] 62610 Eosinophils/100 WBC (Bld) 0.0 % Low 0.9-4.0 [facility] Comment on above: Performed By: #### 2 104807, 96233735, 0394370908, 9316507, 6655400, 7680408, 271208445, 7236275579, 4767228, 2355363711, 8441418546 ####[facility] (DEFAULT)[address] [place] [address] 36275 Lymph Abs# 0.3 x10 Low 1.3-2.9 [facility] Comment on above: Performed By: #### 2 789524, 17294338, 6972056490, 3093378, 7147520, 2910321, 808311724, 8316174345, 7201859, 2383321635, 0772544013 ####[facility] (DEFAULT)[address] [place] [address] 97205 Lymphocytes/100 WBC (Bld) 3 % Low 14-48 [facility] Comment on above: Performed By: #### 2 989124, 70113870, 2074871238, 2313076, 2557062, 6608810, 030210584, 9426793431, 7341262, 0860490372, 9432443341 ####[facility] (DEFAULT)[address] [place] [address] Hanson Abs# 1.0 x10 High 0.0-0.8 [facility] Comment on above: Performed By: #### 2 632658, 94624537, 7614457916, 1324839, 5693964, 5430151, 467589417, 1542965420, 5715094, 0906856064, 0278567014 ####[facility] (DEFAULT)[address] [place] [address] Neut Abs# 9.5 x10 High 1.5-9.2 [facility] Comment on above: Performed By: #### 2 669461, 66239061, 0403725942, 7775559, 4389688, 5329881, 713419849, 3632400519, 0133500, 1751304632, 8954843766 ####[facility] (DEFAULT)[address] [place] [address] Neutrophils/100 WBC (Bld) 88 % Normal 44-88 [facility] Comment on above: Performed By: #### 2 766858, 67365010, 6635339615, 2096019, 5717570, 8288343, 573614566, 0955538576, 8084890, 7679088730, 3472350341 ####[facility] (DEFAULT)[address] [place] [address] .QC SARS-CoV-2 (COVID-19)/Fl u/RSV (GeneXpert)on 05-21-2023 Internal Control Pass Normal [facility] Comment on above: Order Comment: Order ed by Discern.[[id number]] Performed By: #### 7 195891798, 5897556020 ####[facility] (DEFAULT)[address] [place] [address] CBC w/ Auto Diffon Erythrocyte distribution width (RBC) [Ratio] 15.2 % High 11.5-15.0 [facility] Comment on above: Performed By: #### 2 578761, 14182794, 8741677368, 9659613, 9569652, 3727176, 573837452, 0829574182, 1782404, 5906408979, 3352939619 ####[facility] (DEFAULT)[address] [place] [address] Hematocrit (Bld) [Volume fraction] 44.0 % Normal 34.8-51.9 [facility] Comment on above: Performed By: #### 2 128546, 67326482, 7638518994, 7595597, 1647751, 7694689, 519817314, 1988539960, 1128298, 2590826968, 5871988210 ####[facility] (DEFAULT)[address] [place] [address] Hemoglobin (Bld) [Mass/Vol] 14.7 g/dL Normal 11.8-17.7 [facility] Comment on above: Performed By: #### 2 187377, 21973200, 5224012092, 4240851, 6921638, 1908149, 186036730, 5005493994, 8224592, 2922075247, 6412037563 ####[facility] (DEFAULT)[address] [place] [address] Man Diff? Auto Invalid Interpretation Code [facility] Comment on above: Performed By: #### 2 430035, 80044810, 7613999567, 8453346, 1718077, 3676608, 905748451, 3737348956, 5720263, 3424688828, 5873098967 ####[facility] (DEFAULT)[address] [place] [address] 12843 MCH (RBC) [Entitic mass] 30 pg Normal 24-34 [facility] Comment on above: Performed By: #### 2 866070, 24556537, 8838612068, 9616037, 2790342, 0892320, 547768666, 9140256645, 6540755, 4154260981, 9183659951 ####[facility] (DEFAULT)[address] [place], [place] [address] MCHC (RBC) [Mass/Vol] 33 g/dL Normal 26-37 [facility] Comment on above: Performed By: #### 2 886772, 85721541, 0723231305, 5936644, 2998164, 6272212, 531276198, 4829053474, 4516135, 8982666550, 2001171585 ####[facility] (DEFAULT)[address] [place] [address] MCV (RBC) [Entitic vol] 89 fL Normal 81-100 [facility] Comment on above: Performed By: #### 2 436392, 86921776, 1209910933, 7165703, 0243400, 3620710, 233162939, 4300595272, 0008299, 4588072183, 9384117056 ####[facility] (DEFAULT)[address] [place] [address] Platelet 173 x10 Normal 138-427 [facility] Comment on above: Performed By: #### 2 256060, 15855975, 0369514928, 7846224, 1463393, 5501686, 926308064, 5430414420, 2500592, 8993629696, 7987582285 ####[facility] (DEFAULT)[address] [place] [address] Platelet mean volume (Bld) [Entitic vol] 7.9 fL Normal 6.3-10.2 [facility] Comment on above: Performed By: #### 2 868870, 23042566, 5716302105, 2427800, 3960871, 2021907, 452699509, 0173027544, 8841021, 8318029870, 8971627654 ####[facility] (DEFAULT)[address] [place] [address] RBC 4.95 x10 Normal 3.70-5.30 [facility] Comment on above: Performed By: #### 2 060564, 42988303, 3302797983, 3206100, 6925459, 0601797, 769935463, 1724368057, 8523010, 6765202498, 1922444420 ####[facility] (DEFAULT)[address] [place] [address] WBC 10.7 x10 High 3.5-10.5 [facility] Comment on above: Performed By: #### 2 857973, 52392596, 6063692266, 6786903, 5403488, 0562864, 333278094, 4135260475, 8627953, 1783773007, 4512943207 ####[facility] (DEFAULT)[address] [place], [place] [address] 05-21-2023 Total CK >4100 High 49-397 [facility] Comment on above: Result Comment: Veri fied by dilution Performed By: #### 2 470909, 90196357, 8526298595, 5129309, 2941767, 1671623, 830698123, 5246279214, 5188513, 7249231748, 2931377328 ####[facility] (DEFAULT)[address] [place], [place] [address] [facility] Standardon 05-21-2023 eGFR Non AA 49 mL/min/1.73m2 Invalid Interpretation Code [facility] Comment on above: Performed By: #### 2 869572, 13924476, 5771778280, 2224374, 1394521, 8042374, 228251221, 2632142036, 1600264, 4154714500, [id number] ####[facility] (DEFAULT)[address] [place] [address] eGFR AA 59 mL/min/1.73m2 Invalid Interpretation Code [facility] Comment on above: Performed By: #### 2 766413, 84197105, 3028964235, 4956580, 6389902, 0039592, 833894869, 1227873354, 9493951, 9039353700, 6565394731 ####[facility] (DEFAULT)[address] [place] [address] 94735 Albumin [Mass/Vol] 4.2 g/dL Normal 3.5-5.0 [facility] Comment on above: Performed By: #### 2 131900, 41864357, 3013598002, 8354759, 2092259, 6401508, 251250723, 1545297634, 9761541, 7343608368, 1639158142 ####[facility] (DEFAULT)[address] [place] [address] 85664 Alk Phos 81 IU/L Normal 32-91 [facility] Comment on above: Performed By: #### 2 690183, 28765469, 8525311618, 5432816, 4824503, 1928252, 379445493, 9210185067, 1077012, 4119851666, 4335627816 ####[facility] (DEFAULT)[address] [place] [address] 01324 ALT [Catalytic activity/Vol] 61.0 U/L Normal 17.0-63.0 [facility] Comment on above: Performed By: #### 2 950640, 96452535, 9023003293, 1363716, 8454456, 4533901, 409012317, 1731878495, 5139968, 8501780634, 8624652116 ####[facility] (DEFAULT)[address] [place] [address] 30422 AST [Catalytic activity/Vol] 150 U/L High 15-41 [facility] Comment on above: Performed By: #### 2 216334, 27704989, 4400657864, 6228752, 7015907, 8597489, 018385486, 6775201394, 7528065, 4139842471, 4623068786 ####[facility] (DEFAULT)[address] [place] [address] 36866 Bili Total 1.1 mg/dL Normal 0.3-1.2 [facility] Comment on above: Performed By: #### 2 237311, 46642758, 5718281487, 3932443, 3245126, 3984330, 219908020, 1512620689, 3184407, 6586999463, 4957293462 ####[facility] (DEFAULT)[address] [place] [address] 54290 Calcium [Mass/Vol] 8.8 mg/dL Low 8.9-10.3 [facility] Comment on above: Performed By: #### 2 660726, 98477096, 8408396083, 1931917, 4631439, 0314723, 115170131, 4089791796, 5153687, 3029248018, 3667033637 ####[facility] (DEFAULT)[address] [place] [address] 81407 Chloride [Moles/Vol] 105 mmol/L Normal 101-111 [facility] Comment on above: Performed By: #### 2 058226, 08886949, 6774956714, 2458932, 9353622, 8291317, 947919278, 5557172212, 4336989, 6466020283, 4242840666 ####[facility] (DEFAULT)[address] [place] [address] 27731 CO2 [Moles/Vol] 26 mmol/L Normal 21-32 [facility] Comment on above: Performed By: #### 2 540744, 44079744, 1668366514, 2945540, 7795009, 2721486, 012901604, 2034560006, 0884255, 9405205615, 1089201951 ####[facility] (DEFAULT)[address] [place] [address] 78117 Creatinine [Mass/Vol] 1.37 mg/dL High 0.90-1.30 [facility] Comment on above: Performed By: #### 2 000310, 85837353, 3021047905, 7163094, 8374331, 1510076, 961829266, 1292706965, 1982471, 6099701261, 3963593608 ####[facility] (DEFAULT)[address] [place] [address] 70353 Glucose [Mass/Vol] 124.0 mg/dL High 74.0-118.0 [facility] [facility] Comment on above: Performed By: #### 2 460549, 34982890, 1433502583, 4005401, 4692348, 2665196, 078154625, 7352750219, 6902474, 1930662672, 2106520339 ####[facility] (DEFAULT)[address] [place] [address] 86308 Potassium [Moles/Vol] 3.8 mmol/L Normal 3.6-5.1 [facility] Comment on above: Performed By: #### 2 804387, 47409758, 6022948818, 3799531, 3775526, 4346595, 157519774, 8868775561, 8217853, 9697710247, 4096425060 ####[facility] (DEFAULT)[address] [place] [address] 04132 Protein [Mass/Vol] 7.4 g/dL Normal 6.5-8.1 [facility] Comment on above: Performed By: #### 2 298460, 86022596, 8489875424, 9954213, 0161118, 3909273, 502536173, 3995569627, 5792330, 5739744119, 3406302568 ####[facility] (DEFAULT)[address] [place] [address] 96288 Sodium [Moles/Vol] 140.0 mmol/L Normal 136.0-144.0 [facility] Comment on above: Performed By: #### 2 704639, 33449706, 5958164362, 2201197, 2355004, 7572713, 238353874, 6629147456, 0920470, 1077074774, 6536992372 ####[facility] (DEFAULT)[address] [place] [address] 15137 Urea nitrogen [Mass/Vol] 31 mg/dL High 8-26 [facility] Comment on above: Performed By: #### 2 092350, 38031275, 8440175143, 3894960, 6310674, 4245684, 676326750, 4435891596, 9957873, 6036433051, 6710966502 ####[facility] (DEFAULT)[address] [place] [address] 41990 Albumin/Globulin [Mass ratio] 1.3 {ratio} Low 1.4-2.6 [facility] Comment on above: Performed By: #### 2 618265, 96477145, 7479669305, 8216787, 8432356, 1789635, 082977119, 8202521444, 1828975, 1884378174, 5409831017 ####[facility] (DEFAULT)[address] [place] [address] 75422 Anion gap [Moles/Vol] 12.8 mmol/L Normal 5.0-19.0 [facility] Comment on above: Performed By: #### 2 846589, 04349425, 9585008752, 6846495, 2923971, 4070317, 424182463, 2250368619, 1968639, 5114800278, 9879002884 ####[facility] (DEFAULT)[address] [place] [address] 60860 Globulin (S) [Mass/Vol] 3.2 g/dL Normal 1.5-4.3 [facility] Comment on above: Performed By: #### 2 968575, 11147597, 5217367449, 7084968, 0283948, 7252938, 502723681, 4763356369, 3144105, 0547316654, 6764761221 ####[facility] (DEFAULT)[address] [place] [address] 60082 Osmolality 287 mOsm/L Invalid Interpretation Code [facility] Comment on above: Performed By: #### 2 485073, 60191482, 1698037267, 1754883, 4033935, 4985806, 821838956, 8537431116, 3427661, 6021477607, 5491525447 ####[facility] (DEFAULT)[address] [place] [address] 83840 Urea nitrogen/Creatinine [Mass ratio] 22.6 mg/mg High 4.6-16.2 [facility] Comment on above: Performed By: #### 2 073709, 92152087, 3370681904, 4397267, 5580015, 8879588, 499783255, 6335099253, 3539252, 0852520466, 1527752592 ####[facility] (DEFAULT)[address] [place] [address] 79908 COVID/Flu/RSV (GeneXpert)on 05-21-2023 Flu A (GXpert COVFLURSV) Positive Normal Negative [facility] Comment on above: Performed By: #### 7 [id number], [id number] ####[facility] (DEFAULT)[address] [place] [address] 78715 Flu B (GXpert COVFLURSV) Negative Normal Negative [facility] Comment on above: Performed By: #### 7 304778294, 0594768101 ####[facility] (DEFAULT)[address] [place] [address] 42952 RSV (GXpert COVFLURSV) Negative Normal Negative [facility] Comment on above: Performed By: #### 7 [id number], 6574811050 ####[facility] (DEFAULT)[address] [place] [address] 24755 SARS-CoV-2 (COVID-19) RNA ANDREW+probe Ql (Unsp spec) Negative Normal Negative [facility] Comment on above: Result Comment: Perf ormed by PCR methodology. Performed By: #### 7 [id number], [id number] ####[facility] (DEFAULT)[address] [place] [address] 01573 CRPon 05-21-2023 CRP 8.3 mg/dL High <=0.5 [facility] Comment on above: Performed By: #### 2 926025, 11585863, 6555190884, 4507713, 5633808, 2869179, 783037277, 7060333211, 0822455, 5832673804, 5051243174 ####[facility] (DEFAULT)[address] [place] [address] Head or Brain w/o Contras ton 05-21-2023 CT Head or Brain w/o Contrast Normal [facility] CT Maxillofacial w/o Contras ton 05-21-2023 CT Maxillofacial w/o Contrast Normal [facility] CT Spine Cervical w/o Contra ston 05-21-2023 CT Spine Cervical w/o Contrast Normal [facility] ED Clinical Summaryon 2023 ED Clinical Summary Normal [facility] ED Note - Physicianon 2023 ED Note - Physician [facility] ED Note-Nursingon 05-21-2023 ED Note-Nursing Patient admitted to the floor, hospitalist to review cultures. [facility] ED Note-Nursing 16fr clarke catheter inserted without difficulty. 10ml of cloudy, thick, sediment urine came through the catheter, no further urine output at this time [facility] ED Note-Nursing Dr. Angelia paul. [facility] ED Note-Nursing Dr. Salomn notifi ed that repeat CK was needed per lab. Lab states that CK at this time was reading > 4100. REsults pending 30 minutes. [facility] ED Note-Nursing [facility] ED Patient Education Noteon 05-21-2023 ED Patient Education Note Education Materials [facility] ED Patient Summaryon 024 ED Patient Summary [place] Extra Redon 05-21-2023 Tube Collected Yes Invalid Interpretation [facility] Comment on above: Performed By: #### 2 679512, 42338598, 1844263927, 2664188, 2996495, 2597027, 867121751, 0067947420, 8206308, 9921851209, 6388275699 ####[facility] (DEFAULT)[address] [place] [address] 92741 Myoglobinon 05-21-2023 Myoglobin [Mass/Vol] ng/mL High 17.4-105.7 [facility] Comment on above: Performed By: #### 2 462015, 90207137, 9646260406, 6710114, 1574006, 3272910, 016836388, 7255163023, 3249902, 1310303557, 6775354980 ####[facility] (DEFAULT)[address] [place] [address] 15559 Procalcitoninon 05-21-2023 Procalcitonin 1.776 ng/mL High 0.500-1.000 [facility] Comment on above: Performed By: #### 7 [id number] ####[facility] (DEFAULT)[address] [place] [address] 14109 TSH w/ Reflex to FT4on 05-20 TSH Qn 1.83 m[IU]/L Normal 0.45-5.33 [facility] Comment on above: Performed By: #### 2 286436, 07650768, 0092033410, 7570824, 9036805, 9684004, 433064619, 9546462977, 0406459, 6249977099, 1662297916 ####[facility] (DEFAULT)[address] [place] [address] 79718 TnI HSon 05-21-2023 Troponin I High Sensitivity 594.1 pg/mL Critically abnormal <=20.0 [facility] Comment on above: Result Comment: Crit ical result TNIHS 594.1 pg/mL called to and read back by Effie Montanez at 21-May-2023 23:08 by Juana. Performed By: #### 5 [id number] ####[facility] (DEFAULT)[address] [place] [address] 72127 Troponin I High Sensitivity 610.4 pg/mL Critically abnormal <=20.0 [facility] Comment on above: Result Comment: Crit ical result TNIHS 610.4 pg/mL called to and read back by Bryn Victoria at 21-May-2023 15:44 by Juana. Performed By: #### 5 [id number] ####[facility] (DEFAULT)[address] [place] [address] 32567 Troponin I High Sensitivity 485.2 pg/mL Critically abnormal <=20.0 [facility] Comment on above: Result Comment: Crit ical result TNIHS 485.2 pg/mL called to and read back by Karyn Harman [employer] at 21-May-2023 10:03 by MH_aschroeder. Performed By: #### 2 063742, 57313761, 3475403005, 3290091, 1816725, 1436860, 076282281, 5770961746, 1035133, 6623131117, 6888056576 ####[facility] (DEFAULT)[address] [place] [address] UA Knofy5pu 05-21-2023 UA Amorph. Few [facility] Comment on above: Order Comment: Urina lysis Microscopic order added on by [employer] Rules system. Performed By: #### 1 [id number], 3479443, 45637092 ####[facility] (DEFAULT)[address] [place] [address] UA Bacteria 3+ [facility] Comment on above: Order Comment: Urina lysis Microscopic order added on by [employer] system. Performed By: #### 1 [id number], 3620561, 79378502 ####[facility] (DEFAULT)[address] [place] [address] UA RBC 5-10 [facility] Comment on above: Order Comment: Urina lysis Microscopic order added on by [employer] system. Performed By: #### 1 [id number], 5361310, 46074993 ####[facility] (DEFAULT)[address] [place] [address] UA Squam Epi Rare [facility] Comment on above: Order Comment: Urina lysis Microscopic order added on by [employer] system. Performed By: #### 1 [id number], 6391215, 85694487 ####[facility] (DEFAULT)[address] [place] [address] UA WBC 0-2 [facility] Comment on above: Order Comment: Urina lysis Microscopic order added on by [employer] system. Performed By: #### 1 [id number], 6757333, 50071114 ####[facility] (DEFAULT)[address] [place] [address] UA w Culture if Ind Standard on 05-21-2023 Breakpoint UA [facility] Comment on above: Performed By: #### 1 [id number], 7112646, 51123416 ####[facility] (DEFAULT)[address] [place] [address] 24308 Color (U) Yellow Normal [facility] Comment on above: Performed By: #### 1 [id number], 4988303, 46922690 ####[facility] (DEFAULT)[address] [place] [address] 30396 Culture? Yes Normal [facility] Comment on above: Result Comment: Resu lt created by rule GL_MAGR_ADD_UA_CULT1 Result created by rule GL_MAGR_ADD_UA_CULT1 Performed By: #### 1 [id number], 9477822, 46691143 ####[facility] (DEFAULT)[address] [place] [address] 09805 Glucose (U) [Mass/Vol] 100 mg/dL Normal [facility] Comment on above: Performed By: #### 1 371645842, 2124840, 15769103 ####[facility] (DEFAULT)[address] [place] [address] 73825 Ketones Ql (U) TRACE Normal [facility] Comment on above: Performed By: #### 1 [id number], 9270560, 69213483 ####[facility] (DEFAULT)[address] [place] [address] 94077 Micro? Indicated Invalid Interpretation Code [facility] Comment on above: Result Comment: Resu lt created by rule GL_MAGR_ADD_UA_MICRO Performed By: #### 1 [id number], 6845345, 32614611 ####[facility] (DEFAULT)[address] [place] [address] 98936 UA Bilirubin Negative Normal [facility] Comment on above: Performed By: #### 1 524911505, 4119428, 20615931 ####[facility] (DEFAULT)[address] [place] [address] 56148 UA Blood LARGE Abnormal NEGATIVE [facility] Comment on above: Performed By: #### 1 [id number], 9259181, 22954572 ####[facility] (DEFAULT)[address] [place] [address] 17118 UA Clarity SL CLOUDY Abnormal CLEAR [facility] Comment on above: Performed By: #### 1 [id number], 5379919, 47266160 ####[facility] (DEFAULT)[address] [place] [address] 08544 UA Leuk Est TRACE Abnormal NEGATIVE [facility] Comment on above: Performed By: #### 1 [id number], 8235566, 76026681 ####[facility] (DEFAULT)[address] [place] [address] 07137 UA Nitrite Negative Normal NEGATIVE [facility] Comment on above: Performed By: #### 1 [id number], 1942330, 50699480 ####[facility] (DEFAULT)[address] [place] [address] 41586 UA pH 5.5 Normal 5-8 [facility] Comment on above: Performed By: #### 1 557485199, 3808809, 69189126 ####[facility] (DEFAULT)[address] [place] [address] 61295 UA Protein 100 Abnormal NEGATIVE [facility] Comment on above: Performed By: #### 1 601421652, 0747357, 50323730 ####[facility] (DEFAULT)[address] [place] [address] 01521 UA Spec Grav >=1.030 Normal 1.001-1.035 [facility] Comment on above: Performed By: #### 1 [id number], 6292846, 35134000 ####[facility] (DEFAULT)[address] [place] [address] 02354 UA Urobilinogen 0.2 mg/dL Normal 0.2-1.0 [facility] Comment on above: Performed By: #### 1 [id number], 9986834, 95421593 ####[facility] (DEFAULT)[address] [place] [address] 91478 Urine Source Clean Catch Normal [facility] Comment on above: Performed By: #### 1 [id number], 2822810, 17857074 ####[facility] (DEFAULT)[address] [place] [address] US Echocardiogram Completeon 05-21-2023 US Echocardiogram Complete Normal [facility] Vit B12 Lvlon 05-21-2023 Vit B12 321 Normal 180-914 [facility] Comment on above: Performed By: #### 2 529693, 40439214, 7390910196, 5824209, 1221409, 6855948, 012378694, 5904684912, 4422894, 4311859617, 8110420303 ####[facility] (DEFAULT)[address] [place] [address] XR Chest 1 View Frontalon XR Chest 1 View Frontal [facility] XR Pelvis 1 or 2 Viewson XR Pelvis 1 or 2 Views [facility] Outside Recordson 03-07-2023 Outside Records [id number] .00OTGTIFF [facility] Coding Summaryon 02-20-2023 Coding Summary [facility] Office/Clinic Noteon 023 Office/Clinic Note [place] ED Clinical Summaryon 2022 ED Clinical Summary [facility] ED Note - Physicianon 2022 ED Note - Physician [facility] ED Patient Education Noteon 02-13-2023 ED Patient Education Note [facility] ED Patient Summaryon 023 ED Patient Summary [place] Outside Recordson 2023 Outside Records [id number] 0OTGTIFF [facility] Outside Recordson 12-20-2022 Outside Records [id number] OTGTIFF [facility] Outside Recordson 11-02-2022 Outside Records [id number]#1.0 0OTGTIFF [facility] XR ANKLE RIGHT STANDARDon XR ANKLE RIGHT STANDARD Radiology exam is complete. No Radiologist dictation. Please follow up with ordering provider. Final result Normal [facility] Vital Signs Date Time Vital Sign Value Performing Clinician Elissa pacheco 12-19-2023 14:30-0400 Blood Pressure Location Dipti Galea [facility] 12-19-2023 14:30-0400 Body temperature 98.6 [degF] Dipti Galea [facility] 12-19-2023 14:30-0400 Diastolic blood pressure 65 mm[Hg] Dipti Galea [facility] 12-19-2023 14:30-0400 Heart rate 85 /min Dipti Galea [facility] 12-19-2023 14:30-0400 Respiratory rate 16 /min Dipti Galea [facility] 12-19-2023 14:30-0400 Systolic blood pressure 131 mm[Hg] Dipti Galea [facility] Encounters Encounter Date Encounter Type Care Provider Facility Start: 01-13-2024 ambulatory Stephon Blackman ty:CD:[id number] Start: 12-19-2023 End: 12-19-2023 ambulatory Dipti J Galea Facility:[facility] Start: 12-19-2023 End: 12-19-2023 Patient encounter procedure Dipti J Galea [facility] Start: 12-05-2023 End: 12-05-2023 ambulatory Dipti J Galea Facility:[facility] Start: 12-05-2023 End: 12-05-2023 Patient encounter procedure Dipti J Galea [facility] Start: 11-19-2023 End: 11-19-2023 ambulatory ROBERTA CALABRESE Not Available Start: 10-10-2023 End: 10-14-2023 Evaluation and management of inpatient Romina Flowers Facility:[facility] Start: 10-10-2023 End: 10-11-2023 ambulatory Romina Flowers Facility:[facility] Start: 09-21-2023 End: 09-21-2023 Emergency department patient visit Romina Flowers Facility:[facility] Start: 08-15-2023 End: 08-15-2023 ambulatory Rocael Santos Morro Facility:[facility] Start: 07-18-2023 End: 07-18-2023 ambulatory Romina Flowers [facility]: [facility] Start: 06-27-2023 End: 06-27-2023 ambulatory [facility] Start: 06-20-2023 End: 06-20-2023 ambulatory Romina Flowers Facility: [facility] Start: 06-05-2023 ambulatory [facility] Start: 05-27-2023 Telephone encounter [facility] Comment on above: Hospital Follow-up Start: 05-21-2023 End: 05-27-2023 Evaluation and management of inpatient Romina Flowers Facility:[facility] Start: 05-21-2023 End: 05-21-2023 Emergency department patient visit Romina Flowers Facility:[facility] Start: 02-18-2023 End: 02-18-2023 ambulatory Romina Flowers Facility: [facility] Start: 02-13-2023 End: 02-13-2023 Emergency department patient visit Romina Flowers Facility:[facility] Procedures Date Procedure Procedure Detail Performing Clinician Start: 06-27-2023 Follow-up visit Follow-up [facility] Start: 03-31-2019 Cystourethroscopy wi th dilation of urethral stricture Diptiannabelle Escamilla Start: 05-01-2018 Cystourethroscopy wi th dilation of urethral stricture Dipti Galea Comment on above: 05/04/2008, 05/16/2010, 04/23/2012, 01/01/2013, 01/01/2013, 06/23/2013, 06/22/2014, 12/28/2014, 10/18/2015, 01/01/2017, 08/29/2017, 05/01/2018 Start: 05-18-2010 Cystourethroscopy wi th internal male urethrotomy Dipti Galea Comment on above: 05/18/2008, 05/19/19 11 Cholecystectomy Dipti Galea Partial resection of colon A lysha Galea Teleradiotherapy procedure A lysha Galea Comment on above: 2006 Transurethral prostatectomy Dipti Galea Comment on above: Dr. Rodriguez Plan of Treatment Date Care Activity Detail Author Start: 11-16-2022 Influenza vaccination Influenza Vaccine [facility] Start: 01-03-2000 Fall Risk Screening Fall Risk Screening [facility] Start: 1985 Administration of varicella zoster vaccine Zoster (Shingles) Vaccine (1 of 2) [facility] Start: 1954 DTaP,Tdap and Td Vaccines (1 - Tdap) DTaP,Tdap and Td Vaccines (1 - Tdap) [facility] Start: 1953 Adult BMI Screening Adult BMI Screening [facility] Start: 1947 Depression Screening Depression Screening [facility] Start: 1947 Tobacco Screening Tobacco Screening [facility] Start: 1935 Medicare Annual Wellness Visit Medicare Annual Wellness Visit [facility] Payers Date Payer Category Payer Medicare [id number] 2015 Private Health Insurance [employer] [id number] 2015-Present [address] [address] [place] [address] [id number] 2015 Private Health Insurance [id number] 1999 Medicare MEDICARE MEDICAR E RAILROAD [id number] 1999-Present [phone] [address] [address] [place] [address] [id number] 1999 Medicare [id number] 1935 Unknown [id number] 2.16.840.1.780178.3.579 .2.1286 1935 Unknown [id number] 2.16.840.1.601862.3.579 .2.1286 1935 Unknown [id number] 2.16.840.1.663105.3.579 .2.71 1935 Unknown [id number] 2.16.840.1.299260.3.579 .2.71 1935 Unknown [id number] 2.16.840.1.210497.3.579 .2.71 1935 Unknown [id number] 2.16.840.1.705516.3.579 .2.718 1935 Unknown [id number] 2.16.840.1.609117.3.579 .2.718 1935 Unknown [id number] 2.16.840.1.865262.3.579 .2.718 1935 Unknown [id number] 2.16.840.1.703654.3.579 .2.718 1935 Unknown [id number] 2.16.840.1.523941.3.579 .2.718 1935 Unknown [id number] 2.16.840.1.059544.3.579 .2. 1935 Unknown [id number] 2.16.840.1.728002.3.579 .2.718 1935 Unknown [id number] 2.16.840.1.424583.3.579 .2.1259 1935 Unknown [id number] 2.16.840.1.729860.3.579 .2.727 1935 Unknown [id number] 2.16.840.1.357606.3.579 .2.727 Social History Date Type Detail Facility [facility] Start: 05-25-2020 History of Social function [facility] Start: 05-25-[address] [facility] Childcare Unknown [facility] Start: 1935 Sex Assigned At Not on file [facility] Start: 03-31-2019 End: 12-19-2023 Tobacco smoking status Never smoked tobacco (finding) [facility] Functional Status Date Assessment Result Facility 12-19-2023 Functional Status N/A [facility] Clinical Notes 05-21-2023 to 12-19-2023 Telephone Encounter - Sheila Deluna - 05/27/2023 8:47 AM EDTTelephone Encounter - Lucia Winn MA - 05/27/2023 8:47 AM EDTTelephone Encounter - Lucia Winn MA - 05/27/2023 8:47 AM EDT Note Date & Type Note Facility 12-19-2023 Hospital Discharg e instructions Patient Education 12/19/2023 15:28:44 Acute Urinary Retention, Male Acute Urinary Retention, Male Acute urinary retention is a condition in which a person is unable to pass urine or can only pass a little urine. This condition can happen suddenly and last for a short time. If left untreated, it can become long-term (chronic) and result in kidney damage or other serious complications. What are the causes? This condition may be caused by: Obstruction or narrowing of the tube that drains the bladder (urethra). This may be caused by surgery, problems with nearby organs, or injury to the bladder or urethra. Problems with the nerves in the bladder. Tumors in the area of the pelvis, bladder, or urethra. Certain medicines. Bladder or urinary tract infection. Constipation. What increases the risk? This condition is more likely to develop in older men. As men age, their prostate may become larger and may start to press or squeeze on the bladder or the urethra. Other chronic health conditions can increase the risk of acute urinary retention. These include: Diseases such as multiple sclerosis. Spinal cord injuries. Diabetes. Degenerative cognitive conditions, such as delirium or dementia. Psychological conditions. A man may hold his urine due to trauma or because he does not want to use the bathroom. What are the signs or symptoms? Symptoms of this condition include: Trouble urinating. Pain in the lower abdomen. How is this diagnosed? This condition is diagnosed based on a physical exam and your medical history. You may also have other tests, including: An ultrasound of the bladder or kidneys or both. Blood tests. A urine analysis. Additional tests may be needed, such as a CT scan, MRI, and kidney or bladder function tests. How is this treated? Treatment for this condition may include: Medicines. Placing a thin, sterile tube (catheter) into the bladder to drain urine out of the body. This is called an indwelling urinary catheter. After it is inserted, the catheter is held in place with a small balloon that is filled with sterile water. Urine drains from the catheter into a collection bag outside of the body. Behavioral therapy. Treatment for other conditions. If needed, you may be treated in the hospital for kidney function problems or to manage other complications. Follow these instructions at home: Medicines Take kepo-uod-pvujrwv and prescription medicines only as told by your health care provider. Avoid certain medicines, such as decongestants, antihistamines, and some prescription medicines. Do not take any medicine unless your health care provider approves. If you were prescribed an antibiotic medicine, take it as told by your health care provider. Do not stop using the antibiotic even if you start to feel better. General instructions Do not use any products that contain nicotine or tobacco. These products include cigarettes, chewing tobacco, and vaping devices, such as e-cigarettes. If you need help quitting, ask your health care provider. Drink enough fluid to keep your urine pale yellow. If you have an indwelling urinary catheter, follow the instructions from your health care provider. Monitor any changes in your symptoms. Tell your health care provider about any changes. If instructed, monitor your blood pressure at home. Report changes as told by your health care provider. Keep all follow-up visits. This is important. Contact a health care provider if: You have uncomfortable bladder contractions that you cannot control (spasms). You leak urine with the spasms. Get help right away if: You have chills or a fever. You have blood in your urine. You have a catheter and the following happens: ?Your catheter stops draining urine. ?Your catheter falls out. Summary Acute urinary retention is a condition in which a person is unable to pass urine or can only pass a little urine. If left untreated, this condition can result in kidney damage or other serious complications. An enlarged prostate may cause this condition. As men age, their prostate gland may become larger and may press or squeeze on the bladder or the urethra. Treatment for this condition may include medicines and placement of an indwelling urinary catheter. Monitor any changes in your symptoms. Tell your health care provider about any changes. This information is not intended to replace advice given to you by your health care provider. Make sure you discuss any questions you have with your health care provider. Document Revised: 11/23/2020 Document Reviewed: 11/23/2020 [email or web address] Patient Education 2023 [employer]. Follow Up Care 12/05/2023 10:58:26 With:Francine MELGAR, Dipti Santos, URL Address: When: Unknown Comments:after cysto/UD [facility] 12-19-2023 Note Patient Education Urology Acute Urinary Retention, Male Acute urinary retention is a condition in which a person is unable to pass urine or can only pass a little urine. This condition can happen suddenly and last for a short time. If left untreated, it can become long-term (chronic) and result in kidney damage or other serious complications. What are the causes? This condition may be caused by: ? Obstruction or narrowing of the tube that drains the bladder (urethra). This may be caused by surgery, problems with nearby organs, or injury to the bladder or urethra. ? Problems with the nerves in the bladder. ? Tumors in the area of the pelvis, bladder, or urethra. ? Certain medicines. ? Bladder or urinary tract infection. ? Constipation. What increases the risk? This condition is more likely to develop in older men. As men age, their prostate may become larger and may start to press or squeeze on the bladder or the urethra. Other chronic health conditions can increase the risk of acute urinary retention. These include: ? Diseases such as multiple sclerosis. ? Spinal cord injuries. ? Diabetes. ? Degenerative cognitive conditions, such as delirium or dementia. ? Psychological conditions. A man may hold his urine due to trauma or because he does not want to use the bathroom. What are the signs or symptoms? Symptoms of this condition include: ? Trouble urinating. ? Pain in the lower abdomen. How is this diagnosed? This condition is diagnosed based on a physical exam and your medical history. You may also have other tests, including: ? An ultrasound of the bladder or kidneys or both. ? Blood tests. ? A urine analysis. ? Additional tests may be needed, such as a CT scan, MRI, and kidney or bladder function tests. How is this treated? Treatment for this condition may include: ? Medicines. ? Placing a thin, sterile tube (catheter) into the bladder to drain urine out of the body. This is called an indwelling urinary catheter. After it is inserted, the catheter is held in place with a small balloon that is filled with sterile water. Urine drains from the catheter into a collection bag outside of the body. ? Behavioral therapy. ? Treatment for other conditions. If needed, you may be treated in the hospital for kidney function problems or to manage other complications. Follow these instructions at home: Medicines ? Take [id number] and prescription medicines only as told by your health care provider. Avoid certain medicines, such as decongestants, antihistamines, and some prescription medicines. Do not take any medicine unless your health care provider approves. ? If you were prescribed an antibiotic medicine, take it as told by your health care provider. Do not stop using the antibiotic even if you start to feel better. General instructions ? Do not use any products that contain nicotine or tobacco. These products include cigarettes, chewing tobacco, and vaping devices, such as e-cigarettes. If you need help quitting, ask your health care provider. ? Drink enough fluid to keep your urine pale yellow. ? If you have an indwelling urinary catheter, follow the instructions from your health care provider. ? Monitor any changes in your symptoms. Tell your health care provider about any changes. ? If instructed, monitor your blood pressure at home. Report changes as told by your health care provider. ? Keep all follow-up visits. This is important. Contact a health care provider if: ? You have uncomfortable bladder contractions that you cannot control (spasms). ? You leak urine with the spasms. Get help right away if: ? You have chills or a fever. ? You have blood in your urine. ? You have a catheter and the following happens: ? Your catheter stops draining urine. ? Your catheter falls out. Summary ? Acute urinary retention is a condition in which a person is unable to pass urine or can only pass a little urine. If left untreated, this condition can result in kidney damage or other serious complications. ? An enlarged prostate may cause this condition. As men age, their prostate gland may become larger and may press or squeeze on the bladder or the urethra. ? Treatment for this condition may include medicines and placement of an indwelling urinary catheter. ? Monitor any changes in your symptoms. Tell your health care provider about any changes. This information is not intended to replace advice given to you by your health care provider. Make sure you discuss any questions you have with your health care provider. Document Revised: 11/23/2020 Document Reviewed: 11/23/2020 [email or web address] Patient Education ? 2023 [employer]. [facility] 05-27-2023 Miscellaneous Notes Formattin g of this note might be different from the original. Message from the 05/24/23 discharge list per BCD. He signed off patient care from . Dx Elevated Troponin Patient to f/u in 1 to 2 weeks post d/c bvb Called pt to schedule f/u appt from recent IP stay. No Answer. No Machine. FAHAD Pt currently at [facility], , Called to scheduled f/u appt, No Answer. LMOM. FAHAD documented in this encounter [facility] 05-27-2023 Telephone encount er Note Message from the 05/24/23 discharge list per BCD. He signed off patient care from . Dx Elevated Troponin Patient to f/u in 1 to 2 weeks post d/c bvb [facility] 05-27-2023 Telephone encount er Note Called pt to schedule f/u appt from recent IP stay. No Answer. No Machine. JAREDW [facility] 05-27-2023 Telephone encount er Note Pt currently at [facility], , Called to scheduled f/u appt, No Answer. LMOM. FAHAD [facility] 05-21-[address] Angelia Taveras calls a nd speaks with Dr. Salmon regarding plan of care and possible admission. [facility] 05-21-[address] Salmon speaks with Dr. Hopkins, senior geologist regarding plan of care. [facility] Evaluation + Plan note Future Appointments Appointment Date:12/19/2023 02:30:00 PM Scheduled Provider:Dipti Guzman Location:[facility] Appointment Type:URO Office Visit [facility] Hospital course Narrative No data available for this section [facility] Hospital Discharge instructions No data available for this section [facility] Instructions Not on filedocumente d in this encounter [facility] Progress note No data available for this section [facility]en Summary Purpose Family History No Family History Records FoundNo Family History Records FoundNo Family History Records FoundNo Family History Records Found No data available for this section No Family History Records Found No data available for this section Advance Directives No Advanced Directives Records FoundNo Advanced Directives Records FoundNo Advanced Directives Records FoundNo Advanced Directives Records FoundNo Advanced Directives Records Found Additional Source Comments (unrecognized sect ion and content) No Status Records FoundNo Status Records FoundNo Status Records FoundNo Status Records FoundNo Status Records Found INFORMATION SOURCE (unrecogn ized section and content) DATE CREATED AUTHOR 09/11/2017 [facility] DATE CREATED AUTHOR AUTHOR'S ORGANIZ ATION 06/28/2023 [facility] DATE CREATED AUTHOR AUTHOR'S ORGANIZ ATION 10/25/2023 [facility] DATE CREATED AUTHOR AUTHOR'S ORGANIZ ATION 11/20/2023 [facility] DATE CREATED AUTHOR AUTHOR'S ORGANIZ ATION 12/20/2023 [facility] Reason for Visit (unrecogniz ed section and content) Reason Onset Date Comments Hospital Follow-up 05/27/2023 Patient Care team informatio n (unrecognized section and content) Personnel Name: ROMINA FLOWERS MD Address: Address: [address] [place] [address] Personnel Name: ROMINA FLOWERS MD Address: Address: [address] [place] [address] FOR RECORDS PERTAINING TO PATIENTS WHO ARE [...] BE BASED ON THE PRIMARY CLINICAL RECORDS. [facility] [facility]. provides no warranty or guarantee of the accuracy or completeness of information in this document.
--- NOTE | 2024-01-10 08:41 | ED.ABDPAIN1 ---
HPI - Abdominal Pain General Chief Complaint: Abdominal Pain Stated Complaint: OTHER Time Seen by Provider: 01/10/24 05:29 Source: patient Mode of arrival: ambulance Limitations: no limitations History of Present Illness HPI narrative: 89-year-old male presented to the emergency department and was initially seen by Dr. Schreiber and signed out to me after discussing the case with him thoroughly. Please see his full history and physical exam. Related Data Home Medications ?Medication ?Instructions ?Recorded ?Confirmed amantadine HCl 100 mg capsule 100 mg PO DAILY 01/07/24 01/07/24 amlodipine 10 mg tablet 10 mg PO DAILY 01/07/24 01/07/24 aspirin 81 mg capsule 81 mg PO DAILY 01/07/24 01/07/24 carbidopa 25 mg-levodopa 250 mg 1 tab PO BID 01/07/24 01/07/24 tablet cholecalciferol (vitamin D3) 10 400 unit PO DAILY 01/07/24 01/07/24 mcg (400 unit) capsule polyethylene glycol 3350 17 17 g PO DAILY 01/09/24 01/09/24 gram/dose oral powder (Miralax) tolterodine 4 mg capsule,extended 4 mg PO DAILY 01/09/24 01/09/24 release 24 hr Allergies Allergy/AdvReac Type Severity Reaction Status Date / Time No Known Drug Allergies Allergy Verified 01/07/24 14:35 [facility] Medical History (Updated 01/10/24 @ 08:42 by Coy Mccracken MD) Anemia ?D64.9 - Anemia, unspecified (ICD-10) Hard of hearing ?H91.90 - Unspecified hearing loss, unspecified ear (ICD-10) History of external beam radiation therapy ?Z92.3 - Personal history of irradiation (ICD-10) Urethral stricture ?N35.919 - Unspecified urethral stricture, male, unspecified site (ICD-10) Stroke ?I63.9 - Cerebral infarction, unspecified (ICD-10) Parkinson disease ?G20.A1 - Parkinson's disease without dyskinesia, without mention of fluctuations (ICD-10) Microscopic hematuria ?R31.29 - Other microscopic hematuria (ICD-10) Hypertension ?I10 - Essential (primary) hypertension (ICD-10) Hyperlipidemia ?E78.5 - Hyperlipidemia, unspecified (ICD-10) Prostate cancer ?C61 - Malignant neoplasm of prostate (ICD-10) Enlarged prostate ?N40.0 - Benign prostatic hyperplasia without lower urinary tract symptoms (ICD-10) Surgical History (Updated 01/07/24 @ 14:34 by Keisha Robles RN) Hx of transurethral resection of prostate ?Z98.890 - Other specified postprocedural states (ICD-10) ?Z90.79 - Acquired absence of other genital organ(s) (ICD-10) H/O partial resection of colon ?Z90.49 - Acquired absence of other specified parts of digestive tract (ICD-10) Hx of cholecystectomy ?Z90.49 - Acquired absence of other specified parts of digestive tract (ICD-10) History of appendectomy ?Z90.49 - Acquired absence of other specified parts of digestive tract (ICD-10) S/P cystourethroscopy with dilation of urethral stricture ?Z98.890 - Other specified postprocedural states (ICD-10) Family History (Updated 01/07/24 @ 14:34 by Keisha Robles RN) Other Family history of cancer Social History (Updated 01/09/24 @ 13:14 by Jennyfer Burton) Within the past year, how often did you have a drink containing alcohol: never Score interpretation: A score less than 4 is consistent with normal alcohol consumption. Smoking status: Never smoker Non-prescribed substance use: denies use Little interest or pleasure in doing things: not at all Feeling down, depressed, or hopeless: not at all Exam Constitutional Vital Signs, click to edit/add: Last Vital Signs Temp 97.4 F L 01/10/24 05:12 Pulse 83 01/10/24 05:12 Resp 20 01/10/24 05:12 BP 186/79 H 01/10/24 08:06 Pulse Ox 95 01/10/24 05:12 O2 Del Method Room Air 01/10/24 05:12 Course Vital Signs Vital signs: Vital Signs Temperature 97.4 F L 01/10/24 05:12 Pulse Rate 83 01/10/24 05:12 Respiratory Rate 20 01/10/24 05:12 Blood Pressure 170/90 H 01/10/24 05:12 Pulse Oximetry 95 01/10/24 05:12 Oxygen Delivery Method Room Air 01/10/24 05:12 Temperature 97.4 F L 01/10/24 05:12 Pulse Rate 83 01/10/24 05:12 Respiratory Rate 20 01/10/24 05:12 Blood Pressure 186/79 H 01/10/24 08:06 Pulse Oximetry 95 01/10/24 05:12 Oxygen Delivery Method Room Air 01/10/24 05:12 MDM - Abdominal Pain MDM Narrative Medical decision making narrative: CAT scan shows bilateral ureteral stones. The 1 on the right is distal, at the UV junction and appears to be nonobstructing. The 1 on the left is mid ureter and appears to be causing some obstruction. A month ago his creatinine was 1.2 and today it is 1.6. Urine shows 2-5 white blood cells and urine culture is ordered and he was given IV Ancef. I spoke to Dr. Parada and the patient will be admitted for probable procedure later today. Treatment diagnosis and disposition were discussed with the patient. Differential Diagnosis Differential diagnosis: Likely abdominal pain, calculus of kidney, constipation, diverticulitis and gastroenteritis Lab Data Attestation: I reviewed the patient's lab results. Labs: Lab Results 01/10/24 01/10/24 Range/Units 05:20 05:25 WBC 11.9 H (4.0-11.0) 10^3/uL RBC 4.76 (4.70-6.10) 10^6/uL Hgb 14.1 (14.0-18.0) g/dL Hct 42.5 (42.0-54.0) % MCV 89.3 (80.0-94.0) fL MCH 29.6 (25.9-34.0) pg MCHC 33.2 (29.9-35.2) g/dL RDW 14.6 (11.0-15.0) % Plt Count 251 (150-450) 10^3/uL MPV 9.7 (9.5-13.5) fL Neut % (Auto) 85.1 H (43.0-75.0) % Lymph % (Auto) 8.5 L (20.5-60.0) % Victoria % (Auto) 5.8 (1.7-12.0) % Eos % (Auto) 0.1 L (0.9-7.0) % Baso % (Auto) 0.1 L (0.2-2.0) % Neut # (Auto) 10.1 H (1.4-6.5) 10^3/uL Lymph # (Auto) 1.0 L (1.2-3.8) 10^3/uL Victoria # (Auto) 0.7 (0.3-0.8) 10^3/uL Eos # (Auto) 0.0 (0.0-0.7) 10^3/uL Baso # (Auto) 0.0 (0.0-0.1) 10^3/uL Abs Immat Gran (auto) 0.05 H (0.00-0.03) 10^3/uL Imm/Tot Granulo (auto) 0.4 (0.0-0.5) % Sodium 141 (136-145) mmol/L Potassium 4.5 (3.5-5.1) mmol/L Chloride 106 (98-107) mmol/L Carbon Dioxide 23.5 (21.0-32.0) mmol/L Anion Gap 16.0 BUN 28.0 H (7.0-18.0) mg/dL Creatinine 1.66 H (0.70-1.30) mg/dL Est GFR ( Amer) 48 L (>=60 mL/min/1.73m^2) Est GFR (Non-Af Amer) 39 L (>=60 mL/min/1.73m^2) BUN/Creatinine Ratio 16.9 Glucose 143 H (74-106) mg/dL Lactate 1.2 (0.4-2.0) mmol/L Calcium 9.3 (8.5-10.1) mg/dL Urine Color Lt. yellow (YELLOW) Urine Clarity Clear (CLEAR) Urine pH 5.5 (5.0-9.0) Ur Specific [place] >=1.030 A (1.005-1.025) Urine Protein Trace (NEG/TRACE) mg/dL Urine Glucose (UA) Negative (NEGATIVE) mg/dL Urine Ketones Trace A (NEGATIVE) mg/dL Urine Occult Blood Large A (NEGATIVE) Urine Nitrite Negative (NEGATIVE) Urine Bilirubin Negative (NEGATIVE) Urine Urobilinogen 0.2 (0.2-1.0) EU/dL Ur Leukocyte Esterase Negative (NEGATIVE) Urine RBC 5-10 A (0-2) #/HPF Urine WBC 2-5 A (NONE SEEN) #/HPF Ur Squamous Epith Cells Rare (NONE/RARE) #/LPF Urine Crystals Seen A (None Seen) #/HPF Uric Acid Crystals Rare Amorphous Sediment Few Urine Bacteria Small A (NONE SEEN) #/HPF Urine Casts None seen (NONE SEEN) #/LPF Urine Mucus None seen (NONE SEEN) Ur Culture Indicated? Yes Imaging Data CT scan - abdomen: Radiologist's impression: ITS Impressions Abdomen/Pelvis CT 01/10/24 05:44 IMPRESSION: 1. Bilateral ureteral stones; nonobstructing on right, obstructing versus partially obstructing on left. 2. Additional nonobstructing left kidney stones and benign-appearing cysts. Electronically authenticated by: OSMAN NARAYAN Date: 01/10/2024 06:46 Discharge Plan Discharge Chief Complaint: Abdominal Pain Clinical Impression: Calculus of kidney Patient Disposition: Admitted as Observation Time of Disposition Decision: 08:42 Condition: Good Prescriptions / Home Meds: No Action amantadine HCl 100 mg capsule 100 mg PO DAILY amlodipine 10 mg tablet 10 mg PO DAILY aspirin 81 mg capsule 81 mg PO DAILY carbidopa-levodopa 25-250 mg tablet 1 tab PO BID cholecalciferol (vitamin D3) 10 mcg (400 unit) capsule 400 unit PO DAILY polyethylene glycol 3350 [Miralax] 17 gram/dose powder 17 g PO DAILY tolterodine 4 mg capsule,extended release 24hr 4 mg PO DAILY Print Language: Sri Lankan Referrals: MIKE MICHEL [Primary Care Provider] - 1 week
[2024-01-10] MEDS: CEFAZOLIN SODIUM/DEXTROSE,ISO 1 GM/50 ML PREMIX IV (08:50)
--- NOTE | 2024-01-10 08:58 | SWNOTE1 ---
CRISTOBAL received an email from Jennifer at [facility] and pt is from there facility. Jennifer was checking to see if he was admitted or still down in ED. CRISTOBAL could see that pt was going to be coming to the floor. CRISTOBAL let Jennifer know that he is coming to the floor and will update her later.
--- OUTSIDE RECORDS SUMMARY | 2024-01-10 09:57 | XMS_ITS | CCD ---
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 Pt resides at [facility]. Presents today with aide. Pt is previous [...] has worsening incontinence and urgency then the snf is to call us and we can [...] E&M of New Patient High 60-74 Min 35324 2. 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 Recurrent UTI (N39.0: Urinary tract infection, site not specified) 12/11/23 cx - 50-100k E. Coli, initially treated with Bactrim then switched to Ceftriaxone 1gm IM daily (will end on 12/20) Pt has had multiple ER visits for recurrent infections over the last year. -See #1 Ordered: E&M of New (more content not included)... Normal [facility] Comment on above: Result Comment: Elec tronically Signed By: Francine MELGAR, Dipti Santos\.br\Date and Time Signed: 12/19/23 15:30 EDT C Bloodon 10-17-2023 C Blood Corynebacterium species (diptheroids) No ARTURO performed on this organism Probable skin contamination Results called to Bryn Chairez on 2S at 729 by TB and results read back for confirmation on 10/15/23 [facility] Comment on above: Performed By: #### 6 [id number] ####[facility] (DEFAULT)[address] [place] [address] Outside Recordson 10-17-2023 Outside Records [id number]#1.00 OTGTIFF [facility] Outside Records [id number]#1.00 OTIFF [facility] Coding Summaryon 10-16-2023 Coding Summary [facility] C Bloodon 10-15-2023 C Blood No growth at 5 Days [facility] Comment on above: Performed By: #### 6 [id number] ####[facility] (DEFAULT)[address] [place] [address] Coding Summaryon 10-15-2023 Coding Summary [facility] Consent Formson 10-15-2023 Consent Forms [id number]#1.00 OTGTIFF [facility] Outside Recordson 10-15-2023 Outside Records [id number]#1.00 [facility] Provider Orderson 10-15-2023 Provider Orders [id number]#1.00 [facility] .Auto Diff 1on 10-14-2023 Auto Nuckolls % 14 % High 1-12 [facility] Comment on above: Performed By: #### 1 [id number], 3231575, 01513659 ####[facility] (DEFAULT)[address] [place] [address] 25259 Baso Abs# 0.0 x10 Normal 0.0-0.2 [facility] Comment on above: Performed By: #### 1 [id number], 3853337, 74456908 ####[facility] (DEFAULT)[address] [place] [address] 14801 Basophils/100 WBC (Bld) 0.6 % Normal 0.2-2.0 [facility] Comment on above: Performed By: #### 1 [id number], 0125861, 84377066 ####[facility] (DEFAULT)[address] [place] [address] 80726 Eos Abs# 0.2 x10 Normal 0.0-0.4 [facility] Comment on above: Performed By: #### 1 [id number], 3608250, 49508174 ####[facility] (DEFAULT)[address] [place] [address] 44819 Eosinophils/100 WBC (Bld) 3.8 % Normal 0.9-4.0 [facility] Comment on above: Performed By: #### 1 533174503, 8041935, 59340752 ####[facility] (DEFAULT)[address] [place] [address] 37163 Lymph Abs# 0.9 x10 Low 1.3-2.9 [facility] Comment on above: Performed By: #### 1 [id number], 7216794, 86665675 ####[facility] (DEFAULT)[address] [place] [address] 18044 Lymphocytes/100 WBC (Bld) 18 % Normal 14-48 [facility] Comment on above: Performed By: #### 1 [id number], 3168714, 88023412 ####[facility] (DEFAULT)[address] [place] [address] Nuckolls Abs# 0.7 x10 Normal 0.0-0.8 [facility] Comment on above: Performed By: #### 1 765677724, 2526156, 39606492 ####[facility] (DEFAULT)[address] [place] [address] Neut Abs# 3.3 x10 Normal 1.5-9.2 [facility] Comment on above: Performed By: #### 1 [id number], 1573982, 37723589 ####[facility] (DEFAULT)[address] [place] [address] Neutrophils/100 WBC (Bld) 64 % Normal 44-88 [facility] Comment on above: Performed By: #### 1 748933284, 2511318, 49681720 ####[facility] (DEFAULT)[address] [place] [address] 38606 BMP Standardon 10-14-2023 eGFR Non AA 55 mL/min/1.73m2 Invalid Interpretation Code [facility] Comment on above: Performed By: #### 1 [id number], 0641929, 00610638 ####[facility] (DEFAULT)[address] [place] [address] eGFR AA >60 Invalid Interpretation Code [facility] Comment on above: Performed By: #### 1 397918896, 5826550, 66009165 ####[facility] (DEFAULT)[address] [place] [address] 55254 Anion gap [Moles/Vol] 11.1 mmol/L Normal 5.0-19.0 [facility] Comment on above: Performed By: #### 1 [id number], 9615487, 03477516 ####[facility] (DEFAULT)[address] [place] [address] 15152 Calcium [Mass/Vol] 8.7 mg/dL Low 8.9-10.3 [facility] Comment on above: Performed By: #### 1 [id number], 0797827, 12830852 ####[facility] (DEFAULT)[address] [place] [address] 20796 Chloride [Moles/Vol] 106 mmol/L Normal 101-111 [facility] Comment on above: Performed By: #### 1 [id number], 3213658, 69344728 ####[facility] (DEFAULT)[address] [place] [address] 10555 CO2 [Moles/Vol] 28 mmol/L Normal 21-32 [facility] Comment on above: Performed By: #### 1 [id number], 4573030, 40390309 ####[facility] (DEFAULT)[address] [place] [address] 58023 Creatinine [Mass/Vol] 1.24 mg/dL Normal 0.90-1.30 [facility] Comment on above: Performed By: #### 1 690843379, 7679287, 31889478 ####[facility] (DEFAULT)[address] [place] [address] 91037 Glucose [Mass/Vol] 117.0 mg/dL Normal 74.0-118.0 [facility] Comment on above: Performed By: #### 1 079370119, 9618562, 12831510 ####[facility] (DEFAULT)[address] [place] [address] 07410 Osmolality 288 mOsm/L Invalid Interpretation Code [facility] Comment on above: Performed By: #### 1 979746685, 5762684, 28552449 ####[facility] (DEFAULT)[address] [place] [address] 37348 Potassium [Moles/Vol] 4.1 mmol/L Normal 3.6-5.1 [facility] Comment on above: Performed By: #### 1 952350500, 7067243, 94471595 ####[facility] (DEFAULT)[address] [place] [address] 43593 Sodium [Moles/Vol] 141.0 mmol/L Normal 136.0-144.0 [facility] Comment on above: Performed By: #### 1 [id number], 9119135, 27829760 ####[facility] (DEFAULT)[address] [place] [address] 54284 Urea nitrogen [Mass/Vol] 28 mg/dL High 8-26 [facility] Comment on above: Performed By: #### 1 092258971, 7258691, 41715090 ####[facility] (DEFAULT)[address] [place] [address] Urea nitrogen/Creatinine [Mass ratio] 22.5 mg/mg High 4.6-16.2 [facility] Comment on above: Performed By: #### 1 [id number], 3205536, 39228510 ####[facility] (DEFAULT)[address] [place] [address] CBC w/ Auto Diffon Erythrocyte distribution width (RBC) [Ratio] 15.5 % High 11.5-15.0 [facility] Comment on above: Performed By: #### 1 101403772, 2151348, 01631882 ####[facility] (DEFAULT)[address] [place] [address] Hematocrit (Bld) [Volume fraction] 37.2 % Normal 34.8-51.9 [facility] Comment on above: Performed By: #### 1 [id number], 6187980, 34626468 ####[facility] (DEFAULT)[address] [place] [address] 78652 Hemoglobin (Bld) [Mass/Vol] 12.5 g/dL Normal 11.8-17.7 [facility] Comment on above: Performed By: #### 1 [id number], 4313442, 25666976 ####[facility] (DEFAULT)[address] [place] [address] 83484 Man Diff? Auto Invalid Interpretation Code [facility] Comment on above: Performed By: #### 1 [id number], 3968556, 42030045 ####[facility] (DEFAULT)[address] [place] [address] 50141 MCH (RBC) [Entitic mass] 30 pg Normal 24-34 [facility] Comment on above: Performed By: #### 1 681344494, 0680926, 35191971 ####[facility] (DEFAULT)[address] [place] [address] 77716 MCHC (RBC) [Mass/Vol] 34 g/dL Normal 26-37 [facility] Comment on above: Performed By: #### 1 [id number], 0427986, 49440302 ####[facility] (DEFAULT)[address] [place] [address] 61982 MCV (RBC) [Entitic vol] 89 fL Normal 81-100 [facility] Comment on above: Performed By: #### 1 486010838, 4607936, 24512484 ####[facility] (DEFAULT)[address] [place] [address] 86777 Platelet 177 x10 Normal 138-427 [facility] Comment on above: Performed By: #### 1 569686762, 4433717, 85230884 ####[facility] (DEFAULT)[address] [place] [address] 35129 Platelet mean volume (Bld) [Entitic vol] 8.2 fL Normal 6.3-10.2 [facility] Comment on above: Performed By: #### 1 [id number], 2725767, 19911697 ####[facility] (DEFAULT)[address] [place] [address] 40373 RBC 4.19 x10 Normal 3.70-5.30 [facility] Comment on above: Performed By: #### 1 468357422, 8338093, 43939998 ####[facility] (DEFAULT)[address] [place] [address] 80057 WBC 5.2 x10 Normal 3.5-10.5 [facility] Comment on above: Performed By: #### 1 687503616, 7969323, 61427302 ####[facility] (DEFAULT)[address] [place] [address] Discharge Noteon 10-14-2023 Discharge Note Normal [facility] Education Noteon 10-14-2023 Education Note Normal [facility] Inpatient Clinical Summaryon 10-14-2023 Inpatient Clinical Summary Normal [facility] Inpatient Patient Summaryon 10-14-2023 Inpatient Patient Summary Normal [facility] Pharmacy Noteon 10-14-2023 Pharmacy Note Normal [facility] Progress Note - Nurseon 09-16 Progress Note - Nurse report called to [facility], . [Electronically Signed on: 10/14/2023 14:08 EDT] Indu March RN [Verified on: 10/14/2023 14:08 EDT] Indu March RN Normal [facility] .Auto Diff 110-13-2023 Auto Nuckolls % 10 % Normal 1-12 [facility] Comment on above: Performed By: #### 1 4628135, 5151503729, 7085910 ####[facility] (DEFAULT)[address] [place] [address] Baso Abs# 0.0 x10 Normal 0.0-0.2 [facility] Comment on above: Performed By: #### 1 8680657, 0551358172, 3296969 ####[facility] (DEFAULT)[address] [place] [address] Basophils/100 WBC (Bld) 0.3 % Normal 0.2-2.0 [facility] Comment on above: Performed By: #### 1 6085402, 0401590175, 3184984 ####[facility] (DEFAULT)[address] [place] [address] Eos Abs# 0.1 x10 Normal 0.0-0.4 [facility] Comment on above: Performed By: #### 1 7098506, 2699756090, 4463606 ####[facility] (DEFAULT)[address] [place] [address] Eosinophils/100 WBC (Bld) 1.4 % Normal 0.9-4.0 [facility] Comment on above: Performed By: #### 1 9636535, 3074034005, 4472594 ####[facility] (DEFAULT)[address] [place] [address] 11465 Lymph Abs# 1.0 x10 Low 1.3-2.9 [facility] Comment on above: Performed By: #### 1 3480476, 5953463724, 5392871 ####[facility] (DEFAULT)[address] [place] [address] 43503 Lymphocytes/100 WBC (Bld) 14 % Normal 14-48 [facility] Comment on above: Performed By: #### 1 7913631, 6798406951, 0108032 ####[facility] (DEFAULT)[address] [place] [address] 85791 Nuckolls Abs# 0.7 x10 Normal 0.0-0.8 [facility] Comment on above: Performed By: #### 1 3947127, 2387237045, 6444309 ####[facility] (DEFAULT)[address] [place] [address] Neut Abs# 5.5 x10 Normal 1.5-9.2 [facility] Comment on above: Performed By: #### 1 9280109, 3200335144, 9473942 ####[facility] (DEFAULT)[address] [place] [address] 42897 Neutrophils/100 WBC (Bld) 75 % Normal 44-88 [facility] Comment on above: Performed By: #### 1 6211065, 2241559945, 5859364 ####[facility] (DEFAULT)[address] [place] [address] 06343 BMP Standardon 10-13-2023 eGFR Non AA 56 mL/min/1.73m2 Invalid Interpretation Code [facility] Comment on above: Performed By: #### 1 4934159, 2021936504, 8387535 ####[facility] (DEFAULT)[address] [place] [address] eGFR AA >60 Invalid Interpretation Code [facility] Comment on above: Performed By: #### 1 4513328, 9486598062, 7114265 ####[facility] (DEFAULT)[address] [place] [address] 30239 Anion gap [Moles/Vol] 10.0 mmol/L Normal 5.0-19.0 [facility] Comment on above: Performed By: #### 1 6461026, 7007066582, 7252556 ####[facility] (DEFAULT)[address] [place] [address] 68221 Calcium [Mass/Vol] 9.1 mg/dL Normal 8.9-10.3 [facility] Comment on above: Performed By: #### 1 2134925, 5953003738, 6203809 ####[facility] (DEFAULT)[address] [place] [address] 19872 Chloride [Moles/Vol] 107 mmol/L Normal 101-111 [facility] Comment on above: Performed By: #### 1 2083770, 9026917234, 5296386 ####[facility] (DEFAULT)[address] [place] [address] 40436 CO2 [Moles/Vol] 25 mmol/L Normal 21-32 [facility] Comment on above: Performed By: #### 1 1530113, 7815003776, 3619242 ####[facility] (DEFAULT)[address] [place] [address] 39601 Creatinine [Mass/Vol] 1.23 mg/dL Normal 0.90-1.30 [facility] Comment on above: Performed By: #### 1 6353714, 9636368234, 3876518 ####[facility] (DEFAULT)[address] [place] [address] 37764 Glucose [Mass/Vol] 126.0 mg/dL High 74.0-118.0 [facility] Comment on above: Performed By: #### 1 5408880, 3673729589, 9660431 ####[facility] (DEFAULT)[address] [place] [address] 37892 Osmolality 282 mOsm/L Invalid Interpretation Code [facility] Comment on above: Performed By: #### 1 2883084, 3639879174, 5572259 ####[facility] (DEFAULT)[address] [place] [address] 85732 Potassium [Moles/Vol] 4.0 mmol/L Normal 3.6-5.1 [facility] Comment on above: Performed By: #### 1 6880947, 5720808920, 8499160 ####[facility] (DEFAULT)[address] [place] [address] Sodium [Moles/Vol] 138.0 mmol/L Normal 136.0-144.0 [facility] Comment on above: Performed By: #### 1 2260880, 7517827579, 9365876 ####[facility] (DEFAULT)[address] [place] [address] 09518 Urea nitrogen [Mass/Vol] 26 mg/dL Normal 8-26 [facility] Comment on above: Performed By: #### 1 6762425, 2829868556, 6310496 ####[facility] (DEFAULT)[address] [place] [address] Urea nitrogen/Creatinine [Mass ratio] 21.1 mg/mg High 4.6-16.2 [facility] Comment on above: Performed By: #### 1 0012789, 5173001962, 8623483 ####[facility] (DEFAULT)[address] [place] [address] CBC w/ Auto Diffon 4 Erythrocyte distribution width (RBC) [Ratio] 15.2 % High 11.5-15.0 [facility] Comment on above: Performed By: #### 1 6837331, 8198418943, 1455378 ####[facility] (DEFAULT)[address] [place] [address] 74102 Hematocrit (Bld) [Volume fraction] 39.0 % Normal 34.8-51.9 [facility] Comment on above: Performed By: #### 1 8309215, 2841727205, 8599738 ####[facility] (DEFAULT)[address] [place], [place] [address] Hemoglobin (Bld) [Mass/Vol] 13.1 g/dL Normal 11.8-17.7 [facility] Comment on above: Performed By: #### 1 7928125, 9369518529, 3985157 ####[facility] (DEFAULT)[address] [place], [place] [address] Man Diff? Auto Invalid Interpretation Code [facility] Comment on above: Performed By: #### 1 2112302, 5345076655, 1342194 ####[facility] (DEFAULT)[address] [place] [address] 45920 MCH (RBC) [Entitic mass] 30 pg Normal 24-34 [facility] Comment on above: Performed By: #### 1 2436824, 5460223235, 5111755 ####[facility] (DEFAULT)[address] [place] [address] 03967 MCHC (RBC) [Mass/Vol] 34 g/dL Normal 26-37 [facility] Comment on above: Performed By: #### 1 0903501, 0560180287, 2331865 ####[facility] (DEFAULT)[address] [place] [address] MCV (RBC) [Entitic vol] 90 fL Normal 81-100 [facility] Comment on above: Performed By: #### 1 4278105, 1657031867, 2034610 ####[facility] (DEFAULT)[address] [place] [address] Platelet 187 x10 Normal 138-427 [facility] Comment on above: Performed By: #### 1 5557299, 6167726351, 7505531 ####[facility] (DEFAULT)[address] [place] [address] 29110 Platelet mean volume (Bld) [Entitic vol] 8.1 fL Normal 6.3-10.2 [facility] Comment on above: Performed By: #### 1 6918026, 9559019903, 6985244 ####[facility] (DEFAULT)[address] [place] [address] 33153 RBC 4.35 x10 Normal 3.70-5.30 [facility] Comment on above: Performed By: #### 1 0694523, 9106982509, 2222073 ####[facility] (DEFAULT)[address] [place] [address] 38859 WBC 7.3 x10 Normal 3.5-10.5 [facility] Comment on above: Performed By: #### 1 9431132, 4910094182, 1167354 ####[facility] (DEFAULT)[address] [place] [address] Nutrition Noteon 10-13-2023 Nutrition Note note po intake has been good - 100% most meals; will continue to monitor po and assist with any changes prn. ts Normal [facility] RPR, Rfx Qn RPR/Confirm TP L Con 10-13-2023 RPR LC Non-Reactive Invalid Interpretation Code Non Reactive [facility] Comment on above: Result Comment: Perf ormed At: [facility] [id number] [place], [place] [id number] Vincent PhD Ph:[phone] Performed By: #### 1 9782163, 5432088525, 4348522, 8623118, [id number] ####[facility] (DEFAULT)[address] [place] [address] .Auto Diff 1on 10-12-2023 Auto Nuckolls % 9 % Normal 1-12 [facility] Comment on above: Performed By: #### 1 5322958, 5611627644, 7364167, 5034735, 0578367607 ####[facility] (DEFAULT)[address] [place] [address] Baso Abs# 0.0 x10 Normal 0.0-0.2 [facility] Comment on above: Performed By: #### 1 7278252, 5417503099, 6868639, 6141422, 6704215371 ####[facility] (DEFAULT)[address] [place] [address] Basophils/100 WBC (Bld) 0.4 % Normal 0.2-2.0 [facility] Comment on above: Performed By: #### 1 0108739, 0252127704, 9650485, 2228421, 8582544295 ####[facility] (DEFAULT)[address] [place] [address] Eos Abs# 0.1 x10 Normal 0.0-0.4 [facility] Comment on above: Performed By: #### 1 6032792, 7061529906, 0825954, 5349720, 9567975192 ####[facility] (DEFAULT)[address] [place] [address] 22013 Eosinophils/100 WBC (Bld) 1.6 % Normal 0.9-4.0 [facility] Comment on above: Performed By: #### 1 7651056, 4735565700, 9140742, 9780150, 9372855515 ####[facility] (DEFAULT)[address] [place] [address] 57686 Lymph Abs# 0.7 x10 Low 1.3-2.9 [facility] Comment on above: Performed By: #### 1 2545755, 1647916081, 3069332, 6440831, 0164605738 ####[facility] (DEFAULT)[address] [place] [address] Lymphocytes/100 WBC (Bld) 12 % Low 14-48 [facility] Comment on above: Performed By: #### 1 9352673, 9155921174, 9029268, 9637778, 1134754633 ####[facility] (DEFAULT)[address] [place] [address] Nuckolls Abs# 0.5 x10 Normal 0.0-0.8 [facility] Comment on above: Performed By: #### 1 8869390, 9085681816, 7432028, 9774662, 8303763438 ####[facility] (DEFAULT)[address] [place] [address] Neut Abs# 4.7 x10 Normal 1.5-9.2 [facility] Comment on above: Performed By: #### 1 8444991, 5161267185, 4510319, 2386166, 1432638802 ####[facility] (DEFAULT)[address] [place] [address] Neutrophils/100 WBC (Bld) 77 % Normal 44-88 [facility] Comment on above: Performed By: #### 1 5515664, 8156458505, 5613447, 0075378, 6063831303 ####[facility] (DEFAULT)[address] [place] [address] Standardon 10-12-2023 eGFR Non AA >60 Invalid Interpretation Code [facility] Comment on above: Performed By: #### 1 6806315, 5849385411, 4670880, 9949738, [id number] ####[facility] (DEFAULT)[address] [place] [address] 49762 eGFR AA >60 Invalid Interpretation Code [facility] Comment on above: Performed By: #### 1 0819410, 9157311035, 4833916, 2982916, 3198468875 ####[facility] (DEFAULT)[address] [place] [address] 94435 Anion gap [Moles/Vol] 10.9 mmol/L Normal 5.0-19.0 [facility] Comment on above: Performed By: #### 1 1715490, 9305258485, 7320104, 9565680, 3764967768 ####[facility] (DEFAULT)[address] [place] [address] 26658 Calcium [Mass/Vol] 8.8 mg/dL Low 8.9-10.3 [facility] Comment on above: Performed By: #### 1 9980603, 2215400603, 8682556, 3186085, 1318086161 ####[facility] (DEFAULT)[address] [place] [address] 20535 Chloride [Moles/Vol] 108 mmol/L Normal 101-111 [facility] Comment on above: Performed By: #### 1 6680101, 8833073810, 7757249, 4329205, 9484218622 ####[facility] (DEFAULT)[address] [place] [address] 82539 CO2 [Moles/Vol] 25 mmol/L Normal 21-32 [facility] Comment on above: Performed By: #### 1 4857533, 9260180760, 9660605, 7132459, 4734118745 ####[facility] (DEFAULT)[address] [place] [address] 77231 Creatinine [Mass/Vol] 1.11 mg/dL Normal 0.90-1.30 [facility] Comment on above: Performed By: #### 1 5210894, 1777489262, 3207082, 5067824, 5215067236 ####[facility] (DEFAULT)[address] [place] [address] 57413 Glucose [Mass/Vol] 123.0 mg/dL High 74.0-118.0 [facility] Comment on above: Performed By: #### 1 2651850, 6512657991, 2346195, 1146204, 5636164713 ####[facility] (DEFAULT)[address] [place] [address] 14844 Osmolality 286 mOsm/L Invalid Interpretation Code [facility] Comment on above: Performed By: #### 1 0201450, 7634376651, 8905712, 1119743, 2835978091 ####[facility] (DEFAULT)[address] [place] [address] 17060 Potassium [Moles/Vol] 3.9 mmol/L Normal 3.6-5.1 [facility] Comment on above: Performed By: #### 1 5210786, 6550321626, [id number], [id number], [id number] ####[facility] (DEFAULT)[address] [place] [address] [id number] Sodium [Moles/Vol] 140.0 mmol/L Normal 136.0-144.0 [facility] [place] Comment on above: Performed By: #### 1 [id number], [id number], [id number], [id number] ####[facility] (DEFAULT)[address] [place] [address] 19210 Urea nitrogen [Mass/Vol] 27 mg/dL High 8-26 [facility] Comment on above: Performed By: #### 1 4969520, 6165314578, 1642732, 7721849, 3968933241 ####[facility] (DEFAULT)[address] [place] [address] 85931 Urea nitrogen/Creatinine [Mass ratio] 24.3 mg/mg High 4.6-16.2 [facility] Comment on above: Performed By: #### 1 1116058, 8810215390, 7226720, 3606605, 8163634297 ####[facility] (DEFAULT)[address] [place] [address] CBC w/ Auto Diffon Erythrocyte distribution width (RBC) [Ratio] 14.9 % Normal 11.5-15.0 [facility] Comment on above: Performed By: #### 1 2267927, 6606545430, 6396012, 1870139, 4128547250 ####[facility] (DEFAULT)[address] [place] [address] Hematocrit (Bld) [Volume fraction] 39.2 % Normal 34.8-51.9 [facility] Comment on above: Performed By: #### 1 3182945, 7845208840, 0428353, 8703116, 9883234117 ####[facility] (DEFAULT)[address] [place] [address] Hemoglobin (Bld) [Mass/Vol] 13.2 g/dL Normal 11.8-17.7 [facility] Comment on above: Performed By: #### 1 4013241, 4797365462, 3569584, 5930763, 3700692428 ####[facility] (DEFAULT)[address] [place] [address] Man Diff? Auto Invalid Interpretation Code [facility] Comment on above: Performed By: #### 1 4108096, 1272325281, 7581743, 8741338, 3414603108 ####[facility] (DEFAULT)[address] [place] [address] MCH (RBC) [Entitic mass] 30 pg Normal 24-34 [facility] Comment on above: Performed By: #### 1 8734071, 3536303098, 1944440, 8315598, 8668622085 ####[facility] (DEFAULT)[address] [place] [address] MCHC (RBC) [Mass/Vol] 34 g/dL Normal 26-37 [facility] Comment on above: Performed By: #### 1 4828181, 8658428681, 5684610, 5563435, 5553793598 ####[facility] (DEFAULT)[address] [place] [address] MCV (RBC) [Entitic vol] 88 fL Normal 81-100 [facility] Comment on above: Performed By: #### 1 2871295, 4645854710, 6091634, 6057254, 0213801960 ####[facility] (DEFAULT)[address] [place] [address] Platelet 181 x10 Normal 138-427 [facility] Comment on above: Performed By: #### 1 0543856, 1874064038, 5999862, 3539580, 8337151427 ####[facility] (DEFAULT)[address] [place] [address] Platelet mean volume (Bld) [Entitic vol] 8.1 fL Normal 6.3-10.2 [facility] Comment on above: Performed By: #### 1 2381607, 3749770927, 6321658, 6759586, 1726939654 ####[facility] (DEFAULT)[address] [place] [address] RBC 4.46 x10 Normal 3.70-5.30 [facility] Comment on above: Performed By: #### 1 7283029, 8180907494, 4910240, 1445089, 9117572653 ####[facility] (DEFAULT)[address] [place] [address] WBC 6.0 x10 Normal 3.5-10.5 [facility] Comment on above: Performed By: #### 1 9250913, 3743728757, 4218499, 7414356, 1902756285 ####[facility] (DEFAULT)[address] [place] [address] CRPon 10-12-2023 CRP [Mass/Vol] mg/L Normal <=0.5 [facility] Comment on above: Performed By: #### 1 5316098, 8185386710, 4188587, 1612440, 0435893702 ####[facility] (DEFAULT)[address] [place] [address] .Auto Diff 1on 10-11-2023 Auto Nuckolls % 10 % Normal 1-12 [facility] Comment on above: Performed By: #### 1 742903729, 00973202, 0508189 ####[facility] (DEFAULT)[address] [place] [address] 55757 Baso Abs# 0.0 x10 Normal 0.0-0.2 [facility] Comment on above: Performed By: #### 1 571789785, 63052638, 1609212 ####[facility] (DEFAULT)[address] [place] [address] 03311 Basophils/100 WBC (Bld) 0.8 % Normal 0.2-2.0 [facility] Comment on above: Performed By: #### 1 053527475, 82066609, 3950984 ####[facility] (DEFAULT)[address] [place] [address] 82911 Eos Abs# 0.1 x10 Normal 0.0-0.4 [facility] Comment on above: Performed By: #### 1 099619533, 84110928, 5507775 ####[facility] (DEFAULT)[address] [place] [address] Eosinophils/100 WBC (Bld) 2.4 % Normal 0.9-4.0 [facility] Comment on above: Performed By: #### 1 956105133, 76518743, 1712194 ####[facility] (DEFAULT)[address] [place] [address] 37918 Lymph Abs# 0.9 x10 Low 1.3-2.9 [facility] Comment on above: Performed By: #### 1 753368324, 15401529, 0389286 ####[facility] (DEFAULT)[address] [place] [address] 24073 Lymphocytes/100 WBC (Bld) 17 % Normal 14-48 [facility] Comment on above: Performed By: #### 1 117872560, 11912267, 7292788 ####[facility] (DEFAULT)[address] [place] [address] 59463 Nuckolls Abs# 0.5 x10 Normal 0.0-0.8 [facility] Comment on above: Performed By: #### 1 945992929, 23159959, 8900870 ####[facility] (DEFAULT)[address] [place] [address] 36813 Neut Abs# 3.7 x10 Normal 1.5-9.2 [facility] Comment on above: Performed By: #### 1 426728985, 29762563, 3646253 ####[facility] (DEFAULT)[address] [place] [address] 54667 Neutrophils/100 WBC (Bld) 70 % Normal 44-88 [facility] Comment on above: Performed By: #### 1 792858092, 27733930, 3251256 ####[facility] (DEFAULT)[address] [place] [address] 86574 BMP Standardon 10-11-2023 eGFR Non AA 57 mL/min/1.73m2 Invalid Interpretation Code [facility] Comment on above: Performed By: #### 1 691690887, 20029420, 3440806 ####[facility] (DEFAULT)[address] [place] [address] 18543 eGFR AA >60 Invalid Interpretation Code [facility] Comment on above: Performed By: #### 1 122011741, 01122059, 9315973 ####[facility] (DEFAULT)[address] [place] [address] 60236 Anion gap [Moles/Vol] 9.0 mmol/L Normal 5.0-19.0 [facility] Comment on above: Performed By: #### 1 932582061, 63487375, 7408156 ####[facility] (DEFAULT)[address] [place] [address] 89181 Calcium [Mass/Vol] 8.6 mg/dL Low 8.9-10.3 [facility] Comment on above: Performed By: #### 1 652406497, 85198970, 6314240 ####[facility] (DEFAULT)[address] [place] [address] 27580 Chloride [Moles/Vol] 110 mmol/L Normal 101-111 [facility] Comment on above: Performed By: #### 1 353892428, 03453952, 8691998 ####[facility] (DEFAULT)[address] [place] [address] 02104 CO2 [Moles/Vol] 25 mmol/L Normal 21-32 [facility] Comment on above: Performed By: #### 1 214370928, 63854619, 3453173 ####[facility] (DEFAULT)[address] [place] [address] 14207 Creatinine [Mass/Vol] 1.20 mg/dL Normal 0.90-1.30 [facility] Comment on above: Performed By: #### 1 240041659, 23438465, 1765229 ####[facility] (DEFAULT)[address] [place] [address] 07711 Glucose [Mass/Vol] 116.0 mg/dL Normal 74.0-118.0 [facility] Comment on above: Performed By: #### 1 826075982, 72608355, 9213298 ####[facility] (DEFAULT)[address] [place] [address] 93785 Osmolality 285 mOsm/L Invalid Interpretation Code [facility] Comment on above: Performed By: #### 1 854384990, 54089015, 1327369 ####[facility] (DEFAULT)[address] [place] [address] 98070 Potassium [Moles/Vol] 4.0 mmol/L Normal 3.6-5.1 [facility] Comment on above: Performed By: #### 1 094412776, 41627056, 3298880 ####[facility] (DEFAULT)[address] [place] [address] 30680 Sodium [Moles/Vol] 140.0 mmol/L Normal 136.0-144.0 [facility] Comment on above: Performed By: #### 1 817783019, 05473871, 9069306 ####[facility] (DEFAULT)[address] [place] [address] 47636 Urea nitrogen [Mass/Vol] 27 mg/dL High 8-26 [facility] Comment on above: Performed By: #### 1 669230948, 58041710, 0737146 ####[facility] (DEFAULT)[address] [place] [address] 98053 Urea nitrogen/Creatinine [Mass ratio] 22.5 mg/mg High 4.6-16.2 [facility] Comment on above: Performed By: #### 1 114914322, 23406780, 1411587 ####[facility] (DEFAULT)[address] [place] [address] CBC w/ Auto Diffon Erythrocyte distribution width (RBC) [Ratio] 14.8 % Normal 11.5-15.0 [facility] Comment on above: Performed By: #### 1 102347333, 11482529, 3192857 ####[facility] (DEFAULT)[address] [place] [address] Hematocrit (Bld) [Volume fraction] 39.1 % Normal 34.8-51.9 [facility] Comment on above: Performed By: #### 1 270543874, 78897902, 4052413 ####[facility] (DEFAULT)[address] [place] [address] 57414 Hemoglobin (Bld) [Mass/Vol] 12.9 g/dL Normal 11.8-17.7 [facility] Comment on above: Performed By: #### 1 000788923, 82033028, 1338729 ####[facility] (DEFAULT)[address] [place] [address] Man Diff? Auto Invalid Interpretation Code [facility] Comment on above: Performed By: #### 1 800089107, 51292829, 2879038 ####[facility] (DEFAULT)[address] [place] [address] 25256 MCH (RBC) [Entitic mass] 30 pg Normal 24-34 [facility] Comment on above: Performed By: #### 1 340389569, 99684695, 7126291 ####[facility] (DEFAULT)[address] [place] [address] 01706 MCHC (RBC) [Mass/Vol] 33 g/dL Normal 26-37 [facility] Comment on above: Performed By: #### 1 728652425, 93691549, 7113362 ####[facility] (DEFAULT)[address] [place] [address] 63420 MCV (RBC) [Entitic vol] 89 fL Normal 81-100 [facility] Comment on above: Performed By: #### 1 995579813, 88507691, 3012945 ####[facility] (DEFAULT)[address] [place] [address] Platelet 177 x10 Normal 138-427 [facility] Comment on above: Performed By: #### 1 233157883, 30753653, 4136041 ####[facility] (DEFAULT)[address] [place] [address] Platelet mean volume (Bld) [Entitic vol] 8.2 fL Normal 6.3-10.2 [facility] Comment on above: Performed By: #### 1 960432721, 36402093, 4314599 ####[facility] (DEFAULT)[address] [place] [address] RBC 4.38 x10 Normal 3.70-5.30 [facility] Comment on above: Performed By: #### 1 106772941, 50808844, 7969489 ####[facility] (DEFAULT)[address] [place] [address] WBC 5.4 x10 Normal 3.5-10.5 [facility] Comment on above: Performed By: #### 1 961593786, 16576683, 7069960 ####[facility] (DEFAULT)[address] [place] [address] .Auto Diff 1on 10-10-2023 Auto Nuckolls % 7 % Normal 1-12 [facility] Comment on above: Performed By: #### 5 955836744, 52576342, 2990828337, 3565858945, 0925026494, 1900108, 1617435256, 2343068027, 7590866, 8374382 ####[facility] (DEFAULT)[address] [place] [address] Baso Abs# 0.0 x10 Normal 0.0-0.2 [facility] Comment on above: Performed By: #### 5 531712752, 94047504, 3480523663, 1124886511, 6246625915, 0179416, 8989874645, 0137737671, 7738540, 7823742 ####[facility] (DEFAULT)[address] [place] [address] 49801 Basophils/100 WBC (Bld) 0.6 % Normal 0.2-2.0 [facility] Comment on above: Performed By: #### 5 173260891, 84714084, 2773552746, 1020913080, 1708514377, 6391457, 4016504319, 3528329355, 3536918, 9756981 ####[facility] (DEFAULT)[address] [place] [address] 92489 Eos Abs# 0.1 x10 Normal 0.0-0.4 [facility] Comment on above: Performed By: #### 5 985100054, 91199043, 2223045448, 1846358178, 3469425427, 8374144, 5925130573, 7932820915, 2559057, 0635687 ####[facility] (DEFAULT)[address] [place] [address] 14161 Eosinophils/100 WBC (Bld) 2.9 % Normal 0.9-4.0 [facility] Comment on above: Performed By: #### 5 122776230, 97217914, 4653549012, 9509922043, 2443862955, 4348127, 2807938693, 8429951068, 6280687, 1644836 ####[facility] (DEFAULT)[address] [place] [address] 31784 Lymph Abs# 0.8 x10 Low 1.3-2.9 [facility] Comment on above: Performed By: #### 5 310643396, 60750196, 4212147067, 0001344714, 6090617315, 9059287, 8107249147, 0506729090, 8224039, 0917550 ####[facility] (DEFAULT)[address] [place] [address] 68725 Lymphocytes/100 WBC (Bld) 17 % Normal 14-48 [facility] Comment on above: Performed By: #### 5 607578798, 31199101, 0454370739, 5747716393, 8650931245, 9846047, 4464196288, 4133286050, 9199684, 8499556 ####[facility] (DEFAULT)[address] [place] [address] Nuckolls Abs# 0.3 x10 Normal 0.0-0.8 [facility] Comment on above: Performed By: #### 5 147845029, 46594020, 2165439928, 8677920346, 8974409556, 1442922, 3597804734, 9589807889, 2881707, 4205984 ####[facility] (DEFAULT)[address] [place] [address] Neut Abs# 3.4 x10 Normal 1.5-9.2 [facility] Comment on above: Performed By: #### 5 817991043, 09780432, 4869191909, 5033702569, 9043886640, 6656677, 2673017364, 7102632258, 2240935, 2013128 ####[facility] (DEFAULT)[address] [place] [address] Neutrophils/100 WBC (Bld) 73 % Normal 44-88 [facility] Comment on above: Performed By: #### 5 581351958, 64769790, 9559836583, 8910907125, 5104701176, 8086457, 4735397856, 5423342247, 3962063, 8504616 ####[facility] (DEFAULT)[address] [place] [address] Ammoniaon 10-10-2023 Ammonia (P) [Moles/Vol] 15.0 umol/L Normal 10.0-35.0 [facility] Comment on above: Performed By: #### 6 33351826, 4732725, 0741247, 7385714, 3915963 ####[facility] (DEFAULT)[address] [place] [address] BNP.on 10-10-2023 Natriuretic peptide B (Bld) [Mass/Vol] 69.0 pg/mL Normal 0.0-100.0 [facility] Comment on above: Result Comment: BNP results greater than 100 pg/mL are considered abnormal and suggestive of patients with CHF. Higher BNP concentrations measured in the first 72 hours after an acute coronary syndorme are associated with an increased risk of , myocardial infarction, and CHF. Performed By: #### 5 111332323, 08545956, 5577105886, 2385207941, 9675393133, 3061430, 2432500616, 1801711977, 3013676, 1616894 ####[facility] (DEFAULT)[address] [place] [address] 69479 CBC w/ Auto Diffon 4 Erythrocyte distribution width (RBC) [Ratio] 15.3 % High 11.5-15.0 [facility] Comment on above: Performed By: #### 5 530913090, 43099799, 1591063879, 3426750951, 2792719094, 0242966, 4367584830, 6313061406, 9409511, 3309530 ####[facility] (DEFAULT)[address] [place] [address] Hematocrit (Bld) [Volume fraction] 41.7 % Normal 34.8-51.9 [facility] Comment on above: Performed By: #### 5 791140764, 80808966, 4340679064, 7538552074, 0327743660, 8560554, 1703128601, 4042785415, 5965040, 8466157 ####[facility] (DEFAULT)[address] [place] [address] 49895 Hemoglobin (Bld) [Mass/Vol] 13.8 g/dL Normal 11.8-17.7 [facility] Comment on above: Performed By: #### 5 122891293, 45262105, 0725951478, 0294032918, 1281216566, 7616051, 9305016973, 5100524861, 8876547, 8919150 ####[facility] (DEFAULT)[address] [place] [address] 95352 Man Diff? Auto Invalid Interpretation Code [facility] Comment on above: Performed By: #### 5 626672912, 63662048, 2571551274, 0734694422, 3267729892, 7659943, 0658143543, 4691916001, 6466432, 7961432 ####[facility] (DEFAULT)[address] [place] [address] MCH (RBC) [Entitic mass] 30 pg Normal 24-34 [facility] Comment on above: Performed By: #### 5 400460110, 99501750, 9339481005, 4521527871, 7308470684, 4981380, 9799346318, 5185470835, 0717208, 5252395 ####[facility] (DEFAULT)[address] [place] [address] MCHC (RBC) [Mass/Vol] 33 g/dL Normal 26-37 [facility] Comment on above: Performed By: #### 5 914414893, 16180050, 4459727568, 0005991751, 6239887374, 7387146, 1698786641, 0812072194, 1971320, 6744009 ####[facility] (DEFAULT)[address] [place] [address] MCV (RBC) [Entitic vol] 90 fL Normal 81-100 [facility] Comment on above: Performed By: #### 5 101102016, 27007049, 4690643551, 6204027667, 3641519463, 1790470, 2064417510, 5831104705, 2809616, 1836719 ####[facility] (DEFAULT)[address] [place] [address] Platelet 190 x10 Normal 138-427 [facility] Comment on above: Performed By: #### 5 480108548, 03245947, 2351157470, 2337280438, 4896787183, 2472810, 1208737671, 2491703903, 6984530, 6752663 ####[facility] (DEFAULT)[address] [place] [address] Platelet mean volume (Bld) [Entitic vol] 8.0 fL Normal 6.3-10.2 [facility] Comment on above: Performed By: #### 5 497822174, 93743881, 4856911367, 5626070386, 3214048117, 8982375, 0748369568, 9758736018, 3516678, 7191615 ####[facility] (DEFAULT)[address] [place] [address] 56565 RBC 4.63 x10 Normal 3.70-5.30 [facility] Comment on above: Performed By: #### 5 808829910, 91879415, 2081816330, 6346204563, 2520789393, 7820974, 3031315754, 2141333123, 6633384, 2127498 ####[facility] (DEFAULT)[address] [place] [address] 50258 WBC 4.7 x10 Normal 3.5-10.5 [facility] Comment on above: Performed By: #### 5 784252263, 94412113, 8411295945, 1871399394, 5787609129, 5085001, 7423911432, 7629084327, 0103243, 2476406 ####[facility] (DEFAULT)[address] [place] [address] 95357 [facility] Standardon 10-10-2023 eGFR Non AA 59 mL/min/1.73m2 Invalid Interpretation Code [facility] Comment on above: Performed By: #### 5 739535713, 62508228, 3182693309, 9959330245, 7913683947, 4547074, 8779287398, 2882091921, 5128280, 7379728 ####[facility] (DEFAULT)[address] [place] [address] 59658 eGFR AA >60 Invalid Interpretation Code [facility] Comment on above: Performed By: #### 5 621897526, 63965173, 5434539226, 7342974312, 3572953548, 8124185, 1433308693, 9816199142, 7671045, 8999340 ####[facility] (DEFAULT)[address] [place] [address] 46658 Albumin [Mass/Vol] 3.8 g/dL Normal 3.5-5.0 [facility] Comment on above: Performed By: #### 5 404612693, 93040530, 2114275097, 5959943754, 9201088479, 9085377, 7693559612, 1133223711, 3723722, 7570592 ####[facility] (DEFAULT)[address] [place] [address] 56336 Albumin/Globulin [Mass ratio] 1.1 {ratio} Low 1.4-2.6 [facility] Comment on above: Performed By: #### 5 492002287, 32530189, 4150305242, 6494515788, 1234316129, 2169542, 8341375995, 0284221877, 9037639, 8466357 ####[facility] (DEFAULT)[address] [place] [address] Alk Phos 67 IU/L Normal 32-91 [facility] Comment on above: Performed By: #### 5 766639382, 44114837, 2216906926, 9204950914, 7356051377, 8213579, 0777960741, 9988676076, 3775754, 8166526 ####[facility] (DEFAULT)[address] [place] [address] 68334 ALT [Catalytic activity/Vol] 15.0 U/L Low 17.0-63.0 [facility] Comment on above: Performed By: #### 5 213957637, 73752372, 6896087575, 9268341387, 2055222895, 5052572, 5191373775, 8629617463, 9689816, 3028836 ####[facility] (DEFAULT)[address] [place] [address] 60606 Anion gap [Moles/Vol] 9.0 mmol/L Normal 5.0-19.0 [facility] Comment on above: Performed By: #### 5 201658496, 66580615, 3643280004, 1381886972, 5789781411, 6578833, 1680567788, 6369752878, 3464976, 5573624 ####[facility] (DEFAULT)[address] [place] [address] 92672 AST [Catalytic activity/Vol] 16 U/L Normal 15-41 [facility] Comment on above: Performed By: #### 5 018749140, 39252217, 4049842325, 2191169004, 9993298199, 6976676, 0088438470, 2037115384, 8003355, 5682659 ####[facility] (DEFAULT)[address] [place] [address] 45776 Bili Total 0.7 mg/dL Normal 0.3-1.2 [facility] Comment on above: Performed By: #### 5 348898760, 80388347, 0526084457, 1656071484, 6147446141, 9911975, 0957042532, 1255237664, 5955832, 8357745 ####[facility] (DEFAULT)[address] [place] [address] 07305 Calcium [Mass/Vol] 8.9 mg/dL Normal 8.9-10.3 [facility] Comment on above: Performed By: #### 5 782426374, 41246066, 3884756455, 3324269107, 7983473668, 7766958, 5823269864, 0884958021, 9980571, 9159388 ####[facility] (DEFAULT)[address] [place] [address] 37653 Chloride [Moles/Vol] 112 mmol/L High 101-111 [facility] Comment on above: Performed By: #### 5 021412921, 61067123, 4754967235, 2670945945, 8751702072, , 0679805932, 2155546221, 6903308, 8960046 ####[facility] (DEFAULT)[address] [place] [address] 73054 CO2 [Moles/Vol] 24 mmol/L Normal 21-32 [facility] Comment on above: Performed By: #### 5 877074555, 02832590, 2707885492, 4893310875, 4263005906, 8143450, 4040642704, 9027316268, 4625898, 5328616 ####[facility] (DEFAULT)[address] [place] [address] 95929 Creatinine [Mass/Vol] 1.16 mg/dL Normal 0.90-1.30 [facility] Comment on above: Performed By: #### 5 455801341, 85792823, 5428614591, 1199704383, 0372174660, 9152600, 2400197890, 2232664341, 9692759, 9356081 ####[facility] (DEFAULT)[address] [place] [address] Globulin (S) [Mass/Vol] 3.3 g/dL Normal 1.5-4.3 [facility] Comment on above: Performed By: #### 5 142776058, 88386528, 0010797401, 1856436420, 0750176861, 1256527, 0143578944, 7794211428, 8636440, 4388561 ####[facility] (DEFAULT)[address] [place] [address] 74239 Glucose [Mass/Vol] 137.0 mg/dL High 74.0-118.0 [facility] Comment on above: Performed By: #### 5 [id number], [id number], [id number], 3513978206, [id number], 9844155, 1184993832, 9497068429, 4205120, 7299624 ####[facility] (DEFAULT)[address] [place] [address] Osmolality 289 mOsm/L Invalid Interpretation Code [facility] Comment on above: Performed By: #### 5 [id number], [id number], [id number], [id number], 9121154362, 7390583, 5346060308, 0149336828, 8888124, 1880734 ####[facility] (DEFAULT)[address] [place] [address]24 Potassium [Moles/Vol] 4.0 mmol/L Normal 3.6-5.1 [facility] Comment on above: Performed By: #### 5 [id number], [id number], [id number], 4291280786, 7988318669, 6191205, 7169667471, 0454239200, 7716889, 9032900 ####[facility] (DEFAULT)[address] [place] [address]240 Protein [Mass/Vol] 7.1 g/dL Normal 6.5-8.1 [facility] Comment on above: Performed By: #### 5 [id number], [id number], [id number], 6304491000, 4588183852, 5790301, 3363115766, 6170057380, 7791216, 6216452 ####[facility] (DEFAULT)[address] [place] [address] Sodium [Moles/Vol] 141.0 mmol/L Normal 136.0-144.0 [facility] Comment on above: Performed By: #### 5 [id number], 34285460, [id number], 2085708464, 5145560717, 9412019, 0696512896, 1322375340, 2320489, 7633915 ####[facility] (DEFAULT)[address] [place] [address] Urea nitrogen [Mass/Vol] 28 mg/dL High 8-26 [facility] Comment on above: Performed By: #### 5 [id number], [id number], [id number], 7574511632, 5853135090, 3380609, 7219780416, 7584949563, 1749051, 8539381 ####[facility] (DEFAULT)[address] [place] [address]96 Urea nitrogen/Creatinine [Mass ratio] 24.1 mg/mg High 4.6-16.2 [facility] Comment on above: Performed By: #### 5 [id number], 26432941, 4384387076, 1971499948, 1162113601, 9261306, 3571258244, 0894573111, 8616696, 7533630 ####[facility] (DEFAULT)[address] [place] [address] 26249 Breakpoint Chem Normal [facility] Comment on above: Performed By: #### 5 [id number], 18611290, 1879767614, 3931716424, 2093016410, 3788675, 5028477406, 8598073813, 8790631, 6313900 ####[facility] (DEFAULT)[address] [place] [address] Head or Brain w/o Contras ton 10-10-2023 CT Head or Brain w/o Contrast [facility] ED Clinical Summaryon 2023 ED Clinical Summary [facility] ED Note-Nursingon 10-10-2023 ED Note-Nursing Patient is currently admitted to [facility] and pending labs will be reviewed by admitting provider. [facility] ED Patient Education Noteon 10-10-2023 ED Patient Education Note Education Materials [facility] ED Patient Summaryon 024 ED Patient Summary [facility] Extra Redon 10-10-2023 Tube Collected Yes Invalid Interpretation Code [facility] Comment on above: Performed By: #### 5 [id number], 56881944, 0209289115, 0618957897, 4223328030, 0169887, 0145053761, 6121750996, 7656444, 8147552 ####[facility] (DEFAULT)[address] [place] [address] 80860 Folateon 10-10-2023 Folic Acid Level 8.87 ng/mL Normal 5.90-24.80 [facility] Comment on above: Performed By: #### 6 [id number], 6458158, 2760122, 2657402, 7902975 ####[facility] (DEFAULT)[address] [place] [address] 86333 HgbA1c Standardon 10-10-2023 .Hb 14.7 Invalid Interpretation Code [facility] Comment on above: Performed By: #### 1 [id number] ####[facility] (DEFAULT)[address] [place] [address] 86691 .Hgb A1c 0.59 g/dL Invalid Interpretation Code [facility] Comment on above: Performed By: #### 1 [id number] ####[facility] (DEFAULT)[address] [place] [address] 39745 Glucose [Mass/Vol] 120 mg/dL Invalid Interpretation Code [facility] Comment on above: Performed By: #### 1 [id number] ####[facility] (DEFAULT)[address] [place] [address] 83772 HbA1c (Bld) [Mass fraction] 5.8 % Normal 4.6-6.2 [facility] Comment on above: Performed By: #### 1 [id number] ####[facility] (DEFAULT)[address] [place] [address] 05198 VERDIN Formon 10-10-2023 VERDIN Form [id number]#1.0 0OTGTIFF Normal [facility] Magnesiumon 10-10-2023 Magnesium [Mass/Vol] 2.08 mg/dL Normal 1.80-2.50 [facility] Comment on above: Performed By: #### 5 [id number], 54441283, 3073942470, 8598205308, 0653381357, 1317743, 9932038407, 0515787892, 5622665, 0592336 ####[facility] (DEFAULT)[address] [place] [address] 37312 Nutrition Noteon 10-10-2023 Nutrition Note Normal [facility] PTon 10-10-2023 INR Coag (PPP) [Relative time] 1.04 {INR} Normal 0.91-1.11 [facility] Comment on above: Performed By: #### 5 [id number], 02101417, 2955943623, 1725626667, 0351584556, 7568809, 1872733165, 7167835945, 3636615, 2655301 ####[facility] (DEFAULT)[address] [place] [address] 05874 PT 10.8 second(s) Normal 9.7-11.8 [facility] Comment on above: Performed By: #### 5 [id number], 63054266, 0052611421, 7572232340, 9566914796, 7301336, 7133261323, 2878117187, 2287422, 1185198 ####[facility] (DEFAULT)[address] [place] [address] 43548 Pharmacy Noteon 10-10-2023 Pharmacy Note Normal [facility] Progress Note - Nurseon 09-16 Progress Note - Nurse Normal [facility] TSH w/ Reflex to FT4on 10-09 TSH Qn 2.00 m[IU]/L Normal 0.45-5.33 [facility] Comment on above: Performed By: #### 6 [id number], 2139289, 9126297, 3015358, 3679907 ####[facility] (DEFAULT)[address] [place] [address] 81251 TnI HSon 10-10-2023 Troponin I High Sensitivity 15.6 pg/mL Normal <=20.0 [facility] Comment on above: Performed By: #### 5 [id number], 27900222, 1222851571, 0881734290, 9466212420, 7585927, 8152292866, 2702370647, 6783602, 5684671 ####[facility] (DEFAULT)[address] [place] [address] UA w Culture if Ind Standard on 10-10-2023 Breakpoint UA [facility] Comment on above: Performed By: #### 1 [id number] ####[facility] (DEFAULT)[address] [place] [address] Color (U) Yellow Normal [facility] Comment on above: Performed By: #### 1 [id number] ####[facility] (DEFAULT)[address] [place] [address] 89706 Culture? Not Indicated Invalid Interpretation Code [facility] Comment on above: Result Comment: Resu lt created by rule GL_MAGR_ADD_UA_CULT1 Performed By: #### 1 [id number] ####[facility] (DEFAULT)[address] [place] [address] 65925 Glucose (U) [Mass/Vol] Negative [facility] Comment on above: Performed By: #### 1 [id number] ####[facility] (DEFAULT)[address] [place] [address] 81905 Ketones Ql (U) Negative Normal [facility] Comment on above: Performed By: #### 1 [id number] ####[facility] (DEFAULT)[address] [place] [address] Micro? Not Indicated Invalid Interpretation Code [facility] Comment on above: Result Comment: Resu lt created by rule GL_MAGR_ADD_UA_MICRO Performed By: #### 1 [id number] ####[facility] (DEFAULT)[address] [place] [address] UA Bilirubin Negative Normal [facility] Comment on above: Performed By: #### 1 [id number] ####[facility] (DEFAULT)[address] [place] [address] 98093 UA Blood Negative Normal NEGATIVE [facility] Comment on above: Performed By: #### 1 [id number] ####[facility] (DEFAULT)[address] [place] [address] 13750 UA Clarity CLEAR Normal CLEAR [facility] Comment on above: Performed By: #### 1 [id number] ####[facility] (DEFAULT)[address] [place] [address] UA Leuk Est Negative Normal NEGATIVE [facility] Comment on above: Performed By: #### 1 [id number] ####[facility] (DEFAULT)[address] [place] [address] UA Nitrite Negative Normal NEGATIVE [facility] Comment on above: Performed By: #### 1 [id number] ####[facility] (DEFAULT)[address] [place] [address] 91090 UA pH 6.0 Normal 5-8 [facility] Comment on above: Performed By: #### 1 [id number] ####[facility] (DEFAULT)[address] [place] [address] 26833 UA Protein Negative Normal NEGATIVE [facility] Comment on above: Performed By: #### 1 [id number] ####[facility] (DEFAULT)[address] [place] [address] 82080 UA Spec Grav >=1.030 Normal 1.001-1.035 [facility] Comment on above: Performed By: #### 1 [id number] ####[facility] (DEFAULT)[address] [place] [address] 89481 UA Urobilinogen 0.2 mg/dL Normal 0.2-1.0 [facility] Comment on above: Performed By: #### 1 [id number] ####[facility] (DEFAULT)[address] [place] [address] 79171 Urine Source Clean Catch Normal [facility] Comment on above: Performed By: #### 1 [id number] ####[facility] (DEFAULT)[address] [place] [address] 70039 Vit B12 Lvlon 10-10-2023 Vit B12 275 Normal 180-914 [facility] Comment on above: Performed By: #### 6 [id number], 7965515, 0872952, 8141845, 6677111 ####[facility] (DEFAULT)[address] [place] [address] 77239 Vit D25 OHon 10-10-2023 Vitamin D 25 OH 16 ng/mL Low 30-100 [facility] Comment on above: Performed By: #### 6 61259777, 6878759, 0698466, 3884799, 0888400 ####[facility] (DEFAULT)[address] [place] [address] 30360 XR Chest 1 View Frontalon XR Chest 1 View Frontal Normal [facility] Coding Summaryon 10-02-2023 Coding Summary Normal [facility] C Bloodon 09-26-2023 C Blood Right AC @ 10:30 am MW No growth at 5 Days Normal [facility] Comment on above: Performed By: #### 6 [id number] ####[facility] (DEFAULT)[address] [place] [address] 35048 ED Note - Physicianon 2023 ED Note - Physician [facility] C Urineon 09-23-2023 C Urine Normal [facility] Comment on above: Performed By: #### 1 [id number], 64187029, 8066954 ####[facility] (DEFAULT)[address] [place] [address] 43543 Outside Recordson 09-23-2023 Outside Records [id number]#1.0 0OTGTIFF Normal [facility] .Auto Diff 109-21-2023 Auto Nuckolls % 8 % Normal -12 [facility] Comment on above: Performed By: #### 1 [id number], 6854320633, 76154703, 3835013, 2373239087, 0096376652 ####[facility] (DEFAULT)[address] [place] [address] 86485 Baso Abs# 0.0 x10 Normal 0.0-0.2 [facility] Comment on above: Performed By: #### 1 085159140, 2102860933, 86274312, 4104750, 5573801725, 5433834402 ####[facility] (DEFAULT)[address] [place] [address] 32516 Basophils/100 WBC (Bld) 0.4 % Normal 0.2-2.0 [facility] Comment on above: Performed By: #### 1 258875703, 6316654584, 34894773, 5168814, 5243540531, 8403639796 ####[facility] (DEFAULT)[address] [place] [address] 33547 Eos Abs# 0.1 x10 Normal 0.0-0.4 [facility] Comment on above: Performed By: #### 1 358975463, 0099614248, 20782729, 4938333, 2878786390, 2268674434 ####[facility] (DEFAULT)[address] [place] [address] 44962 Eosinophils/100 WBC (Bld) 1.4 % Normal 0.9-4.0 [facility] Comment on above: Performed By: #### 1 017857626, 6404575512, 87515347, 3067155, 5258476833, 2493626889 ####[facility] (DEFAULT)[address] [place] [address] 59779 Lymph Abs# 1.0 x10 Low 1.3-2.9 [facility] Comment on above: Performed By: #### 1 033319628, 0775723615, 04860746, 7768493, 5876798068, 8624806697 ####[facility] (DEFAULT)[address] [place] [address] Lymphocytes/100 WBC (Bld) 16 % Normal 14-48 [facility] Comment on above: Performed By: #### 1 395048737, 8766630219, 02810990, 4544408, 3029602144, 9320561810 ####[facility] (DEFAULT)[address] [place] [address] Nuckolls Abs# 0.5 x10 Normal 0.0-0.8 [facility] Comment on above: Performed By: #### 1 014597313, 2342370127, 12668434, 7306451, 0404529309, 1495420633 ####[facility] (DEFAULT)[address] [place] [address] Neut Abs# 4.9 x10 Normal 1.5-9.2 [facility] Comment on above: Performed By: #### 1 952797699, 5228323247, 78821041, 8956786, 2071229708, 5106393394 ####[facility] (DEFAULT)[address] [place] [address] Neutrophils/100 WBC (Bld) 74 % Normal 44-88 [facility] Comment on above: Performed By: #### 1 998371465, 7085005213, 21442153, 6658972, 7245605235, 2493451890 ####[facility] (DEFAULT)[address] [place] [address] CBC w/ Auto Diffon 4 Erythrocyte distribution width (RBC) [Ratio] 14.8 % Normal 11.5-15.0 [facility] Comment on above: Performed By: #### 1 880182737, 1460608133, 63342414, 2047625, 6603546702, 5730699530 ####[facility] (DEFAULT)[address] [place] [address] Hematocrit (Bld) [Volume fraction] 42.1 % Normal 34.8-51.9 [facility] Comment on above: Performed By: #### 1 568795785, 3218382558, 57192661, 4106902, 7647033254, 2953210619 ####[facility] (DEFAULT)[address] [place] [address] 96666 Hemoglobin (Bld) [Mass/Vol] 13.8 g/dL Normal 11.8-17.7 [facility] Comment on above: Performed By: #### 1 411815911, 2846156713, 49139986, 2523488, 6442843861, 8560057634 ####[facility] (DEFAULT)[address] [place] [address] 50105 Man Diff? Auto Invalid Interpretation Code [facility] Comment on above: Performed By: #### 1 863383743, 4947706531, 19486940, 2568089, 4004298103, 4703430946 ####[facility] (DEFAULT)[address] [place] [address] 07386 MCH (RBC) [Entitic mass] 29 pg Normal 24-34 [facility] Comment on above: Performed By: #### 1 410215131, 4905226387, 76148123, 6462934, 1827998470, 5832500513 ####[facility] (DEFAULT)[address] [place] [address] 42885 MCHC (RBC) [Mass/Vol] 33 g/dL Normal 26-37 [facility] Comment on above: Performed By: #### 1 695377429, 1853999761, 37307549, 0916131, 0872510303, 7735145771 ####[facility] (DEFAULT)[address] [place] [address] 47289 MCV (RBC) [Entitic vol] 90 fL Normal 81-100 [facility] Comment on above: Performed By: #### 1 914290099, 8019769266, 74777452, 9781812, 6749006759, 8972652989 ####[facility] (DEFAULT)[address] [place] [address] 07862 Platelet 191 x10 Normal 138-427 [facility] Comment on above: Performed By: #### 1 361087511, 8111051652, 66215638, 8882375, 9858899200, 1031176334 ####[facility] (DEFAULT)[address] [place] [address] Platelet mean volume (Bld) [Entitic vol] 8.1 fL Normal 6.3-10.2 [facility] Comment on above: Performed By: #### 1 138558028, 8706777201, 31974001, 2480859, 7567928421, 4345170593 ####[facility] (DEFAULT)[address] [place] [address] RBC 4.68 x10 Normal 3.70-5.30 [facility] Comment on above: Performed By: #### 1 302495783, 3767257627, 77664265, 5054909, 5417317525, 3325676418 ####[facility] (DEFAULT)[address] [place] [address] WBC 6.6 x10 Normal 3.5-10.5 [facility] Comment on above: Performed By: #### 1 858759593, 1829442429, 01700018, 0802366, 7393441094, 4643575150 ####[facility] (DEFAULT)[address] [place] [address] Standardon 09-21-2023 eGFR Non AA 57 mL/min/1.73m2 Invalid Interpretation Code [facility] Comment on above: Performed By: #### 1 293561819, 4657034715, 99867249, 9174128, 0629242076, 9034369482 ####[facility] (DEFAULT)[address] [place] [address] eGFR AA >60 Invalid Interpretation Code [facility] Comment on above: Performed By: #### 1 833333931, 1676035421, 36681325, 9516025, 8611168759, 5590908808 ####[facility] (DEFAULT)[address] [place] [address] Albumin [Mass/Vol] 3.9 g/dL Normal 3.5-5.0 [facility] Comment on above: Performed By: #### 1 910323702, 6318169769, 21377168, 6805346, 9541802347, 2973023591 ####[facility] (DEFAULT)[address] [place] [address] Albumin/Globulin [Mass ratio] 1.1 {ratio} Low 1.4-2.6 [facility] Comment on above: Performed By: #### 1 380411978, 9118783433, 36544012, 6951213, 9622735162, 2610477058 ####[facility] (DEFAULT)[address] [place] [address] Alk Phos 75 IU/L Normal 32-91 [facility] Comment on above: Performed By: #### 1 880741918, 6042153907, 08273060, 9796556, 3205663348, 0636754740 ####[facility] (DEFAULT)[address] [place] [address] ALT [Catalytic activity/Vol] 18.0 U/L Normal 17.0-63.0 [facility] Comment on above: Performed By: #### 1 643129211, 1330680610, 55799584, 0276040, 3547980565, 4585133527 ####[facility] (DEFAULT)[address] [place] [address] 73522 Anion gap [Moles/Vol] 9.4 mmol/L Normal 5.0-19.0 [facility] Comment on above: Performed By: #### 1 626346527, 5063532553, 77824948, 7619793, 0192951421, 6205752291 ####[facility] (DEFAULT)[address] [place] [address] 68005 AST [Catalytic activity/Vol] 24 U/L Normal 15-41 [facility] Comment on above: Performed By: #### 1 606147194, 1360001420, 96313314, 1404706, 0747821431, 3403441693 ####[facility] (DEFAULT)[address] [place] [address] Bili Total 0.7 mg/dL Normal 0.3-1.2 [facility] Comment on above: Performed By: #### 1 010617847, 8465033597, 13844454, 4574162, 4222436790, 4138422318 ####[facility] (DEFAULT)[address] [place] [address] 83481 Calcium [Mass/Vol] 8.8 mg/dL Low 8.9-10.3 [facility] Comment on above: Performed By: #### 1 145492694, 4659570254, 09210608, 5166770, 3232864373, 7255467003 ####[facility] (DEFAULT)[address] [place] [address] 49744 Chloride [Moles/Vol] 110 mmol/L Normal 101-111 [facility] Comment on above: Performed By: #### 1 640206493, 8457210419, 25790277, 5935430, 5835948407, 7392484266 ####[facility] (DEFAULT)[address] [place] [address] 93088 CO2 [Moles/Vol] 23 mmol/L Normal 21-32 [facility] Comment on above: Performed By: #### 1 955869839, 6622432892, 97368614, 1494498, 5563095002, 8471555925 ####[facility] (DEFAULT)[address] [place] [address] 29394 Creatinine [Mass/Vol] 1.20 mg/dL Normal 0.90-1.30 [facility] Comment on above: Performed By: #### 1 087650802, 2527140306, 78869891, 5813106, 9961556236, 7613068806 ####[facility] (DEFAULT)[address] [place] [address] 49935 Globulin (S) [Mass/Vol] 3.3 g/dL Normal 1.5-4.3 [facility] Comment on above: Performed By: #### 1 774909621, 4169560442, 13396010, 8046518, 9177510250, 0155694961 ####[facility] (DEFAULT)[address] [place] [address] Glucose [Mass/Vol] 114.0 mg/dL Normal 74.0-118.0 [facility] Comment on above: Performed By: #### 1 208083381, 6130329305, 12001296, 7955203, 3307898869, 2934402032 ####[facility] (DEFAULT)[address] [place] [address] 26806 Osmolality 282 mOsm/L Invalid Interpretation Code [facility] Comment on above: Performed By: #### 1 010731418, 7966943021, 10817637, 0730305, 0735505517, 8174154359 ####[facility] (DEFAULT)[address] [place] [address] 10746 Potassium [Moles/Vol] 4.4 mmol/L Normal 3.6-5.1 [facility] Comment on above: Performed By: #### 1 402076924, 5687225818, 64615161, 0290536, 7478594474, 3959487358 ####[facility] (DEFAULT)[address] [place] [address] 11096 Protein [Mass/Vol] 7.2 g/dL Normal 6.5-8.1 [facility] Comment on above: Performed By: #### 1 683186093, 1771816623, 45988274, 7292410, 0009229951, 8288444767 ####[facility] (DEFAULT)[address] [place] [address] 76600 Sodium [Moles/Vol] 138.0 mmol/L Normal 136.0-144.0 [facility] Comment on above: Performed By: #### 1 195385400, 4573700382, 13092788, 0717378, 1850763611, 0249918359 ####[facility] (DEFAULT)[address] [place] [address] 67760 Urea nitrogen [Mass/Vol] 29 mg/dL High 8-26 [facility] Comment on above: Performed By: #### 1 529694415, 1354882567, 39391796, 8121132, 5866858593, 5193925919 ####[facility] (DEFAULT)[address] [place] [address] 40731 Urea nitrogen/Creatinine [Mass ratio] 24.1 mg/mg High 4.6-16.2 [facility] Comment on above: Performed By: #### 1 842746213, 3033540863, 56593925, 3972471, 4611030825, 0626741344 ####[facility] (DEFAULT)[address] [place] [address] 31817 ED Clinical Summaryon 2023 ED Clinical Summary Normal [facility] ED Note - Physicianon 2023 ED Note - Physician [facility] ED Patient Education Noteon 09-21-2023 ED Patient Education Note Normal [facility] ED Patient Summaryon 024 ED Patient Summary Normal [facility] Extra Blueon 09-21-2023 Tube Collected Yes Invalid Interpretation Code [facility] Comment on above: Performed By: #### 1 [id number], 2225919924, 58579513, 5371429, 1329133213, 3770105068 ####[facility] (DEFAULT)[address] [place] [address] 06859 Lactic Acidon 09-21-2023 Lactic Acid 14.1 mg/dL Normal 4.5-19.8 [facility] Comment on above: Performed By: #### 2 [id number] ####[facility] (DEFAULT)[address] [place] [address] 28670 Progress Note - Nurseon Progress Note - Nurse Normal [facility] SARS-CoV-2 (COVID-19) PCRon 09-21-2023 Employed in healthcare? Unknown Invalid Interpretation Code [facility] Comment on above: Performed By: #### 6 [id number] ####[facility] (DEFAULT)[address] [place] [address] Group care resident? Unknown Invalid Interpretation Code [facility] Comment on above: Performed By: #### 6 [id number] ####[facility] (DEFAULT)[address] [place] [address] In ICU? Unknown Invalid Interpretation Code [facility] Comment on above: Performed By: #### 6 [id number] ####[facility] (DEFAULT)[address] [place] [address] Internal Control Pass Normal [facility] Comment on above: Performed By: #### 6 [id number] ####[facility] (DEFAULT)[address] [place] [address] status? Unknown Invalid Interpretation Code [facility] Comment on above: Performed By: #### 6 [id number] ####[facility] (DEFAULT)[address] [place] [address] SARS-CoV-2 (COVID-19) RNA ANDREW+probe Ql (Unsp spec) Not detected Normal Not Detected [facility] Comment on above: Result Comment: Perf ormed by PCR methodology. Performed By: #### 6 [id number] ####[facility] (DEFAULT)[address] [place] [address] SARS-CoV-2 (COVID-19) RNA ANDREW+probe Ql (Unsp spec) Unknown Invalid Interpretation Code [facility] Comment on above: Performed By: #### 6 [id number] ####[facility] (DEFAULT)[address] [place] [address] Symptomatic as defined by CDC? Unknown Invalid Interpretation Code [facility] Comment on above: Performed By: #### 6 [id number] ####[facility] (DEFAULT)[address] [place] [address] UA Khalp8jo 09-21-2023 UA Bacteria 3+ Normal [facility] Comment on above: Order Comment: Urina lysis Microscopic order added on by [employer] Rules system. Performed By: #### 1 [id number], 19471256, 7868163 ####[facility] (DEFAULT)[address] [place] [address] UA RBC 15-20 Normal [facility] Comment on above: Order Comment: Urina lysis Microscopic order added on by [employer] Rules system. Performed By: #### 1 025778816, 25216500, 1810932 ####[facility] (DEFAULT)[address] [place] [address] UA Squam Epi Rare Normal [facility] Comment on above: Order Comment: Urina lysis Microscopic order added on by [employer] Rules system. Performed By: #### 1 615091207, 07299813, 1709294 ####[facility] (DEFAULT)[address] [place] [address] 83801 UA WBC 60-70 [facility] Comment on above: Order Comment: Urina lysis Microscopic order added on by [employer] Rules system. Performed By: #### 1 [id number], 30477393, 6411779 ####[facility] (DEFAULT)[address] [place] [address] 00987 UA w Culture if Ind Standard on 09-21-2023 Breakpoint UA [facility] Comment on above: Performed By: #### 1 [id number], 73293526, 5933283 ####[facility] (DEFAULT)[address] [place] [address] 28788 Color (U) Yellow [facility] Comment on above: Performed By: #### 1 [id number] ####[facility] (DEFAULT)[address] [place] [id number] Culture? Yes [facility] Comment on above: Result Comment: Resu lt created by rule GL_MAGR_ADD_UA_CULT Result created by rule GL_MAGR_ADD_UA_CULT1 Performed By: #### 1 [id number] ####[facility] (DEFAULT)[address] [place] [address] 84657 Glucose (U) [Mass/Vol] Negative [facility] Comment on above: Performed By: #### 1 [id number], [id number], 6032276 ####[facility] (DEFAULT)[address] [place] [address] 75520 Ketones Ql (U) Negative [facility] Comment on above: Performed By: #### 1 [id number], 54088504, 0647170 ####[facility] (DEFAULT)[address] [place] [address] 88662 Micro? Indicated Invalid Interpretation Code [facility] Comment on above: Result Comment: Resu lt created by rule GL_MAGR_ADD_UA_MICRO Performed By: #### 1 [id number], 01154930, 9851239 ####[facility] (DEFAULT)[address] [place] [address] UA Bilirubin Negative Normal [facility] Comment on above: Performed By: #### 1 [id number], 01312408, 2583340 ####[facility] (DEFAULT)[address] [place] [address] UA Blood MODERATE Abnormal NEGATIVE [facility] Comment on above: Performed By: #### 1 [id number], 19383677, 5852655 ####[facility] (DEFAULT)[address] [place] [address] UA Clarity SL CLOUDY Abnormal CLEAR [facility] Comment on above: Performed By: #### 1 [id number], 27262048, 0730474 ####[facility] (DEFAULT)[address] [place] [address] UA Leuk Est MODERATE Abnormal NEGATIVE [facility] Comment on above: Performed By: #### 1 [id number], 73625949, 8916368 ####[facility] (DEFAULT)[address] [place] [address] UA Nitrite Positive Abnormal NEGATIVE [facility] Comment on above: Performed By: #### 1 [id number], 74624516, 9404256 ####[facility] (DEFAULT)[address] [place] [address] UA pH 6.0 Normal 5-8 [facility] Comment on above: Performed By: #### 1 [id number], 13042398, 8194744 ####[facility] (DEFAULT)[address] [place] [address] UA Protein TRACE Abnormal NEGATIVE [facility] Comment on above: Performed By: #### 1 [id number], 88680863, 4882970 ####[facility] (DEFAULT)[address] [place] [address] 39415 UA Spec Grav >=1.030 Normal 1.001-1.035 [facility] Comment on above: Performed By: #### 1 [id number], 17267403, 6095477 ####[facility] (DEFAULT)[address] [place] [address] UA Urobilinogen 0.2 mg/dL Normal 0.2-1.0 [facility] Comment on above: Performed By: #### 1 [id number], 04598705, 8077719 ####[facility] (DEFAULT)[address] [place] [address] Urine Source Clean Catch [facility] Comment on above: Performed By: #### 1 [id number], 66077352, 0703071 ####[facility] (DEFAULT)[address] [place] [address] XR Chest 2 Viewson XR Chest 2 Views Normal [facility] Outside Recordson 09-05-2023 Outside Records [id number]#1. 00OTGTIFF [facility] Outside Records [id number]#1. 00OTGTIFF [facility] Outside Recordson 09-03-2023 Outside Records [id number]#1.0 0OTGTIFF [facility] Coding Summaryon 08-22-2023 Coding Summary Normal [facility] 08-21-2023 Outside Records [id number] 30 [id number]#1.0 0OTGTIFF [facility] C Urineon 08-17-2023 C Urine Normal [facility] Comment on above: Performed By: #### 6 [id number] ####[facility] (DEFAULT)[address] [place], [place] [address] Provider Orderson 08-15-2023 Provider Orders [id number]#1. 00OTGTIFF [facility] Outside Recordson 07-25-2023 Outside Records [id number] 40 [id number]#1.0 0OTGTIFF [facility] Office/Clinic Noteon 024 Office/Clinic Note [facility] Outside Recordson 06-27-2023 Outside Records [id number] 41 [id number]#1.00 OTGTIFF [facility] Outside Records [id number] 41 [id number]#1.00 OTGTIFF [facility] Outside Recordson 06-26-2023 Outside Records [id number] 31 [id number]#1.0 0OTGTIFF [facility] Office/Clinic Noteon 024 Office/Clinic Note [facility] Coding Summaryon 06-05-2023 Coding Summary [facility] C Bloodon 05-31-2023 C Blood 2nd site 15 minutes after first Blood Culture is drawn No growth at 5 Days [facility] Comment on above: Performed By: #### 6 [id number] ####[facility] (DEFAULT)[address] [place] [address] C Blood No growth at 5 Days [facility] Comment on above: Performed By: #### 6 162738 ####[facility] (DEFAULT)[address] [place] [address] Coding Summaryon 05-30-2023 Coding Summary [facility] C Urineon 05-28-2023 C Urine Urine Culture ordere d as a result of parameters set on specific urine dip and urine microsopic results. No growth at 2 days. [facility] Comment on above: Performed By: #### 6 767223, 63503645, [id number] ####[facility] (DEFAULT)[address] [place] [address] Consent Formson 05-28-2023 Consent Forms [id number] 31 [id number]#1.00O TGTIFF [facility] Consent Forms [id number] 03 [id number]#1.00 [facility] Outside Recordson 05-28-2023 Outside Records [id number] 03 [id number]#1.00 [facility] Outside Records [id number]#1.00 [facility] Provider Orderson 05-28-2023 Provider Orders [id number]#1.00 [facility] Transfer Noteon 05-28-2023 Transfer Note [id number] 31 [id number]#1.00O [facility] .Auto Diff 1on 05-27-2023 Auto Nuckolls % 10 % Normal 03-29 [facility] Comment on above: Performed By: #### 1 0476536, 5444667, 2813744, 1063773, 8664565, 1443556665 ####[facility] (DEFAULT)[address] [place] [address] 65036 Baso Abs# 0.0 x10 Normal 0.0-0.2 [facility] Comment on above: Performed By: #### 1 3032215, 7662030, 0775472, 8850095, 8400669, 9095684476 ####[facility] (DEFAULT)[address] [place] [address] 40478 Basophils/100 WBC (Bld) 0.2 % Normal 0.2-2.0 [facility] Comment on above: Performed By: #### 1 2239825, 3448998, 2528618, 8843561, 6711108, 1396456197 ####[facility] (DEFAULT)[address] [place] [address] 82876 Eos Abs# 0.1 x10 Normal 0.0-0.4 [facility] Comment on above: Performed By: #### 1 3270954, 5354865, 2677953, 1844393, 9117293, 8534783947 ####[facility] (DEFAULT)[address] [place] [address] 65193 Eosinophils/100 WBC (Bld) 1.3 % Normal 0.9-4.0 [facility] Comment on above: Performed By: #### 1 7524131, 3690497, 2616318, 0694788, 1453838, 0259678723 ####[facility] (DEFAULT)[address] [place] [address] Lymph Abs# 0.7 x10 Low 1.3-2.9 [facility] Comment on above: Performed By: #### 1 8792572, 3381830, 4585854, 6604232, 5925481, 5039888640 ####[facility] (DEFAULT)[address] [place] [address] Lymphocytes/100 WBC (Bld) 13 % Low 14-48 [facility] Comment on above: Performed By: #### 1 8952739, 2201285, 7717001, 4508341, 7631528, 6457005194 ####[facility] (DEFAULT)[address] [place] [address] Nuckolls Abs# 0.5 x10 Normal 0.0-0.8 [facility] Comment on above: Performed By: #### 1 4548329, 6284284, 0352859, 3385236, 7875076, 3410576595 ####[facility] (DEFAULT)[address] [place] [address] Neut Abs# 3.8 x10 Normal 1.5-9.2 [facility] Comment on above: Performed By: #### 1 9345240, 8638028, 6048883, 5940668, 6341241, 5127198994 ####[facility] (DEFAULT)[address] [place] [address] Neutrophils/100 WBC (Bld) 75 % Normal 44-88 [facility] Comment on above: Performed By: #### 1 4120546, 9510902, 6648661, 0247868, 7087027, 0300662105 ####[facility] (DEFAULT)[address] [place] [address] CBC w/ Auto Diffon 4 Erythrocyte distribution width (RBC) [Ratio] 15.1 % High 11.5-15.0 [facility] Comment on above: Performed By: #### 1 7237120, 3144997, 7726825, 8159448, 6098593, 7254344213 ####[facility] (DEFAULT)[address] [place] [address] Hematocrit (Bld) [Volume fraction] 38.1 % Normal 34.8-51.9 [facility] Comment on above: Performed By: #### 1 7381838, 0904566, 2756226, 5699971, 9738591, 3192763195 ####[facility] (DEFAULT)[address] [place] [address] Hemoglobin (Bld) [Mass/Vol] 13.0 g/dL Normal 11.8-17.7 [facility] Comment on above: Performed By: #### 1 9485831, 8535447, 0415062, 7560799, 7818481, 3134557699 ####[facility] (DEFAULT)[address] [place] [address] Man Diff? Auto Invalid Interpretation Code [facility] Comment on above: Performed By: #### 1 8284597, 8946252, 6271231, 3060776, 2019731, 6790706592 ####[facility] (DEFAULT)[address] [place] [address] MCH (RBC) [Entitic mass] 30 pg Normal 24-34 [facility] Comment on above: Performed By: #### 1 6046494, 4341873, 6480237, 2738369, 9673238, 2771578035 ####[facility] (DEFAULT)[address] [place] [address] MCHC (RBC) [Mass/Vol] 34 g/dL Normal 26-37 [facility] Comment on above: Performed By: #### 1 2838895, 2534588, 4817160, 4645464, 6526170, 4118719532 ####[facility] (DEFAULT)[address] [place] [address] MCV (RBC) [Entitic vol] 88 fL Normal 81-100 [facility] Comment on above: Performed By: #### 1 9339759, 9587438, 3378578, 2857020, 9133535, 4998292648 ####[facility] (DEFAULT)[address] [place] [address] Platelet 164 x10 Normal 138-427 [facility] Comment on above: Performed By: #### 1 8608179, 8625093, 0242989, 4261880, 6754791, 6124521760 ####[facility] (DEFAULT)[address] [place] [address] Platelet mean volume (Bld) [Entitic vol] 8.4 fL Normal 6.3-10.2 [facility] Comment on above: Performed By: #### 1 1050376, 6290653, 1787399, 2327992, 8885827, 3774431062 ####[facility] (DEFAULT)[address] [place] [address] RBC 4.34 x10 Normal 3.70-5.30 [facility] Comment on above: Performed By: #### 1 4235955, 0904341, 0561155, 6749598, 1029293, 8484535144 ####[facility] (DEFAULT)[address] [place] [address] WBC 5.1 x10 Normal 3.5-10.5 [facility] Comment on above: Performed By: #### 1 7334662, 1368342, 6446255, 4776323, 7029984, 0136361997 ####[facility] (DEFAULT)[address] [place] [address] CKon 05-27-2023 CK [Catalytic activity/Vol] 364 U/L Normal 49-397 [facility] Comment on above: Performed By: #### 1 4886771, 5166795, 9975205, 5981193, 9344186, 5496528991 ####[facility] (DEFAULT)[address] [place] [address] CMP Standardon 05-27-2023 eGFR Non AA 59 mL/min/1.73m2 Invalid Interpretation Code [facility] Comment on above: Performed By: #### 1 2785347, 6978078, 4252258, 2678323, 4387615, 8442948950 ####[facility] (DEFAULT)[address] [place] [address] 14897 eGFR AA >60 Invalid Interpretation Code [facility] Comment on above: Performed By: #### 1 5603149, 8574826, 0938510, 1482691, 7592004, 3487314085 ####[facility] (DEFAULT)[address] [place] [address] 17490 Albumin [Mass/Vol] 3.1 g/dL Low 3.5-5.0 [facility] Comment on above: Performed By: #### 1 8564198, 2298684, 3035054, 2175916, 7905534, 4268153048 ####[facility] (DEFAULT)[address] [place] [address] Alk Phos 54 IU/L Normal 32-91 [facility] Comment on above: Performed By: #### 1 7192406, 2218564, 1308437, 3145569, 6732866, 1562093613 ####[facility] (DEFAULT)[address] [place] [address] 56941 ALT [Catalytic activity/Vol] 9.0 U/L Low 17.0-63.0 [facility] Comment on above: Performed By: #### 1 8947857, 1508390, 3179382, 3728158, 1448553, 0593023724 ####[facility] (DEFAULT)[address] [place] [address] 23448 AST [Catalytic activity/Vol] 82 U/L High 15-41 [facility] Comment on above: Performed By: #### 1 1123613, 6570665, 6532284, 0670869, 1988696, 8763097061 ####[facility] (DEFAULT)[address] [place] [address] 76254 Bili Total 1.0 mg/dL Normal 0.3-1.2 [facility] Comment on above: Performed By: #### 1 4901892, 0369467, 0320995, 5098924, 7331520, 5485810587 ####[facility] (DEFAULT)[address] [place] [address] 22358 Calcium [Mass/Vol] 8.4 mg/dL Low 8.9-10.3 [facility] Comment on above: Performed By: #### 1 3354816, 9898121, 2247939, 8205869, 1824721, 0125438053 ####[facility] (DEFAULT)[address] [place] [address] 45300 Chloride [Moles/Vol] 104 mmol/L Normal 101-111 [facility] Comment on above: Performed By: #### 1 3936574, 6739434, 8018467, 3914518, 4889264, 1303778443 ####[facility] (DEFAULT)[address] [place] [address] 82843 CO2 [Moles/Vol] 26 mmol/L Normal 21-32 [facility] Comment on above: Performed By: #### 1 6518202, 5698373, 5099810, 2077076, 7730013, 2358757424 ####[facility] (DEFAULT)[address] [place] [address] 79141 Creatinine [Mass/Vol] 1.16 mg/dL Normal 0.90-1.30 [facility] Comment on above: Performed By: #### 1 8170969, 0808185, 1213306, 2179562, 5722308, 0794810626 ####[facility] (DEFAULT)[address] [place] [address] 42752 Glucose [Mass/Vol] 124.0 mg/dL High 74.0-118.0 [facility] Comment on above: Performed By: #### 1 5607890, 5196918, 8528228, 1123865, 3481682, 4252644175 ####[facility] (DEFAULT)[address] [place] [address] 38263 Potassium [Moles/Vol] 3.8 mmol/L Normal 3.6-5.1 [facility] Comment on above: Performed By: #### 1 1165669, 7521040, 4191003, 6669966, 1103661, 8758975887 ####[facility] (DEFAULT)[address] [place] [address] 16456 Protein [Mass/Vol] 6.0 g/dL Low 6.5-8.1 [facility] Comment on above: Performed By: #### 1 5282662, 8327021, 1783167, 0709950, 1261634, 7977336067 ####[facility] (DEFAULT)[address] [place] [address] 79885 Sodium [Moles/Vol] 140.0 mmol/L Normal 136.0-144.0 [facility] Comment on above: Performed By: #### 1 7787996, 0527753, 4218627, 3030525, 7236272, 1154445657 ####[facility] (DEFAULT)[address] [place] [address] 93105 Urea nitrogen [Mass/Vol] 22 mg/dL Normal 8-26 [facility] Comment on above: Performed By: #### 1 9925547, 2441154, 1571444, 7821335, 5651587, 5096688991 ####[facility] (DEFAULT)[address] [place] [address] 50227 Albumin/Globulin [Mass ratio] 1.0 {ratio} Low 1.4-2.6 [facility] Comment on above: Performed By: #### 1 9745805, 8365975, 3509622, 5156655, 6195286, 6620061419 ####[facility] (DEFAULT)[address] [place] [address] 11140 Anion gap [Moles/Vol] 13.8 mmol/L Normal 5.0-19.0 [facility] Comment on above: Performed By: #### 1 5271964, 0584592, 0139633, 1590283, 9275489, 3084867952 ####[facility] (DEFAULT)[address] [place] [address] 54209 Globulin (S) [Mass/Vol] 2.9 g/dL Normal 1.5-4.3 [facility] Comment on above: Performed By: #### 1 7240772, 7311144, 5416817, 7491534, 0905008, 0470258832 ####[facility] (DEFAULT)[address] [place] [address] 89655 Osmolality 284 mOsm/L Invalid Interpretation Code [facility] Comment on above: Performed By: #### 1 0972223, 5295256, 1342041, 4905061, 8069933, 8588843762 ####[facility] (DEFAULT)[address] [place] [address] Urea nitrogen/Creatinine [Mass ratio] 18.9 mg/mg High 4.6-16.2 [facility] Comment on above: Performed By: #### 1 1690429, 9909905, 8331504, 7577912, 9566926, 5325699556 ####[facility] (DEFAULT)[address] [place] [address] CRPon 05-27-2023 CRP 8.3 mg/dL High <=0.5 [facility] Comment on above: Performed By: #### 1 8067809, 8769941, 9373587, 7649878, 1828385, 2671607612 ####[facility] (DEFAULT)[address] [place] [address] Education Noteon 05-27-2023 Education Note Normal [facility] Inpatient Clinical Summaryon 05-27-2023 Inpatient Clinical Summary Normal [facility] Inpatient Patient Summaryon 05-27-2023 Inpatient Patient Summary Normal [facility] Myoglobinon 05-27-2023 Myoglobin [Mass/Vol] 228.5 ng/mL High 17.4-105.7 [facility] Comment on above: Performed By: #### 1 2946959, 7410510, 8428621, 3669589, 5591637, 8231433808 ####[facility] (DEFAULT)[address] [place] [address] Pharmacy Noteon 05-27-2023 Pharmacy Note Normal [facility] Progress Note - Nurseon 05-16 Progress Note - Nurse [facility] Telemetry Stripson Telemetry Strips [id number]#1.00O TGTIFF [facility] .Auto Diff 1on 05-26-2023 Auto Nuckolls % 11 % Normal 03-29 [facility] Comment on above: Performed By: #### 2 565508, 4520934, 1915711, 6613320390, 3996677717, 12686555, 4700225 ####[facility] (DEFAULT)[address] [place] [address] 54374 Baso Abs# 0.0 x10 Normal 0.0-0.2 [facility] Comment on above: Performed By: #### 2 396204, 1015589, 1859348, 0357718862, 5575376189, 64931973, 7894180 ####[facility] (DEFAULT)[address] [place] [address] 82560 Basophils/100 WBC (Bld) 0.2 % Normal 0.2-2.0 [facility] Comment on above: Performed By: #### 2 983052, 3673643, 1641665, 6518176129, 4004672795, 81444992, 1952541 ####[facility] (DEFAULT)[address] [place] [address] 01778 Eos Abs# 0.0 x10 Normal 0.0-0.4 [facility] Comment on above: Performed By: #### 2 023960, 2211057, 9758990, 3024813201, 5343035320, 43299725, 7510061 ####[facility] (DEFAULT)[address] [place] [address] 56119 Eosinophils/100 WBC (Bld) 0.7 % Low 0.9-4.0 [facility] Comment on above: Performed By: #### 2 215042, 6382238, 9783922, 3259746650, 5390546482, 07587667, 3330013 ####[facility] (DEFAULT)[address] [place] [address] 54449 Lymph Abs# 0.5 x10 Low 1.3-2.9 [facility] Comment on above: Performed By: #### 2 494566, 8044088, 6469051, 2778686677, 0974096704, 89233908, 2037081 ####[facility] (DEFAULT)[address] [place] [address] 81210 Lymphocytes/100 WBC (Bld) 12 % Low 14-48 [facility] Comment on above: Performed By: #### 2 574387, 4557115, 8646152, 7250103584, 0726225811, 01910650, 2068338 ####[facility] (DEFAULT)[address] [place] [address] Nuckolls Abs# 0.5 x10 Normal 0.0-0.8 [facility] Comment on above: Performed By: #### 2 367044, 6718446, 6584318, 9417208761, 1040609007, 75209477, 4685311 ####[facility] (DEFAULT)[address] [place] [address] Neut Abs# 3.4 x10 Normal 1.5-9.2 [facility] Comment on above: Performed By: #### 2 967732, 5407581, 0609216, 6688701016, 0085842350, 29637367, 2776613 ####[facility] (DEFAULT)[address] [place] [address] Neutrophils/100 WBC (Bld) 76 % Normal 44-88 [facility] Comment on above: Performed By: #### 2 903192, 0273286, 4940309, 5111488637, 8393196559, 40976377, 2505654 ####[facility] (DEFAULT)[address] [place] [address] BMP Standardon 05-26-2023 eGFR Non AA 60 mL/min/1.73m2 Invalid Interpretation Code [facility] Comment on above: Performed By: #### 2 698721, 4545886, 2323550, 4236652799, 2384327815, 91118058, 1320941 ####[facility] (DEFAULT)[address] [place] [address] eGFR AA >60 Invalid Interpretation Code [facility] Comment on above: Performed By: #### 2 641382, 5104150, 1192947, 0124754052, 5392873618, 70909627, 4996680 ####[facility] (DEFAULT)[address] [place] [address] Anion gap [Moles/Vol] 11.7 mmol/L Normal 5.0-19.0 [facility] Comment on above: Performed By: #### 2 318290, 8665739, 6421446, 8973479226, 6119013486, 82121233, 8151883 ####[facility] (DEFAULT)[address] [place] [address] 49309 Calcium [Mass/Vol] 8.2 mg/dL Low 8.9-10.3 [facility] Comment on above: Performed By: #### 2 947236, 8506182, 7907425, 1641174908, 8635069006, 85662691, 8698696 ####[facility] (DEFAULT)[address] [place] [address] 27626 Chloride [Moles/Vol] 107 mmol/L Normal 101-111 [facility] Comment on above: Performed By: #### 2 141227, 2706594, 4228079, 8960176140, 5617115749, 11470732, 1470587 ####[facility] (DEFAULT)[address] [place] [address] 89249 CO2 [Moles/Vol] 26 mmol/L Normal 21-32 [facility] Comment on above: Performed By: #### 2 491547, 2319493, 9624794, 6502768911, 4525800939, 00439173, 3419284 ####[facility] (DEFAULT)[address] [place] [address] 52568 Creatinine [Mass/Vol] 1.15 mg/dL Normal 0.90-1.30 [facility] Comment on above: Performed By: #### 2 307102, 6412878, 9396422, 5541171918, 7475660345, 29932731, 4362290 ####[facility] (DEFAULT)[address] [place] [address] 04131 Glucose [Mass/Vol] 112.0 mg/dL Normal 74.0-118.0 [facility] Comment on above: Performed By: #### 2 951298, 3307260, 6669572, 4052401084, 1788943102, 71320604, 0849060 ####[facility] (DEFAULT)[address] [place] [address] 52070 Osmolality 284 mOsm/L Invalid Interpretation Code [facility] Comment on above: Performed By: #### 2 673679, 8346934, 9708773, 6713448087, 5523394320, 51946793, 6165845 ####[facility] (DEFAULT)[address] [place] [address] 70165 Potassium [Moles/Vol] 3.7 mmol/L Normal 3.6-5.1 [facility] Comment on above: Performed By: #### 2 341122, 4531660, 0292328, 4107674456, 3809946684, 38765088, 5804781 ####[facility] (DEFAULT)[address] [place] [address] 63129 Sodium [Moles/Vol] 141.0 mmol/L Normal 136.0-144.0 [facility] Comment on above: Performed By: #### 2 287988, 6014147, 2970068, [id number], [id number], [id number], 4879910 ####[facility] (DEFAULT)[address] [place] [address] 16124 Urea nitrogen [Mass/Vol] 19 mg/dL Normal 8-26 [facility] Comment on above: Performed By: #### 2 651555, 2194615, 3846253, [id number], [id number], [id number], 5548955 ####[facility] (DEFAULT)[address] [place] [address] 33450 Urea nitrogen/Creatinine [Mass ratio] 16.5 mg/mg High 4.6-16.2 [facility] Comment on above: Performed By: #### 2 649862, 0745014, 8636352, [id number], [id number], 83295068, 1249662 ####[facility] (DEFAULT)[address] [place] [address] 79001 CBC w/ Auto Diffon Erythrocyte distribution width (RBC) [Ratio] 15.0 % Normal 11.5-15.0 [facility] Comment on above: Performed By: #### 2 091540, 3600330, 9098269, [id number], [id number], 76617074, 9872732 ####[facility] (DEFAULT)[address] [place] [address] Hematocrit (Bld) [Volume fraction] 37.4 % Normal 34.8-51.9 [facility] Comment on above: Performed By: #### 2 326286, 8280146, 9922987, 2496854065, 9244250462, 34509115, 2660006 ####[facility] (DEFAULT)[address] [place] [address] Hemoglobin (Bld) [Mass/Vol] 12.5 g/dL Normal 11.8-17.7 [facility] Comment on above: Performed By: #### 2 531532, 5518995, 4755335, 0037990820, 2460406973, 62626452, 0390320 ####[facility] (DEFAULT)[address] [place] [address] Man Diff? Auto Invalid Interpretation Code [facility] Comment on above: Performed By: #### 2 667543, 9753834, 3877257, 3374914642, 9902646160, 51482118, 5149852 ####[facility] (DEFAULT)[address] [place] [address] MCH (RBC) [Entitic mass] 30 pg Normal 24-34 [facility] Comment on above: Performed By: #### 2 850558, 7175448, 6868357, 5678042424, 5034906644, 66628555, 7698271 ####[facility] (DEFAULT)[address] [place] [address] MCHC (RBC) [Mass/Vol] 33 g/dL Normal 26-37 [facility] Comment on above: Performed By: #### 2 906897, 9055675, 1417203, 8989785758, 4376161736, 69544930, 2315167 ####[facility] (DEFAULT)[address] [place] [address] MCV (RBC) [Entitic vol] 89 fL Normal 81-100 [facility] Comment on above: Performed By: #### 2 902878, 1612936, 2444271, 5939729626, 6982012299, 55981159, 4224647 ####[facility] (DEFAULT)[address] [place] [address] Platelet 134 x10 Low 138-427 [facility] Comment on above: Performed By: #### 2 889985, 8111780, 0556961, 8859188061, 9822618676, 04196519, 6873545 ####[facility] (DEFAULT)[address] [place] [address] Platelet mean volume (Bld) [Entitic vol] 8.4 fL Normal 6.3-10.2 [facility] Comment on above: Performed By: #### 2 827066, 5565306, 0177068, 8734605011, 6366369460, 32223996, 0968899 ####[facility] (DEFAULT)[address] [place] [address] RBC 4.20 x10 Normal 3.70-5.30 [facility] Comment on above: Performed By: #### 2 685816, 7405940, 1147539, 3641719570, 0413779310, 41174883, 5342497 ####[facility] (DEFAULT)[address] [place] [address] WBC 4.5 x10 Normal 3.5-10.5 [facility] Comment on above: Performed By: #### 2 414623, 9222982, 7617414, 6684833436, 8373900180, 45821754, 1723804 ####[facility] (DEFAULT)[address] [place] [address] CKon 05-26-2023 CK [Catalytic activity/Vol] 470 U/L High 49-397 [facility] Comment on above: Performed By: #### 2 140152, 2532850, 2063711, 0609064421, 5118983659, 44132210, 7203673 ####[facility] (DEFAULT)[address] [place] [address] CMP Standardon 05-26-2023 Albumin [Mass/Vol] 2.9 g/dL Low 3.5-5.0 [facility] Comment on above: Performed By: #### 2 176148, 9633073, 0502420, 4764411535, 2823770296, 19507614, 4788702 ####[facility] (DEFAULT)[address] [place] [address] Albumin/Globulin [Mass ratio] 1.1 {ratio} Low 1.4-2.6 [facility] Comment on above: Performed By: #### 2 628423, 5084261, 1603766, 1971748256, 4889993895, 28353262, 3623201 ####[facility] (DEFAULT)[address] [place] [address] Alk Phos 50 IU/L Normal 32-91 [facility] Comment on above: Performed By: #### 2 905503, 8040614, 4469930, 1859106365, 9384312275, 10610202, 3059755 ####[facility] (DEFAULT)[address] [place] [address] 52652 ALT [Catalytic activity/Vol] 7.0 U/L Low 17.0-63.0 [facility] Comment on above: Performed By: #### 2 190319, 3235755, 6472250, 4676757806, 6300435775, 60404298, 6496189 ####[facility] (DEFAULT)[address] [place] [address] 53407 AST [Catalytic activity/Vol] 82 U/L High 15-41 [facility] Comment on above: Performed By: #### 2 818287, 2996667, 6764991, 7078892639, 8226557687, 55594880, 2477525 ####[facility] (DEFAULT)[address] [place] [address] 81101 Bili Total 0.9 mg/dL Normal 0.3-1.2 [facility] Comment on above: Performed By: #### 2 297002, 9246553, 0262900, 9072264416, 2040383011, 05551787, 1554827 ####[facility] (DEFAULT)[address] [place] [address] 81413 Globulin (S) [Mass/Vol] 2.6 g/dL Normal 1.5-4.3 [facility] Comment on above: Performed By: #### 2 378854, 1791816, 7261297, 9339158662, 4649926112, 35387327, 5897646 ####[facility] (DEFAULT)[address] [place] [address] 02981 Protein [Mass/Vol] 5.5 g/dL Low 6.5-8.1 [facility] Comment on above: Performed By: #### 2 506484, 6183369, 5168585, 0441433773, 8108484898, 22409577, 9798698 ####[facility] (DEFAULT)[address] [place] [address] 07435 CRPon 05-26-2023 CRP 6.2 mg/dL High <=0.5 [facility] Comment on above: Performed By: #### 2 354027, 8533550, 2418029, 9750819917, 5801161603, 78085552, 7510946 ####[facility] (DEFAULT)[address] [place] [address] 39084 Myoglobinon 05-26-2023 Myoglobin [Mass/Vol] 259.9 ng/mL High 17.4-105.7 [facility] Comment on above: Performed By: #### 2 710313, 0440272, 9022376, 2052020310, 4308088088, 49510531, 0382097 ####[facility] (DEFAULT)[address] [place] [address] 49[address] UA [id number] 05-26-2023 UA Amorph. Rare Normal [facility] Comment on above: Order Comment: Urina lysis Microscopic order added on by [employer] Expert Rules system. Performed By: #### 6 351594, 13954085, 4601625431 ####[facility] (DEFAULT)[address] [place] [address] UA Bacteria Trace [facility] Comment on above: Order Comment: Urina lysis Microscopic order added on by [employer] Expert Rules system. Performed By: #### 6 016499, 42714198, [id number] ####[facility] (DEFAULT)[address] [place] [address] UA Gran Cast 0-5 [facility] Comment on above: Order Comment: Urina lysis Microscopic order added on by [employer] Expert Rules system. Performed By: #### 6 049943, 04770514, [id number] ####[facility] (DEFAULT)[address] [place] [address] UA Hyal Cast 0-5 [facility] Comment on above: Order Comment: Urina lysis Microscopic order added on by Dis[employer] Expert Rules system. Performed By: #### 6 452802, 31088922, [id number] ####[facility] (DEFAULT)[address] [place] [address] UA RBC 20-30 [facility] Comment on above: Order Comment: Urina lysis Microscopic order added on by Dis[employer] Expert Rules system. Performed By: #### 6 126731, 40121260, 7036774466 ####[facility] (DEFAULT)[address] [place] [address] UA Squam Epi Rare [facility] Comment on above: Order Comment: Urina lysis Microscopic order added on by [employer] Expert Rules system. Performed By: #### 6 065833, 05068871, [id number] ####[facility] (DEFAULT)[address] [place] [address] UA WBC 3-5 [facility] Comment on above: Order Comment: Urina lysis Microscopic order added on by [employer] Expert Rules system. Performed By: #### 6 668594, 69053611, 5070905725 ####[facility] (DEFAULT)[address] [place] [address] UA w Culture if Ind Standard on 05-26-2023 Breakpoint UA [facility] Comment on above: Performed By: #### 6 056329, 29611007, 1889688260 ####[facility] (DEFAULT)[address] [place] [address] 40723 Color (U) Yellow Normal [facility] Comment on above: Performed By: #### 6 598736, 55819681, 7105540504 ####[facility] (DEFAULT)[address] [place] [address] 10687 Culture? Indicated Invalid Interpretation Code [facility] Comment on above: Result Comment: Resu lt created by rule GL_MAGR_ADD_UA_CULT Result created by rule GL_MAGR_ADD_UA_CULT Result created by rule GL_MAGR_ADD_UA_CULT1 Result created by rule GL_MAGR_ADD_UA_CULT Performed By: #### 6 777101, 25433082, [id number] ####[facility] (DEFAULT)[address] [place] [address] 05277 Glucose (U) [Mass/Vol] Negative Normal [facility] Comment on above: Performed By: #### 6 671202, 33851753, 1967640550 ####[facility] (DEFAULT)[address] [place] [address] 11581 Ketones Ql (U) Negative Normal [facility] Comment on above: Performed By: #### 6 212602, 20992400, 6678752289 ####[facility] (DEFAULT)[address] [place] [address] 72947 Micro? Indicated Invalid Interpretation Code [facility] Comment on above: Result Comment: Resu lt created by rule GL_MAGR_ADD_UA_MICRO Performed By: #### 6 618238, 50409354, 0987488134 ####[facility] (DEFAULT)[address] [place] [address] 93019 UA Bilirubin Negative Normal [facility] Comment on above: Performed By: #### 6 879805, 86574931, 2021523598 ####[facility] (DEFAULT)[address] [place] [address] 77393 UA Blood MODERATE Abnormal NEGATIVE [facility] Comment on above: Performed By: #### 6 646808, 21963559, 3043442122 ####[facility] (DEFAULT)[address] [place] [address] 97149 UA Clarity CLEAR Normal CLEAR [facility] Comment on above: Performed By: #### 6 801852, 37626641, 4087985109 ####[facility] (DEFAULT)[address] [place] [address] 59114 UA Leuk Est Negative Normal NEGATIVE [facility] Comment on above: Performed By: #### 6 951772, 55950124, 9466524468 ####[facility] (DEFAULT)[address] [place] [address] 84109 UA Nitrite Negative Normal NEGATIVE [facility] Comment on above: Performed By: #### 6 639969, 17699185, 0760578225 ####[facility] (DEFAULT)[address] [place] [address] 71496 UA pH 7.5 Normal 5-8 [facility] Comment on above: Performed By: #### 6 476441, 54472652, 0320364443 ####[facility] (DEFAULT)[address] [place] [address] 04733 UA Protein Negative Normal NEGATIVE [facility] Comment on above: Performed By: #### 6 498074, 37766972, 6605568366 ####[facility] (DEFAULT)[address] [place] [address] 85416 UA Spec Grav 1.015 Normal 1.001-1.035 [facility] Comment on above: Performed By: #### 6 067932, 03341292, 7568068634 ####[facility] (DEFAULT)[address] [place] [address] 04119 UA Urobilinogen 0.2 mg/dL Normal 0.2-1.0 [facility] Comment on above: Performed By: #### 6 383725, 90762349, 4643809614 ####[facility] (DEFAULT)[address] [place] [address] 43260 Urine Source Clean Catch Normal [facility] Comment on above: Performed By: #### 6 715256, 42835237, 5554894794 ####[facility] (DEFAULT)[address] [place] [address] XR Humerus Lefton 05-26-2023 XR Humerus Left Normal [facility] .Auto Diff 1on 05-25-2023 Auto Nuckolls % 12 % Normal -12 [facility] Comment on above: Performed By: #### 1 072853526, 3694601, 0384796, 45596915, 2804353, 0465978 ####[facility] (DEFAULT)[address] [place] [address] Baso Abs# 0.0 x10 Normal 0.0-0.2 [facility] Comment on above: Performed By: #### 1 474800071, 7711256, 7254838, 97684787, 8678341, 8863727 ####[facility] (DEFAULT)[address] [place] [address] Basophils/100 WBC (Bld) 0.2 % Normal 0.2-2.0 [facility] Comment on above: Performed By: #### 1 582449230, 1557079, 1135302, 31737677, 8488311, 8426456 ####[facility] (DEFAULT)[address] [place] [address] Eos Abs# 0.0 x10 Normal 0.0-0.4 [facility] Comment on above: Performed By: #### 1 135174782, 1327288, 1896540, 37598088, 5751267, 4892608 ####[facility] (DEFAULT)[address] [place] [address] 73125 Eosinophils/100 WBC (Bld) 1.0 % Normal 0.9-4.0 [facility] Comment on above: Performed By: #### 1 509826275, 6603536, 9937023, 23563656, 5451689, 6523871 ####[facility] (DEFAULT)[address] [place] [address] Lymph Abs# 0.5 x10 Low 1.3-2.9 [facility] Comment on above: Performed By: #### 1 319953474, 6327628, 7947425, 82449755, 0014479, 9759734 ####[facility] (DEFAULT)[address] [place] [address] Lymphocytes/100 WBC (Bld) 16 % Normal 14-48 [facility] Comment on above: Performed By: #### 1 363504627, 8837554, 7899114, 20846433, 8859867, 2738762 ####[facility] (DEFAULT)[address] [place] [address] Nuckolls Abs# 0.4 x10 Normal 0.0-0.8 [facility] Comment on above: Performed By: #### 1 570410300, 3816266, 4387596, 81442652, 6589437, 8624213 ####[facility] (DEFAULT)[address] [place] [address] Neut Abs# 2.3 x10 Normal 1.5-9.2 [facility] Comment on above: Performed By: #### 1 663293292, 7088126, 4315434, 80096866, 7727507, 0231348 ####[facility] (DEFAULT)[address] [place] [address] Neutrophils/100 WBC (Bld) 71 % Normal 44-88 [facility] Comment on above: Performed By: #### 1 275397427, 4836476, 4674871, 08178610, 5489676, 8232573 ####[facility] (DEFAULT)[address] [place] [address] CBC w/ Auto Diffon 4 Erythrocyte distribution width (RBC) [Ratio] 15.2 % High 11.5-15.0 [facility] Comment on above: Performed By: #### 1 491522844, 3566265, 7533324, 61837466, 4606209, 5355161 ####[facility] (DEFAULT)[address] [place] [address] Hematocrit (Bld) [Volume fraction] 33.9 % Low 34.8-51.9 [facility] Comment on above: Performed By: #### 1 034086762, 4084483, 0718004, 24054454, 7449619, 0696396 ####[facility] (DEFAULT)[address] [place] [address] Hemoglobin (Bld) [Mass/Vol] 11.5 g/dL Low 11.8-17.7 [facility] Comment on above: Performed By: #### 1 716126601, 1553181, 8221867, 67799768, 4081681, 1137711 ####[facility] (DEFAULT)[address] [place] [address] Man Diff? Auto Invalid Interpretation Code [facility] Comment on above: Performed By: #### 1 629773921, 3231740, 8064670, 61614085, 0442958, 1502007 ####[facility] (DEFAULT)[address] [place] [address] MCH (RBC) [Entitic mass] 30 pg Normal 24-34 [facility] Comment on above: Performed By: #### 1 621241560, 7689944, 6243143, 15908650, 0061303, 2448870 ####[facility] (DEFAULT)[address] [place] [address] MCHC (RBC) [Mass/Vol] 34 g/dL Normal 26-37 [facility] Comment on above: Performed By: #### 1 487586981, 3181637, 6014786, 24562292, 4713692, 5406923 ####[facility] (DEFAULT)[address] [place] [address] MCV (RBC) [Entitic vol] 88 fL Normal 81-100 [facility] Comment on above: Performed By: #### 1 575533351, 9539395, 1164539, 60259386, 8543541, 7171531 ####[facility] (DEFAULT)[address] [place] [address] Platelet 125 x10 Low 138-427 [facility] Comment on above: Performed By: #### 1 230781453, 4881671, 5192419, 83378472, 5131128, 1138811 ####[facility] (DEFAULT)[address] [place] [address] Platelet mean volume (Bld) [Entitic vol] 8.6 fL Normal 6.3-10.2 [facility] Comment on above: Performed By: #### 1 746320946, 5573325, 8097638, 85263544, 2235415, 7117603 ####[facility] (DEFAULT)[address] [place] [address] RBC 3.85 x10 Normal 3.70-5.30 [facility] Comment on above: Performed By: #### 1 069298353, 5642102, 5685405, 07950589, 8392621, 6396176 ####[facility] (DEFAULT)[address] [place] [address] WBC 3.2 x10 Low 3.5-10.5 [facility] Comment on above: Performed By: #### 1 334384600, 7516241, 8310163, 58029236, 4422811, 7013078 ####[facility] (DEFAULT)[address] [place] [address] CKon 05-25-2023 CK [Catalytic activity/Vol] 675 U/L High 49-397 [facility] Comment on above: Performed By: #### 1 933080850, 8337496, 0290346, 95536180, 5166161, 9455769 ####[facility] (DEFAULT)[address] [place] [address] CMP Standardon 05-25-2023 eGFR Non AA >60 Invalid Interpretation Code [facility] Comment on above: Performed By: #### 1 286554825, 9437158, 0541985, 73430204, 3136564, 5978534 ####[facility] (DEFAULT)[address] [place] [address] eGFR AA >60 Invalid Interpretation Code [facility] Comment on above: Performed By: #### 1 190086470, 0938044, 7285405, 79728929, 0961958, 9248927 ####[facility] (DEFAULT)[address] [place] [address] Albumin [Mass/Vol] 2.7 g/dL Low 3.5-5.0 [facility] Comment on above: Performed By: #### 1 986441802, 4281247, 4632570, 64631996, 9650284, 5433313 ####[facility] (DEFAULT)[address] [place] [address] Albumin/Globulin [Mass ratio] 1.1 {ratio} Low 1.4-2.6 [facility] Comment on above: Performed By: #### 1 230524175, 6785648, 3586466, 66165879, 5193216, 9124431 ####[facility] (DEFAULT)[address] [place] [address] Alk Phos 47 IU/L Normal 32-91 [facility] Comment on above: Performed By: #### 1 814186734, 6593441, 1650973, 12683278, 0413753, 6154393 ####[facility] (DEFAULT)[address] [place] [address] ALT [Catalytic activity/Vol] 8.0 U/L Low 17.0-63.0 [facility] Comment on above: Performed By: #### 1 093857606, 9830988, 0072275, 57130181, 3216998, 5884993 ####[facility] (DEFAULT)[address] [place] [address] Anion gap [Moles/Vol] 7.8 mmol/L Normal 5.0-19.0 [facility] Comment on above: Performed By: #### 1 751269636, 1924931, 5302670, 14537890, 9653399, 8030378 ####[facility] (DEFAULT)[address] [place] [address] AST [Catalytic activity/Vol] 90 U/L High 15-41 [facility] Comment on above: Performed By: #### 1 622387836, 9365787, 9301794, 75460530, 3765652, 9581259 ####[facility] (DEFAULT)[address] [place] [address] Bili Total 0.7 mg/dL Normal 0.3-1.2 [facility] Comment on above: Performed By: #### 1 287919361, 8778208, 7010419, 40851918, 2398169, 7494531 ####[facility] (DEFAULT)[address] [place] [address] Calcium [Mass/Vol] 7.9 mg/dL Low 8.9-10.3 [facility] Comment on above: Performed By: #### 1 530772037, 0425801, 4716442, 31932087, 1167112, 6778816 ####[facility] (DEFAULT)[address] [place] [address] Chloride [Moles/Vol] 110 mmol/L Normal 101-111 [facility] Comment on above: Performed By: #### 1 500720375, 7781378, 4637068, 24630288, 0402767, 6444746 ####[facility] (DEFAULT)[address] [place] [address] CO2 [Moles/Vol] 27 mmol/L Normal 21-32 [facility] Comment on above: Performed By: #### 1 338154489, 4980514, 1333629, 80978826, 6580899, 4091741 ####[facility] (DEFAULT)[address] [place] [address] Creatinine [Mass/Vol] 1.13 mg/dL Normal 0.90-1.30 [facility] Comment on above: Performed By: #### 1 277354076, 3513609, 0265837, 07603012, 4868182, 3989959 ####[facility] (DEFAULT)[address] [place] [address] Globulin (S) [Mass/Vol] 2.4 g/dL Normal 1.5-4.3 [facility] Comment on above: Performed By: #### 1 072639417, 0873520, 3037986, 51978276, 9965640, 9930538 ####[facility] (DEFAULT)[address] [place], [place] [address] Glucose [Mass/Vol] 101.0 mg/dL Normal 74.0-118.0 [facility] Comment on above: Performed By: #### 1 392728432, 0403559, 1124836, 10058075, 8427237, 4188608 ####[facility] (DEFAULT)[address] [place] [address] 49513 Osmolality 284 mOsm/L Invalid Interpretation Code [facility] Comment on above: Performed By: #### 1 326984878, 4911489, 6455748, 65833845, 1782741, 2947712 ####[facility] (DEFAULT)[address] [place] [address] 87853 Potassium [Moles/Vol] 3.8 mmol/L Normal 3.6-5.1 [facility] Comment on above: Performed By: #### 1 517551207, 5582749, 0120021, 96736007, 6634974, 8212887 ####[facility] (DEFAULT)[address] [place] [address] Protein [Mass/Vol] 5.1 g/dL Low 6.5-8.1 [facility] Comment on above: Performed By: #### 1 750034032, 9047896, 6542357, 21750785, 4408507, 4253679 ####[facility] (DEFAULT)[address] [place] [address] 84726 Sodium [Moles/Vol] 141.0 mmol/L Normal 136.0-144.0 [facility] Comment on above: Performed By: #### 1 017642405, 6080965, 5757254, 40650044, 9710005, 1222660 ####[facility] (DEFAULT)[address] [place] [address] 57342 Urea nitrogen [Mass/Vol] 19 mg/dL Normal 8-26 [facility] Comment on above: Performed By: #### 1 663316939, 7589923, 0329622, 42781427, 8042082, 2521346 ####[facility] (DEFAULT)[address] [place] [address] 20962 Urea nitrogen/Creatinine [Mass ratio] 16.8 mg/mg High 4.6-16.2 [facility] Comment on above: Performed By: #### 1 417718153, 8452445, 0360654, 89495129, 0280354, 5635728 ####[facility] (DEFAULT)[address] [place] [address] 90329 CRPon 05-25-2023 CRP 5.5 mg/dL High <=0.5 [facility] Comment on above: Performed By: #### 1 549899240, 0869840, 3083338, 55614830, 7968118, 0348240 ####[facility] (DEFAULT)[address] [place] [address] Myoglobinon 05-25-2023 Myoglobin [Mass/Vol] 335.9 ng/mL High 17.4-105.7 [facility] Comment on above: Performed By: #### 1 784354666, 1794665, 0133662, 75621848, 2372688, 2849463 ####[facility] (DEFAULT)[address] [place] [address] .Auto Diff 1on 05-24-2023 Auto Nuckolls % 13 % High 1-12 [facility] Comment on above: Performed By: #### 7 685023, 9354382, 9904258, 5514723345, 1101857, 75030766 ####[facility] (DEFAULT)[address] [place] [address] Baso Abs# 0.0 x10 Normal 0.0-0.2 [facility] Comment on above: Performed By: #### 7 535694, 2049492, 8038930, 2475505719, 2557294, 23876327 ####[facility] (DEFAULT)[address] [place] [address] Basophils/100 WBC (Bld) 0.3 % Normal 0.2-2.0 [facility] Comment on above: Performed By: #### 7 533860, 0010836, 8659005, 6387193858, 0670548, 43125890 ####[facility] (DEFAULT)[address] [place] [address] Eos Abs# 0.0 x10 Normal 0.0-0.4 [facility] Comment on above: Performed By: #### 7 [id number], [id number], [id number], [id number], [id number], [id number] ####[facility] (DEFAULT)[address] [place] [address] Eosinophils/100 WBC (Bld) 0.3 % Low 0.9-4.0 [facility] Comment on above: Performed By: #### 7 [id number], [id number], [id number], [id number], [id number], [id number] ####[facility] (DEFAULT)[address] [place] [address] Lymph Abs# 0.5 x10 Low 1.3-2.9 [facility] Comment on above: Performed By: #### 7 [id number], [id number], [id number], [id number], [id number], [id number] ####[facility] (DEFAULT)[address] [place] [address] Lymphocytes/100 WBC (Bld) 15 % Normal 14-48 [facility] Comment on above: Performed By: #### 7 [id number], [id number], [id number], [id number], [id number], [id number] ####[facility] (DEFAULT)[address] [place] [address] Nuckolls Abs# 0.5 x10 Normal 0.0-0.8 [facility] Comment on above: Performed By: #### 7 335083, 2326081, 1414528, 7195172325, 0441576, 03837017 ####[facility] (DEFAULT)[address] [place] [address] Neut Abs# 2.4 x10 Normal 1.5-9.2 [facility] Comment on above: Performed By: #### 7 592392, 1699120, 0584882, 5036955877, 9679989, 89883569 ####[facility] (DEFAULT)[address] [place] [address] 62487 Neutrophils/100 WBC (Bld) 71 % Normal 44-88 [facility] Comment on above: Performed By: #### 7 872377, 4006779, 6060473, 7549586341, 9424050, 58884569 ####[facility] (DEFAULT)[address] [place] [address] CBC w/ Auto Diffon 4 Erythrocyte distribution width (RBC) [Ratio] 15.6 % High 11.5-15.0 [facility] Comment on above: Performed By: #### 7 616922, 6676067, 4153179, 0081748694, 4129377, 51754040 ####[facility] (DEFAULT)[address] [place] [address] Hematocrit (Bld) [Volume fraction] 32.7 % Low 34.8-51.9 [facility] Comment on above: Performed By: #### 7 062911, 7310600, 1986013, 8842559279, 8080841, 12247100 ####[facility] (DEFAULT)[address] [place] [address] Hemoglobin (Bld) [Mass/Vol] 11.0 g/dL Low 11.8-17.7 [facility] Comment on above: Performed By: #### 7 769440, 1475515, 1492105, 4280566874, 6515558, 17006362 ####[facility] (DEFAULT)[address] [place] [address] Man Diff? Auto Invalid Interpretation Code [facility] Comment on above: Performed By: #### 7 197988, 6124367, 4428104, 4078307154, 4682450, 42122890 ####[facility] (DEFAULT)[address] [place] [address] MCH (RBC) [Entitic mass] 30 pg Normal 24-34 [facility] Comment on above: Performed By: #### 7 900941, 3120304, 4682128, 1832647734, 9045288, 40846087 ####[facility] (DEFAULT)[address] [place] [address] MCHC (RBC) [Mass/Vol] 34 g/dL Normal 26-37 [facility] Comment on above: Performed By: #### 7 457001, 0105856, 2140021, 8233501864, 7428121, 32151572 ####[facility] (DEFAULT)[address] [place] [address] MCV (RBC) [Entitic vol] 88 fL Normal 81-100 [facility] Comment on above: Performed By: #### 7 260706, 5077564, 7441620, 9939940002, 0361367, 16533007 ####[facility] (DEFAULT)[address] [place] [address] Platelet 112 x10 Low 138-427 [facility] Comment on above: Performed By: #### 7 191213, 4178772, 3606583, 6347344274, 7240898, 31506756 ####[facility] (DEFAULT)[address] [place] [address] Platelet mean volume (Bld) [Entitic vol] 8.8 fL Normal 6.3-10.2 [facility] Comment on above: Performed By: #### 7 248842, 6253869, 3021486, 8783186632, 7446205, 57073655 ####[facility] (DEFAULT)[address] [place] [address] RBC 3.71 x10 Normal 3.70-5.30 [facility] Comment on above: Performed By: #### 7 751210, 4038829, 1076900, 1956801506, 4550467, 93200905 ####[facility] (DEFAULT)[address] [place] [address] WBC 3.4 x10 Low 3.5-10.5 [facility] Comment on above: Performed By: #### 7 682704, 6268584, 8762773, 3677702160, 8530889, 41955126 ####[facility] (DEFAULT)[address] [place] [address] CKon 05-24-2023 CK [Catalytic activity/Vol] 1412 U/L High 49-397 [facility] Comment on above: Performed By: #### 7 453867, 3649271, 8981207, 1668524925, 1601416, 76368418 ####[facility] (DEFAULT)[address] [place] [address] CMP Standardon 05-24-2023 eGFR Non AA 55 mL/min/1.73m2 Invalid Interpretation Code [facility] Comment on above: Performed By: #### 7 664969, 5159118, 9135909, 9162826515, 2287647, 89612065 ####[facility] (DEFAULT)[address] [place] [address] eGFR AA >60 Invalid Interpretation Code [facility] Comment on above: Performed By: #### 7 990847, 8191028, 6136725, 1626816020, 4066333, 39061155 ####[facility] (DEFAULT)[address] [place] [address] Albumin [Mass/Vol] 2.6 g/dL Low 3.5-5.0 [facility] Comment on above: Performed By: #### 7 062831, 1691476, 6328433, 9090983729, 1287750, 64470405 ####[facility] (DEFAULT)[address] [place] [address] Alk Phos 46 IU/L Normal 32-91 [facility] Comment on above: Performed By: #### 7 330069, 6292755, 1142190, 1397266180, 1576517, 64191545 ####[facility] (DEFAULT)[address] [place] [address] ALT [Catalytic activity/Vol] 7.0 U/L Low 17.0-63.0 [facility] Comment on above: Performed By: #### 7 833897, 1868854, 9221010, 8038000511, 3647759, 35102303 ####[facility] (DEFAULT)[address] [place] [address] AST [Catalytic activity/Vol] 109 U/L High 15-41 [facility] Comment on above: Performed By: #### 7 341301, 8505465, 7892629, 2147576106, 4119133, 52757853 ####[facility] (DEFAULT)[address] [place] [address] Bili Total 0.6 mg/dL Normal 0.3-1.2 [facility] Comment on above: Performed By: #### 7 260498, 7249918, 9328233, 3317237198, 8621246, 33845302 ####[facility] (DEFAULT)[address] [place] [address] [place] [address] Calcium [Mass/Vol] 7.7 mg/dL Low 8.9-10.3 [facility] Comment on above: Performed By: #### 7 925030, 2970639, 0557085, 4187857502, 9440622, 60520790 ####[facility] (DEFAULT)[address] [place] [address] 81836 Chloride [Moles/Vol] 111 mmol/L Normal 101-111 [facility] Comment on above: Performed By: #### 7 210612, 2337596, 1530663, 1274360937, 7399064, 47675954 ####[facility] (DEFAULT)[address] [place] [address] 61890 CO2 [Moles/Vol] 24 mmol/L Normal 21-32 [facility] Comment on above: Performed By: #### 7 135965, 6196933, 6854768, 0690689418, 9080813, 44188806 ####[facility] (DEFAULT)[address] [place] [address] 81962 Creatinine [Mass/Vol] 1.24 mg/dL Normal 0.90-1.30 [facility] Comment on above: Performed By: #### 7 575168, 3029438, 1518980, 3184606619, 6962134, 75632865 ####[facility] (DEFAULT)[address] [place] [address] 72822 Glucose [Mass/Vol] 103.0 mg/dL Normal 74.0-118.0 [facility] Comment on above: Performed By: #### 7 337574, 7178101, 8159698, 5716277921, 7628022, 14002133 ####[facility] (DEFAULT)[address] [place] [address] 64243 Potassium [Moles/Vol] 3.7 mmol/L Normal 3.6-5.1 [facility] Comment on above: Performed By: #### 7 153232, 0556179, 8808062, 8973450378, 9248816, 86951787 ####[facility] (DEFAULT)[address] [place] [address] 35140 Protein [Mass/Vol] 5.0 g/dL Low 6.5-8.1 [facility] Comment on above: Performed By: #### 7 083480, 9292818, 2829700, 4440810203, 7499256, 63956633 ####[facility] (DEFAULT)[address] [place] [address] 59125 Sodium [Moles/Vol] 140.0 mmol/L Normal 136.0-144.0 [facility] Comment on above: Performed By: #### 7 058634, 5377111, 4863757, 6639426468, 8404770, 27306495 ####[facility] (DEFAULT)[address] [place] [address] Urea nitrogen [Mass/Vol] 28 mg/dL High 8- [facility] Comment on above: Performed By: #### 7 355587, 5432097, 5276851, 8092992071, 0235952, 00054301 ####[facility] (DEFAULT)[address] [place] [address] Albumin/Globulin [Mass ratio] 1.0 {ratio} Low 1.4-2.6 [facility] Comment on above: Performed By: #### 7 204333, 0512167, 0322811, 6296490869, 3755010, 93368347 ####[facility] (DEFAULT)[address] [place] [address] 84900 Anion gap [Moles/Vol] 8.7 mmol/L Normal 5.0-19.0 [facility] Comment on above: Performed By: #### 7 753000, 2606150, 9285509, 7162120702, 8641457, 03271128 ####[facility] (DEFAULT)[address] [place] [address] Globulin (S) [Mass/Vol] 2.4 g/dL Normal 1.5-4.3 [facility] Comment on above: Performed By: #### 7 266026, 7173208, 0026559, 3825777025, 3342545, 95793410 ####[facility] (DEFAULT)[address] [place] [address] Osmolality 285 mOsm/L Invalid Interpretation Code [facility] Comment on above: Performed By: #### 7 279465, 5253199, 1702710, 7550049353, 6816363, 33461607 ####[facility] (DEFAULT)[address] [place] [address] Urea nitrogen/Creatinine [Mass ratio] 22.5 mg/mg High 4.6-16.2 [facility] Comment on above: Performed By: #### 7 211195, 1102820, 0776770, 4883252190, 6374771, 79121326 ####[facility] (DEFAULT)[address] [place] [address] CRPon 05-24-2023 CRP 6.7 mg/dL High <=0.5 [facility] Comment on above: Performed By: #### 7 012646, 7500968, 9818605, 1251835521, 5664016, 57081070 ####[facility] (DEFAULT)[address] [place] [address] Myoglobinon 05-24-2023 Myoglobin [Mass/Vol] 632.8 ng/mL High 17.4-105.7 [facility] Comment on above: Performed By: #### 7 831552, 8694440, 2750818, 7121492936, 9764568, 67258566 ####[facility] (DEFAULT)[address] [place] [address] 17764 Nutrition Noteon 05-24-2023 Nutrition Note Normal [facility] POCT Glucose Levelon 024 Glucose [Mass/Vol] 97 mg/dL Normal 74-118 [facility] Comment on above: Performed By: #### 4 [id number] ####[facility] (DEFAULT)[address] [place] [address] 42988 Progress Note - Nurseon Progress Note - Nurse [facility] Telemetry Stripson Telemetry Strips [id number]#1.00O TGTIFF Normal [facility] .Auto Diff 1on 05-23-2023 Auto Nuckolls % 13 % High 1-12 [facility] Comment on above: Performed By: #### 2 421368, 7232083, 934452610, 84157231, 5943321, 4330557, 3015931358 ####[facility] (DEFAULT)[address] [place] [address] Baso Abs# 0.0 x10 Normal 0.0-0.2 [facility] Comment on above: Performed By: #### 2 477566, 4894838, 324869929, 84008246, 9793293, 7160829, 6803736544 ####[facility] (DEFAULT)[address] [place] [address] Basophils/100 WBC (Bld) 0.2 % Normal 0.2-2.0 [facility] Comment on above: Performed By: #### 2 002274, 3473935, 211606585, 27701965, 9809573, 2213413, 2473572218 ####[facility] (DEFAULT)[address] [place] [address] Eos Abs# 0.0 x10 Normal 0.0-0.4 [facility] Comment on above: Performed By: #### 2 096665, 7909433, 905687946, 94982543, 8479688, 2644952, 3508141227 ####[facility] (DEFAULT)[address] [place] [address] Eosinophils/100 WBC (Bld) 0.0 % Low 0.9-4.0 [facility] Comment on above: Performed By: #### 2 326343, 5492484, 432978973, 21858657, 0238563, 4113604, 0616194097 ####[facility] (DEFAULT)[address] [place] [address] Lymph Abs# 0.5 x10 Low 1.3-2.9 [facility] Comment on above: Performed By: #### 2 280990, 6788841, 980086455, 71130195, 7024673, 5064626, 2808845081 ####[facility] (DEFAULT)[address] [place] [address] Lymphocytes/100 WBC (Bld) 10 % Low 14-48 [facility] Comment on above: Performed By: #### 2 965412, 7276203, 509914191, 47858818, 7546186, 5344115, 4293972137 ####[facility] (DEFAULT)[address] [place] [address] Nuckolls Abs# 0.6 x10 Normal 0.0-0.8 [facility] Comment on above: Performed By: #### 2 592912, 7401806, 836909522, 48132598, 3036687, 6952240, 6079147036 ####[facility] (DEFAULT)[address] [place] [address] Neut Abs# 3.6 x10 Normal 1.5-9.2 [facility] Comment on above: Performed By: #### 2 513657, 9828032, 089082312, 15779820, 4630288, 2247538, 9032731005 ####[facility] (DEFAULT)[address] [place] [address] Neutrophils/100 WBC (Bld) 77 % Normal 44-88 [facility] Comment on above: Performed By: #### 2 724855, 7079259, 633766598, 84929739, 2612614, 6728821, 1504563895 ####[facility] (DEFAULT)[address] [place] [address] C Urineon 05-23-2023 C Urine Normal [facility] Comment on above: Performed By: #### 1 146333749, 2786785, 09029475 ####[facility] (DEFAULT)[address] [place] [address] CBC w/ Auto Diffon Erythrocyte distribution width (RBC) [Ratio] 15.4 % High 11.5-15.0 [facility] Comment on above: Performed By: #### 2 752674, 1328338, 608573040, 75349205, 4742844, 1871393, 6065726535 ####[facility] (DEFAULT)[address] [place] [address] Hematocrit (Bld) [Volume fraction] 33.2 % Low 34.8-51.9 [facility] Comment on above: Performed By: #### 2 792320, 7040334, 424123518, 22808098, 1579230, 8234498, 3715610535 ####[facility] (DEFAULT)[address] [place] [address] Hemoglobin (Bld) [Mass/Vol] 11.3 g/dL Low 11.8-17.7 [facility] Comment on above: Performed By: #### 2 889257, 3419110, 724476293, 24023000, 6918975, 8761976, 6339696264 ####[facility] (DEFAULT)[address] [place] [address] Man Diff? Auto Invalid Interpretation Code [facility] Comment on above: Performed By: #### 2 131798, 2708170, 349401499, 87329131, 9683626, 2995606, 0491201399 ####[facility] (DEFAULT)[address] [place] [address] MCH (RBC) [Entitic mass] 30 pg Normal 24-34 [facility] Comment on above: Performed By: #### 2 435479, 4171249, 548661688, 40261514, 4875773, 6633832, 6564990234 ####[facility] (DEFAULT)[address] [place] [address] MCHC (RBC) [Mass/Vol] 34 g/dL Normal 26-37 [facility] Comment on above: Performed By: #### 2 377266, 9784568, 356809555, 86775019, 1160354, 2596995, 7496461067 ####[facility] (DEFAULT)[address] [place] [address] MCV (RBC) [Entitic vol] 88 fL Normal 81-100 [facility] Comment on above: Performed By: #### 2 209892, 2288887, 882247916, 92720810, 6069888, 1045176, 9720060269 ####[facility] (DEFAULT)[address] [place] [address] 07759 Platelet 112 x10 Low 138-427 [facility] Comment on above: Performed By: #### 2 570318, 7588738, 963956734, 52709731, 2433447, 1440437, 4058233764 ####[facility] (DEFAULT)[address] [place] [address] Platelet mean volume (Bld) [Entitic vol] 8.6 fL Normal 6.3-10.2 [facility] Comment on above: Performed By: #### 2 724196, 0914026, 168206432, 56188415, 0139872, 0236439, 1836728921 ####[facility] (DEFAULT)[address] [place] [address] RBC 3.77 x10 Normal 3.70-5.30 [facility] Comment on above: Performed By: #### 2 308575, 0837882, 784473755, 90266462, 0128538, 6165934, 8891423786 ####[facility] (DEFAULT)[address] [place] [address] WBC 4.7 x10 Normal 3.5-10.5 [facility] Comment on above: Performed By: #### 2 423618, 2708464, 959980868, 60478119, 8274706, 6895759, 4832720745 ####[facility] (DEFAULT)[address] [place] [address] CKon 05-23-2023 CK [Catalytic activity/Vol] 2005 U/L High 49-397 [facility] Comment on above: Performed By: #### 2 935027, 0736476, 204290290, 37831071, 8173619, 3390981, 8168041519 ####[facility] (DEFAULT)[address] [place] [address] CMP Standardon 05-23-2023 Anion gap [Moles/Vol] 8.6 mmol/L Normal 5.0-19.0 [facility] Comment on above: Performed By: #### 2 041250, 3164972, 915631663, 72978132, 7365536, 5604097, 0024501100 ####[facility] (DEFAULT)[address] [place] [address] 76242 Calcium [Mass/Vol] 7.6 mg/dL Low 8.9-10.3 [facility] Comment on above: Performed By: #### 2 348481, 8258343, 831975827, 93995102, 9535576, 5578020, 1130719279 ####[facility] (DEFAULT)[address] [place] [address] 35755 Chloride [Moles/Vol] 111 mmol/L Normal 101-111 [facility] Comment on above: Performed By: #### 2 872331, 2528332, 511028170, 15621551, 9357124, 1920523, 0636008929 ####[facility] (DEFAULT)[address] [place] [address] 55516 CO2 [Moles/Vol] 23 mmol/L Normal 21-32 [facility] Comment on above: Performed By: #### 2 558504, 2331790, 994407692, 64803576, 4770080, 2144492, 9891495387 ####[facility] (DEFAULT)[address] [place] [address] 28766 Glucose [Mass/Vol] 106.0 mg/dL Normal 74.0-118.0 [facility] Comment on above: Performed By: #### 2 263452, 3833779, 984048652, 01044167, 7389312, 5982158, 0484514455 ####[facility] (DEFAULT)[address] [place] [address] 80479 Osmolality 284 mOsm/L Invalid Interpretation Code [facility] Comment on above: Performed By: #### 2 409539, 2442853, 726168197, 52437406, 4324507, 5765053, 3602428434 ####[facility] (DEFAULT)[address] [place] [address] 56849 Potassium [Moles/Vol] 3.6 mmol/L Normal 3.6-5.1 [facility] Comment on above: Performed By: #### 2 097752, 7855874, 185634203, 67828494, 0675995, 1538722, 6628141207 ####[facility] (DEFAULT)[address] [place] [address] Sodium [Moles/Vol] 139.0 mmol/L Normal 136.0-144.0 [facility] Comment on above: Performed By: #### 2 867191, 5061085, 518990394, 32871712, 1921216, 6739176, 7278313354 ####[facility] (DEFAULT)[address] [place] [address] eGFR Non AA 44 mL/min/1.73m2 Invalid Interpretation Code [facility] Comment on above: Performed By: #### 2 256302, 3077200, 096594238, 60347086, 8585931, 1584870, 9137353574 ####[facility] (DEFAULT)[address] [place] [address] eGFR AA 54 mL/min/1.73m2 Invalid Interpretation Code [facility] Comment on above: Performed By: #### 2 708638, 2441951, 094052890, 94802925, 3607476, 6155729, 7655318772 ####[facility] (DEFAULT)[address] [place] [address] Albumin [Mass/Vol] 2.7 g/dL Low 3.5-5.0 [facility] Comment on above: Performed By: #### 2 913298, 9262221, 680117775, 92798418, 7750849, 8845938, 0020193210 ####[facility] (DEFAULT)[address] [place] [address] Albumin/Globulin [Mass ratio] 1.2 {ratio} Low 1.4-2.6 [facility] Comment on above: Performed By: #### 2 010378, 9748837, 268960763, 43389532, 3091540, 0197331, 1778917662 ####[facility] (DEFAULT)[address] [place] [address] 28177 Alk Phos 48 IU/L Normal 32-91 [facility] Comment on above: Performed By: #### 2 565362, 5625183, 542577980, 56817982, 8050061, 4101878, 3965532937 ####[facility] (DEFAULT)[address] [place] [address] ALT [Catalytic activity/Vol] 7.0 U/L Low 17.0-63.0 [facility] Comment on above: Performed By: #### 2 751044, 3155494, 797485412, 96352421, 2725551, 4336748, 5311814002 ####[facility] (DEFAULT)[address] [place] [address] AST [Catalytic activity/Vol] 128 U/L High 15-41 [facility] Comment on above: Performed By: #### 2 815469, 9886578, 055136887, 86652304, 8457660, 2667469, 1117859906 ####[facility] (DEFAULT)[address] [place] [address] Bili Total 0.6 mg/dL Normal 0.3-1.2 [facility] Comment on above: Performed By: #### 2 230131, 1336227, 949550244, 59965319, 4150350, 0571430, 0672280251 ####[facility] (DEFAULT)[address] [place] [address] 29429 Creatinine [Mass/Vol] 1.50 mg/dL High 0.90-1.30 [facility] Comment on above: Performed By: #### 2 091194, 0340439, 026924966, 19417328, 8526396, 3098688, 2699677261 ####[facility] (DEFAULT)[address] [place] [address] 36904 Globulin (S) [Mass/Vol] 2.2 g/dL Normal 1.5-4.3 [facility] Comment on above: Performed By: #### 2 236798, 9005864, 261995946, 39211573, 5931708, 4828116, 7989129679 ####[facility] (DEFAULT)[address] [place] [address] 06555 Protein [Mass/Vol] 4.9 g/dL Low 6.5-8.1 [facility] Comment on above: Performed By: #### 2 701734, 3154921, 371489863, 96004222, 6613565, 9800443, 8966483295 ####[facility] (DEFAULT)[address] [place] [address] 08309 Urea nitrogen [Mass/Vol] 30 mg/dL High 8-26 [facility] Comment on above: Performed By: #### 2 929811, 2682476, 270095070, 29673144, 0658695, 2931833, 0254717859 ####[facility] (DEFAULT)[address] [place] [address] 74455 Urea nitrogen/Creatinine [Mass ratio] 20.0 mg/mg High 4.6-16.2 [facility] Comment on above: Performed By: #### 2 852977, 8589993, 929472084, 28105565, 0767466, 2467445, 3090755396 ####[facility] (DEFAULT)[address] [place] [address] 41402 CRPon 05-23-2023 CRP 8.4 mg/dL High <=0.5 [facility] Comment on above: Performed By: #### 2 519115, 7226150, 565981490, 32409006, 4078694, 2318505, 9582299117 ####[facility] (DEFAULT)[address] [place] [address] 14414 Myoglobinon 05-23-2023 Myoglobin [Mass/Vol] 1491.6 ng/mL High 17.4-105.7 [facility] Comment on above: Performed By: #### 2 246286, 3860420, 953166371, 27032384, 6970380, 6864044, 3193391948 ####[facility] (DEFAULT)[address] [place] [address] 72133 Procalcitoninon 05-23-2023 Procalcitonin 1.226 ng/mL High 0.500-1.000 [facility] Comment on above: Performed By: #### 2 312313, 8051503, 454747061, 28491700, 3328831, 9839251, 6438970827 ####[facility] (DEFAULT)[address] [place] [address] Telemetry Stripson Telemetry Strips [id number]#1.00O TGTIFF Normal [facility] .Auto Diff 1on 05-22-2023 Auto Nuckolls % 10 % Normal 12 [facility] Comment on above: Performed By: #### 5 950130114, 4167417, 0550456, 1936351, 4009981388, 8259646, [id number] ####[facility] (DEFAULT)[address] [place] [address] Baso Abs# 0.0 x10 Normal 0.0-0.2 [facility] Comment on above: Performed By: #### 5 [id number], [id number], [id number], 2366034, [id number], [id number], [id number] ####[facility] (DEFAULT)[address] [place] [address] Basophils/100 WBC (Bld) 0.5 % Normal 0.2-2.0 [facility] Comment on above: Performed By: #### 5 [id number], [id number], 9082227, 2637207, [id number], 1360174, [id number] ####[facility] (DEFAULT)[address] [place] [address] Eos Abs# 0.0 x10 Normal 0.0-0.4 [facility] Comment on above: Performed By: #### 5 [id number], [id number], 2651120, 9134979, [id number], 3086074, [id number] ####[facility] (DEFAULT)[address] [place] [address] Eosinophils/100 WBC (Bld) 0.0 % Low 0.9-4.0 [facility] Comment on above: Performed By: #### 5 [id number], [id number], 6333039, 4389034, [id number], 3675930, 39120875 ####[facility] (DEFAULT)[address] [place] [address] Lymph Abs# 0.5 x10 Low 1.3-2.9 [facility] Comment on above: Performed By: #### 5 [id number], [id number], 0021603, 4546290, [id number], 4245506, 51324181 ####[facility] (DEFAULT)[address] [place] [address] Lymphocytes/100 WBC (Bld) 7 % Low 14-48 [facility] Comment on above: Performed By: #### 5 [id number], 8461642, 4478821, 6413469, [id number], 8059115, [id number] ####[facility] (DEFAULT)[address] [place] [address] Nuckolls Abs# 0.8 x10 Normal 0.0-0.8 [facility] Comment on above: Performed By: #### 5 218339330, 1225840, 6666618, 8257355, 2496731368, 2818464, 87214473 ####[facility] (DEFAULT)[address] [place] [address] Neut Abs# 6.8 x10 Normal 1.5-9.2 [facility] Comment on above: Performed By: #### 5 538891172, 8854957, 3481201, 6367062, 7817968109, 1429801, 95761789 ####[facility] (DEFAULT)[address] [place] [address] Neutrophils/100 WBC (Bld) 83 % Normal 44-88 [facility] Comment on above: Performed By: #### 5 569716701, 7141780, 3986017, 8872112, 6162989119, 6509327, 53894499 ####[facility] (DEFAULT)[address] [place] [address] CBC w/ Auto Diffon 4 Erythrocyte distribution width (RBC) [Ratio] 15.6 % High 11.5-15.0 [facility] Comment on above: Performed By: #### 5 837672424, 0470282, 4862237, 6245622, 1892236552, 1678015, 29781112 ####[facility] (DEFAULT)[address] [place] [address] Hematocrit (Bld) [Volume fraction] 38.2 % Normal 34.8-51.9 [facility] Comment on above: Performed By: #### 5 836612750, 4796700, 3059813, 4113051, 2108276181, 5128134, 85716197 ####[facility] (DEFAULT)[address] [place] [address] Hemoglobin (Bld) [Mass/Vol] 12.8 g/dL Normal 11.8-17.7 [facility] Comment on above: Performed By: #### 5 169229501, 3772181, 6935443, 7668254, 1376476901, 0234577, 22995247 ####[facility] (DEFAULT)[address] [place] [address] Man Diff? Auto Invalid Interpretation Code [facility] Comment on above: Performed By: #### 5 763116205, 8543545, 5611745, 9829801, 2439969434, 2883227, 55318341 ####[facility] (DEFAULT)[address] [place] [address] MCH (RBC) [Entitic mass] 30 pg Normal 24-34 [facility] Comment on above: Performed By: #### 5 154351909, 5166806, 8517235, 6660283, 9387887701, 8275484, 00170789 ####[facility] (DEFAULT)[address] [place] [address] MCHC (RBC) [Mass/Vol] 34 g/dL Normal 26-37 [facility] Comment on above: Performed By: #### 5 498707060, 6201806, 7460265, 2226661, 1620899706, 0619953, 69962474 ####[facility] (DEFAULT)[address] [place] [address] MCV (RBC) [Entitic vol] 88 fL Normal 81-100 [facility] Comment on above: Performed By: #### 5 296872519, 6540346, 0857496, 6562046, 7336818090, 7684743, 41945196 ####[facility] (DEFAULT)[address] [place] [address] Platelet 132 x10 Low 138-427 [facility] Comment on above: Performed By: #### 5 790562073, 0304304, 7550723, 4254837, 3799357066, 3945915, 65595043 ####[facility] (DEFAULT)[address] [place] [address] Platelet mean volume (Bld) [Entitic vol] 8.7 fL Normal 6.3-10.2 [facility] Comment on above: Performed By: #### 5 639492070, 0118717, 7774608, 9408537, 3015399566, 5482097, 28996185 ####[facility] (DEFAULT)[address] [place] [address] RBC 4.32 x10 Normal 3.70-5.30 [facility] Comment on above: Performed By: #### 5 892763973, 0129051, 9053271, 5431760, 4879893258, 2805154, 69272789 ####[facility] (DEFAULT)[address] [place] [address] WBC 8.2 x10 Normal 3.5-10.5 [facility] Comment on above: Performed By: #### 5 668056630, 5081235, 4995467, 9118723, 8022735674, 0918810, 71122849 ####[facility] (DEFAULT)[address] [place] [address] CKon 05-22-2023 CK [Catalytic activity/Vol] 2963 U/L High 49-397 [facility] Comment on above: Performed By: #### 5 098435743, 3582742, 2284438, 1044768, 0425208525, 6539028, 31811012 ####[facility] (DEFAULT)[address] [place] [address] CMP Standardon 05-22-2023 eGFR Non AA 44 mL/min/1.73m2 Invalid Interpretation Code [facility] Comment on above: Performed By: #### 5 799257071, 5439342, 9644453, 1886712, 7946330062, 2166749, 84042117 ####[facility] (DEFAULT)[address] [place] [address] eGFR AA 54 mL/min/1.73m2 Invalid Interpretation Code [facility] Comment on above: Performed By: #### 5 993774507, 3820607, 9032037, 5504135, 4466393311, 9384273, 60481548 ####[facility] (DEFAULT)[address] [place] [address] Albumin [Mass/Vol] 3.0 g/dL Low 3.5-5.0 [facility] Comment on above: Performed By: #### 5 567385321, 7883326, 5864485, 1737416, 8624224089, 6688066, 18557124 ####[facility] (DEFAULT)[address] [place] [address] Albumin/Globulin [Mass ratio] 1.1 {ratio} Low 1.4-2.6 [facility] Comment on above: Performed By: #### 5 327205137, 0507167, 7295953, 6097573, 4535009094, 0766147, 10825766 ####[facility] (DEFAULT)[address] [place] [address] 44617 Alk Phos 60 IU/L Normal 32-91 [facility] Comment on above: Performed By: #### 5 029565369, 7609765, 3291021, 0564028, 3699791649, 2351633, 22238443 ####[facility] (DEFAULT)[address] [place] [address] ALT [Catalytic activity/Vol] 50.0 U/L Normal 17.0-63.0 [facility] Comment on above: Performed By: #### 5 324794136, 2536468, 7859985, 2673656, 0582818605, 3284497, 63387807 ####[facility] (DEFAULT)[address] [place] [address] 97466 Anion gap [Moles/Vol] 7.6 mmol/L Normal 5.0-19.0 [facility] Comment on above: Performed By: #### 5 560515504, 7674849, 5088106, 5113737, 6140551622, 4617366, 92380754 ####[facility] (DEFAULT)[address] [place] [address] 27064 AST [Catalytic activity/Vol] 158 U/L High 15-41 [facility] Comment on above: Performed By: #### 5 311268567, 7428305, 9932220, 6779311, 1776876409, 8883196, 28660886 ####[facility] (DEFAULT)[address] [place] [address] 46287 Bili Total 0.9 mg/dL Normal 0.3-1.2 [facility] Comment on above: Performed By: #### 5 064984017, 3735879, 6386260, 4635541, 3858674109, 9943465, 55103156 ####[facility] (DEFAULT)[address] [place] [address] 66996 Calcium [Mass/Vol] 7.8 mg/dL Low 8.9-10.3 [facility] Comment on above: Performed By: #### 5 828352278, 4103628, 8610759, 4741103, 5008501379, 5040661, 08151436 ####[facility] (DEFAULT)[address] [place] [address] 64099 Chloride [Moles/Vol] 111 mmol/L Normal 101-111 [facility] Comment on above: Performed By: #### 5 814890682, 6329325, 7954569, 1353877, 1526831456, 3934730, 84575960 ####[facility] (DEFAULT)[address] [place] [address] 22926 CO2 [Moles/Vol] 22 mmol/L Normal 21-32 [facility] Comment on above: Performed By: #### 5 221991414, 7406243, 0522052, 1361047, 5802555118, 9469979, 78165120 ####[facility] (DEFAULT)[address] [place] [address] 34235 Creatinine [Mass/Vol] 1.50 mg/dL High 0.90-1.30 [facility] Comment on above: Performed By: #### 5 897237579, 2103295, 6994617, 1641040, 4032910542, 2339827, 53675368 ####[facility] (DEFAULT)[address] [place] [address] 13658 Globulin (S) [Mass/Vol] 2.6 g/dL Normal 1.5-4.3 [facility] Comment on above: Performed By: #### 5 454731829, 5655844, 0944533, 1746480, 5179188644, 6274192, 00848905 ####[facility] (DEFAULT)[address] [place] [address] 06929 Glucose [Mass/Vol] 128.0 mg/dL High 74.0-118.0 [facility] Comment on above: Performed By: #### 5 801151952, 2504167, 8604901, 2237734, 2211499099, 2395174, 14777295 ####[facility] (DEFAULT)[address] [place] [address] 41090 Osmolality 283 mOsm/L Invalid Interpretation Code [facility] Comment on above: Performed By: #### 5 263524867, 7858817, 8130319, 4237388, 4646398519, 7211887, 40713967 ####[facility] (DEFAULT)[address] [place] [address] 34679 Potassium [Moles/Vol] 3.6 mmol/L Normal 3.6-5.1 [facility] Comment on above: Performed By: #### 5 713644242, 0044688, 4753949, 3899708, 5932619285, 4079771, 45516462 ####[facility] (DEFAULT)[address] [place] [address] 19082 Protein [Mass/Vol] 5.6 g/dL Low 6.5-8.1 [facility] Comment on above: Performed By: #### 5 801705981, 3612858, 0667516, 1006314, 8735139827, 7105449, 39877112 ####[facility] (DEFAULT)[address] [place] [address] 74714 Sodium [Moles/Vol] 137.0 mmol/L Normal 136.0-144.0 [facility] Comment on above: Performed By: #### 5 600163367, 6345651, 7223075, 1956647, 6673673779, 3617375, 35682847 ####[facility] (DEFAULT)[address] [place] [address] 42854 Urea nitrogen [Mass/Vol] 33 mg/dL High 8-26 [facility] Comment on above: Performed By: #### 5 889497355, 0577288, 3968383, 8891006, 7727385238, 0882733, 72930643 ####[facility] (DEFAULT)[address] [place] [address] 20165 Urea nitrogen/Creatinine [Mass ratio] 22.0 mg/mg High 4.6-16.2 [facility] Comment on above: Performed By: #### 5 961732447, 2432548, 7108529, 2693474, 6720219652, 7589525, 44044419 ####[facility] (DEFAULT)[address] [place] [address] 83802 Magnesiumon 05-22-2023 Magnesium [Mass/Vol] 1.80 mg/dL Normal 1.80-2.50 [facility] Comment on above: Performed By: #### 5 244605399, 5632639, 1262642, 3015698, 8506372074, 4173250, 12889511 ####[facility] (DEFAULT)[address] [place] [address] 98437 Myoglobinon 05-22-2023 Myoglobin [Mass/Vol] 3674.6 ng/mL High 17.4-105.7 [facility] Comment on above: Performed By: #### 5 190360604, 8361100, 9558365, 3893996, 9796831490, 0425403, 51381667 ####[facility] (DEFAULT)[address] [place] [address] Nutrition Noteon 05-22-2023 Nutrition Note Normal [facility] Pharmacy Noteon 05-22-2023 Pharmacy Note Normal [facility] Telemetry Stripson Telemetry Strips [id number] 40 [id number]#1.00O TGTIFF Normal [facility] TnI HSon 05-22-2023 Troponin I High Sensitivity 466.0 pg/mL Critically abnormal <=20.0 [facility] Comment on above: Result Comment: Crit ical result TNIHS 466.0 pg/mL called to and read back by pallavi avila at 22-May-2023 05:14 by brian. Performed By: #### 5 644239873, 9018575, 3631321, 5245725, 5044518835, 1353944, 81593677 ####[facility] (DEFAULT)[address] [place] [address] 98387 .Auto Diff 105-21-2023 Auto Nuckolls % 9 % Normal -12 [facility] Comment on above: Performed By: #### 2 145911, 53771435, 4896116438, 2086920, 9242613, 0119245, 740630084, 4340120388, 3742772, 0007158513, 9623330051 ####[facility] (DEFAULT)[address] [place] [address] Baso Abs# 0.0 x10 Normal 0.0-0.2 [facility] Comment on above: Performed By: #### 2 768392, 79882402, 0286754319, 4301739, 2859698, 9390018, 114449849, 1606327665, 5470644, 4728357252, 0062961796 ####[facility] (DEFAULT)[address] [place] [address] 49408 Basophils/100 WBC (Bld) 0.1 % Low 0.2-2.0 [facility] Comment on above: Performed By: #### 2 164807, 16048847, 0237826392, 7872557, 5469645, 1197112, 387142325, 4159575736, 3511674, 2472049927, 5499739095 ####[facility] (DEFAULT)[address] [place] [address] 45073 Eos Abs# 0.0 x10 Normal 0.0-0.4 [facility] Comment on above: Performed By: #### 2 150431, 96811265, 9860753705, 9945673, 3085850, 3274864, 466572042, 3110785840, 8436269, 4006902454, 2228698466 ####[facility] (DEFAULT)[address] [place] [address] 82101 Eosinophils/100 WBC (Bld) 0.0 % Low 0.9-4.0 [facility] Comment on above: Performed By: #### 2 998370, 34626247, 3111313318, 6201787, 6112191, 0793128, 893556284, 5283637801, 6671069, 3944339894, 6732255355 ####[facility] (DEFAULT)[address] [place] [address] 00797 Lymph Abs# 0.3 x10 Low 1.3-2.9 [facility] Comment on above: Performed By: #### 2 008828, 73667455, 6103472217, 6224714, 3625016, 5901628, 084173069, 7869387581, 2047471, 7303496994, 9780558970 ####[facility] (DEFAULT)[address] [place] [address] 96815 Lymphocytes/100 WBC (Bld) 3 % Low 14-48 [facility] Comment on above: Performed By: #### 2 485102, 76257508, 0257828804, 4343626, 4346814, 7737381, 800851095, 1086452901, 4192109, 9897636149, 0162113905 ####[facility] (DEFAULT)[address] [place] [address] Nuckolls Abs# 1.0 x10 High 0.0-0.8 [facility] Comment on above: Performed By: #### 2 901943, 99526541, 6139124338, 0098116, 4331694, 0540598, 087015883, 6469236117, 0539410, 2994024128, 5299863270 ####[facility] (DEFAULT)[address] [place] [address] Neut Abs# 9.5 x10 High 1.5-9.2 [facility] Comment on above: Performed By: #### 2 046556, 13269598, 8702891612, 2547311, 5483016, 0382673, 467328818, 6579247546, 6369924, 7418432176, 7316085440 ####[facility] (DEFAULT)[address] [place] [address] Neutrophils/100 WBC (Bld) 88 % Normal 44-88 [facility] Comment on above: Performed By: #### 2 624892, 81682420, 5707498081, 0756210, 0827740, 4870918, 410431003, 9464634445, 1498081, 9247086087, 8086003672 ####[facility] (DEFAULT)[address] [place] [address] .QC SARS-CoV-2 (COVID-19)/Fl u/RSV (Gene[employer]pert)on 05-21-2023 Internal Control Pass Normal [facility] Comment on above: Order Comment: Order ed by Discern.[[id number]] Performed By: #### 7 [id number], 6108052607 ####[facility] (DEFAULT)[address] [place] [address] CBC w/ Auto Diffon Erythrocyte distribution width (RBC) [Ratio] 15.2 % High 11.5-15.0 [facility] Comment on above: Performed By: #### 2 295299, 11615776, 8301970853, 6773217, 0363987, 5731686, 866154501, 7559399678, 6294104, 4785440136, 7366769001 ####[facility] (DEFAULT)[address] [place] [address] Hematocrit (Bld) [Volume fraction] 44.0 % Normal 34.8-51.9 [facility] Comment on above: Performed By: #### 2 625747, 25107887, 0032240583, 6590528, 8543260, 6976367, 161073079, 3338222470, 5150943, 5706783848, 0347620347 ####[facility] (DEFAULT)[address] [place] [address] Hemoglobin (Bld) [Mass/Vol] 14.7 g/dL Normal 11.8-17.7 [facility] Comment on above: Performed By: #### 2 431105, 66959955, 7694098833, 5535160, 6692856, 4601400, 154349816, 0485134744, 9735981, 2342297504, 5246199669 ####[facility] (DEFAULT)[address] [place] [address] Man Diff? Auto Invalid Interpretation Code [facility] Comment on above: Performed By: #### 2 021868, 79869327, 7449472738, 2432508, 6798630, 5143359, 040198330, 6137743511, 4466259, 2274468093, 4021918720 ####[facility] (DEFAULT)[address] [place] [address] 48117 MCH (RBC) [Entitic mass] 30 pg Normal 24-34 [facility] Comment on above: Performed By: #### 2 269507, 41599271, 2172165413, 1533901, 4789453, 5058438, 797085014, 8231588365, 0946400, 4916591192, 2783239383 ####[facility] (DEFAULT)[address] [place], [place] [address] MCHC (RBC) [Mass/Vol] 33 g/dL Normal 26-37 [facility] Comment on above: Performed By: #### 2 721741, 85411475, 4236035949, 1165841, 6564845, 3207797, 628020690, 5744451541, 9870488, 1192304113, 5914497308 ####[facility] (DEFAULT)[address] [place] [address] MCV (RBC) [Entitic vol] 89 fL Normal 81-100 [facility] Comment on above: Performed By: #### 2 301686, 57747176, 3790683029, 5952164, 1470841, 8033445, 141058769, 4070455787, 1741197, 0580096337, 6991452448 ####[facility] (DEFAULT)[address] [place] [address] Platelet 173 x10 Normal 138-427 [facility] Comment on above: Performed By: #### 2 893371, 23254044, 7698843816, 3454812, 5874074, 4757068, 053939783, 3772452345, 6507876, 8052222129, 1912380649 ####[facility] (DEFAULT)[address] [place] [address] Platelet mean volume (Bld) [Entitic vol] 7.9 fL Normal 6.3-10.2 [facility] Comment on above: Performed By: #### 2 525692, 81792396, 3486749539, 7625163, 2182175, 9959391, 088054262, 0326778108, 4310995, 3388067699, 1884001886 ####[facility] (DEFAULT)[address] [place] [address] RBC 4.95 x10 Normal 3.70-5.30 [facility] Comment on above: Performed By: #### 2 948034, 24490368, 5935696829, 2439650, 2251954, 9986790, 664722202, 4898964053, 3825701, 5883817357, 3667325649 ####[facility] (DEFAULT)[address] [place] [address] WBC 10.7 x10 High 3.5-10.5 [facility] Comment on above: Performed By: #### 2 387429, 32965151, 2076734968, 2854164, 0163632, 7809591, 811090883, 8787867949, 7423967, 1124839761, 0888573873 ####[facility] (DEFAULT)[address] [place], [place] [address] 05-21-2023 Total CK >4100 High 49-397 [facility] Comment on above: Result Comment: Veri fied by dilution Performed By: #### 2 921080, 52121975, 8776355315, 4571971, 0557644, 7778060, 003858720, 8644590975, 1309032, 6716784991, 7501903054 ####[facility] (DEFAULT)[address] [place], [place] [address] [facility] Standardon 05-21-2023 eGFR Non AA 49 mL/min/1.73m2 Invalid Interpretation Code [facility] Comment on above: Performed By: #### 2 201582, 80196533, 6331665689, 7432839, 1740358, 2948972, 324117861, 5132278841, 7372164, 1902119237, 4498994850 ####[facility] (DEFAULT)[address] [place] [address] eGFR AA 59 mL/min/1.73m2 Invalid Interpretation Code [facility] Comment on above: Performed By: #### 2 885560, 22337133, 6447993196, 2911724, 2257237, 9735318, 653973599, 4312580850, 1426438, 4708674852, 4058100343 ####[facility] (DEFAULT)[address] [place] [address] 65806 Albumin [Mass/Vol] 4.2 g/dL Normal 3.5-5.0 [facility] Comment on above: Performed By: #### 2 065621, 22466848, 2104963040, 1480385, 9395831, 8466887, 001677452, 4893666198, 1956177, 5719803748, 2212778037 ####[facility] (DEFAULT)[address] [place] [address] 36342 Alk Phos 81 IU/L Normal 32-91 [facility] Comment on above: Performed By: #### 2 854207, 22224013, 1227765681, 2634431, 4397652, 3791254, 824005366, 2502457486, 8752798, 8741329081, 9420742205 ####[facility] (DEFAULT)[address] [place] [address] 85461 ALT [Catalytic activity/Vol] 61.0 U/L Normal 17.0-63.0 [facility] Comment on above: Performed By: #### 2 645158, 88703506, 6697441408, 2549400, 7043996, 4894745, 254642984, 4318045856, 8601548, 2450911652, 8360666856 ####[facility] (DEFAULT)[address] [place] [address] 22494 AST [Catalytic activity/Vol] 150 U/L High 15-41 [facility] Comment on above: Performed By: #### 2 716840, 41914556, 6206874737, 9307796, 6658979, 3189606, 861473242, 6784227590, 2383260, 8329305719, 4744400272 ####[facility] (DEFAULT)[address] [place] [address] 76284 Bili Total 1.1 mg/dL Normal 0.3-1.2 [facility] Comment on above: Performed By: #### 2 660445, 45695816, 8616216200, 2768220, 2628330, 6469734, 115842266, 3899608091, 2601051, 2232666424, 4573025203 ####[facility] (DEFAULT)[address] [place] [address] 82098 Calcium [Mass/Vol] 8.8 mg/dL Low 8.9-10.3 [facility] Comment on above: Performed By: #### 2 220139, 04884207, 8449540180, 7435619, 3469124, 8162769, 381706086, 1713311469, 0010466, 9111178535, 1030791195 ####[facility] (DEFAULT)[address] [place] [address] 18647 Chloride [Moles/Vol] 105 mmol/L Normal 101-111 [facility] Comment on above: Performed By: #### 2 282087, 55441084, 1326480252, 2254607, 2607490, 2749159, 007596449, 0873806141, 5048816, 1942713257, 2996708151 ####[facility] (DEFAULT)[address] [place] [address] 23408 CO2 [Moles/Vol] 26 mmol/L Normal 21-32 [facility] Comment on above: Performed By: #### 2 551991, 97082245, 8654830663, 3792896, 8414783, 3559731, 088790078, 3653089719, 4578582, 5082564559, 3727719496 ####[facility] (DEFAULT)[address] [place] [address] 19534 Creatinine [Mass/Vol] 1.37 mg/dL High 0.90-1.30 [facility] Comment on above: Performed By: #### 2 982117, 77618486, 0476320535, 3810550, 3539987, 3046285, 700306241, 2620051356, 1426468, 5143177999, 1264133889 ####[facility] (DEFAULT)[address] [place] [address] 16994 Glucose [Mass/Vol] 124.0 mg/dL High 74.0-118.0 [facility] Comment on above: Performed By: #### 2 850309, 34489640, 6666344741, 4791968, 5673381, 6047514, 037471248, 2758981860, 9437286, 4978686563, 1980048031 ####[facility] (DEFAULT)[address] [place] [address] 49478 Potassium [Moles/Vol] 3.8 mmol/L Normal 3.6-5.1 [facility] Comment on above: Performed By: #### 2 116183, 00843678, 0674497135, 2682060, 6329289, 3579613, 728151822, 9294799041, 9859810, 6169275064, 7329870114 ####[facility] (DEFAULT)[address] [place] [address] 40602 Protein [Mass/Vol] 7.4 g/dL Normal 6.5-8.1 [facility] Comment on above: Performed By: #### 2 716708, 57115696, 1515005381, 5050008, 9369035, 8082946, 442205916, 7504555355, 3424442, 9790501799, 4698195463 ####[facility] (DEFAULT)[address] [place] [address] 50376 Sodium [Moles/Vol] 140.0 mmol/L Normal 136.0-144.0 [facility] Comment on above: Performed By: #### 2 487200, 64320402, [id number], 3652852, 7002115, 8741427, 519509780, 0052589512, 0198971, 9940986367, 1223182260 ####[facility] (DEFAULT)[address] [place] [address] 27608 Urea nitrogen [Mass/Vol] 31 mg/dL High 8-26 [facility] Comment on above: Performed By: #### 2 174484, 23824596, 1260471452, 7260274, 4741351, 1476262, 348016147, 1100182391, 1206180, 3641265406, [id number] ####[facility] (DEFAULT)[address] [place] [address] 62386 Albumin/Globulin [Mass ratio] 1.3 {ratio} Low 1.4-2.6 [facility] Comment on above: Performed By: #### 2 716097, 41089105, [id number], 2884917, 1987667, 2573992, 229492814, 3685542364, 2169018, 8295919564, 8315644027 ####[facility] (DEFAULT)[address] [place] [address] 50948 Anion gap [Moles/Vol] 12.8 mmol/L Normal 5.0-19.0 [facility] Comment on above: Performed By: #### 2 880297, 81820251, 7872278392, 9023939, 1051734, 6867946, 076601700, 2692256179, 9716194, 5217439992, [id number] ####[facility] (DEFAULT)[address] [place] [address] 95135 Globulin (S) [Mass/Vol] 3.2 g/dL Normal 1.5-4.3 [facility] Comment on above: Performed By: #### 2 427287, 53657523, 6672456477, 6218239, 1329013, 2250430, 887741600, 4866624872, 6659461, 6360794908, 1681977815 ####[facility] (DEFAULT)[address] [place] [address] 51546 Osmolality 287 mOsm/L Invalid Interpretation Code [facility] Comment on above: Performed By: #### 2 079772, 18210048, [id number], 7256479, 5889074, 1746234, 514878022, 5458978635, 7481086, 7162556499, [id number] ####[facility] (DEFAULT)[address] [place] [address] 69886 Urea nitrogen/Creatinine [Mass ratio] 22.6 mg/mg High 4.6-16.2 [facility] Comment on above: Performed By: #### 2 659310, 64646956, 3969518853, 2433133, 6710968, 4933237, 254195771, 0483248526, 3729758, 9152569514, [id number] ####[facility] (DEFAULT)[address] [place] [address] 39795 COVID/Flu/RSV ([facility])on 05-21-2023 Flu A ([facility] COVFLURSV) Positive Normal Negative [facility] Comment on above: Performed By: #### 7 [id number], [id number] ####[facility] (DEFAULT)[address] [place] [address] 12210 Flu B (GXpert COVFLURSV) Negative Normal Negative [facility] Comment on above: Performed By: #### 7 [id number], [id number] ####[facility] (DEFAULT)[address] [place] [address] 23290 RSV (GXpert COVFLURSV) Negative Normal Negative [facility] Comment on above: Performed By: #### 7 [id number], [id number] ####[facility] (DEFAULT)[address] [place] [address] 12420 SARS-CoV-2 (COVID-19) RNA ANDREW+probe Ql (Unsp spec) Negative Normal Negative [facility] Comment on above: Result Comment: Perf ormed by PCR methodology. Performed By: #### 7 [id number], [id number] ####[facility] (DEFAULT)[address] [place] [address] 87948 CRPon 05-21-2023 CRP 8.3 mg/dL High <=0.5 [facility] Comment on above: Performed By: #### 2 [id number], [id number], [id number], 2394809, 6635040, 1605857, [id number], [id number], 3913247, [id number], [id number] ####[facility] (DEFAULT)[address] [place] [address] Head or Brain w/o Contras ton 05-21-2023 CT Head or Brain w/o Contrast Normal [facility] CT Maxillofacial w/o Contras ton 05-21-2023 CT Maxillofacial w/o Contrast Normal [facility] CT Spine Cervical w/o Contra ston 05-21-2023 CT Spine Cervical w/o Contrast Normal [facility] ED Clinical Summaryon 2023 ED Clinical Summary Normal [facility] ED Note - Physicianon 2023 ED Note - Physician [facility] ED Note-Nursingon 05-21-2023 ED Note-Nursing Patient admitted to the floor, hospitalist to review cultures. [facility] ED Note-Nursing 16fr clarke catheter inserted without difficulty. 10ml of cloudy, thick, sediment urine came through the catheter, no further urine output at this time [facility] ED Note-Nursing Dr. Angelia paul. [facility] ED Note-Nursing Dr. Salmon notifi ed that repeat CK was needed per lab. Lab states that CK at this time was reading > 4100. REsults pending 30 minutes. [facility] ED Note-Nursing [facility] ED Patient Education Noteon 05-21-2023 ED Patient Education Note Education Materials [facility] ED Patient Summaryon 024 ED Patient Summary [facility] Extra Redon 05-21-2023 Tube Collected Yes Invalid Interpretation [facility] Comment on above: Performed By: #### 2 [id number], [id number], [id number], 6114786, 5336830, 2154636, 112564235, [id number], 0813670, [id number], [id number] ####[facility] (DEFAULT)[address] [place] [address] 06555 Myoglobinon 05-21-2023 Myoglobin [Mass/Vol] ng/mL High 17.4-105.7 [facility] Comment on above: Performed By: #### 2 [id number], [id number], [id number], 7115698, 8938697, 9856673, 279611236, [id number], 7384896, [id number], [id number] ####[facility] (DEFAULT)[address] [place] [address] 91674 Procalcitoninon 05-21-2023 Procalcitonin 1.776 ng/mL High 0.500-1.000 [facility] Comment on above: Performed By: #### 7 [id number] ####[facility] (DEFAULT)[address] [place] [address] 59301 TSH w/ Reflex to FT4on 05-20 TSH Qn 1.83 m[IU]/L Normal 0.45-5.33 [facility] Comment on above: Performed By: #### 2 555853, [id number], [id number], 0781224, 0953061, 2287193, 647291203, 6172194053, 9258151, [id number], [id number] ####[facility] (DEFAULT)[address] [place] [address] 46186 TnI HSon 05-21-2023 Troponin I High Sensitivity 594.1 pg/mL Critically abnormal <=20.0 [facility] Comment on above: Result Comment: Crit ical result TNIHS 594.1 pg/mL called to and read back by Effie Montanez at 21-May-2023 23:08 by Juana. Performed By: #### 5 [id number] ####[facility] (DEFAULT)[address] [place] [address] 18921 Troponin I High Sensitivity 610.4 pg/mL Critically abnormal <=20.0 [facility] Comment on above: Result Comment: Crit ical result TNIHS 610.4 pg/mL called to and read back by Bryn Victoria at 21-May-2023 15:44 by Juana. Performed By: #### 5 [id number] ####[facility] (DEFAULT)[address] [place] [address] 15411 Troponin I High Sensitivity 485.2 pg/mL Critically abnormal <=20.0 [facility] Comment on above: Result Comment: Crit ical result TNIHS 485.2 pg/mL called to and read back by Karyn Harman ASSISTANT BASEBALL COACH at 21-May-2023 10:03 by MH_aschroeder. Performed By: #### 2 788153, 17131562, [id number], 1278971, 9108103, 6150176, 700745314, 3184521107, 8668799, [id number], [id number] ####[facility] (DEFAULT)[address] [place] [address] UA Mtncn9xd 05-21-2023 UA Amorph. Few [facility] Comment on above: Order Comment: Urina lysis Microscopic order added on by [employer] Rules system. Performed By: #### 1 [id number], 8798093, [id number] ####[facility] (DEFAULT)[address] [place] [address] UA Bacteria 3+ [facility] Comment on above: Order Comment: Urina lysis Microscopic order added on by [employer] system. Performed By: #### 1 [id number], 6644973, [id number] ####[facility] (DEFAULT)[address] [place] [address] UA RBC 5-10 [facility] Comment on above: Order Comment: Urina lysis Microscopic order added on by [employer] system. Performed By: #### 1 [id number], 1604998, [id number] ####[facility] (DEFAULT)[address] [place] [address] UA Squam Epi Rare [facility] Comment on above: Order Comment: Urina lysis Microscopic order added on by [employer] system. Performed By: #### 1 [id number], 7870953, [id number] ####[facility] (DEFAULT)[address] [place] [address] UA WBC 0-2 [facility] Comment on above: Order Comment: Urina lysis Microscopic order added on by [employer] system. Performed By: #### 1 [id number], 5854374, [id number] ####[facility] (DEFAULT)[address] [place] [address] UA w Culture if Ind Standard on 05-21-2023 Breakpoint UA [facility] Comment on above: Performed By: #### 1 [id number], 4860223, 58414359 ####[facility] (DEFAULT)[address] [place] [address] 92454 Color (U) Yellow Normal [facility] Comment on above: Performed By: #### 1 [id number], 3492972, 86808722 ####[facility] (DEFAULT)[address] [place] [address] 16721 Culture? Yes Normal [facility] Comment on above: Result Comment: Resu lt created by rule GL_MAGR_ADD_UA_CULT1 Result created by rule GL_MAGR_ADD_UA_CULT1 Performed By: #### 1 [id number], 3691403, [id number] ####[facility] (DEFAULT)[address] [place] [address] 76440 Glucose (U) [Mass/Vol] 100 mg/dL Normal [facility] Comment on above: Performed By: #### 1 [id number], 4849994, 00230706 ####[facility] (DEFAULT)[address] [place] [address] 56402 Ketones Ql (U) TRACE Normal [facility] Comment on above: Performed By: #### 1 [id number], 1022481, [id number] ####[facility] (DEFAULT)[address] [place] [address] 98058 Micro? Indicated Invalid Interpretation Code [facility] Comment on above: Result Comment: Resu lt created by rule GL_MAGR_ADD_UA_MICRO Performed By: #### 1 [id number], 7392441, [id number] ####[facility] (DEFAULT)[address] [place] [address] 25242 UA Bilirubin Negative Normal [facility] Comment on above: Performed By: #### 1 [id number], 1183750, 02615525 ####[facility] (DEFAULT)[address] [place] [address] 41924 UA Blood LARGE Abnormal NEGATIVE [facility] Comment on above: Performed By: #### 1 [id number], 6767196, 51470383 ####[facility] (DEFAULT)[address] [place] [address] 83093 UA Clarity SL CLOUDY Abnormal CLEAR [facility] Comment on above: Performed By: #### 1 [id number], 0309202, 78611371 ####[facility] (DEFAULT)[address] [place] [address] 88430 UA Leuk Est TRACE Abnormal NEGATIVE [facility] Comment on above: Performed By: #### 1 [id number], 0046963, 23261872 ####[facility] (DEFAULT)[address] [place] [address] 93331 UA Nitrite Negative Normal NEGATIVE [facility] Comment on above: Performed By: #### 1 [id number], 8460436, 54099991 ####[facility] (DEFAULT)[address] [place] [address] 94297 UA pH 5.5 Normal 5-8 [facility] Comment on above: Performed By: #### 1 [id number], 8391493, 70559762 ####[facility] (DEFAULT)[address] [place] [address] 58787 UA Protein 100 Abnormal NEGATIVE [facility] Comment on above: Performed By: #### 1 [id number], 1241520, 46584808 ####[facility] (DEFAULT)[address] [place] [address] 78868 UA Spec Grav >=1.030 Normal 1.001-1.035 [facility] Comment on above: Performed By: #### 1 [id number], 3176035, 44676550 ####[facility] (DEFAULT)[address] [place] [address] 08892 UA Urobilinogen 0.2 mg/dL Normal 0.2-1.0 [facility] Comment on above: Performed By: #### 1 [id number], 5072047, 52836893 ####[facility] (DEFAULT)[address] [place] [address] 22010 Urine Source Clean Catch Normal [facility] Comment on above: Performed By: #### 1 [id number], 0182231, 03085062 ####[facility] (DEFAULT)[address] [place] [address] US Echocardiogram Completeon 05-21-2023 US Echocardiogram Complete Normal [facility] Vit B12 Lvlon 05-21-2023 Vit B12 321 Normal 180-914 [facility] Comment on above: Performed By: #### 2 198398, 73264261, [id number], 1953401, 9716153, 8328782, 760491759, 8185671660, 1781660, 6647836207, [id number] ####[facility] (DEFAULT)[address] [place] [address] XR Chest 1 View Frontalon XR Chest 1 View Frontal [facility] XR Pelvis 1 or 2 Viewson XR Pelvis 1 or 2 Views [facility] Outside Recordson 03-07-2023 Outside Records [id number] .00OTGTIFF [facility] Coding Summaryon 02-20-2023 Coding Summary [facility] Office/Clinic Noteon 023 Office/Clinic Note [facility] ED Clinical Summaryon 2022 ED Clinical Summary [facility] ED Note - Physicianon 2022 ED Note - Physician [facility] ED Patient Education Noteon 02-13-2023 ED Patient Education Note [facility] ED Patient Summaryon 023 ED Patient Summary [facility] Outside Recordson 2023 Outside Records [id number] 0OTGTIFF [facility] Outside Recordson 12-20-2022 Outside Records [id number] OTGTIFF [facility] Recordson 11-02-2022 Outside Records [id number] 0OTGTIFF [facility] XR ANKLE RIGHT STANDARDon XR ANKLE RIGHT STANDARD Radiology exam is complete. No Radiologist dictation. Please follow up with ordering provider. Final result Normal [facility] Vital Signs Date Time Vital Sign Value Performing Clinician Elissa pacheco 12-19-2023 14:30-0400 Blood Pressure Location Dipti Galea [facility] 12-19-2023 14:30-0400 Body temperature 98.6 [degF] Dipti Galea [facility] 12-19-2023 14:30-0400 Diastolic blood pressure 65 mm[Hg] Dipti Galea [facility] 12-19-2023 14:30-0400 Heart rate 85 /min Dipti Galea [facility] 12-19-2023 14:30-0400 Respiratory rate 16 /min Dipti Galea [facility] 12-19-2023 14:30-0400 Systolic blood pressure 131 mm[Hg] Dipti Galea [facility] Encounters Encounter Date Encounter Type Care Provider Facility Start: 01-13-2024 ambulatory Stephon Blackman ty:CD:[id number] Start: 12-19-2023 End: 12-19-2023 ambulatory Dipti J Galea Facility:[facility] Start: 12-19-2023 End: 12-19-2023 Patient encounter procedure Dipti J Galea [facility] Start: 12-05-2023 End: 12-05-2023 ambulatory Dipti J Galea Facility:[facility] Start: 12-05-2023 End: 12-05-2023 Patient encounter procedure Dipti J Galea [facility] Start: 11-19-2023 End: 11-19-2023 ambulatory ROBERTA CALABRESE Not Available Start: 10-10-2023 End: 10-14-2023 Evaluation and management of inpatient Romina Flowers Facility:[facility] Start: 10-10-2023 End: 10-11-2023 ambulatory Romina Flowers Facility:[facility] Start: 09-21-2023 End: 09-21-2023 Emergency department patient visit Romina Flowers Facility:[facility] Start: 08-15-2023 End: 08-15-2023 ambulatory Rocael Santos Morro Facility:[facility] Start: 07-18-2023 End: 07-18-2023 ambulatory Romina Flowers [facility]: [facility] Start: 06-27-2023 End: 06-27-2023 ambulatory [facility] Start: 06-20-2023 End: 06-20-2023 ambulatory Romina Flowers Facility: [facility] Start: 06-05-2023 ambulatory [facility] Start: 05-27-2023 Telephone encounter [facility] Comment on above: Hospital Follow-up Start: 05-21-2023 End: 05-27-2023 Evaluation and management of inpatient Romina Flowers Facility:[facility] Start: 05-21-2023 End: 05-21-2023 Emergency department patient visit Romina Flowers Facility:[facility] Start: 02-18-2023 End: 02-18-2023 ambulatory Romina Flowers Facility: [facility] Start: 02-13-2023 End: 02-13-2023 Emergency department patient visit Romina Flowers Facility:[facility] Procedures Date Procedure Procedure Detail Performing Clinician Start: 06-27-2023 Follow-up visit Follow-up [facility] Start: 03-31-2019 Cystourethroscopy wi th [...] Author Start: 11-16-2022 Influenza vaccination Influenza Vaccine [facility] Start: 01-03-2000 Fall Risk Screening Fall Risk Screening [facility] Start: 1985 Administration of varicella zoster vaccine Zoster (Shingles) Vaccine (1 of 2) [facility] Start: 1954 DTaP,Tdap and Td Vaccines (1 - Tdap) DTaP,Tdap and Td Vaccines (1 - Tdap) [facility] Start: 1953 Adult BMI Screening Adult BMI Screening [facility] Start: 1947 Depression Screening Depression Screening [facility] Start: 1947 Tobacco Screening Tobacco Screening [facility] Start: 1935 Medicare Annual Wellness Visit Medicare Annual Wellness Visit [facility] Payers Date Payer Category Payer Medicare [id number] 2015 Private Health Insurance [employer] [id number] 2015-Present [address] [address] [place] [address] [id number] 2015 Private Health Insurance [id number] 1999 Medicare MEDICARE MEDICAR E RAILROAD [id number] 1999-Present [phone] [address] [address] [place] [address] [id number] 1999 Medicare [id number] 1935 Unknown [id number] 2.16.840.1.517026.3.579 .2.1286 1935 Unknown [id number] 2.16.840.1.019866.3.579 .2.1286 1935 Unknown [id number] 2.16.840.1.150717.3.579 .2.71 1935 Unknown [id number] 2.16.840.1.903048.3.579 .2.71 1935 Unknown [id number] 2.16.840.1.746255.3.579 .2.71 1935 Unknown [id number] 2.16.840.1.770993.3.579 .2.718 1935 Unknown [id number] 2.16.840.1.295709.3.579 .2.718 1935 Unknown [id number] 2.16.840.1.824736.3.579 .2.718 1935 Unknown [id number] 2.16.840.1.354435.3.579 .2.718 1935 Unknown [id number] 2.16.840.1.356399.3.579 .2.718 1935 Unknown [id number] 2.16.840.1.741613.3.579 .2. 1935 Unknown [id number] 2.16.840.1.324331.3.579 .2.718 1935 Unknown [id number] 2.16.840.1.889586.3.579 .2.1259 1935 Unknown [id number] 2.16.840.1.123858.3.579 .2.727 1935 Unknown [id number] 2.16.840.1.736328.3.579 .2.727 Social History Date Type Detail [facility] Start: 05-25-2020 History of Social function [facility] Start: 05-25-2020 Childcare [facility] Childcare Unknown [facility] Start: 1935 Sex Assigned At Not on file [facility] Start: 03-31-2019 End: 12-19-2023 Tobacco smoking status Never smoked tobacco (finding) [facility] Functional Status Date Assessment Result Facility 12-19-2023 Functional Status N/A [facility] Clinical Notes 05-21-2023 to 12-19-2023 Telephone Encounter - Sheila Deluna - 05/27/2023 8:47 AM EDTTelephone Encounter - Lucia Winn MA - 05/27/2023 8:47 AM EDTTelephone Encounter - uLcia Winn MA - 05/27/2023 8:47 AM EDT [...] Follow these instructions at home: Medicines Take flku-wjx-qbnggrg and prescription medicines only as told by [...] provider. Document Revised: 11/23/2020 Document Reviewed: 11/23/2020 [employer] Patient Education 2023 AIS. 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 Take wjrt-zyq-jnpjkoi and prescription medicines only as told by [...] provider. Document Revised: 11/23/2020 Document Reviewed: 11/23/2020 [employer] Patient Education ? 2023 AIS. [facility] 05-27-2023 Miscellaneous Notes Formattin g of this note might be different from the original. Message from the 05/24/23 discharge list per BCD. He signed off patient care from . Dx Elevated Troponin Patient to f/u in 1 to 2 weeks post d/c bvb Called pt to schedule f/u appt from recent IP stay. No Answer. No Machine. FAHAD Pt currently at [facility], , Called to scheduled f/u appt, No Answer. LMOM. FAHAD documented in this encounter [employer] 05-27-2023 Telephone encount er Note Message from the 05/24/23 discharge list per BCD. He signed off patient care from . Dx Elevated Troponin Patient to f/u in 1 to 2 weeks post d/c bvb [facility] 05-27-2023 Telephone encount er Note Called pt to schedule f/u appt from recent IP stay. No Answer. No Machine. JAREDW [facility] 05-27-2023 Telephone encount er Note Pt currently at [facility], , Called to scheduled f/u appt, No Answer. LMOM. FAHAD [facility] 05-21-[address] Angelia Taveras calls a nd speaks with Dr. Salmon regarding plan of care and possible admission. [facility] 05-21-[address] Salmon speaks with Dr. Hopkins, lang path therapist regarding plan of care. [facility] Evaluation + Plan note Future Appointments Appointment Date:12/19/2023 02:30:00 PM Scheduled Provider:Dipti Guzman Location:[facility] Appointment Type:URO Office Visit [facility] Hospital course Narrative No data available for this section [facility] Hospital Discharge instructions No data available for this section [facility] Instructions Not on filedocumente d in this encounter [facility] Progress note No data available for this section [facility] Parveen Summary Purpose Family History No Family [...] section and content) DATE CREATED AUTHOR 09/11/2017 [facility] DATE CREATED AUTHOR AUTHOR'S ORGANIZ ATION 06/28/2023 [facility] DATE CREATED AUTHOR AUTHOR'S ORGANIZ ATION 10/25/2023 [facility] DATE CREATED AUTHOR AUTHOR'S ORGANIZ ATION 11/20/2023 [facility] EPIC DATE CREATED AUTHOR AUTHOR'S ORGANIZ ATION 12/20/2023 [facility] Reason for Visit (unrecogniz ed section and content) Reason Onset Date Comments Hospital Follow-up 05/27/2023 Patient Care team informatio n (unrecognized section and content) Personnel Name: ROMINA FLOWERS MD Address: Address: [address] [place] [address] Personnel Name: ROMINA FLOWERS MD Address: Address: [address] [place] [address] FOR RECORDS PERTAINING TO PATIENTS WHO ARE [...] BE BASED ON THE PRIMARY CLINICAL RECORDS. [facility] [employer] [facility]. provides no warranty or guarantee of the accuracy or completeness of information in this document.
--- NOTE | 2024-01-10 10:17 | SWNOTE1 ---
Pt is from [facility] care home.
--- NOTE | 2024-01-10 10:21 | PC.NURSE ---
Pts DIXIEA José Miguel Haddad contacted and given update on patient condition and plan of care.
[2024-01-10] MEDS: MORPHINE SULFATE 2 MG/ML SYRINGE IV ×2 (10:22→21:44)
[2024-01-10] MEDS: TAMSULOSIN HCL 0.4 MG CAPSULE PO (10:22)
[2024-01-10] MEDS: LACTATED RINGER'S SOLUTION 1,000 ML 125 ML IV ×2 (10:27→21:42)
--- NOTE | 2024-01-10 11:17 | CM.NOTE ---
Medicare Outpatient Observation Notice discussed with pt, pt verbalizes understanding and pt request Case Management to sign for him (shaking d/t Parkinson's). Original given to pt and copy placed in pt's chart.
[2024-01-10] MEDS: HYDRALAZINE HCL 20 MG/ML VIAL 10 MG IVP (13:19)
--- NOTE | 2024-01-10 13:46 | ECG_ITS ---
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
--- NOTE | 2024-01-10 14:37 | P.HP_ITS ---
HPI H&P: HPI History of Present Illness Chief complaint: OTHER/KIDNEY STONES/ HYDRONEPHROSIS Narrative: 89-year-old male with history of Parkinson, hypertension presented to ER with 1 day history of nausea, left-sided flank pain. He denies fever, vomiting, dysuria, hematuria or diarrhea. Workup in ER revealed nonobstructing 5 mm stone within the distal right ureter and mild left hydronephrosis secondary to a partially obstructing 5 mm stone within the mid left ureter. ER discussed patient's CT scan finding and clinical presentation with on-call urology who recommended admission for observation and possible intervention if his symptoms/obstruction are persistent and do not improve with conservative management. At the time of my evaluation, patient was fairly comfortable with no active symptoms to offer except for mild nausea. He was quite tremulous because he did not take his Parkinson medications in the morning because of nausea. Otherwise he is at his baseline functional status. Opioid HPI Opioid Management Most Recent Pain and Opioid Data: Last Pain Scale 5 01/10/24 13:06 01/10/24 Last Pain Assessment 01/10/24 13:41 Last MAR Pain Assessment 01/10/24 13:06 Last ORT Total Score 0 01/10/24 09:46 01/10/24 Last ORT Risk Category Low Risk 01/10/24 09:46 01/10/24 Review of Systems ROS Status of ROS 10 or more systems reviewed and unremark able except as noted in history and below [facility] Medical History (Updated 01/10/24 @ 14:44 by Shaikh Aquilino MD) CKD stage 3a, GFR 45-59 ml/min ?N18.31 - Chronic kidney disease, stage 3a (ICD-10) Hypertension ?I10 - Essential (primary) hypertension (ICD-10) Anemia ?D64.9 - Anemia, unspecified (ICD-10) Hard of hearing ?H91.90 - Unspecified hearing loss, unspecified ear (ICD-10) History of external beam radiation therapy ?Z92.3 - Personal history of irradiation (ICD-10) Urethral stricture ?N35.919 - Unspecified urethral stricture, male, unspecified site (ICD-10) Stroke ?I63.9 - Cerebral infarction, unspecified (ICD-10) Parkinson disease ?G20.A1 - Parkinson's disease without dyskinesia, without mention of fluctuations (ICD-10) Microscopic hematuria ?R31.29 - Other microscopic hematuria (ICD-10) Hypertension ?I10 - Essential (primary) hypertension (ICD-10) Hyperlipidemia ?E78.5 - Hyperlipidemia, unspecified (ICD-10) Prostate cancer ?C61 - Malignant neoplasm of prostate (ICD-10) Enlarged prostate ?N40.0 - Benign prostatic hyperplasia without lower urinary tract symptoms (ICD-10) Surgical History (Updated 01/07/24 @ 14:34 by Keisha Robles RN) Hx of transurethral resection of prostate ?Z98.890 - Other specified postprocedural states (ICD-10) ?Z90.79 - Acquired absence of other genital organ(s) (ICD-10) H/O partial resection of colon ?Z90.49 - Acquired absence of other specified parts of digestive tract (ICD- 10) Hx of cholecystectomy ?Z90.49 - Acquired absence of other specified parts of digestive tract (ICD- 10) History of appendectomy ?Z90.49 - Acquired absence of other specified parts of digestive tract (ICD- 10) S/P cystourethroscopy with dilation of urethral stricture ?Z98.890 - Other specified postprocedural states (ICD-10) Family History (Updated 01/07/24 @ 14:34 by Keisha Robles RN) Other Family history of cancer Social History (Updated 01/09/24 @ 13:14 by Jennyfer Burton) Within the past year, how often did you have a drink containing alcohol: never Score interpretation: A score less than 4 is consistent with normal alcohol consumption. Smoking status: Never smoker Non-prescribed substance use: denies use Highest level of school completed/degree received: high school graduate Little interest or pleasure in doing things: not at all Feeling down, depressed, or hopeless: not at all Meds Home Medications and Allergies Home Medications ?Medication ?Instructions ?Recorded ?Confirmed ?Type amantadine HCl 100 mg capsule 100 mg PO BID 01/07/24 01/10/24 History amlodipine 10 mg tablet 10 mg PO DAILY 01/07/24 01/10/24 History aspirin 81 mg capsule 81 mg PO DAILY 01/07/24 01/10/24 History cholecalciferol (vitamin D3) 10 400 unit PO DAILY 01/07/24 01/10/24 History mcg (400 unit) capsule polyethylene glycol 3350 17 17 g PO DAILY 01/09/24 01/10/24 History gram/dose oral powder (Miralax) tolterodine 4 mg capsule,extended 4 mg PO DAILY 01/09/24 01/10/24 History release 24 hr carbidopa ER 25 mg-levodopa 100 mg tab PO 01/10/24 History tablet,extended release Allergies Allergy/AdvReac Type Severity Reaction Status Date / Time No Known Drug Allergies Allergy Verified 01/07/24 14:35 Exam Constitutional Vital Signs, click to edit/add: Last Vital Signs Temp 97.6 F 01/10/24 13:15 Pulse 97 H 01/10/24 13:15 Resp 20 01/10/24 13:15 BP 151/69 H 01/10/24 14:29 Pulse Ox 94 L 01/10/24 13:15 O2 Del Method Room Air 01/10/24 13:15 Documenting provider has reviewed patient's vital signs: yes Common normals: oriented x3 General appearance: cooperative and frail appearing HENIN Common normals: normocephalic and head/scalp atraumatic Head and scalp: normocephalic and atraumatic Eye Common normals: conjunctivae normal and no scleral icterus Conjunctiva: conjunctiva(e) normal Respiratory Common normals: normal respiratory effort and clear to auscultation bilaterally Effort & inspection: able to speak in complete sentences Auscultation: clear to auscultation bilaterally Cardio Common normals: regular rate, S1 normal heart sound and S2 normal heart sound Rate: regular rate Heart sounds: S1 normal and S2 normal GI Common normals: Normal to inspection, nondistended, normoactive bowel sounds present, soft to palpation, non-tender and no hepatosplenomegaly Palpation: soft and no hepatosplenomegaly Extremity Common normals: no clubbing, cyanosis or edema Neuro Common normals: oriented x3, moves all extremities and no focal motor deficits Motor exam: tremor Psych Common normals: mental status grossly normal, denies hallucinations, denies homicidal ideation and denies suicidal ideation Results Labs Labs: Short CBC 01/10/24 Range/Units 05:25 WBC 11.9 H (4.0-11.0) 10^3/uL Hgb 14.1 (14.0-18.0) g/dL Hct 42.5 (42.0-54.0) % Plt Count 251 (150-450) 10^3/uL BMP 01/10/24 05:25 Sodium 141 Potassium 4.5 Chloride 106 Carbon Dioxide 23.5 BUN 28.0 H Creatinine 1.66 H Glucose 143 H Calcium 9.3 Urine 01/10/24 Range/Units 05:20 Urine Color Lt. yellow (YELLOW) Urine Clarity Clear (CLEAR) Urine pH 5.5 (5.0-9.0) Ur Specific [place] >=1.030 A (1.005-1.025) Urine Protein Trace (NEG/TRACE) mg/dL Urine Glucose (UA) Negative (NEGATIVE) mg/dL Assessment and Plan Assessment and Plan (1) Ureteral stone with hydronephrosis: Assessment and Plan: Multiple b/l renal and ureteral calculi, with partially obstructing left ureteral stone. NPO for Urology evaluation. C/w conservative measures - on IVF, Anti emetics, flomax and pain control (oral and IV narcotics as needed) (2) Multiple renal calculi: Assessment and Plan: Multiple b/l renal and ureteral calculi, with partially obstructing left ureteral stone. NPO for Urology evaluation for left hydronephrosis. C/w conservative measures until seen by Urology- on IVF, Anti emetics, flomax and pain control (oral and IV narcotics as needed) Scheduled for OR in the evening (3) UTI (urinary tract infection): Assessment and Plan: associated with and sec to nephrolithiasis. On IV rocephin. F/u urine cx. Qualifiers: Urinary tract infection type: acute cystitis Hematuria presence: without hematuria Qualified Code(s): N30.00 - Acute cystitis without hematuria (4) Hypertension: Assessment and Plan: Poorly controlled likely due to pain and inability to take his PO medications. IV hydralazine as needed. Resume oral medications. Qualifiers: Hypertension type: primary hypertension Qualified Code(s): I10 - Essential (primary) hypertension (5) Parkinson disease: Assessment and Plan: Resume oral medications. Patient was considerably tremulous likely because he could not take his medications. Qualifiers: Dyskinesia presence: with dyskinesia Fluctuating manifestations: with fluctuating manifestations Qualified Code(s): G20.B2 - Parkinson's disease with dyskinesia, with fluctuations (6) CKD stage 3a, GFR 45-59 ml/min: Assessment and Plan: Mild elevation in serum Cr. On IVF. Plan c/w IVF, pain control. NPO for OR - scheduled to go this evening. Considering his advanced age, Parkinson, it is not unreasonable to monitor him overnight post operatively. Plan for discharge tomorrow provided no intra/perioperative complications and patient's symptoms well controlled post operatively
--- NOTE | 2024-01-10 15:19 | ECG_ITS ---
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1935 Requested By: MIKE MICHEL Order Number: [id number] Reading MD: LAMBERTO MIGUEL Measurements Intervals [place] Rate: 91 P: 78 MA: 172 QRS: 83 QRSD: 90 T: -41 QT: 338 QTc: 416 Interpretive Statements SINUS RHYTHM WITH OCCASIONAL SUPRAVENTRICULAR PREMATURE COMPLEXES LOW QRS VOLTAGE IN PRECORDIAL LEADS [QRS DEFLECTION < 1.0 mV IN CHEST LEADS] MODERATE T-WAVE ABNORMALITY, CONSIDER INFERIOR ISCHEMIA [-0.1+ mV T WAVE IN II/aVF] Compared to ECG 01/10/2024 15:26:33 Low QRS voltage now present Possible ischemia now present T-wave abnormality still present Electronically Signed On 01-10-2024 18:31:35 EDT by LAMBERTO MIGUEL
--- NOTE | 2024-01-10 17:27 | P.URCN_ITS ---
Urology - CN: HPI Date of Consult Requesting Physician: Shaikh Aquilino MD Primary Care Provider: MIKE MICHEL Family Provider: MERLENEE Consult Narrative Narrative: here w/ bilateral ureter stones. Has hx urethral stx requiring dilation w/ dr neal. No recent udil's done however. Reviewed issues adn details w/ children at bedside. 89-year-old male with history of Parkinson, hypertension presented to ER with 1 day history of nausea, left-sided flank pain. He denies fever, vomiting, dysuria, hematuria or diarrhea. Workup in ER revealed nonobstructing 5 mm stone within the distal right ureter and mild left hydronephrosis secondary to a partially obstructing 5 mm stone within the mid left ureter. ER discussed patient's CT scan finding and clinical presentation with on-call urology who recommended admission for observation and possible intervention if his symptoms/obstruction are persistent and do not improve with conservative management. At the time of my evaluation, patient was fairly comfortable with no active symptoms to offer except for mild nausea. He was quite tremulous because he did not take his Parkinson medications in the morning because of nausea. Otherwise he is at his baseline functional status. cc:: CC: Shaikh Aquilino MD [facility] Medical History (Updated 01/10/24 @ 14:44 by Shaikh Aquilino MD) CKD stage 3a, GFR 45-59 ml/min ?N18.31 - Chronic kidney disease, stage 3a (ICD-10) Hypertension ?I10 - Essential (primary) hypertension (ICD-10) Anemia ?D64.9 - Anemia, unspecified (ICD-10) Hard of hearing ?H91.90 - Unspecified hearing loss, unspecified ear (ICD-10) History of external beam radiation therapy ?Z92.3 - Personal history of irradiation (ICD-10) Urethral stricture ?N35.919 - Unspecified urethral stricture, male, unspecified site (ICD-10) Stroke ?I63.9 - Cerebral infarction, unspecified (ICD-10) Parkinson disease ?G20.A1 - Parkinson's disease without dyskinesia, without mention of fluctuations (ICD-10) Microscopic hematuria ?R31.29 - Other microscopic hematuria (ICD-10) Hypertension ?I10 - Essential (primary) hypertension (ICD-10) Hyperlipidemia ?E78.5 - Hyperlipidemia, unspecified (ICD-10) Prostate cancer ?C61 - Malignant neoplasm of prostate (ICD-10) Enlarged prostate ?N40.0 - Benign prostatic hyperplasia without lower urinary tract symptoms (ICD-10) Surgical History (Updated 01/07/24 @ 14:34 by Keisha Robles RN) Hx of transurethral resection of prostate ?Z98.890 - Other specified postprocedural states (ICD-10) ?Z90.79 - Acquired absence of other genital organ(s) (ICD-10) H/O partial resection of colon ?Z90.49 - Acquired absence of other specified parts of digestive tract (ICD- 10) Hx of cholecystectomy ?Z90.49 - Acquired absence of other specified parts of digestive tract (ICD- 10) History of appendectomy ?Z90.49 - Acquired absence of other specified parts of digestive tract (ICD- 10) S/P cystourethroscopy with dilation of urethral stricture ?Z98.890 - Other specified postprocedural states (ICD-10) Family History (Updated 01/07/24 @ 14:34 by Keisha Robles RN) Other Family history of cancer Social History (Updated 01/09/24 @ 13:14 by Jennyfer Burton) Within the past year, how often did you have a drink containing alcohol: never Score interpretation: A score less than 4 is consistent with normal alcohol consumption. Smoking status: Never smoker Non-prescribed substance use: denies use Highest level of school completed/degree received: high school graduate Little interest or pleasure in doing things: not at all Feeling down, depressed, or hopeless: not at all Meds Home Medications and Allergies Home Medications ?Medication ?Instructions ?Recorded ?Confirmed ?Type amantadine HCl 100 mg capsule 100 mg PO BID 01/07/24 01/10/24 History amlodipine 10 mg tablet 10 mg PO DAILY 01/07/24 01/10/24 History aspirin 81 mg capsule 81 mg PO DAILY 01/07/24 01/10/24 History cholecalciferol (vitamin D3) 10 400 unit PO DAILY 01/07/24 01/10/24 History mcg (400 unit) capsule polyethylene glycol 3350 17 17 g PO DAILY 01/09/24 01/10/24 History gram/dose oral powder (Miralax) tolterodine 4 mg capsule,extended 4 mg PO DAILY 10/24/24 10/25/24 History release 24 hr carbidopa ER 25 mg-levodopa 100 mg tab PO 01/10/24 History tablet,extended release Allergies Allergy/AdvReac Type Severity Reaction Status Date / Time No Known Drug Allergies Allergy Verified 01/07/24 14:35 Exam Constitutional Vital Signs, click to edit/add: Last Vital Signs Temp 97.6 F 01/10/24 13:15 Pulse 97 H 01/10/24 13:15 Resp 20 01/10/24 13:15 BP 151/69 H 01/10/24 14:29 Pulse Ox 94 L 01/10/24 13:15 O2 Del Method Room Air 01/10/24 13:15 Results Labs Labs: Short CBC 01/10/24 Range/Units 05:25 WBC 11.9 H (4.0-11.0) 10^3/uL Hgb 14.1 (14.0-18.0) g/dL Hct 42.5 (42.0-54.0) % Plt Count 251 (150-450) 10^3/uL BMP 01/10/24 05:25 Sodium 141 Potassium 4.5 Chloride 106 Carbon Dioxide 23.5 BUN 28.0 H Creatinine 1.66 H Glucose 143 H Calcium 9.3 Urine 01/10/24 Range/Units 05:20 Urine Color Lt. yellow (YELLOW) Urine Clarity Clear (CLEAR) Urine pH 5.5 (5.0-9.0) Ur Specific [place] >=1.030 A (1.005-1.025) Urine Protein Trace (NEG/TRACE) mg/dL Urine Glucose (UA) Negative (NEGATIVE) mg/dL Urology Assessment and Plan Assessment and Plan (1) Ureteral stone with hydronephrosis: Assessment and Plan: Multiple b/l renal and ureteral calculi, with partially obstructing left ureteral stone. NPO for Urology evaluation. C/w conservative measures - on IVF, Anti emetics, flomax and pain control (oral and IV narcotics as needed) (2) Multiple renal calculi: Assessment and Plan: Multiple b/l renal and ureteral calculi, with partially obstructing left ureteral stone. NPO for Urology evaluation for left hydronephrosis. C/w conservative measures until seen by Urology- on IVF, Anti emetics, flomax and pain control (oral and IV narcotics as needed) Scheduled for OR in the evening (3) UTI (urinary tract infection): Assessment and Plan: associated with and sec to nephrolithiasis. On IV rocephin. F/u urine cx. Qualifiers: Urinary tract infection type: acute cystitis Hematuria presence: without hematuria Qualified Code(s): N30.00 - Acute cystitis without hematuria (4) Hypertension: Assessment and Plan: Poorly controlled likely due to pain and inability to take his PO medications. IV hydralazine as needed. Resume oral medications. Qualifiers: Hypertension type: primary hypertension Qualified Code(s): I10 - Essential (primary) hypertension (5) Parkinson disease: Assessment and Plan: Resume oral medications. Patient was considerably tremulous likely because he could not take his medications. Qualifiers: Dyskinesia presence: with dyskinesia Fluctuating manifestations: with fluctuating manifestations Qualified Code(s): G20.B2 - Parkinson's disease with dyskinesia, with fluctuations (6) CKD stage 3a, GFR 45-59 ml/min: Assessment and Plan: Mild elevation in serum Cr. On IVF. Plan d/w pt/family bedsdie plan o.r. now w/ b/l jj stents and possible urs/laser if urine not infected also hx urethral stx and will need dilation and clarke for 1-2 days. Family states he does NOT do well w/ clarke's but they understand may need They also are aware may only be able to place jj stents today and then would need f/u definitive stone tx w/ dr neal after infection cleared (if present)
--- NOTE | 2024-01-10 18:34 | PM.URSON ---
Urology Surgery Operative Note Operative Note Procedure Date: 01/10/24 Pre-op Diagnosis: bilateral ureter stones/bulbar urethral stricture Post-op Diagnosis: same as pre-op Procedures performed: bilateral urs/holmium laser stones and basket extraction stones and jj stents --all bilateral. Also urethral dilation using gamez sounds 18-26fr Findings: stones in bilateral distal ureters removed; bulbar urethra approx 20fr stx. Specimens: stones Detailed description of Procedure: Pt prepped/draped. Given iv abx. 21fr cystscopy done and bulbar urethra narrowed and dilated 18-26fr w/ gamez sounds. Prostate appears fibrotic. ureteral catheter advanced in right ureter and 2 wires into right kidney. rigid urs over wire and stone encountered distal ureter. Holmium 270 fiber used 12/16 to break stone and then basket extracted. variable length/6fr jj stent placed w/ good postioning noted. Same exact procedure w/ same findings on left. Bladder emptied and stones sent for anlaysis dispostion---WILL NEED JJ STENTS REMOVED IN FEW WEEKS W/ EITHER DR VILLA OR NORBERTO. PT SON SAYS HAS SEEN BOTH SO THEY WILL NEED TO DECIDE ON FOLLOW UP. CAN D/C TOMORROW ON ABX PRN. NO OTHER MEDS NEEDED.
[2024-01-10] MEDS: AMANTADINE HCL 100 MG CAPSULE PO (21:42)
[2024-01-11 03:00] VITALS: BP 138/66; PULSE 73; TEMP 36.8; O2SAT 91
[2024-01-11 06:00] LABS: Hematocrit 35.7 % (42.0-54.0); Hemoglobin 11.8 g/dL (14.0-18.0); Mean Corpuscular HGB Conc 33.1 g/dL (29.9-35.2); Mean Corpuscular Hemoglobin 29.7 pg (25.9-34.0); Mean Corpuscular Volume 89.9 fL (80.0-94.0); Mean Platelet Volume 9.9 fL (9.5-13.5); Platelet Count 229 10^3/uL (150-450); Red Blood Count 3.97 10^6/uL (4.70-6.10); Red Cell Distribution Width 14.9 % (11.0-15.0); White Blood Count 12.6 10^3/uL (4.0-11.0)
[2024-01-11 06:22] LABS: Alanine Aminotransferase 12 U/L (16-63); Albumin Globulin Ratio 0.8; Albumin Level 2.8 g/dL (3.4-5.0); Alkaline Phosphatase 74 U/L (46-116); Anion Gap 12.3; Aspartate Amino Transferase 13 U/L (15-37); BUN Creatinine Ratio 17.4; Bilirubin Total 0.5 mg/dL (0.2-1.0); Calcium 8.8 mg/dL (8.5-10.1); Carbon Dioxide 26.1 mmol/L (21.0-32.0); Chloride 108 mmol/L (98-107); Estimated GFR (African America 44 (>=60 mL/min/1.73m^2); Estimated GFR (Non-African Ame 36 (>=60 mL/min/1.73m^2); Globulin 3.5 g/dL; Glucose 138 mg/dL (74-106); Potassium 4.4 mmol/L (3.5-5.1); Sodium 142 mmol/L (136-145); Total Protein 6.3 g/dL (6.4-8.2)
[2024-01-11] MEDS: LACTATED RINGER'S SOLUTION 1,000 ML 125 ML IV (06:49)
[2024-01-11 06:55] LABS: Lymphocytes Absolute Manual 0.37 10^3/uL (1.20-3.80); Monocytes Absolute Manual 0.37 10^3/uL (0.30-0.80); Segmented Neut Absolute Manual 11.84 10^3/uL (1.4-6.5)
[2024-01-11] MEDS: CHOLECALCIFEROL (VITAMIN D3) 25 MCG/1,000 UNITS TABLET 12.5 MCG PO (08:33)
[2024-01-11] MEDS: TAMSULOSIN HCL 0.4 MG CAPSULE PO (08:33)
[2024-01-11] MEDS: ASPIRIN 81 MG TABLET.DR PO (08:33)
[2024-01-11] MEDS: AMLODIPINE BESYLATE 5 MG TABLET 10 MG PO (08:34)
[2024-01-11] MEDS: SOLIFENACIN SUCCINATE 10 MG TABLET PO (08:34)
[2024-01-11] MEDS: POLYETHYLENE GLYCOL 3350 17 GM POWDER PACKET PO (08:34)
[2024-01-11] MEDS: AMANTADINE HCL 100 MG CAPSULE PO (08:34)
[2024-01-11] MEDS: CEFTRIAXONE 1,000 MG in 0.9 % SODIUM CHLORIDE 50 ML 100 MG IV (08:34)
--- NOTE | 2024-01-11 08:36 | PM.DS1 ---
DS: Providers Provider Date of admission: 01/10/24 09:17 Primary care physician: MIKE MICHEL Admitting clinician: Shaikh Aquilino Consults: 01/10/24 09:41 Physical Therapy Eval and Treat Routine Reason for consultation: Ambulatory dysfunction/weakness Discharging clinician: Kaci Sosa DS: Diagnosis Discharge Diagnosis (1) Ureteral stone with hydronephrosis: (2) Multiple renal calculi: (3) UTI (urinary tract infection): Qualifiers: Hematuria presence: without hematuria Urinary tract infection type: acute cystitis Qualified Code(s): N30.00 - Acute cystitis without hematuria (4) Hypertension: Qualifiers: Hypertension type: primary hypertension Qualified Code(s): I10 - Essential (primary) hypertension (5) Parkinson disease: Qualifiers: Dyskinesia presence: with dyskinesia Fluctuating manifestations: with fluctuating manifestations Qualified Code(s): G20.B2 - Parkinson's disease with dyskinesia, with fluctuations (6) CKD stage 3a, GFR 45-59 ml/min: DS: Summary Hospital Course Hospital Course: 89-year-old male with history of Parkinson, hypertension presented to ER with 1 day history of nausea, left-sided flank pain. He denied fever, vomiting, dysuria, hematuria or diarrhea. Workup in ER revealed nonobstructing 5 mm stone within the distal right ureter and mild left hydronephrosis secondary to a partially obstructing 5 mm stone within the mid left ureter. ER discussed patient's CT scan finding and clinical presentation with on-call urology who recommended admission for observation and possible intervention. Urology took patient to OR last night and placed bilateral JJ stents. Patient tolerated procedure well. No clarke was placed. Prior urine culture was positive for Ecoli, He has been receiving Rocephin. I will place him on Keflex 500mg BID x 7 days. He will need a recheck on BMP to make sure kidney function is improving. He will have close outpatient follow up with Urology in 1-2 weeks for stent removal and further plan of care. Status at Discharge Functional status at discharge: bed bound Overall status at discharge: patient is back to baseline Time Spent with Patient Time attestation: Total time spent providing and/or coordinating discharge services: Time spent: greater than 30 minutes Exam Narrative Exam Narrative: General: Patient is alert, and oriented to person, place and time with normal affect, proper hygiene Skin: no visible rashes, or ulcers Head: atraumatic, acephalic Eyes: PERRLA, no nystagmus present, conjunctiva clear, no scleral icterus Ears: normal gross auditory acuity Heart: Normal rate and rhythm, no murmurs/rubs/gallops Lungs: no audible wheezes, crackles and normal breath sounds all lung fernandez Abdomen: Normal audible bowel sounds, no distension, No palpable masses, no organomegaly, no rebound/guarding/ or rigidity Musculoskeletal: no swelling bilateral lower extremities, upper extremity tremors bilaterally Neuro: CN II-X grossly intact Constitutional Vital Signs, click to edit/add: Last Vital Signs Temp 98.2 F 01/11/24 03:00 Pulse 73 01/11/24 03:00 Resp 16 01/11/24 03:00 BP 138/66 01/11/24 03:00 Pulse Ox 91 L 01/11/24 03:00 O2 Del Method Room Air 01/11/24 03:00 DS: Data Data Completed and Pending Labs on day of discharge: Labs from last 24 hours 01/11/24 05:29 WBC 12.6 H RBC 3.97 L Hgb 11.8 L Hct 35.7 L MCV 89.9 MCH 29.7 MCHC 33.1 RDW 14.9 Plt Count 229 MPV 9.9 Seg Neuts % (Manual) 94.0 H Lymphocytes % (Manual) 3.0 L Monocytes % (Manual) 3.0 Eosinophils % (Manual) 0.0 L Basophils % (Manual) 0.0 L Neutrophils # (Manual) 11.84 H Lymphocytes # (Manual) 0.37 L Monocytes # (Manual) 0.37 Eosinophils # (Manual) 0.00 Basophils # (Manual) 0.00 Sodium 142 Potassium 4.4 Chloride 108 H Carbon Dioxide 26.1 Anion Gap 12.3 BUN 31.0 H Creatinine 1.78 H Est GFR ( Amer) 44 L Est GFR (Non-Af Amer) 36 L BUN/Creatinine Ratio 17.4 Glucose 138 H Calcium 8.8 Total Bilirubin 0.5 AST 13 L ALT 12 L Alkaline Phosphatase 74 Total Protein 6.3 L Albumin 2.8 L Globulin 3.5 Albumin/Globulin Ratio 0.8 Discharge Plan Discharge Disposition: Xfer LTC Condition: Good Discharge Medications: New cephalexin 500 mg capsule 500 mg PO BID 7 Days Qty: 14 0RF Continued carbidopa-levodopa 25-100 mg tablet extended release PO amantadine HCl 100 mg capsule 100 mg PO BID amlodipine 10 mg tablet 10 mg PO DAILY aspirin 81 mg capsule 81 mg PO DAILY cholecalciferol (vitamin D3) 10 mcg (400 unit) capsule 400 unit PO DAILY polyethylene glycol 3350 [Miralax] 17 gram/dose powder 17 g PO DAILY tolterodine 4 mg capsule,extended release 24hr 4 mg PO DAILY Print Language: Taiwanese Forms: Portal Instructions Follow Up Appointments: Please make appointment with Urology in 1-2 weeks for Stent removal; please recheck BMP in 1 week Discharge location: [facility]
[2024-01-11 08:43] VITALS: BP 148/55; PULSE 78; TEMP 36.7; O2SAT 93
--- NOTE | 2024-01-11 11:35 | PC.NURSE ---
Educational Technology Coordinator called and set up transportation with [facility]. Educational Technology Coordinator notified Jennifer at [facility] and attempted to give report to staff there but they do not answer the phone. Jennifer is aware that this has been attempted. Educational Technology Coordinator also contacted son, Anthony and left voicemail that he will be returning to [facility] this afternoon.
== END 2024-01-11 12:44 ==
LOC: ER 08:42 → MS 09:43
PROVIDERS: Internal Medicine; Urology; Admitting Provider Internal Medicine; Emergency Provider Emergency Medicine; PCP Family Medicine; Visit Provider Family Medicine
PROC: (CPT 52356; principal; 2024-01-10 17:30)
DX: N13.6 Pyonephrosis (principal); N35.912 Unspecified bulbous urethral stricture, male; G20.B2 Parkinson's disease with dyskinesia, with fluctuations; N18.31 Chronic kidney disease, stage 3a; I12.9 Hypertensive chronic kidney disease with stage 1 through stage 4 chronic kidney disease, or unspecified chronic kidney disease; Z86.73 Personal history of transient ischemic attack (TIA), and cerebral infarction without residual deficits; G31.84 Mild cognitive impairment of uncertain or unknown etiology
CPT/HCPCS: 52356; 36415; 74176; 76000; 80048; 80053; 81001; 82365; 83605; 85007; 85025; 85027; 87086; 93005; 94761; 96365; 96375; 99285; 99999; G0378; J0330; J0360; J0690; J0696; J1100; J2270; J2371; J2405; J2704